=== PATIENT | female | born 1980 | race Two or more races ===

== ENCOUNTER 2020-07-05 11:23 | Outpatient (REF) | payer OTHER, SELFPAY ==
[2020-07-07 10:01] LABS: CDIFF Ag Negative (Negative); CDIFF Internal ctrl Dots and bkg OK (V); CDiff Toxin Negative (Negative)
== END 2020-07-05 11:24 | disposition home or self-care (01) ==
LOC: HO.LNP 11:23
PROVIDERS: Visit Provider Nurse Practitioner
DX: R19.7 Diarrhea, unspecified (principal)
CPT/HCPCS: 87045; 87046; 87324; 87449

== ENCOUNTER → 2020-07-20 09:57 | Outpatient (BNVA) | payer OTHER, SELFPAY | PROVIDERS: PCP Internal Medicine; Referring Provider Internal Medicine; Visit Provider Nurse Practitioner | DX: Z76.89 Persons encountering health services in other specified circumstances (principal) ==

== ENCOUNTER 2020-08-16 12:33 | Outpatient (REF) | payer OTHER, SELFPAY ==
--- NOTE | 2020-08-16 12:37 | CT_ITS ---
EXAMINATION: CT ABDOMEN AND PELVIS WITH CONTRAST CLINICAL INFORMATION: Diarrhea COMPARISON: Previous CT of the abdomen and pelvis April 2018 TECHNIQUE: Multidetector volumetric images were obtained from the superior aspect of the liver through the pubic symphysis following administration 85 mL of Omnipaque 350 intravenous contrast. Sagittal and coronal reformatted images were obtained on the technologist's workstation. Oral contrast: Yes This CT examination was performed using dose optimization techniques as appropriate, variously including the following: *Automated exposure control *Adjustment of mA and/or kV according to patient size (this includes techniques or standardized protocols for targeted exams where dose is matched to indication/reason for exam; i.e. extremities or head) *Use of iterative reconstruction technique DLP: 452 mGy-cm FINDINGS: LUNG BASES: The visualized lung bases are unremarkable. LIVER, GALLBLADDER, AND BILIARY TREE: The liver is normal in size, shape, and attenuation. There are small calcifications in the liver that are stable. No other focal hepatic lesion or biliary ductal dilatation is present. The gallbladder is unremarkable with no evidence of radiopaque gallstones, gallbladder wall thickening, or obvious pericholecystic inflammatory changes. PANCREAS: Unremarkable. SPLEEN: Unremarkable. ADRENAL GLANDS: Unremarkable. KIDNEYS AND URETERS: There are several small bilateral low-attenuation renal lesions. These are difficult to characterize due to small size but probably represent small cysts. BLADDER: Not optimally distended. GASTROINTESTINAL TRACT: There is diverticulosis of the colon. No evidence of diverticulitis is seen. There is mild wall thickening of the sigmoid colon suggestive of colitis. There is a small bowel/duodenal diverticulum adjacent to the head of the pancreas. The appendix has been removed. The stomach is unremarkable. ABDOMINAL WALL: No significant hernia is appreciated. LYMPH NODES: Normal. VASCULAR: Unremarkable. PELVIC VISCERA: Unremarkable. OSSEOUS STRUCTURES: Unremarkable. CT/CT abdomen pelvis w con IMPRESSION: Mild wall thickening of the sigmoid colon suggestive of colitis. Diverticulosis of the colon. No evidence of diverticulitis.
[2020-08-16] MEDS: Barium Sulfate Oral (Vanilla) 450 ML ORAL.SUSP 900 ML PO (15:09)
[2020-08-16] MEDS: iohexoL 350 MG/ML 100 ML INFUS..BTL IV (15:09)
== END 2020-08-16 12:34 | disposition home or self-care (01) ==
LOC: HO.CT 12:33
PROVIDERS: PCP Internal Medicine; Visit Provider Nurse Practitioner
DX: R19.7 Diarrhea, unspecified (principal); R10.9 Unspecified abdominal pain
CPT/HCPCS: 74177; Q9967

== ENCOUNTER → 2020-10-07 15:00 | Outpatient (BNV) | payer OTHER, SELFPAY | PROVIDERS: PCP Internal Medicine; Visit Provider Internal Medicine | DX: E53.8 Deficiency of other specified B group vitamins (principal) | CPT/HCPCS: 99213; 99214 ==

== ENCOUNTER → 2020-10-17 13:50 | Outpatient (BNVA) | payer OTHER, SELFPAY | PROVIDERS: PCP Internal Medicine; Visit Provider Nurse Practitioner | DX: Z13.89 Encounter for screening for other disorder (principal) | CPT/HCPCS: 99212 ==

== ENCOUNTER → 2021-01-13 14:57 | Outpatient (BNVA) | payer OTHER, SELFPAY | PROVIDERS: Visit Provider Nurse Practitioner ==

== ENCOUNTER → 2021-03-07 08:51 | Outpatient (BNVA) | payer OTHER, SELFPAY | PROVIDERS: PCP Internal Medicine; Visit Provider Nurse Practitioner ==

== ENCOUNTER 2021-03-09 13:04 | Outpatient (REF) | payer OTHER, SELFPAY ==
[2021-03-09 14:22] LABS: MANUAL DIFF FLAG NO
[2021-03-09 14:28] LABS: Basophils Percent Auto 0.8 % (0-2); Eosinophils Absolute Auto 0.2 X10*3/uL (0.0-0.4); Eosinophils Percent Auto 3.9 % (0-4); Hematocrit 36.8 % (37-47); Hemoglobin 11.1 g/dl (12.0-16.0); Imm Gran Abs Auto 0.01 X10*3/uL (0.00-0.03); Imm Gran Pct Auto 0.2 % (0.0-0.4); Lymphocytes Absolute Auto 1.5 X10*3/uL (1.2-4.9); Mean Corpuscular HGB Conc 30.2 g/dl (31.0-35.0); Mean Corpuscular Hemoglobin 27.8 pg (27.0-33.0); Mean Platelet Volume 11.7 fL (9.4-12.3); Monocytes Absolute Auto 0.4 X10*3/uL (0.1-1.2); Monocytes Percent Auto 7.2 % (2-11); Neutrophils Percent Auto 57.9 % (45-73); Platelet Count 252 X10*3/uL (160-400); Red Cell Distribution Width 13.3 % (11.0-16.0); White Blood Count 5.1 X10*3/uL (4.8-10.8)
[2021-03-09 14:45] LABS: Blood Urea Nitrogen 13 mg/dL (9-16); C Reactive Protein 0.33 mg/dL (< or = 0.50); Estimated Glomerular Filt Rate > 60
[2021-03-09 15:13] LABS: Folate 19.1 ng/mL (> or = 4.0); Vitamin B12 382 pg/mL (200-900)
[2021-03-15 21:31] LABS: Calprotectin, Fecal 7 mcg/g
== END 2021-03-09 13:05 | disposition home or self-care (01) ==
LOC: HO.LAB 13:04
PROVIDERS: PCP Internal Medicine; Visit Provider Nurse Practitioner
DX: R10.9 Unspecified abdominal pain (principal); K52.9 Noninfective gastroenteritis and colitis, unspecified; E53.8 Deficiency of other specified B group vitamins
CPT/HCPCS: 36415; 81479; 82397; 82565; 82607; 82746; 83520; 83993; 84520; 85025; 86140; 88346; 88350

== ENCOUNTER → 2021-03-16 14:56 | Outpatient (BNVA) | payer OTHER, SELFPAY | PROVIDERS: PCP Internal Medicine; Referring Provider Internal Medicine; Visit Provider Surgery ==

== ENCOUNTER → 2021-03-24 14:35 | Outpatient (BNVA) | payer OTHER, SELFPAY | PROVIDERS: PCP Internal Medicine; Visit Provider Nurse Practitioner ==

== ENCOUNTER 2021-05-01 15:04 | Outpatient (REF) | payer OTHER, SELFPAY ==
[2021-05-01 16:58] LABS: Blood Urea Nitrogen 12 mg/dL (9-16); Estimated Glomerular Filt Rate > 60
== END 2021-05-01 15:05 | disposition home or self-care (01) ==
LOC: HO.LAB 15:04
PROVIDERS: PCP Internal Medicine; Referring Provider Internal Medicine; Visit Provider Surgery
DX: K57.90 Diverticulosis of intestine, part unspecified, without perforation or abscess without bleeding (principal)
CPT/HCPCS: 36415; 82565; 84520; 99212

== ENCOUNTER → 2021-05-02 10:05 | Outpatient (BNVA) | payer OTHER, SELFPAY | PROVIDERS: PCP Internal Medicine; Referring Provider Internal Medicine; Visit Provider Internal Medicine | DX: R06.02 Shortness of breath (principal); R00.2 Palpitations | CPT/HCPCS: 93005; 99202 ==

== ENCOUNTER → 2021-06-09 13:08 | Outpatient (REF) | payer OTHER, SELFPAY ==
--- NOTE | 2021-06-09 13:13 | HM_ITS ---
Total monitoring time 3 days and 17 hours. Underlying rhythm is sinus. Minimum heart rate 60/Min. Maximum 149/Min. Average 76/Min. No atrial fibrillation or flutter. Rare supraventricular ectopy. [place] 0.6%. Very rare ventricular ectopy with minimal burden. No patient events. MTDD
== END ==
LOC: HO.CARD 13:08
PROVIDERS: PCP Internal Medicine; Visit Provider Internal Medicine
DX: R00.2 Palpitations (principal)
CPT/HCPCS: 93242

== ENCOUNTER → 2021-06-15 12:56 | Outpatient (REF) | payer OTHER, SELFPAY | LOC: HO.SL 12:56 | PROVIDERS: Visit Provider Internal Medicine | DX: G47.33 Obstructive sleep apnea (adult) (pediatric) (principal) | CPT/HCPCS: 95806 ==

== ENCOUNTER 2021-06-22 14:22 | Outpatient (REF) | payer OTHER, SELFPAY ==
--- NOTE | ~2021-06-22 | CT_ITS ---
EXAMINATION: CT ABDOMEN AND PELVIS WITH CONTRAST CLINICAL INFORMATION: Diverticulosis. COMPARISON: Prior CT examinations, most recently 08/16/2020. TECHNIQUE: Multidetector volumetric images were obtained from the superior aspect of the liver through the pubic symphysis following administration 85 mL of Omnipaque 350 intravenous contrast. Sagittal and coronal reformatted images were obtained on the technologist's workstation. Oral contrast: No This CT examination was performed using dose optimization techniques as appropriate, variously including the following: *Automated exposure control *Adjustment of mA and/or kV according to patient size (this includes techniques or standardized protocols for targeted exams where dose is matched to indication/reason for exam; i.e. extremities or head) *Use of iterative reconstruction technique DLP: 432 mGy-cm FINDINGS: LUNG BASES: The visualized lung bases are unremarkable. LIVER, GALLBLADDER, AND BILIARY TREE: The liver is normal in size, shape, and mildly diminished in attenuation. No focal hepatic lesion or biliary ductal dilatation is present. The gallbladder is unremarkable with no evidence of radiopaque gallstones, gallbladder wall thickening, or obvious pericholecystic inflammatory changes. PANCREAS: Unremarkable. SPLEEN: Unremarkable. ADRENAL GLANDS: Unremarkable. KIDNEYS AND URETERS: The kidneys are normal in size, shape, and attenuation. No hydronephrosis, hydroureter, or calculi seen. No perinephric stranding. BLADDER: Unremarkable. GASTROINTESTINAL TRACT: There is moderate colonic diverticulosis, without acute diverticulitis. No bowel obstruction, free intraperitoneal air or abscess is seen. There is no focal bowel wall thickening. The vermiform appendix is surgically absent. ABDOMINAL WALL: No significant hernia is appreciated. LYMPH NODES: Normal. VASCULAR: Unremarkable. PELVIC VISCERA: The uterus is anteverted. A 2.8 x 1.9 cm low-attenuation anterior uterine body fibroid is questioned. The ovaries are unremarkable. No adnexal mass is seen. OSSEOUS STRUCTURES: Unremarkable. CT/CT abdomen pelvis w con IMPRESSION: 1. There is moderate colonic diverticulosis, without acute diverticulitis. No bowel obstruction, free intraperitoneal air or abscess is seen. There is no focal bowel wall thickening. The vermiform appendix is surgically absent. 2. There is mild hepatic steatosis. 3. A 2.8 cm uterine fibroid is questioned. This could be further evaluated with pelvic ultrasound, if clinically indicated.
[2021-06-22] MEDS: iohexoL 350 MG/ML 100 ML INFUS..BTL IV (15:49)
== END 2021-06-22 14:23 | disposition home or self-care (01) ==
LOC: HO.CT 14:22
PROVIDERS: Visit Provider Surgery
DX: K57.90 Diverticulosis of intestine, part unspecified, without perforation or abscess without bleeding (principal)
CPT/HCPCS: 74177; Q9967

== ENCOUNTER 2021-06-27 20:43 | Emergency (ER) | payer OTHER, SELFPAY ==
--- NOTE | ~2021-06-27 | CT_ITS ---
EXAMINATION: CT ABDOMEN AND PELVIS WITH CONTRAST CLINICAL INFORMATION: Left lower quadrant pain COMPARISON: CT abdomen pelvis dated 06/22/2021 and 08/16/2020 TECHNIQUE: Multidetector volumetric images were obtained from the superior aspect of the liver through the pubic symphysis following administration 85 mL of Omnipaque 350 intravenous contrast. Sagittal and coronal reformatted images were obtained on the technologist's workstation. Oral contrast: No This CT examination was performed using dose optimization techniques as appropriate, variously including the following: *Automated exposure control *Adjustment of mA and/or kV according to patient size (this includes techniques or standardized protocols for targeted exams where dose is matched to indication/reason for exam; i.e. extremities or head) *Use of iterative reconstruction technique DLP: 616 mGy-cm FINDINGS: LUNG BASES: The visualized lung bases are unremarkable. LIVER, GALLBLADDER, AND BILIARY TREE: The liver is normal in size, shape, and attenuation. No focal hepatic lesion or biliary ductal dilatation is present. The gallbladder is unremarkable with no evidence of radiopaque gallstones, gallbladder wall thickening, or obvious pericholecystic inflammatory changes. PANCREAS: Unremarkable. SPLEEN: Unremarkable. ADRENAL GLANDS: Unremarkable. KIDNEYS AND URETERS: The kidneys are normal in size, shape, and attenuation. No hydronephrosis, hydroureter, or calculi seen. No perinephric stranding. BLADDER: Unremarkable. GASTROINTESTINAL TRACT: The small and large bowel are unremarkable aside from colonic diverticula without diverticulitis. The appendix has been removed. ABDOMINAL WALL: No significant hernia is appreciated. LYMPH NODES: No retroperitoneal lymphadenopathy. VASCULAR: Unremarkable. PELVIC VISCERA: An anteverted uterus is present. No definite fibroid is seen. An abnormal adnexal mass is not present. No free intraperitoneal fluid is seen. OSSEOUS STRUCTURES: Unremarkable. CT/CT abdomen pelvis w con IMPRESSION: 1. Significant abnormality to correspond patient's left lower quadrant pain is not seen. 2. Incidental note made of colonic diverticulosis without diverticulitis and appendectomy changes.
[2021-06-27 22:26] VITALS: BP 106/69; PULSE 81; RESP 18; TEMP 36.8; O2SAT 100; BMI 29.8
[2021-06-27 22:43] LABS: Appearance Urine HAZY; Color Urine YELLOW; Glucose Urine UA NEG (NEG); Leukocyte Esterase Urine NEG (NEG); Nitrite Urine NEG (NEG); Urine Blood NEG (NEG); Urine Ketones NEG (NEG); Urine Protein NEG (NEG-TRACE)
--- NOTE | 2021-06-27 22:43 | ED.ABDPAIN ---
HPI - Abdominal Pain General Chief Complaint: Abdominal Pain Stated Complaint: abd pain Time Seen by Provider: 06/27/21 21:58 Source: patient Mode of arrival: ambulatory Limitations: no limitations History of Present Illness MD elicited complaint: abdominal pain Pertinent past history: diverticulitis Onset (ago): day(s) (chronic but worse yesterday ) Pain Consistency: constant Location: LLQ Severity: severe Radiation: none Migration to: no migration Exacerbating factors: movement Relieving factors: nothing Context: history of similar episodes Associated symptoms: nausea and diarrhea Related Data Home Medications Medication Instructions Recorded Confirmed hydrocortisone 2.5 % topical cream 1 applic [place] BID-QID PRN 06/20/20 05/02/21 with perineal applicator (Anusol-HC) clonazepam 0.5 mg tablet 1 tab PO DAILY PRN 10/07/20 05/02/21 meclizine 25 mg tablet 1 tab PO DAILY 10/07/20 05/02/21 fluoxetine 40 mg capsule 40 mg PO QAM 10/17/20 05/02/21 hydroxyzine HCl 25 mg tablet 25 mg PO TID 10/17/20 05/02/21 ketoconazole 2 % topical cream appl TOPICAL BID 10/17/20 05/02/21 metronidazole 0.75 % topical cream appl TOPICAL BID 10/17/20 05/02/21 triamcinolone acetonide 0.1 % appl TOPICAL BID 10/17/20 05/02/21 topical cream hydroxyzine pamoate 25 mg capsule 25 mg PO BEDTIME 03/07/21 05/02/21 (Vistaril) lactobacillus combination no.4 3 3,000 mmu cells PO DAILY 03/24/21 05/02/21 billion cell capsule (Probiotic) wheat dextrin 3 gram/3.5 gram oral 1.5 g PO BID 03/24/21 05/02/21 powder (Best Fiber) prednisone 20 mg tablet 20 mg PO BID 05/02/21 05/02/21 Previous Rx's Medication Instructions Recorded ondansetron 4 mg disintegrating 4 mg PO Q8H PRN 30 Days #90 tab 10/17/20 tablet albuterol sulfate 90 mcg/actuation 2 puff INHALATION Q4-6H PRN 30 06/17/21 aerosol inhaler Days #8.5 g gabapentin 100 mg capsule 100 mg PO BID 90 Days #180 cap 06/17/21 tramadol 50 mg tablet 50 mg PO Q8H PRN 30 Days #90 tab 06/17/21 amoxicillin 875 mg-potassium 1 tab PO BID #14 tab 06/28/21 clavulanate 125 mg tablet (Augmentin) morphine 15 mg immediate release 15 mg PO Q6H PRN 3 Days #8 tab 06/28/21 tablet ondansetron 4 mg disintegrating 4 mg PO Q8H PRN #20 tab 06/28/21 tablet Allergies Allergy/AdvReac Type Severity Reaction Status Date / Time No Known Allergies Allergy Verified 06/27/21 22:25 [No Known Allergies*] Review of Systems Review of Systems Constitutional : No Weight loss, No Fever, No Chills ENT/Mouth : No sore throat, No Rhinorrhea Eyes: No Swelling, No Redness Cardiovascular : No Chest Pain, No SOB, NoEdema Respiratory : No Cough, No Sputum, No Wheezing Gastrointestinal : Positive Nausea, no Vomiting, positive Diarrhea, positive abdominal Pain, No Hematochezia, No Melena Genitourinary : No Dysuria, No Urinary Frequency, No Hematuria, No Urgency Musculoskeletal : No joint pain, No Myalgias, No Joint Swelling Skin : No Skin Lesions, No rash Neuro : No Weakness, No Numbness, No Dizziness, No Headache Psych : No Anxiety/Panic, No Depression Heme/Lymph: No Bruising, No Lymphadenopathy Endocrine : No Polyuria, No Polydipsia All other systems reviewed and are negative. Physical Exam Vital Signs: Vital Signs: Last Vital Signs Temp 98.1 F 06/27/21 22:51 Pulse 78 06/27/21 22:51 Resp 18 06/27/21 22:51 BP 111/71 06/27/21 22:51 Pulse Ox 100 06/27/21 22:51 Body Mass Index 29.8 Appearance: Alert. Oriented X3. No acute distress. Eyes: Pupils equal, round and reactive to light. ENT: Pharynx normal. Neck: Normal inspection. Neck supple. CVS: Normal heart rate and rhythm. Pulses normal. Respiratory: No respiratory distress. Breath sounds normal. Abdomen: Soft and moderate LLQ pain no rebound Skin: Skin warm and dry. Normal skin color. Normal skin turgor. Extremities: No lower extremity edema. No calf ttp Neuro: Oriented X 3. No motor deficit. No sensory deficit. Course Course Course Narrative: no WBC count negative CT scan - possible clinical diverticulitis will start on augmentin and PO pain medications DC home MDM - Abdominal Pain MDM Narrative Medical decision making narrative: 40 yo female with recurrent diverticulitis - last medications levo/flagyl/prednisone which she feels did not help her about a month ago reports worsening pain and diarrhea - at this time will need labs, IVF morphine for pain CT scan to evaluate extent of disease/abscess. Dispo per results and findings. Lab Data Result diagrams: 06/27/21 22:54 06/27/21 22:54 Labs: Lab Results 06/27/21 06/27/21 06/27/21 Range/Units 22:34 22:34 22:52 WBC (4.8-10.8) X10*3/uL RBC (4.20-5.50) X10*6/uL Hgb (12.0-16.0) g/dl Hct (37.0-47.0) % MCV (80.0-98.0) fL MCH (27.0-33.0) pg MCHC (31.0-35.0) g/dl RDW (11.0-16.0) % Plt Count (160-400) X10*3/uL MPV (9.4-12.3) fL Immature Gran % (Auto) (0.0-0.4) % Neut % (Auto) (45-73) % Lymph % (Auto) (20-40) % [place] % (Auto) (2-11) % Eos % (Auto) (0-4) % Baso % (Auto) (0-2) % Lymph # (Auto) (1.2-4.9) X10*3/uL [place] # (Auto) (0.1-1.2) X10*3/uL Eos # (Auto) (0.0-0.4) X10*3/uL Baso # (Auto) (0.0-0.2) X10*3/uL Abs Immat Gran (auto) (0.00-0.03) X10*3/uL Absolute Neuts (auto) (2.0-8.3) x10*3/uL Absolute Nucleated RBC (0.0-0.012) X10*3/uL Nucleated RBC % (auto) (0.0-0.2) /100WBC Sodium (135-145) mmol/L Potassium (3.3-5.1) mmol/L Chloride (96-108) mmol/L Carbon Dioxide (22-29) mmol/L Anion Gap (12-20) BUN (9-16) mg/dL Creatinine (0.5-1.4) mg/dL Estim Creat Clear Calc Estimated GFR Random Glucose (60-115) mg/dL Lactic Acid (0.5-2.0) mmol/L Calcium (8.4-10.2) mg/dL Magnesium (1.6-2.6) mg/dL Total Bilirubin (0.0-1.0) mg/dL Direct Bilirubin (0.0-0.5) mg/dL AST (5-31) U/L ALT (0-31) U/L Alkaline Phosphatase (39-117) U/L Total Protein (6.5-8.0) g/dL Albumin (3.5-5.0) g/dL Lipase (8-78) U/L Urine Color YELLOW Urine Appearance HAZY Urine pH 7.0 (5.0-8.0) Ur Specific [place] 1.020 (1.005-1.025) Urine Protein NEG (NEG-TRACE) MG/DL Urine Glucose (UA) NEG (NEG) MG/DL Urine Ketones NEG (NEG) MG/DL Urine Blood NEG (NEG) Urine Nitrite NEG (NEG) Ur Leukocyte Esterase NEG (NEG) Urine Test NEGATIVE (NEGATIVE) COVID-19 (ROSALINDA) Negative (Negative) COVID-19 Clin Com See Note 06/27/21 06/27/21 06/27/21 Range/Units 22:54 22:54 22:54 WBC 8.2 (4.8-10.8) X10*3/uL RBC 3.86 L (4.20-5.50) X10*6/uL Hgb 11.2 L (12.0-16.0) g/dl Hct 35.4 L (37.0-47.0) % MCV 91.7 (80.0-98.0) fL MCH 29.0 (27.0-33.0) pg MCHC 31.6 (31.0-35.0) g/dl RDW 13.3 (11.0-16.0) % Plt Count 325 (160-400) X10*3/uL MPV 10.2 (9.4-12.3) fL Immature Gran % (Auto) 0.1 (0.0-0.4) % Neut % (Auto) 59.4 (45-73) % Lymph % (Auto) 27.2 (20-40) % [place] % (Auto) 8.1 (2-11) % Eos % (Auto) 4.6 H (0-4) % Baso % (Auto) 0.6 (0-2) % Lymph # (Auto) 2.2 (1.2-4.9) X10*3/uL [place] # (Auto) 0.7 (0.1-1.2) X10*3/uL Eos # (Auto) 0.4 (0.0-0.4) X10*3/uL Baso # (Auto) 0.1 (0.0-0.2) X10*3/uL Abs Immat Gran (auto) 0.01 (0.00-0.03) X10*3/uL Absolute Neuts (auto) 4.9 (2.0-8.3) x10*3/uL Absolute Nucleated RBC 0.000 (0.0-0.012) X10*3/uL Nucleated RBC % (auto) 0.0 (0.0-0.2) /100WBC Sodium 143 (135-145) mmol/L Potassium 4.3 (3.3-5.1) mmol/L Chloride 106 (96-108) mmol/L Carbon Dioxide 31 H (22-29) mmol/L Anion Gap 10 L (12-20) BUN 10 (9-16) mg/dL Creatinine 0.81 (0.5-1.4) mg/dL Estim Creat Clear Calc 88.6 Estimated GFR > 60 Random Glucose 104 (60-115) mg/dL Lactic Acid 1.6 (0.5-2.0) mmol/L Calcium 9.2 (8.4-10.2) mg/dL Magnesium 2.2 (1.6-2.6) mg/dL Total Bilirubin 0.3 (0.0-1.0) mg/dL Direct Bilirubin < 0.2 (0.0-0.5) mg/dL AST 17 (5-31) U/L ALT 15 (0-31) U/L Alkaline Phosphatase 80 (39-117) U/L Total Protein 6.9 (6.5-8.0) g/dL Albumin 4.2 (3.5-5.0) g/dL Lipase 35 (8-78) U/L Urine Color Urine Appearance Urine pH (5.0-8.0) Ur Specific [place] (1.005-1.025) Urine Protein (NEG-TRACE) MG/DL Urine Glucose (UA) (NEG) MG/DL Urine Ketones (NEG) MG/DL Urine Blood (NEG) Urine Nitrite (NEG) Ur Leukocyte Esterase (NEG) Urine Test (NEGATIVE) COVID-19 (ROSALINDA) (Negative) COVID-19 Clin Com Discharge Plan Discharge Clinical Impression: Abdominal pain Qualifiers: Abdominal location: left lower quadrant Qualified Code(s): R10.32 - Left lower quadrant pain Patient Disposition: Home, Self-Care Instructions: Abdominal Pain (ED) Additional Instructions: return to ED for any worsening symptoms or concerns Prescriptions: New morphine 15 mg tablet 15 mg PO Q6H PRN (Reason: pain) 3 Days Qty: 8 RF: 0 ondansetron 4 mg tablet,disintegrating 4 mg PO Q8H PRN (Reason: nausea and vomiting) Qty: 20 RF: 0 amoxicillin-pot clavulanate [Augmentin] 875-125 mg tablet 1 tab PO BID Qty: 14 RF: 0 No Action albuterol sulfate 90 mcg/actuation HFA aerosol inhaler 2 puff inhalation Q4-6H PRN (Reason: shortness of breath or wheezing) 30 Days Qty: 8.5 RF: 6 gabapentin 100 mg capsule 100 mg PO BID 90 Days Qty: 180 RF: 3 tramadol 50 mg tablet 50 mg PO Q8H PRN (Reason: pain) 30 Days Qty: 90 RF: 0 clonazepam 0.5 mg tablet 1 tab PO DAILY PRN (Reason: Panic Attack(S)) RF: 0 meclizine 25 mg tablet 1 tab PO DAILY RF: 0 ketoconazole 2 % cream topical BID RF: 0 metronidazole 0.75 % cream topical BID RF: 0 triamcinolone acetonide 0.1 % cream topical BID RF: 0 hydroxyzine HCl 25 mg tablet 25 mg PO TID RF: 0 fluoxetine 40 mg capsule 40 mg PO QAM RF: 0 ondansetron 4 mg tablet,disintegrating 4 mg PO Q8H PRN (Reason: nausea and vomiting) 30 Days Qty: 90 RF: 1 Best Fiber 3 gram/3.5 gram powder 1.5 g PO BID RF: 0 Probiotic 3 billion cell capsule 3,000 mmu cells PO DAILY RF: 0 prednisone 20 mg tablet 20 mg PO BID RF: 0 hydrocortisone [Anusol-HC] 2.5 % cream with perineal applicator 1 applic [place] BID-QID PRN (Reason: Rash) RF: 0 hydroxyzine pamoate [Vistaril] 25 mg capsule 25 mg PO BEDTIME RF: 0 PMFSH Past Medical History Attestation statement: The following information was validated with the patient. Medical History Arthritis Colitis Diverticular disease Fibromyalgia Surgical History History of appendectomy History of esophagogastroduodenoscopy (EGD) History of lithotripsy History of tubal ligation Family History Family History Father Diabetes Hypertension CVD (cardiovascular disease) Heart disease FH: mental illness Mother Asthma Family history of cancer Maternal Grandmother Diabetes Maternal Grandfather Colon cancer Maternal Aunt Colon cancer Family/Other Breast cancer Family/Other Pancreatic cancer Social History Social History Alcohol intake: current Alcohol intake frequency: does not drink Patient Tobacco Use Status: Never used Tobacco Advance Directives: No Advance Directives Information Provided: Yes
[2021-06-27 22:45] LABS: UPreg QC Valid YES; Urine Pregnancy NEGATIVE (NEGATIVE)
[2021-06-27 22:51] VITALS: BP 111/71; PULSE 78; RESP 18; TEMP 36.7; O2SAT 100
[2021-06-27 23:04] LABS: Basophils Absolute Auto 0.1 X10*3/uL (0.0-0.2); Basophils Percent Auto 0.6 % (0-2); Eosinophils Absolute Auto 0.4 X10*3/uL (0.0-0.4); Eosinophils Percent Auto 4.6 % (0-4); Hematocrit 35.4 % (37.0-47.0); Hemoglobin 11.2 g/dl (12.0-16.0); Imm Gran Abs Auto 0.01 X10*3/uL (0.00-0.03); Imm Gran Pct Auto 0.1 % (0.0-0.4); Lymphocytes Absolute Auto 2.2 X10*3/uL (1.2-4.9); Lymphocytes Percent Auto 27.2 % (20-40); MANUAL DIFF FLAG NO; Mean Corpuscular HGB Conc 31.6 g/dl (31.0-35.0); Mean Corpuscular Volume 91.7 fL (80.0-98.0); Mean Platelet Volume 10.2 fL (9.4-12.3); Monocytes Absolute Auto 0.7 X10*3/uL (0.1-1.2); Monocytes Percent Auto 8.1 % (2-11); Neutrophils Absolute Auto 4.9 x10*3/uL (2.0-8.3); Neutrophils Percent Auto 59.4 % (45-73); Platelet Count 325 X10*3/uL (160-400); Red Blood Count 3.86 X10*6/uL (4.20-5.50); Red Cell Distribution Width 13.3 % (11.0-16.0); White Blood Count 8.2 X10*3/uL (4.8-10.8)
[2021-06-27] MEDS: ondansetron HCL 4 MG/2 ML VIAL IVPUSH (23:04)
[2021-06-27] MEDS: 0.9 % Sodium Chloride 1,000 ML 999 ML IVCONT (23:04)
[2021-06-27] MEDS: Morphine Sulfate 4 MG/ML CARTRIDGE IVPUSH (23:04)
--- NOTE | 2021-06-27 23:06 | PC.NURSE ---
IV established, all labs including Covid swab obtained. Pt medicated per MAR with Morphine for 6/10 pain and IVF. Pt resting in bed, VSS @ this time. Call romero within reach, continue to monitor.
[2021-06-27 23:11] LABS: COVID-19 Test Negative (Negative); IDNOW Serial# 55D5AD1C
[2021-06-27 23:16] LABS: Lactic Acid 1.6 mmol/L (0.5-2.0)
[2021-06-27 23:21] LABS: Alanine Aminotransferase 15 U/L (0-31); Albumin Level 4.2 g/dL (3.5-5.0); Alkaline Phosphatase 80 U/L (39-117); Anion Gap 10 (12-20); Aspartate Amino Transferase 17 U/L (5-31); Bilirubin Direct < 0.2 mg/dL (0.0-0.5); Bilirubin Total 0.3 mg/dL (0.0-1.0); Blood Urea Nitrogen 10 mg/dL (9-16); Calcium 9.2 mg/dL (8.4-10.2); Carbon Dioxide 31 mmol/L (22-29); Chloride 106 mmol/L (96-108); Creatinine Clr Calc Pharmacy 88.6; Estimated Glomerular Filt Rate > 60; Glucose Random 104 mg/dL (60-115); Lipase 35 U/L (8-78); Magnesium 2.2 mg/dL (1.6-2.6); Potassium 4.3 mmol/L (3.3-5.1); Sodium 143 mmol/L (135-145); Total Protein 6.9 g/dL (6.5-8.0)
[2021-06-27] MEDS: iohexoL 350 MG/ML 100 ML INFUS..BTL 85 ML IV (23:48)
== END 2021-06-28 01:31 | disposition home or self-care (01) ==
PROVIDERS: Emergency Provider Emergency Medicine; PCP Internal Medicine
DX: R10.32 Left lower quadrant pain (principal); Z20.822 Contact with and (suspected) exposure to COVID-19
CPT/HCPCS: 36415; 74177; 80048; 80076; 81003; 81025; 83605; 83690; 83735; 85025; 87635; 96361; 96374; 96375; 99283; 99284; J2270; J2405; Q9967

== ENCOUNTER → 2021-06-29 13:13 | Outpatient (BNVA) | payer OTHER, SELFPAY | PROVIDERS: PCP Internal Medicine; Referring Provider Internal Medicine; Visit Provider Surgery | DX: Z87.19 Personal history of other diseases of the digestive system (principal) | CPT/HCPCS: 99212 ==

== ENCOUNTER 2021-08-07 10:59 | Outpatient (REF) | payer OTHER, SELFPAY | END 2021-08-07 11:00 | disposition home or self-care (01) | LOC: HO.LAB 10:59 | PROVIDERS: PCP Internal Medicine; Referring Provider Internal Medicine; Visit Provider Surgery | DX: L72.0 Epidermal cyst (principal) | CPT/HCPCS: 11403; 88304; 99212 ==

== ENCOUNTER → 2021-08-17 11:38 | Outpatient (BNVA) | payer OTHER, SELFPAY | PROVIDERS: PCP Internal Medicine; Referring Provider Internal Medicine; Visit Provider Surgery | DX: Z48.817 Encounter for surgical aftercare following surgery on the skin and subcutaneous tissue (principal); Z87.2 Personal history of diseases of the skin and subcutaneous tissue | CPT/HCPCS: 99212 ==

== ENCOUNTER → 2021-09-29 16:14 | Outpatient (BNVA) | payer OTHER, SELFPAY | PROVIDERS: PCP Internal Medicine; Referring Provider Internal Medicine; Visit Provider Nurse Practitioner | DX: K21.9 Gastro-esophageal reflux disease without esophagitis (principal); K59.04 Chronic idiopathic constipation; A04.8 Other specified bacterial intestinal infections; R19.7 Diarrhea, unspecified; R10.9 Unspecified abdominal pain; R11.2 Nausea with vomiting, unspecified; Z87.19 Personal history of other diseases of the digestive system | CPT/HCPCS: 99212 ==

== ENCOUNTER 2021-12-21 15:44 | Outpatient (REF) | payer OTHER, SELFPAY ==
--- NOTE | ~2021-12-21 | XR_ITS ---
EXAMINATION: XR KNEE, LEFT CLINICAL INFORMATION: Pain COMPARISON: Previous x-ray February 2019 TECHNIQUE: Three views of the left knee. FINDINGS: Bone alignment is normal. No fracture or dislocation is seen. There is slight lateral tilt of the patella. Joint spaces are otherwise normal. There is no joint effusion. XR/XR knee LT 3V IMPRESSION: Slight lateral tilt of patella otherwise unremarkable exam.
== END 2021-12-21 15:45 | disposition home or self-care (01) ==
LOC: HO.XRAY 15:44
PROVIDERS: PCP Internal Medicine; Visit Provider Internal Medicine
DX: M25.562 Pain in left knee (principal)
CPT/HCPCS: 73562

== ENCOUNTER → 2022-03-16 16:09 | Outpatient (BNVA) | payer OTHER, SELFPAY | PROVIDERS: PCP Internal Medicine; Visit Provider Nurse Practitioner | DX: R19.7 Diarrhea, unspecified (principal); K21.9 Gastro-esophageal reflux disease without esophagitis; A04.8 Other specified bacterial intestinal infections; K57.92 Diverticulitis of intestine, part unspecified, without perforation or abscess without bleeding; R10.9 Unspecified abdominal pain | CPT/HCPCS: 99212 ==

== ENCOUNTER 2022-07-16 13:34 | Outpatient (REF) | payer OTHER, SELFPAY ==
[2022-07-16 13:52] LABS: MANUAL DIFF FLAG NO
[2022-07-16 15:02] LABS: Basophils Percent Auto 0.7 % (0-2); Eosinophils Absolute Auto 0.2 X10*3/uL (0.0-0.4); Eosinophils Percent Auto 4.5 % (0-4); Hematocrit 34.5 % (37.0-47.0); Hemoglobin 10.3 g/dl (12.0-16.0); Imm Gran Abs Auto 0.01 X10*3/uL (0.00-0.03); Imm Gran Pct Auto 0.2 % (0.0-0.4); Lymphocytes Absolute Auto 1.6 X10*3/uL (1.2-4.9); Lymphocytes Percent Auto 29.8 % (20-40); Mean Corpuscular HGB Conc 29.9 g/dl (31.0-35.0); Mean Corpuscular Volume 87.1 fL (80.0-98.0); Mean Platelet Volume 10.8 fL (9.4-12.3); Monocytes Absolute Auto 0.4 X10*3/uL (0.1-1.2); Monocytes Percent Auto 7.4 % (2-11); Neutrophils Absolute Auto 3.1 x10*3/uL (2.0-8.3); Neutrophils Percent Auto 57.4 % (45-73); Platelet Count 362 X10*3/uL (160-400); Red Blood Count 3.96 X10*6/uL (4.20-5.50); Red Cell Distribution Width 14.4 % (11.0-16.0); White Blood Count 5.4 X10*3/uL (4.8-10.8)
[2022-07-16 15:31] LABS: Alanine Aminotransferase 14 U/L (0-31); Alkaline Phosphatase 82 U/L (39-117); Anion Gap 11 (12-20); Aspartate Amino Transferase 19 U/L (5-31); Bilirubin Total 0.6 mg/dL (0.0-1.0); Blood Urea Nitrogen 16 mg/dL (9-16); Calcium 9.3 mg/dL (8.4-10.2); Carbon Dioxide 26 mmol/L (22-29); Chloride 106 mmol/L (96-108); Cholesterol 205 mg/dL; Estimated Glomerular Filt Rate > 60; Glucose Fasting 89 mg/dL (60-99); HDL Cholesterol 52 mg/dL; LDL Cholesterol Calculated 131 mg/dl; Potassium 4.4 mmol/L (3.3-5.1); Sodium 139 mmol/L (135-145); Total Protein 6.8 g/dL (6.5-8.0); Triglycerides 111 mg/dL
== END 2022-07-16 13:35 | disposition home or self-care (01) ==
LOC: HO.LAB 13:34
PROVIDERS: PCP Internal Medicine; Visit Provider Internal Medicine
DX: Z00.00 Encounter for general adult medical examination without abnormal findings (principal); K21.9 Gastro-esophageal reflux disease without esophagitis
CPT/HCPCS: 36415; 80053; 80061; 85025

== ENCOUNTER 2022-11-06 10:25 | Day surgery (SDC) | payer OTHER, SELFPAY ==
--- NOTE | 2022-11-05 11:57 | HO.ANESPROP2 ---
Documented by User: Paula Johnson NP 11/05/22 12:00 HPI - Anesthesia Eval Consult details Narrative: 42yo F for Colonoscopy PMFSH Active Problems Active Problems: All Active Problems (Updated 10/31/22 @ 11:56 by Wanda Davalos, VALDE[place]) Diarrhea (Acute) GERD (gastroesophageal reflux disease) (Acute) Chronic idiopathic constipation (Acute) H. pylori infection (Acute) Vitamin B12 deficiency (Chronic) Nausea and vomiting (Acute) SOB (shortness of breath) (Acute) Heart palpitations (Acute) Abdominal cramping (Acute) Rosacea (Acute) Physical exam (Acute) Diverticulitis (Acute) Polyarthralgia (Acute) Left knee pain (Acute) Mild persistent asthma (Acute) Epidermal cyst (Acute) LOVE (generalized anxiety disorder) (Acute) Mild recurrent major depression (Acute) Abscess (Acute) History of diverticulitis (Acute) Fibromyalgia (Acute) Past Medical History Medical History (Updated 10/31/22 @ 11:56 by Wanda Davalos RN) Abdominal pain Abscess Arthritis Colitis with complication Diverticular disease Epidermal cyst Fibromyalgia LOVE (generalized anxiety disorder) GERD (gastroesophageal reflux disease) Heart palpitations History of diverticulitis Left knee pain Mild persistent asthma Mild recurrent major depression TRUDY (obstructive sleep apnea) Panic attacks Polyarthralgia Family History Family History Father Diabetes Hypertension CVD (cardiovascular disease) Heart disease FH: mental illness Mother Asthma Family history of cancer Maternal Grandmother Diabetes Maternal Grandfather Colon cancer Maternal Aunt Colon cancer Family/Other Breast cancer Family/Other Pancreatic cancer Surgical History Surgical History (Updated 10/29/22 @ 15:51 by Vinita Mosley MD) H/O LEEP History of appendectomy History of esophagogastroduodenoscopy (EGD) History of lithotripsy History of removal of cyst (~08/07/21) History of tubal ligation Social History Social History Housing: Apartment Alcohol intake: never Patient Tobacco Use Status: Never used Tobacco e-Cigarette/Vaping Use: Never Used Second Hand Smoke Exposure: No Use of substances other than those prescribed or required for medical reasons: No Are you DNR?: No Advance Directives: No Advance Directives Information Provided: Yes service: No Current occupational status: unemployed Cognitive needs: No Hearing needs: No Vision needs: No Meds Allergies Allergy/AdvReac Type Severity Reaction Status Date / Time No Known Allergies Allergy Verified 10/31/22 11:14 [No Known Allergies*] Home Medications Medication Instructions Recorded Confirmed Last Taken Type clonazepam 0.5 mg tablet 1 tab PO DAILY PRN Panic Attack(S) 10/07/20 10/31/22 Unknown History hydroxyzine HCl 25 mg tablet 25 mg PO TID 10/17/20 10/31/22 Unknown History hydroxyzine pamoate 25 mg capsule 25 mg PO BEDTIME 03/07/21 10/31/22 Unknown History (Vistaril) lactobacillus combination no.4 3 3,000 mmu cells PO DAILY 03/24/21 10/31/22 Unknown History billion cell capsule (Probiotic) fluticasone propionate 50 1 spray intranasal DAILY 09/11/21 10/31/22 Unknown History mcg/actuation nasal spray,suspension fluoxetine 20 mg capsule 20 mg PO QAM 03/16/22 10/31/22 Unknown History Exam Exam Date and Time: November 05, 2022 115 Pertinent Lab Results Pertinent Lab Results: Laboratory Tests 07/16/22 10/29/22 13:51 15:17 WBC 7.2 Hgb 10.9 L Hct 33.9 L Plt Count 367 Sodium 139 Potassium 4.4 Chloride 106 Carbon Dioxide 26 BUN 16 Creatinine 0.78 Assessment and Plan Assessment Anesthesia Assessment: Chart Reviewed Documented by User: Genesis Beth MD 11/06/22 13:35 [facility] Past Medical History Medical History (Updated 10/31/22 @ 11:56 by Wanda Davalos RN) Abdominal pain Abscess Arthritis Colitis with complication Diverticular disease Epidermal cyst Fibromyalgia LOVE (generalized anxiety disorder) GERD (gastroesophageal reflux disease) Heart palpitations History of diverticulitis Left knee pain Mild persistent asthma Mild recurrent major depression TRUDY (obstructive sleep apnea) Panic attacks Polyarthralgia Family History Family History Father Diabetes Hypertension CVD (cardiovascular disease) Heart disease FH: mental illness Mother Asthma Family history of cancer Maternal Grandmother Diabetes Maternal Grandfather Colon cancer Maternal Aunt Colon cancer Family/Other Breast cancer Family/Other Pancreatic cancer Family history of problems with anesthesia: No Surgical History Surgical History (Updated 10/29/22 @ 15:51 by Vinita Mosley MD) H/O LEEP History of appendectomy History of esophagogastroduodenoscopy (EGD) History of lithotripsy History of removal of cyst (~08/07/21) History of tubal ligation History of Problems with Anesthesia: No Social History Social History Housing: Apartment Alcohol intake: never Patient Tobacco Use Status: Never used Tobacco e-Cigarette/Vaping Use: Never Used Second Hand Smoke Exposure: No Use of substances other than those prescribed or required for medical reasons: No Are you DNR?: No Advance Directives: No Advance Directives Information Provided: Yes service: No Current occupational status: unemployed Cognitive needs: No Hearing needs: No Vision needs: No Meds Allergies Allergy/AdvReac Type Severity Reaction Status Date / Time No Known Allergies Allergy Verified 10/31/22 11:14 [No Known Allergies*] Home Medications Medication Instructions Recorded Confirmed Last Taken Type clonazepam 0.5 mg tablet 1 tab PO DAILY PRN Panic Attack(S) 10/07/20 10/31/22 Unknown History hydroxyzine HCl 25 mg tablet 25 mg PO TID 10/17/20 10/31/22 Unknown History hydroxyzine pamoate 25 mg capsule 25 mg PO BEDTIME 03/07/21 10/31/22 Unknown History (Vistaril) lactobacillus combination no.4 3 3,000 mmu cells PO DAILY 03/24/21 10/31/22 Unknown History billion cell capsule (Probiotic) fluticasone propionate 50 1 spray intranasal DAILY 09/11/21 10/31/22 Unknown History mcg/actuation nasal spray,suspension fluoxetine 20 mg capsule 20 mg PO QAM 03/16/22 10/31/22 Unknown History Exam Airway Mallampati Class: II TM Dist: >3cm Neck ROM: Full Heart: rr Lungs: cta Assessment and Plan Final Anesthetic Review Family History of Problems with Anesthesia: No History of Problems with Anesthesia: No NPO: Yes ASA Class: II Final Preanesthetic Review: No Changes in Pt Med Stat, Meds/Allgs Chart Reviewed, Consent Obtained/Reviewed and Anes Risks/Benef Reviewed Patient Risk: Low Procedure Risk: Low Anesthetic Plan Anesthetic Plan: MAC: Disposition: Standard PACU
[2022-11-06 11:14] VITALS: BMI 30.2
[2022-11-06 11:16] VITALS: BP 116/72; PULSE 73; RESP 18; TEMP 36.8; O2SAT 98
[2022-11-06] MEDS: Lactated Ringers 1,000 ML 100 ML IVCONT (11:18)
--- NOTE | 2022-11-06 11:26 | MHC.SHP ---
Pre-Procedural Eval Section A Date of Service: 11/06/22 Section B Chief Complaint: Diverticulitis of intestine,diarrhea Details of Present Illness: grandparent Relevant Family History (Specify if Yes): Yes Relevant Social History: None Present Medications: see Short Stay Collaborative assessment Medical History: Significant History (Abdominal pain Abscess Arthritis Colitis with complication Diverticular disease Epidermal cyst Fibromyalgia LOVE (generalized anxiety disorder) GERD (gastroesophageal reflux disease) Heart palpitations History of diverticulitis Left knee pain Mild persistent asthma Mild recurrent major depression TRUDY) History of Previous Operations: Relevant previous surgery/procedure and date(s) (H/O LEEP History of appendectomy History of esophagogastroduodenoscopy (EGD) History of lithotripsy History of removal of cyst (~08/07/21) History of tubal ligation) Allergies: Allergies Allergy/AdvReac Type Severity Reaction Status Date / Time No Known Allergies Allergy Verified 10/31/22 11:14 [No Known Allergies*] Review of Systems Sugical H&P ROS: Negative: Constitution, Cardiovascular, Respiratory, Neurological, Psychiatric, Hem-Onc, Allergic/Immunologic, Gastrointestinal, Genitourinary, Musculoskeletal, Integumentary, Endocrine and Eyes/Ears/Nose/Throat Exam Surgical H&P Exam: Normal: HEENT, Normal: Heart, Normal: Lungs, Normal: Extremities, Normal: Abdomen, Normal: Skin and Normal: Neurological Plan Diagnosis/Plan: Unchanged I have reviewed the history and physical and performed a pertinent physical examination on my patient. No changes have occurred unless specified. Time Spent With Patient Time: Total time managing care of this patient today ____ minutes.
--- NOTE | 2022-11-06 11:52 | W.PM.OPN ---
Operative Note Operative Note Date of Service: 11/06/22 Narrative: Operative Information Procedure Description: Colonoscopy Indication: hx of diverticulitis Anesthesia: MAC COLONOSCOPY Instrument: Olympus variable stiffness pediatric scope 190L Colonoscopy Monitoring: Vital signs and clinical assessment, continuous EKG monitoring, Pulse oximetry, Carbon Dioxide monitoring and blood pressure monitoring were done throughout the procedure. Colon withdrawal time was 10 minutes. Procedure: The patient was placed in the left lateral decubitis position and pre-procedure medications were administered. After a digital rectal examination of the ano-rectum, the video colonoscope was inserted into the rectum and advanced through the colon to the cecum/TI. The colonoscope was slowly withdrawn in a retrograde panoramic fashion and the colon mucosa was carefully examined including a retroflexed view of the rectum. Findings and interventions are described below. Procedure Difficulty: moderate due to moderate severe diverticulosis of sigmoid Findings: Terminal Ileum-normal Cecum:normal Ascending Colon: normal Transverse Colon -normal Descending Colon:normal Sigmoid Colon: moderate severe diverticulosis with luminal narrowing Rectum: Retroflexion with small internal hemorrhoids, grade I Anorectum - normal Colon preparation: [place] Bowel Preparation Scale Right colon; 2 Transverse colon: 2 Left colon; 2 (0 = Unprepared colon segment with mucosa not seen due to solid stool that cannot be cleared. 1 = Portion of mucosa of the colon segment seen, but other areas of the colon segment not well seen due to staining, residual stool and/or opaque liquid. 2 = Minor amount of residual staining, small fragments of stool and/or opaque liquid, but mucosa of colon segment seen well. 3 = Entire mucosa of colon segment seen well with no residual staining, small fragments of stool or opaque liquid) Impression and Post Procedure Diagnosis: internal hemorrhoids diverticular disease Plan: High fiber diet leaflet Avoid straining at stool, epsom salts and sitz bath, anusol supps or cream Repeat Colonoscopy in 10 years or earlier if clinically indicated Above findings were reviewed with the patient and relevant handouts were provided if indicated.
[2022-11-06 12:43] VITALS: BP 98/61; PULSE 88; RESP 16; TEMP 36.6; O2SAT 96
[2022-11-06 12:58] VITALS: BP 102/69; PULSE 69; RESP 16; TEMP 36.6; O2SAT 100
== END 2022-11-06 13:39 | disposition home or self-care (01) ==
PROVIDERS: PCP Internal Medicine; Visit Provider Internal Medicine Gastroenterology
PROC: 0DJD8ZZ Inspection of Lower Intestinal Tract, Via Natural or Artificial Opening Endoscopic (ICD-10-PCS; CPT 45378; principal; 2022-11-06 11:20)
DX: K52.9 Noninfective gastroenteritis and colitis, unspecified (principal); Z87.19 Personal history of other diseases of the digestive system; K57.30 Diverticulosis of large intestine without perforation or abscess without bleeding; K64.0 First degree hemorrhoids; K59.04 Chronic idiopathic constipation; K21.9 Gastro-esophageal reflux disease without esophagitis; J45.30 Mild persistent asthma, uncomplicated; M79.7 Fibromyalgia; G47.33 Obstructive sleep apnea (adult) (pediatric); F33.0 Major depressive disorder, recurrent, mild; F41.1 Generalized anxiety disorder; Z79.51 Long term (current) use of inhaled steroids; Z79.899 Other long term (current) drug therapy; Z87.442 Personal history of urinary calculi; Z98.51 Tubal ligation status
CPT/HCPCS: 45378

== ENCOUNTER 2022-11-19 12:56 | Outpatient (REF) | payer OTHER, SELFPAY | END 2022-11-19 12:57 | disposition home or self-care (01) | LOC: HO.MDS 12:56 | PROVIDERS: Visit Provider Internal Medicine | DX: D50.9 Iron deficiency anemia, unspecified (principal) | CPT/HCPCS: 96365; J1756 ==

== ENCOUNTER → 2022-11-20 13:59 | Outpatient (BNVA) | payer OTHER, SELFPAY | PROVIDERS: PCP Internal Medicine; Visit Provider Nurse Practitioner | DX: K59.04 Chronic idiopathic constipation (principal); K57.90 Diverticulosis of intestine, part unspecified, without perforation or abscess without bleeding; K57.92 Diverticulitis of intestine, part unspecified, without perforation or abscess without bleeding | CPT/HCPCS: 99212 ==

== ENCOUNTER 2022-11-28 12:29 | Outpatient (REF) | payer OTHER, SELFPAY | END 2022-11-28 12:30 | disposition home or self-care (01) | LOC: HO.MDS 12:29 | PROVIDERS: Visit Provider Internal Medicine | DX: D50.9 Iron deficiency anemia, unspecified (principal) | CPT/HCPCS: 96365; 96375; J1200; J2916 ==

== ENCOUNTER 2022-11-28 15:47 | Emergency (ER) | payer OTHER, SELFPAY ==
--- NOTE | ~2022-11-28 | XR_ITS ---
EXAMINATION: XR CHEST CLINICAL INFORMATION: Chest pain COMPARISON: January 06, 2015 TECHNIQUE: AP portable view of the chest was obtained. FINDINGS: No significant abnormality is noted involving the heart, lungs, mediastinum, bony thorax or soft tissues. XR/XR chest 1V IMPRESSION: No acute disease.
[2022-11-28 15:52] VITALS: BP 108/67; PULSE 70; RESP 22; TEMP 37.2; O2SAT 98; BMI 31.2
--- NOTE | 2022-11-28 16:04 | ECG_ITS ---
Test Reason : CHEST PAIN Blood Pressure : / mmHG Vent. Rate : 068 BPM Atrial Rate : 068 BPM P-R Int : 144 ms QRS Dur : 070 ms QT Int : 396 ms P-R-T Axes : 020 -09 079 degrees QTc Int : 421 ms Normal sinus rhythm Minimal voltage criteria for LVH, may be normal variant ( R in aVL ) Nonspecific T wave abnormality Abnormal ECG No previous ECGs available Referred By: Corry Patton Electronically Signed By:MARY BENITES MD
--- NOTE | 2022-11-28 16:06 | ED.GENADULT ---
HPI - General Adult General Chief complaint: Allergic Reaction Stated complaint: med reaction Time Seen by Provider: 11/28/22 15:56 Source: patient Mode of arrival: wheelchair Limitations: no limitations History of Present Illness HPI narrative: This is a 42-year-old female history of GERD, chronic idiopathic constipation, H pylori infection, palpitations, rosacea, anxiety, depression, fibromyalgia presenting to the emergency department from Oncology status post receiving an iron infusion which patient reports she had an adverse effect to, according to report obtained by nursing patient is offered hives, extremity pain and swelling after infusion, they gave steroids, Benadryl after the infusion which seemed to help however patient is now still complaining of body aches and pains. Also reporting associated chest pain, shortness of breath, chest pain substernal in nature, nonradiating with associated discomfort with deep breathing. She tells me all this started after the infusion. Patient denies difficulty controlling secretions, swelling to tongue, numbness and tingling of mouth, lower extremity swelling or pain, nausea, vomiting, abdominal pain, headache, vision changes, dizziness. Related Data Home Medications Medication Instructions Recorded Confirmed clonazepam 0.5 mg tablet 1 tab PO DAILY PRN Panic Attack(S) 10/07/20 10/31/22 hydroxyzine pamoate 25 mg capsule 25 mg PO BEDTIME 03/07/21 10/31/22 (Vistaril) lactobacillus combination no.4 3 3,000 mmu cells PO DAILY 03/24/21 10/31/22 billion cell capsule (Probiotic) fluticasone propionate 50 1 spray intranasal DAILY 09/11/21 10/31/22 mcg/actuation nasal spray,suspension fluoxetine 20 mg capsule 20 mg PO QAM 03/16/22 10/31/22 methocarbamol 750 mg tablet 750 mg PO Q8H 11/20/22 Previous Rx's Medication Instructions Recorded ferrous sulfate 325 mg (65 mg 325 mg PO DAILY 90 days #90 tabs 10/29/22 iron) tablet gabapentin 100 mg capsule 100 mg PO BID 90 days #180 caps 11/02/22 tramadol 50 mg tablet 50 mg PO Q8H PRN pain 30 days #90 11/02/22 tabs dicyclomine 20 mg tablet 20 mg PO QID 30 days #120 tabs 11/20/22 levofloxacin 500 mg tablet 500 mg PO DAILY #14 tabs 11/20/22 linaclotide 72 mcg capsule 72 mcg PO QAM #30 caps 11/20/22 (Linzess) metronidazole 500 mg tablet 500 mg PO TID 14 days #42 tabs 11/20/22 omeprazole 40 mg capsule,delayed 40 mg PO DAILY #30 caps 11/20/22 release ondansetron 4 mg disintegrating 4 mg PO Q8H PRN Nausea #60 tabs 11/20/22 tablet albuterol sulfate 90 mcg/actuation 2 puff PO Q6H PRN for dyspnea #18 11/27/22 aerosol inhaler (Ventolin HFA) ea diphenhydramine HCl 25 mg capsule 25 mg PO TID PRN allergic reaction 11/28/22 (Benadryl) #20 caps epinephrine 0.3 mg/0.3 mL 0.3 mg (0.3 mL) IM Q4H PRN 11/28/22 injection, auto-injector (EpiPen anaphylaxis #2 ea 2-Sunil) Allergies Allergy/AdvReac Type Severity Reaction Status Date / Time No Known Allergies Allergy Verified 11/20/22 14:08 [No Known Allergies*] Review of Systems Review of Systems: Constitutional : No Weight loss, No Fever, No Chills, + Fatigue, + Malaise ENT/Mouth : No sore throat, No Rhinorrhea Eyes: No Eye Pain, No Swelling, No Redness Cardiovascular : No Chest Pain, No SOB, No Dyspnea on Exertion, No Orthopnea, No Edema, No Palpitations Respiratory : No Cough, No Sputum, No Wheezing Gastrointestinal : No Nausea, No Vomiting, No Diarrhea, No Constipation, No abdominal Pain, No Hematochezia, No Melena Genitourinary : No Dysuria, No Urinary Frequency, No Hematuria, Musculoskeletal : No joint pain, No Myalgias, No Joint Swelling Skin : No Skin Lesions, No rash Neuro : No Weakness, No Numbness, No Dizziness, No Headache Psych : No Anxiety/Panic, No Depression All other systems reviewed and are negative Yes all other systems are reviewed and are negative [facility] Past Medical History Attestation statement: The following information was validated with the patient. Source: old records reviewed and nursing notes reviewed Medical History (Updated 11/28/22 @ 17:11 by KELLY Moss) Abdominal pain Abscess Arthritis Colitis with complication Diverticular disease Epidermal cyst Fibromyalgia LOVE (generalized anxiety disorder) GERD (gastroesophageal reflux disease) Heart palpitations History of diverticulitis Left knee pain Mild persistent asthma Mild recurrent major depression TRUDY (obstructive sleep apnea) Panic attacks Polyarthralgia Surgical History H/O LEEP History of appendectomy History of esophagogastroduodenoscopy (EGD) History of lithotripsy History of removal of cyst (~08/07/21) History of tubal ligation Family History Family History Father Diabetes Hypertension CVD (cardiovascular disease) Heart disease FH: mental illness Mother Asthma Family history of cancer Maternal Grandmother Diabetes Maternal Grandfather Colon cancer Maternal Aunt Colon cancer Family/Other Breast cancer Family/Other Pancreatic cancer Social History Social History Housing: Apartment Alcohol intake: never Patient Tobacco Use Status: Never used Tobacco e-Cigarette/Vaping Use: Never Used Second Hand Smoke Exposure: No Advance Directives: No Advance Directives Information Provided: No service: No Current occupational status: unemployed Cognitive needs: No Hearing needs: No Vision needs: No Physical Exam ED Vital Signs: Vital Signs - 24 hr 11/28/22 15:52 11/28/22 16:57 Temperature 98.9 F 98.8 F Pulse Rate 70 72 Respiratory Rate 22 H 22 H Blood Pressure 108/67 104/70 Pulse Oximetry 98 96 Oxygen Delivery Method Room Air Room Air BMI result Body Mass Index 31.2 vss Appearance: Alert.? Oriented X3.? No acute distress.? Head: Normocephalic, atraumatic, no step-offs or deformities Eyes: Pupils equal, round and reactive to light.? ENT: Pharynx normal.? No edema to posterior pharynx, tongue, lips. Neck: Normal inspection.? Neck supple.? CVS: Normal heart rate and rhythm.? Pulses normal.? Respiratory: No respiratory distress.? Breath sounds normal.? Abdomen: Soft and nontender.? Skin: Skin warm and dry.? Normal skin color.? Normal skin turgor.? Extremities: No lower extremity edema.? No calf ttp. 5/5 strength to bilateral upper and lower extremities Back: No midline tenderness, no C-spine tenderness, full range of motion, no CVA tenderness bilaterally Neuro: Oriented X 3.? No motor deficit.? No sensory deficit. CN 2-12 intact Course Reevaluation(s) Reevaluation #1: Spoke to Dr. Mosley oncology who tells me that patient received hydrocortisone and Benadryl s/p ferrlicit infusion Time: 16:19 Reevaluation #2: CBC appears to be around patient's baseline. Chemistry with no acute findings requiring intervention. Troponin negative, EKG nonischemic unlikley ACS. Normal BNP. D-dimer negative, unlikely PE. CXR no acute disease Time: 17:08 Reevaluation #3: Patient feeling better. Will send home with EpiPen, educated on proper use patient verbalizes understanding. Also give Benadryl. Educated patient on diagnosis and treatment plan, answered all question, patient verbalizes understanding. At this time patient will be discharged home, advised to return with new or worsening symptoms. Educated on worrisome signs and symptoms and when to return. At this time I feel comfortable discharge home. Time: 17:43 Medications Administered Discontinued Medications Generic Name Dose Route Start Last Admin Trade Name Freq PRN Reason Stop Dose Admin Famotidine 20 mg 11/28/22 16:04 11/28/22 16:17 Famotidine/Pf 20 Mg/2 Ml Vial IVPUSH 11/28/22 16:05 20 mg ONCE ONE Administration Medical Decision Making Medical Decision Making [facility] Narrative: 1600 42-year-old female presents status post adverse reaction to iron infusion that occurred just prior to arrival was treated with Benadryl and steroids Physical examination benign. This is likely an adverse reaction to iron infusion. No signs of anaphylaxis. Low suspicion for CHF, PE, ACS, pneumonia. Body aches and pains likely fibromyalgia unlikely rhabdomyolysis, no appreciated weakness, NIH stroke scale 0. Plan labs, troponin, EKG, BNP, D-dimer. Differential Diagnosis Differential Diagnoses: The differential diagnosis associated with the presentation includes This is likely an adverse reaction to iron infusion. No signs of anaphylaxis. Low suspicion for CHF, PE, ACS, pneumonia. Body aches and pains likely fibromyalgia unlikely rhabdomyolysis, no appreciated weakness, NIH stroke scale 0. Admission/Observation Consideration of admission/observation: Escalation of care including admission/observation considered Lab Data [facility] Lab Attestation statement: I reviewed the patient's lab results. 11/28/22 16:05 11/28/22 16:05 Labs: Lab Results 11/28/22 11/28/22 11/28/22 Range/Units 16:05 16:05 16:05 WBC 6.8 (4.8-10.8) X10*3/uL RBC 4.39 (4.20-5.50) X10*6/uL Hgb 11.4 L (12.0-16.0) g/dl Hct 37.8 (37.0-47.0) % MCV 86.1 (80.0-98.0) fL MCH 26.0 L (27.0-33.0) pg MCHC 30.2 L (31.0-35.0) g/dl RDW 15.6 (11.0-16.0) % Plt Count 322 (160-400) X10*3/uL MPV 10.3 (9.4-12.3) fL Immature Gran % (Auto) 0.4 (0.0-0.4) % Neut % (Auto) 57.3 (45-73) % Lymph % (Auto) 31.6 (20-40) % [place] % (Auto) 4.8 (2-11) % Eos % (Auto) 5.0 H (0-4) % Baso % (Auto) 0.9 (0-2) % Lymph # (Auto) 2.2 (1.2-4.9) X10*3/uL [place] # (Auto) 0.3 (0.1-1.2) X10*3/uL Eos # (Auto) 0.3 (0.0-0.4) X10*3/uL Baso # (Auto) 0.1 (0.0-0.2) X10*3/uL Abs Immat Gran (auto) 0.03 (0.00-0.03) X10*3/uL Absolute Neuts (auto) 3.9 (2.0-8.3) x10*3/uL Absolute Nucleated RBC 0.000 (0.0-0.012) X10*3/uL Nucleated RBC % (auto) 0.0 (0.0-0.2) /100WBC D-Dimer High Sensitivty < 150 NG/ML Sodium 140 (135-145) mmol/L Potassium 4.3 (3.3-5.1) mmol/L Chloride 113 H (96-108) mmol/L Carbon Dioxide 20 L (22-29) mmol/L Anion Gap 11 L (12-20) BUN 8 L (9-16) mg/dL Creatinine 0.74 (0.5-1.4) mg/dL Estim Creat Clear Calc 97.4 Estimated GFR > 60 Random Glucose 101 (60-115) mg/dL Calcium 8.5 D (8.4-10.2) mg/dL Total Bilirubin 0.6 (0.0-1.0) mg/dL AST 19 (5-31) U/L ALT 12 (0-31) U/L Alkaline Phosphatase 78 (39-117) U/L Troponin I High Sens (<3.5-17.0) ng/L B-Natriuretic Peptide (<100) pg/mL Total Protein 6.1 L (6.5-8.0) g/dL Albumin 3.5 (3.5-5.0) g/dL 11/28/22 11/28/22 Range/Units 16:05 16:05 WBC (4.8-10.8) X10*3/uL RBC (4.20-5.50) X10*6/uL Hgb (12.0-16.0) g/dl Hct (37.0-47.0) % MCV (80.0-98.0) fL MCH (27.0-33.0) pg MCHC (31.0-35.0) g/dl RDW (11.0-16.0) % Plt Count (160-400) X10*3/uL MPV (9.4-12.3) fL Immature Gran % (Auto) (0.0-0.4) % Neut % (Auto) (45-73) % Lymph % (Auto) (20-40) % [place] % (Auto) (2-11) % Eos % (Auto) (0-4) % Baso % (Auto) (0-2) % Lymph # (Auto) (1.2-4.9) X10*3/uL [place] # (Auto) (0.1-1.2) X10*3/uL Eos # (Auto) (0.0-0.4) X10*3/uL Baso # (Auto) (0.0-0.2) X10*3/uL Abs Immat Gran (auto) (0.00-0.03) X10*3/uL Absolute Neuts (auto) (2.0-8.3) x10*3/uL Absolute Nucleated RBC (0.0-0.012) X10*3/uL Nucleated RBC % (auto) (0.0-0.2) /100WBC D-Dimer High Sensitivty NG/ML Sodium (135-145) mmol/L Potassium (3.3-5.1) mmol/L Chloride (96-108) mmol/L Carbon Dioxide (22-29) mmol/L Anion Gap (12-20) BUN (9-16) mg/dL Creatinine (0.5-1.4) mg/dL Estim Creat Clear Calc Estimated GFR Random Glucose (60-115) mg/dL Calcium (8.4-10.2) mg/dL Total Bilirubin (0.0-1.0) mg/dL AST (5-31) U/L ALT (0-31) U/L Alkaline Phosphatase (39-117) U/L Troponin I High Sens < 2.7 (<3.5-17.0) ng/L B-Natriuretic Peptide 10 (<100) pg/mL Total Protein (6.5-8.0) g/dL Albumin (3.5-5.0) g/dL Independent Interpretation I performed an independent interpretation of an: EKG (Ventricular rate of 68, ID interval normal, QRS normal, QT/QTC normal. EKG with normal sinus rhythm, minimal criteria for LVH, no ST elevations or inversions concerning for ischemia.) and Plain X-Ray (Unremarkable) Radiology Impression Discussion of test interpretation with radiology: I have reviewed the radiologist's reading. Core Measures AMI core measures followed: Yes Measure exclusions: not indicated Critical Care Time Critical Care Time Critical Care Time: No Discharge Plan Discharge Clinical Impression: Muscle ache, Allergic reaction Patient Disposition: Home, Self-Care Instructions: Musculoskeletal Pain (ED), Allergy Testing (ED) Additional Instructions: Take your medications as prescribed. If you were prescribed antibiotics today, it is important that you take your medication to their entirety, do not skip any doses, do not finish them early. Follow-up with your primary care provider this week. Return to the emergency department with new or worsening symptoms. Such as fevers, chills, chest pain, shortness of breath, nausea, vomiting, dizziness, headache, vision changes, lethargy In case of emergency call 911 If use an EpiPen you should seek medical attention immediately. Please use an EpiPen if you feel like your throat was closing, inability to breathe are any signs of anaphylaxis like the ones we have gone over. Prescriptions: New diphenhydramine HCl [Benadryl] 25 mg capsule 25 mg PO TID PRN (Reason: allergic reaction) Qty: 20 0RF epinephrine [EpiPen 2-Sunil] 0.3 mg/0.3 mL auto-injector 0.3 mg IM Q4H PRN (Reason: anaphylaxis) Qty: 2 0RF No Action gabapentin 100 mg capsule 100 mg PO BID 90 Days Qty: 180 0RF tramadol 50 mg tablet 50 mg PO Q8H PRN (Reason: pain) 30 Days Qty: 90 0RF albuterol sulfate [Ventolin HFA] 90 mcg/actuation HFA aerosol inhaler 2 puff PO Q6H PRN (Reason: for dyspnea) Qty: 18 1RF clonazepam 0.5 mg tablet 1 tab PO DAILY PRN (Reason: Panic Attack(S)) ferrous sulfate 325 mg (65 mg iron) tablet 325 mg PO DAILY 90 Days Qty: 90 1RF fluticasone propionate 50 mcg/actuation spray,suspension 1 spray intranasal DAILY Probiotic 3 billion cell capsule 3,000 mmu cells PO DAILY Rx Instructions: administer with a meal hydroxyzine pamoate [Vistaril] 25 mg capsule 25 mg PO BEDTIME methocarbamol 750 mg tablet 750 mg PO Q8H levofloxacin 500 mg tablet 500 mg PO DAILY Qty: 14 0RF metronidazole 500 mg tablet 500 mg PO TID 14 Days Qty: 42 0RF Linzess 72 mcg capsule 72 mcg PO QAM Qty: 30 6RF dicyclomine 20 mg tablet 20 mg PO QID 30 Days Qty: 120 6RF omeprazole 40 mg capsule,delayed release(DR/EC) 40 mg PO DAILY Qty: 30 6RF ondansetron 4 mg tablet,disintegrating 4 mg PO Q8H PRN (Reason: Nausea) Qty: 60 3RF fluoxetine 20 mg capsule 20 mg PO QAM Referrals: Physician,Unknown J [Primary Care Provider] - 2 days Stand Alone Forms: Work/School Release
[2022-11-28 16:12] LABS: MANUAL DIFF FLAG NO
[2022-11-28 16:16] LABS: Basophils Absolute Auto 0.1 X10*3/uL (0.0-0.2); Basophils Percent Auto 0.9 % (0-2); Eosinophils Absolute Auto 0.3 X10*3/uL (0.0-0.4); Hematocrit 37.8 % (37.0-47.0); Hemoglobin 11.4 g/dl (12.0-16.0); Imm Gran Abs Auto 0.03 X10*3/uL (0.00-0.03); Imm Gran Pct Auto 0.4 % (0.0-0.4); Lymphocytes Absolute Auto 2.2 X10*3/uL (1.2-4.9); Lymphocytes Percent Auto 31.6 % (20-40); Mean Corpuscular HGB Conc 30.2 g/dl (31.0-35.0); Mean Corpuscular Volume 86.1 fL (80.0-98.0); Mean Platelet Volume 10.3 fL (9.4-12.3); Monocytes Absolute Auto 0.3 X10*3/uL (0.1-1.2); Monocytes Percent Auto 4.8 % (2-11); Neutrophils Absolute Auto 3.9 x10*3/uL (2.0-8.3); Neutrophils Percent Auto 57.3 % (45-73); Platelet Count 322 X10*3/uL (160-400); Red Blood Count 4.39 X10*6/uL (4.20-5.50); Red Cell Distribution Width 15.6 % (11.0-16.0); White Blood Count 6.8 X10*3/uL (4.8-10.8)
[2022-11-28] MEDS: Famotidine/PF 20 MG/2 ML VIAL IVPUSH (16:17)
[2022-11-28 16:26] LABS: D Dimer High Sensitivity < 150 NG/ML
[2022-11-28 16:31] LABS: Alanine Aminotransferase 12 U/L (0-31); Albumin Level 3.5 g/dL (3.5-5.0); Alkaline Phosphatase 78 U/L (39-117); Anion Gap 11 (12-20); Aspartate Amino Transferase 19 U/L (5-31); Bilirubin Total 0.6 mg/dL (0.0-1.0); Blood Urea Nitrogen 8 mg/dL (9-16); Calcium 8.5 mg/dL (8.4-10.2); Carbon Dioxide 20 mmol/L (22-29); Chloride 113 mmol/L (96-108); Creatinine Clr Calc Pharmacy 97.4; Estimated Glomerular Filt Rate > 60; Glucose Random 101 mg/dL (60-115); Potassium 4.3 mmol/L (3.3-5.1); Sodium 140 mmol/L (135-145); Total Protein 6.1 g/dL (6.5-8.0)
[2022-11-28 16:38] LABS: Troponin-I High Sensitivity < 2.7 ng/L (<3.5-17.0)
[2022-11-28 16:45] LABS: B Type Natriuretic Peptide 10 pg/mL (<100)
[2022-11-28 16:57] VITALS: BP 104/70; PULSE 72; RESP 22; TEMP 37.1; O2SAT 96
[2022-11-28] MEDS: Ketorolac Tromethamine 15 MG/ML VIAL 30 MG IVPUSH (18:31)
== END 2022-11-28 18:37 | disposition home or self-care (01) ==
PROVIDERS: Physician Assistant; Emergency Provider Emergency Medicine
DX: L27.0 Generalized skin eruption due to drugs and medicaments taken internally (principal); T45.4X5A Adverse effect of iron and its compounds, initial encounter; Y92.89 Other specified places as the place of occurrence of the external cause; M79.609 Pain in unspecified limb; M79.89 Other specified soft tissue disorders
CPT/HCPCS: 36415; 71045; 80053; 83880; 84484; 85025; 85379; 93005; 96374; 96375; 99284; 99285; J1885

== ENCOUNTER → 2022-12-19 14:13 | Outpatient (BNVA) | payer OTHER, SELFPAY | PROVIDERS: PCP Internal Medicine; Referring Provider Nurse Practitioner; Visit Provider Surgery | DX: K59.04 Chronic idiopathic constipation (principal); K21.9 Gastro-esophageal reflux disease without esophagitis; K57.90 Diverticulosis of intestine, part unspecified, without perforation or abscess without bleeding; A04.8 Other specified bacterial intestinal infections; K58.2 Mixed irritable bowel syndrome | CPT/HCPCS: 99212 ==

== ENCOUNTER → 2023-01-30 13:56 | Outpatient (BNVA) | payer OTHER, SELFPAY | PROVIDERS: PCP Internal Medicine; Visit Provider Nurse Practitioner | DX: K57.92 Diverticulitis of intestine, part unspecified, without perforation or abscess without bleeding (principal); K58.2 Mixed irritable bowel syndrome; K21.9 Gastro-esophageal reflux disease without esophagitis; K59.04 Chronic idiopathic constipation; R11.2 Nausea with vomiting, unspecified | CPT/HCPCS: 99212 ==

== ENCOUNTER 2023-03-04 14:30 | Outpatient (REF) | payer OTHER, SELFPAY ==
[2023-03-04 16:09] LABS: Blood Urea Nitrogen 11 mg/dL (9-16); Estimated Glomerular Filt Rate > 60
== END 2023-03-04 14:31 | disposition home or self-care (01) ==
LOC: HO.LAB 14:30
PROVIDERS: PCP Internal Medicine; Visit Provider Surgery
DX: K57.90 Diverticulosis of intestine, part unspecified, without perforation or abscess without bleeding (principal)
CPT/HCPCS: 36415; 82565; 84520; 99212

== ENCOUNTER 2023-03-04 14:30 | Outpatient (AMB) | payer OTHER, SELFPAY ==
[2023-03-04 14:50] VITALS: BP 123/72; PULSE 89; BMI 29.8
--- NOTE | 2023-03-04 14:50 | A.OFFVIS_ITS ---
Intake Vital Signs 03/04/23 14:50 Height 5 ft 2 in Weight 163 lb BMI 29.8 BP 123/72 Blood Pressure Location Rt brachial Position Sitting Pulse 89 Intake Visit Reasons: 2 month follow-up diverticulosis Intake Note: This patient presents for a two month follow-up assessment for diverticulosis. Patient c/o; pain. Lasting Room Machine Operator Required: Yes Lasting Room Machine Operator Language: Director Of Residential Services Name: Nisha Information Interpreted: non-clinical & clinical Accompanied by: Self / Same As Patient Allergies iron [From Venofer] Adverse Reaction (Intermediate, Verified 03/04/23 14:59) Hives Medication List - Last Reconciled 03/04/23 by Cachorro Ku MD albuterol sulfate 90 mcg/actuation (Ventolin HFA) 2 puffs PO Q6H PRN amoxicillin-pot clavulanate 875-125 mg 1 tab PO BID 20 days clonazepam 1 tab PO DAILY PRN dicyclomine 20 mg PO QID diphenhydramine HCl (Benadryl) 25 mg PO TID PRN epinephrine (EpiPen 2-Sunil) 0.3 mg (0.3 mL) IM Q4H PRN ferrous sulfate 325 mg PO DAILY 90 days fluoxetine 20 mg PO QAM fluticasone propionate 50 mcg/actuation 1 spray intranasal DAILY gabapentin 100 mg PO BID 90 days hydrocodone bitartrate ER 20 mg PO BID hydrocortisone 2.5% (Proctosol HC) 1 appl [place] BID hydroxyzine pamoate (Vistaril) 25 mg PO BEDTIME imipramine HCl 10 mg PO BEDTIME 30 days lactobacillus combination no.4 (Probiotic) 3,000 mmu cells PO DAILY linaclotide (Linzess) 72 mcg PO QAM methocarbamol 750 mg PO Q8H omeprazole 40 mg PO DAILY ondansetron 4 mg PO Q8H PRN tramadol 50 mg PO Q8H PRN 30 days HPI 2 month follow-up diverticulosis HPI Details She is here for follow-up for history diverticulitis. I had seen her last Dec, 2022. She had a recent CT scan around that time which did not show any evidence of acute diverticulitis. However, she was admitted to [facility] last 02/03/2023 for another episode of acute diverticulitis. She had a CAT scan showing stranding around her distal descending colon at that time. She says that she was admitted for 5 days. She says she still has some lower abdominal pain. She denies any diarrhea. She denies any fever. REPLACED BY [facility] Medical History Abdominal pain Abscess Arthritis Colitis with complication Diverticular disease Epidermal cyst Fibromyalgia LOVE (generalized anxiety disorder) GERD (gastroesophageal reflux disease) Heart palpitations History of diverticulitis Left knee pain Mild persistent asthma Mild recurrent major depression TRUDY (obstructive sleep apnea) Panic attacks Polyarthralgia Surgical History H/O LEEP History of appendectomy History of esophagogastroduodenoscopy (EGD) History of lithotripsy History of removal of cyst (~08/07/21) History of tubal ligation Family History Father Diabetes Hypertension CVD (cardiovascular disease) Heart disease FH: mental illness Mother Asthma Family history of cancer Maternal Grandmother Diabetes Maternal Grandfather Colon cancer Maternal Aunt Colon cancer Family/Other Breast cancer Family/Other Pancreatic cancer Social History Housing: Apartment Alcohol intake: never Patient Tobacco Use Status: Never used Tobacco e-Cigarette/Vaping Use: Never Used Second Hand Smoke Exposure: No service: No Current occupational status: unemployed Cognitive needs: No Hearing needs: No Vision needs: No Review of Systems Const Denies chills and Denies fever(s) Card Denies chest pain at rest GI Reports abdominal pain and Denies diarrhea Denies urinary frequency Physical Exam Vital Signs: Last Vital Signs Pulse 89 03/04/23 14:50 BP 123/72 03/04/23 14:50 BMI result Body Mass Index 29.8 Const General: comfortable and no acute distress Resp Effort & Inspection: normal respiratory effort Cardio Rate: regular rate GI Other: Mild tenderness lower abdomen, no guarding rebound Palpation (GI): Soft to palpation and not firm Assessment & Plan Assessment & Plan (1) Diverticular disease: Comment: with severe luminal narrowing in sigmoid on 2022 colonoscopy Code(s): K57.90 - Diverticulosis of intestine, part unspecified, without perforation or abscess without bleeding Plan: Review of her records shows that she was admitted to [facility] last February 03 for acute diverticulitis. She says that she still has some pain. I will repeat her CT scan. She says she is amenable to having resection down the line because of recurrent diverticulitis. Her exam is otherwise benign I will see her in the office discuss her CAT scan. Orders: Orders Blood Urea Nitrogen Today K57.90 - Diverticulosis of intestine, part unspecified, without perforation or abscess without bleeding Creatinine Today K57.90 - Diverticulosis of intestine, part unspecified, without perforation or abscess without bleeding CT abdomen pelvis w IV con Today K57.90 - Diverticulosis of intestine, part unspecified, without perforation or abscess without bleeding Coding Level of Care Code Est Pt Level 3 (94729) Diagnoses Diverticular disease K57.90
== END 2023-03-04 15:46 | disposition home or self-care (01) ==
PROVIDERS: PCP Internal Medicine; Visit Provider Surgery
DX: K57.90 Diverticulosis of intestine, part unspecified, without perforation or abscess without bleeding (principal)
CPT/HCPCS: 99213

== ENCOUNTER 2023-03-09 00:56 | Emergency (ER) | payer OTHER, SELFPAY ==
--- NOTE | ~2023-03-09 | CT_ITS ---
EXAMINATION: CT ABDOMEN AND PELVIS WITH CONTRAST CLINICAL INFORMATION: Left lower quadrant pain with history of diverticulitis COMPARISON: 06/27/2021 TECHNIQUE: Multidetector volumetric images were obtained from the superior aspect of the liver through the pubic symphysis following administration 85 mL of Omnipaque 350 intravenous contrast. Sagittal and coronal reformatted images were obtained on the technologist's workstation. Oral contrast: No This CT examination was performed using dose optimization techniques as appropriate, variously including the following: *Automated exposure control *Adjustment of mA and/or kV according to patient size (this includes techniques or standardized protocols for targeted exams where dose is matched to indication/reason for exam; i.e. extremities or head) *Use of iterative reconstruction technique DLP: 588 mGy-cm FINDINGS: LUNG BASES: Dependent bibasilar atelectasis. LIVER, GALLBLADDER, AND BILIARY TREE: The liver is normal in size, shape, and attenuation. No focal hepatic lesion or biliary ductal dilatation is present. Gallbladder appears partially contracted. PANCREAS: Unremarkable. SPLEEN: Unremarkable. ADRENAL GLANDS: Unremarkable. KIDNEYS AND URETERS: Bilateral nephrograms are symmetric. No hydronephrosis or obstructing calculus identified. Punctate calculus in the lower right kidney. BLADDER: Unremarkable. GASTROINTESTINAL TRACT: No evidence of bowel obstruction. There is focal wall thickening and surrounding inflammation in the presence of diverticula in the distal descending colon, most consistent with diverticulitis. Trace fluid in the left paracolic gutter. No pericolonic abscess or free air is seen. Patient appears to be status post appendectomy. ABDOMINAL WALL: No significant hernia is appreciated. LYMPH NODES: Normal. VASCULAR: Unremarkable. PELVIC VISCERA: Unremarkable. OSSEOUS STRUCTURES: Unremarkable. CT/CT abdomen pelvis w IV con IMPRESSION: Diverticulitis of the distal descending colon.
[2023-03-09 01:17] VITALS: BP 111/78; PULSE 101; RESP 16; TEMP 37.1; O2SAT 100; BMI 29.6
[2023-03-09 02:17] LABS: Hematocrit 38.9 % (37.0-47.0); Hemoglobin 12.1 g/dl (12.0-16.0); Mean Corpuscular HGB Conc 31.1 g/dl (31.0-35.0); Mean Corpuscular Hemoglobin 27.9 pg (27.0-33.0); Mean Corpuscular Volume 89.6 fL (80.0-98.0); Mean Platelet Volume 10.5 fL (9.4-12.3); Platelet Count 284 X10*3/uL (160-400); Red Blood Count 4.34 X10*6/uL (4.20-5.50); Red Cell Distribution Width 13.8 % (11.0-16.0); White Blood Count 11.9 X10*3/uL (4.8-10.8)
[2023-03-09 02:31] LABS: Alanine Aminotransferase 15 U/L (0-31); Albumin Level 4.2 g/dL (3.5-5.0); Alkaline Phosphatase 82 U/L (39-117); Anion Gap 12 (12-20); Aspartate Amino Transferase 16 U/L (5-31); Bilirubin Total 0.3 mg/dL (0.0-1.0); Blood Urea Nitrogen 8 mg/dL (9-16); Calcium 9.5 mg/dL (8.4-10.2); Carbon Dioxide 25 mmol/L (22-29); Chloride 109 mmol/L (96-108); Creatinine Clr Calc Pharmacy 92.3; Estimated Glomerular Filt Rate > 60; Glucose Random 102 mg/dL (60-115); Lipase 27 U/L (8-78); Potassium 4.7 mmol/L (3.3-5.1); Sodium 141 mmol/L (135-145); Total Protein 7.5 g/dL (6.5-8.0)
[2023-03-09 02:32] LABS: Appearance Urine Cloudy; Color Urine Yellow; Glucose Urine UA Negative (Negative); Leukocyte Esterase Urine Trace (Negative); Nitrite Urine Negative (Negative); Specific Gravity - Urine 1.025 (1.005-1.025); UMIC TRIGGER UACC YES; Urine Blood Negative (Negative); Urine Ketones Negative (Negative); Urine Protein Negative (Neg-Trace)
[2023-03-09 02:46] LABS: Bacteria Urine 3+ (None Seen); Calcium Oxalate Crystals Urine Present; RBC Urine 0-2 /HPF (0-2); UACC Culture Trigger YES
[2023-03-09 04:14] VITALS: BP 104/67; PULSE 89; RESP 18; TEMP 37.1; O2SAT 98
[2023-03-09] MEDS: 0.9 % Sodium Chloride 1,000 ML 999 ML IV (05:20)
[2023-03-09] MEDS: iohexoL 350 MG/ML 100 ML INFUS..BTL 85 ML IV (05:46)
[2023-03-09 05:51] VITALS: RESP 18
[2023-03-09] MEDS: Morphine Sulfate 4 MG/ML CARTRIDGE IVPUSH (05:51)
[2023-03-09] MEDS: ondansetron HCL 4 MG/2 ML VIAL IVPUSH (05:52)
[2023-03-09] MEDS: Piperacillin Sodium/Tazobactam 3.375 GM in 0.9 % Sodium Chloride 50 ML IV (05:55)
[2023-03-09 06:00] VITALS: BP 108/77; PULSE 89; RESP 18; TEMP 36.9; O2SAT 96
--- NOTE | 2023-03-09 06:45 | ED.ABDPAIN ---
HPI - Abdominal Pain General Chief Complaint: Abdominal Pain Stated Complaint: abd pain? Time Seen by Provider: 03/09/23 03:53 Source: patient Mode of arrival: ambulatory Limitations: no limitations History of Present Illness HPI narrative: patient is 42 years old with history of diverticulitis in the past comes here for pain for last 2 days localized mostly in left lower abdomen now radiating to the upper abdomen no fever no chills, nauseated no vomiting having loose bowels without significant blood no fever no chills no abdominal distension patient has last episode a month ago was seen at [facility] supposed to see surgeon for possible surgery Related Data Home Medications Medication Instructions Recorded Confirmed clonazepam 0.5 mg tablet 1 tab PO DAILY PRN Panic Attack(S) 10/07/20 03/04/23 hydroxyzine pamoate 25 mg capsule 25 mg PO BEDTIME 03/07/21 03/04/23 (Vistaril) lactobacillus combination no.4 3 3,000 mmu cells PO DAILY 03/24/21 03/04/23 billion cell capsule (Probiotic) fluticasone propionate 50 1 spray intranasal DAILY 09/11/21 03/04/23 mcg/actuation nasal spray,suspension fluoxetine 20 mg capsule 20 mg PO QAM 03/16/22 03/04/23 methocarbamol 750 mg tablet 750 mg PO Q8H 11/20/22 03/04/23 dicyclomine 20 mg tablet 20 mg PO QID 01/30/23 03/04/23 Previous Rx's Medication Instructions Recorded ferrous sulfate 325 mg (65 mg 325 mg PO DAILY 90 days #90 tabs 10/29/22 iron) tablet omeprazole 40 mg capsule,delayed 40 mg PO DAILY #30 caps 11/20/22 release ondansetron 4 mg disintegrating 4 mg PO Q8H PRN Nausea #60 tabs 11/20/22 tablet diphenhydramine HCl 25 mg capsule 25 mg PO TID PRN allergic reaction 11/28/22 (Benadryl) #20 caps epinephrine 0.3 mg/0.3 mL 0.3 mg (0.3 mL) IM Q4H PRN 11/28/22 injection, auto-injector (EpiPen anaphylaxis #2 ea 2-Sunil) hydrocortisone 2.5 % topical cream 1 appl [place] BID hemorrhoids #30 grams 12/19/22 with perineal applicator (Proctosol HC) imipramine HCl 10 mg tablet 10 mg PO BEDTIME 30 days #30 tabs 12/19/22 linaclotide 72 mcg capsule 72 mcg PO QAM #30 caps 12/19/22 (Linzess) amoxicillin 875 mg-potassium 1 tab PO BID 20 days #40 tabs 01/30/23 clavulanate 125 mg tablet hydrocodone bitartrate 20 mg 20 mg PO BID #10 tabs 01/30/23 tablet,crush resist,extended rel. 24hr albuterol sulfate 90 mcg/actuation 2 puff PO Q6H PRN for dyspnea #18 03/06/23 aerosol inhaler (Ventolin HFA) ea gabapentin 100 mg capsule 100 mg PO BID 90 days #180 caps 03/06/23 tramadol 50 mg tablet 50 mg PO Q8H PRN pain 30 days #90 03/06/23 tabs ciprofloxacin HCl 500 mg tablet 500 mg PO BID #20 tabs 03/09/23 (Cipro) metronidazole 500 mg tablet 500 mg PO TID #30 tabs 03/09/23 ondansetron 4 mg disintegrating 4 mg PO Q6-8H PRN nausea and 03/09/23 tablet vomiting #7 tabs tramadol 50 mg tablet 50 mg PO Q6H PRN pain #20 tabs 03/09/23 Allergies Allergy/AdvReac Type Severity Reaction Status Date / Time iron [From Venofer] AdvReac Intermediate Hives Verified 03/04/23 14:59 Review of Systems Review of Systems Yes all other systems are reviewed and are negative PMFSH Past Medical History Medical History Abdominal pain Abscess Arthritis Colitis with complication Diverticular disease Epidermal cyst Fibromyalgia LOVE (generalized anxiety disorder) GERD (gastroesophageal reflux disease) Heart palpitations History of diverticulitis Left knee pain Mild persistent asthma Mild recurrent major depression TRUDY (obstructive sleep apnea) Panic attacks Polyarthralgia Surgical History H/O LEEP History of appendectomy History of esophagogastroduodenoscopy (EGD) History of lithotripsy History of removal of cyst (~08/07/21) History of tubal ligation Family History Family History Father Diabetes Hypertension CVD (cardiovascular disease) Heart disease FH: mental illness Mother Asthma Family history of cancer Maternal Grandmother Diabetes Maternal Grandfather Colon cancer Maternal Aunt Colon cancer Family/Other Breast cancer Family/Other Pancreatic cancer Social History Social History Housing: Apartment Alcohol intake: never Patient Tobacco Use Status: Never used Tobacco e-Cigarette/Vaping Use: Never Used Second Hand Smoke Exposure: No Advance Directives: No Advance Directives Information Provided: Yes service: No Current occupational status: unemployed Cognitive needs: No Hearing needs: No Vision needs: No Physical Exam ED Vital Signs: Vital Signs - 24 hr 03/09/23 01:17 03/09/23 04:14 03/09/23 05:51 Temperature 98.8 F 98.7 F Pulse Rate 101 H 89 Respiratory Rate 16 18 18 Blood Pressure 111/78 104/67 Pulse Oximetry 100 98 Oxygen Delivery Method Room Air Room Air 03/09/23 06:00 Temperature 98.5 F Pulse Rate 89 Respiratory Rate 18 Blood Pressure 108/77 Pulse Oximetry 96 Oxygen Delivery Method Room Air BMI result Body Mass Index 29.6 Appearance: Alert. Oriented X3. No acute distress. Eyes: no pallor or icterus ENT: Pharynx normal. Oral Mucosa moist Neck: Normal inspection. Neck supple. CVS: Normal heart rate and rhythm. Pulses normal. Respiratory: No respiratory distress. Equal air entry bilateral, no wheezing/rales/rhonchi Abdomen: Soft diffuse tenderness left lower quadrant and mid abdomen with guarding no rebound tendernessBowel sounds are present, no mass palpable, no CVA tenderness Skin: Skin warm and dry. Normal skin color. Normal skin turgor. Extremities: No lower extremity edema. No calf tenderness Neuro: Oriented X 3. No motor deficit. Medical Decision Making Medical Decision Making MDM Narrative: patient uncomplicated diverticulitis with normal lactic acid level will discharge patient home on Cipro and Flagyl Differential Diagnosis Differential Diagnoses: The differential diagnosis associated with the presentation includes diverticulitis/ appendicitis/ perforation/ ureter stone/UTI Lab Data MDM Lab Attestation statement: I reviewed the patient's lab results. 03/09/23 02:13 03/09/23 02:13 Labs: Lab Results 03/09/23 03/09/23 03/09/23 Range/Units 02:13 02:13 02:24 WBC 11.9 H (4.8-10.8) X10*3/uL RBC 4.34 (4.20-5.50) X10*6/uL Hgb 12.1 (12.0-16.0) g/dl Hct 38.9 (37.0-47.0) % MCV 89.6 (80.0-98.0) fL MCH 27.9 (27.0-33.0) pg MCHC 31.1 (31.0-35.0) g/dl RDW 13.8 (11.0-16.0) % Plt Count 284 (160-400) X10*3/uL MPV 10.5 (9.4-12.3) fL Absolute Nucleated RBC 0.000 (0.0-0.012) X10*3/uL Nucleated RBC % (auto) 0.0 (0.0-0.2) /100WBC Sodium 141 (135-145) mmol/L Potassium 4.7 (3.3-5.1) mmol/L Chloride 109 H (96-108) mmol/L Carbon Dioxide 25 (22-29) mmol/L Anion Gap 12 (12-20) BUN 8 L (9-16) mg/dL Creatinine 0.76 (0.5-1.4) mg/dL Estim Creat Clear Calc 92.3 Estimated GFR > 60 Random Glucose 102 (60-115) mg/dL Lactic Acid (0.5-2.0) mmol/L Calcium 9.5 D (8.4-10.2) mg/dL Total Bilirubin 0.3 (0.0-1.0) mg/dL AST 16 (5-31) U/L ALT 15 (0-31) U/L Alkaline Phosphatase 82 (39-117) U/L Total Protein 7.5 (6.5-8.0) g/dL Albumin 4.2 (3.5-5.0) g/dL Lipase 27 (8-78) U/L Urine Color Yellow Urine Appearance Cloudy Urine pH 6.0 (5.0-9.0) Ur Specific [place] 1.025 (1.005-1.025) Urine Protein Negative (Neg-Trace) mg/dL Urine Glucose (UA) Negative (Negative) mg/dL Urine Ketones Negative (Negative) mg/dL Urine Blood Negative (Negative) Urine Nitrite Negative (Negative) Ur Leukocyte Esterase Trace H (Negative) Urine RBC 0-2 (0-2) /HPF Urine WBC 6-10 (0-5) /HPF Ur Squamous Epith Cells 11-20 (0-2) /HPF Calcium Oxalate Crystal Present Urine Bacteria 3+ (None Seen) Hyaline Casts 3-5 (0-2) /LPF 03/09/23 Range/Units 05:20 WBC (4.8-10.8) X10*3/uL RBC (4.20-5.50) X10*6/uL Hgb (12.0-16.0) g/dl Hct (37.0-47.0) % MCV (80.0-98.0) fL MCH (27.0-33.0) pg MCHC (31.0-35.0) g/dl RDW (11.0-16.0) % Plt Count (160-400) X10*3/uL MPV (9.4-12.3) fL Absolute Nucleated RBC (0.0-0.012) X10*3/uL Nucleated RBC % (auto) (0.0-0.2) /100WBC Sodium (135-145) mmol/L Potassium (3.3-5.1) mmol/L Chloride (96-108) mmol/L Carbon Dioxide (22-29) mmol/L Anion Gap (12-20) BUN (9-16) mg/dL Creatinine (0.5-1.4) mg/dL Estim Creat Clear Calc Estimated GFR Random Glucose (60-115) mg/dL Lactic Acid 1.0 (0.5-2.0) mmol/L Calcium (8.4-10.2) mg/dL Total Bilirubin (0.0-1.0) mg/dL AST (5-31) U/L ALT (0-31) U/L Alkaline Phosphatase (39-117) U/L Total Protein (6.5-8.0) g/dL Albumin (3.5-5.0) g/dL Lipase (8-78) U/L Urine Color Urine Appearance Urine pH (5.0-9.0) Ur Specific [place] (1.005-1.025) Urine Protein (Neg-Trace) mg/dL Urine Glucose (UA) (Negative) mg/dL Urine Ketones (Negative) mg/dL Urine Blood (Negative) Urine Nitrite (Negative) Ur Leukocyte Esterase (Negative) Urine RBC (0-2) /HPF Urine WBC (0-5) /HPF Ur Squamous Epith Cells (0-2) /HPF Calcium Oxalate Crystal Urine Bacteria (None Seen) Hyaline Casts (0-2) /LPF Medications Administered Discontinued Medications Generic Name Dose Route Start Last Admin Trade Name Freq PRN Reason Stop Dose Admin Sodium Chloride 1,000 mls @ 999 mls/hr 03/09/23 04:49 03/09/23 06:48 Ns IV 03/09/23 05:49 Infused .Q1H1M ONE Infusion Piperacillin Sod/Tazobactam 50 mls @ 100 mls/hr 03/09/23 05:15 03/09/23 06:30 Sod 3.375 gm/ Sodium Chloride IV 03/09/23 05:44 Infused ONCE ONE Infusion Iohexol 85 ml 03/09/23 05:45 03/09/23 05:46 Iohexol 350 Mg/Ml 100 Ml Infus..Btl IV 03/09/23 05:46 85 ml ONCE ONE Administration Morphine Sulfate 4 mg 03/09/23 05:47 03/09/23 05:51 Morphine Sulfate 4 Mg/Ml Cartridge IVPUSH 03/09/23 05:48 4 mg ONCE ONE Administration Protocol Ondansetron HCl 4 mg 03/09/23 05:47 03/09/23 05:52 Ondansetron Hcl 4 Mg/2 Ml Vial IVPUSH 03/09/23 05:48 4 mg ONCE ONE Administration Discharge Plan Discharge Clinical Impression: Diverticulitis Patient Disposition: Home, Self-Care Instructions: Diverticulitis (ED) Additional Instructions: take clear liquids advance slowly as tolerated pain medication as prescribed take antibiotic as prescribed follow-up with your surgeon report to the ER if worsening of the pain /vomiting /fever /blood in stool tome l?quidos ann avance lentamente seg?n lo tolere medicamento para el dolor seg?n lo prescrito crystal antibi?cris seg?n lo prescrito seguimiento con cota cirujano informe a la mara de emergencias si empeora el dolor/v?mitos/fiebre/amadeo en las heces Prescriptions: New ciprofloxacin HCl [Cipro] 500 mg tablet 500 mg PO BID Qty: 20 0RF metronidazole 500 mg tablet 500 mg PO TID Qty: 30 0RF tramadol 50 mg tablet 50 mg PO Q6H PRN (Reason: pain) Qty: 20 0RF ondansetron 4 mg tablet,disintegrating 4 mg PO Q6-8H PRN (Reason: nausea and vomiting) Qty: 7 0RF No Action albuterol sulfate [Ventolin HFA] 90 mcg/actuation HFA aerosol inhaler 2 puff PO Q6H PRN (Reason: for dyspnea) Qty: 18 1RF gabapentin 100 mg capsule 100 mg PO BID 90 Days Qty: 180 0RF tramadol 50 mg tablet 50 mg PO Q8H PRN (Reason: pain) 30 Days Qty: 90 0RF clonazepam 0.5 mg tablet 1 tab PO DAILY PRN (Reason: Panic Attack(S)) ferrous sulfate 325 mg (65 mg iron) tablet 325 mg PO DAILY 90 Days Qty: 90 1RF fluticasone propionate 50 mcg/actuation spray,suspension 1 spray intranasal DAILY diphenhydramine HCl [Benadryl] 25 mg capsule 25 mg PO TID PRN (Reason: allergic reaction) Qty: 20 0RF epinephrine [EpiPen 2-Sunil] 0.3 mg/0.3 mL auto-injector 0.3 mg IM Q4H PRN (Reason: anaphylaxis) Qty: 2 0RF Probiotic 3 billion cell capsule 3,000 mmu cells PO DAILY Rx Instructions: administer with a meal hydroxyzine pamoate [Vistaril] 25 mg capsule 25 mg PO BEDTIME methocarbamol 750 mg tablet 750 mg PO Q8H omeprazole 40 mg capsule,delayed release(DR/EC) 40 mg PO DAILY Qty: 30 6RF ondansetron 4 mg tablet,disintegrating 4 mg PO Q8H PRN (Reason: Nausea) Qty: 60 3RF fluoxetine 20 mg capsule 20 mg PO QAM Linzess 72 mcg capsule 72 mcg PO QAM Qty: 30 6RF imipramine HCl 10 mg tablet 10 mg PO BEDTIME 30 Days Qty: 30 3RF hydrocortisone [Proctosol HC] 2.5 % cream with perineal applicator 1 appl VT BID Qty: 30 6RF Rx Instructions: BE SURE TO INCLUDE RECTAL APPICATOR!! dicyclomine 20 mg tablet 20 mg PO QID amoxicillin-pot clavulanate 875-125 mg tablet 1 tab PO BID 20 Days Qty: 40 0RF hydrocodone bitartrate 20 mg tablet,oral only,ext.rel.24 hr 20 mg PO BID Qty: 10 0RF Rx Instructions: Partial Fill upon patient request. Print Language: Yakut
[2023-03-09] MEDS: Ketorolac Tromethamine 30 MG/ML VIAL IVPUSH (07:09)
== END 2023-03-09 07:19 | disposition home or self-care (01) ==
PROVIDERS: Emergency Provider Internal Medicine; PCP Internal Medicine
DX: K57.92 Diverticulitis of intestine, part unspecified, without perforation or abscess without bleeding (principal); R10.10 Upper abdominal pain, unspecified; R10.30 Lower abdominal pain, unspecified
CPT/HCPCS: 36415; 74177; 80053; 81001; 83605; 83690; 85027; 87040; 87086; 96365; 96375; 99285; J1885; J2270; J2405; J2543; Q9967

== ENCOUNTER 2023-03-13 13:14 | Outpatient (AMB) | payer OTHER, SELFPAY ==
[2023-03-13 13:24] VITALS: BP 112/74; PULSE 84
--- NOTE | 2023-03-13 13:24 | MHC.OFFVIS ---
Intake Vital Signs 03/13/23 13:24 Height 5 ft 2 in BP 112/74 Blood Pressure Location Rt brachial Position Sitting Pulse 84 Intake Visit Reasons: CT scan results, followoing diverticulosis Intake Note: This patient presents for a follow-up assessment for Ct-Scan results. Patient c/o; pain, diverticulitis Composite Worker Required: Yes Composite Worker Language: Sleeping Car Porter Name: Domi Information Interpreted: non-clinical & clinical Accompanied by: Self / Same As Patient Allergies iron [From Venofer] Adverse Reaction (Intermediate, Verified 04/17/23 14:51) Hives HPI CT scan results, followoing diverticulosis HPI Details 42F here for follow-up for history diverticulitis.? I had seen her last Dec, 2022.? She had a recent CT scan around that time which did not show any evidence of acute diverticulitis. However, she was admitted to [facility] last 02/03/2023 for another episode of acute diverticulitis.? She had a CAT scan showing stranding around her distal descending colon at that time.? She says that she was admitted for 5 days.? She says she still has some lower abdominal pain.? She denies any diarrhea.? She denies any fever. ? I had seen her 3 weeks ago as she had recurrent pain. I had sent for another CT scan. However had to go to the ER 5 days ago because of another episode of pain and she had a CAT scan showing diverticulitis of the distal descending colon. She was placed on oral antibiotics and was referred to me again. She does feel better compared to last weekend but states that she still has some pain She says she has had this episodes for over a year now. She says that she has had pull episodes already and often times she says that she has not gone to the ER. However since November of this year, he says she would have severe episodes at least once or twice a month. [facility] Medical History (Updated 05/08/23 @ 01:23 by Zackery Moore MD) Cancer of cervix Anemia TRUDY (obstructive sleep apnea) GERD (gastroesophageal reflux disease) Panic attacks Polyarthralgia Left knee pain Mild persistent asthma Heart palpitations Epidermal cyst LOVE (generalized anxiety disorder) Mild recurrent major depression Abscess History of diverticulitis Diverticular disease Colitis with complication Arthritis Fibromyalgia Abdominal pain Surgical History (Updated 05/07/23 @ 12:30 by Aracely Khanna RN) H/O colonoscopy H/O LEEP History of removal of cyst (~08/07/21) History of esophagogastroduodenoscopy (EGD) History of lithotripsy History of appendectomy History of tubal ligation Family History Father Diabetes Hypertension CVD (cardiovascular disease) Heart disease FH: mental illness Mother Asthma Family history of cancer Maternal Grandmother Diabetes Maternal Grandfather Colon cancer Maternal Aunt Colon cancer Family/Other Breast cancer Family/Other Pancreatic cancer Social History Household Members: Spouse, Family and Children Housing: Apartment Are you a primary acute care registered nurse to a significant other at home: No Do you presently have visiting nurse or other home services: Yes (PCT) Alcohol intake: never Patient Tobacco Use Status: Never used Tobacco e-Cigarette/Vaping Use: Never Used Second Hand Smoke Exposure: No Advance Directives: No Advance Directives Information Provided: No service: No Current occupational status: unemployed Cognitive needs: No Hearing needs: No Vision needs: No Review of Systems Const Denies chills and Denies fever(s) Card Denies chest pain, Denies dyspnea and Denies dyspnea on exertion Resp Denies cough, Denies dyspnea and Denies dyspnea on exertion GI Denies hematochezia and Denies change in bowel habits Denies hematuria Musc Denies back pain and Denies limited range of motion Neuro Denies focal weakness and Denies convulsions Psych Denies depression and Denies mood swings Physical Exam Vital Signs: Last Vital Signs Pulse 84 03/13/23 13:24 BP 112/74 03/13/23 13:24 Const General: comfortable and no acute distress Orientation/consciousness: patient oriented x3 Neck Neck: Yes no lymphadenopathy Resp Auscultation: clear to auscultation bilaterally Cardio Rhythm: regular rhythm GI Other: Mild left lower quadrant tenderness Palpation (GI): Soft to palpation, nontender and no guarding Neuro General: patient oriented x3 Assessment & Plan Assessment & Plan (1) Diverticular disease: Comment: with severe luminal narrowing in sigmoid on 2022 colonoscopy Code(s): K57.90 - Diverticulosis of intestine, part unspecified, without perforation or abscess without bleeding Plan: She continues to have recurrent episodes of diverticulitis with left lower quadrant pain. He says that since November,, she would have at least 1 or 2 episodes every month. She was in the ER again 5 days ago for the same problem. Review of her CT scan shows inflammatory changes in the distal descending colon without any abscess. She has had multiple recurrent episodes and wants to proceed with resection. I had a long discussion with her about the technique of hand assisted laparoscopic resection of the left colon and sigmoid with possible conversion to open procedure. I explained the risks including but not limited to bleeding, infections, staple line leak, injury to other organs including bowel and urinary tract, blood clots, pneumonia, as well as the benefits and alternatives. She understands the risk of requiring a temporary stoma. She wants to proceed. I also discussed with her what to expect postoperatively including postop admission and recovery. Coding Level of Care Code Est Pt Level 4 (00596) Diagnoses Diverticular disease K57.90
== END 2023-03-13 13:44 | disposition home or self-care (01) ==
PROVIDERS: PCP Internal Medicine; Visit Provider Surgery
DX: K57.90 Diverticulosis of intestine, part unspecified, without perforation or abscess without bleeding (principal)
CPT/HCPCS: 99214

== ENCOUNTER → 2023-03-13 13:14 | Outpatient (BNVA) | payer OTHER, SELFPAY | PROVIDERS: PCP Internal Medicine; Visit Provider Surgery | DX: K57.90 Diverticulosis of intestine, part unspecified, without perforation or abscess without bleeding (principal) | CPT/HCPCS: 99212 ==

== ENCOUNTER 2023-04-17 14:28 | Outpatient (AMB) | payer OTHER, SELFPAY ==
--- NOTE | 2023-04-17 14:32 | A.OFFPC_ITS ---
Vital Signs 04/17/23 14:34 Height 5 ft 2 in Weight 158 lb BMI 28.9 BP 120/78 Blood Pressure Location Lt brachial Position Sitting Intake Visit Reasons: 02/08/23 [facility] Wing tuberculosis/Colon ? Intake Note: Patient here for a ED follow up 02/08/23 [facility] 03/10 diverticulitis Emergency Vehicle Operator Required: No Accompanied by: Self / Same As Patient Allergies iron [From Venofer] Adverse Reaction (Intermediate, Verified 04/17/23 14:51) Hives Medication List - Last Reconciled 04/17/23 by Magali Summers MD albuterol sulfate 90 mcg/actuation (Ventolin HFA) 2 puffs PO Q6H PRN dicyclomine 20 mg PO QID diphenhydramine HCl (Benadryl) 25 mg PO TID PRN epinephrine (EpiPen 2-Sunil) 0.3 mg (0.3 mL) IM Q4H PRN ferrous sulfate 325 mg PO DAILY 90 days fluoxetine 20 mg PO QAM fluticasone propionate 50 mcg/actuation 1 spray intranasal DAILY gabapentin 100 mg PO BID 90 days hydrocodone bitartrate ER 20 mg PO BID hydrocortisone 2.5% (Proctosol HC) 1 appl [place] BID hydroxyzine pamoate (Vistaril) 25 mg PO BEDTIME imipramine HCl 10 mg PO BEDTIME 30 days lactobacillus combination no.4 (Probiotic) 3,000 mmu cells PO DAILY linaclotide (Linzess) 72 mcg PO QAM methocarbamol 750 mg PO Q8H metronidazole 500 mg PO TID omeprazole 40 mg PO DAILY ondansetron 4 mg PO Q6-8H PRN tramadol 50 mg PO Q6H PRN tramadol 50 mg PO Q8H PRN 30 days Tobacco use date assessed: 04/17/23 Dental Screening Dental Screen Date: 04/17/23 Did you have a dental visit in the last 12 months?: Yes Did you have a dental problem in the last 6 months where you did not have access to dental care?: No Was dental information given to patient?: Patient has dentist HPI HPI Comments History of Present Illness Details This is a 42-year-old female with GERD, constipation, mild asthma that went to emergency room due to an episode of diverticulitis. This has not been the 1st diverticulitis episode and will have surgery soon. GERD stable with medications. Constipation still present even with medications. Use rescue in haler once a month. Has fibromyalgia stable with gabapentin. [facility] Medical History Abdominal pain Abscess Arthritis Colitis with complication Diverticular disease Epidermal cyst Fibromyalgia LOVE (generalized anxiety disorder) GERD (gastroesophageal reflux disease) Heart palpitations History of diverticulitis Left knee pain Mild persistent asthma Mild recurrent major depression TRUDY (obstructive sleep apnea) Panic attacks Polyarthralgia Surgical History H/O LEEP History of appendectomy History of esophagogastroduodenoscopy (EGD) History of lithotripsy History of removal of cyst (~08/07/21) History of tubal ligation Family History Father Diabetes Hypertension CVD (cardiovascular disease) Heart disease FH: mental illness Mother Asthma Family history of cancer Maternal Grandmother Diabetes Maternal Grandfather Colon cancer Maternal Aunt Colon cancer Family/Other Breast cancer Family/Other Pancreatic cancer Social History Household Members: Spouse, Family and Children Housing: Apartment Alcohol intake: never Patient Tobacco Use Status: Never used Tobacco e-Cigarette/Vaping Use: Never Used Second Hand Smoke Exposure: No service: No Current occupational status: unemployed Cognitive needs: No Hearing needs: No Vision needs: No Questionnaire PHQ-9 Over the last 2 weeks, how often have you been bothered by any of the following problems? 1. Little interest or pleasure in doing things: several days 2. Feeling down, depressed, or hopeless: several days 3. Trouble falling or staying asleep, or sleeping too much: nearly every day 4. Feeling tired or having little energy: nearly every day 5. Poor appetite or overeating: not at all 6. Feeling bad about yourself - or that you are a failure or have let yourself or your family down: not at all 7. Trouble concentrating on things, such as reading the newspaper or watching television: not at all 8. Moving or speaking so slowly that other people could have noticed. Or the opposite - being so fidgety or restless that you have been moving around a lot more than usual: nearly every day 9. Thoughts that you would be better off or of hurting yourself in some way: not at all Total score: 11 Depression Screening Interpretation: Positive Depression Screening Follow-up: Existing condition 19853 - PHQ-9 Billing: Yes Source: Developed by Drs. Bijan Weldon, Dee Olivera, Andrew Angel and colleagues, with an educational gerry from [employer]. Thrive Questionnaire Date Thrive assessed: 04/17/23 I am a: Patient What is your living situation today?: I have a steady place to live Within the past 12 months, did the food you bought not last and you didn't have the money to get more?: Never true Within the past 12 months, did you worry whether your food would run out before you got money to buy more?: Never true Do you have trouble paying for medicines?: No Do you have trouble getting transportation to medical appointments?: No Do you have trouble paying your heating and electricity bill?: No Do you have trouble taking care of your child, family member or friend?: No Do you have trouble with day-to-day activities such as bathing, preparing meals, shopping, managing finances, etc.?: No Are you currently unemployed and looking for a job?: No Are you interested in more education?: No Please select the resources that you would like help with: None Currently or been in a relationship where the following occur: no concerns reported AUDIT C Alcohol Use Questionnaire (AUDIT-C) 1. How often do you have a drink containing alcohol?: Never Total Score: 0 Score Reviewed/Action Taken: No LOVE-7 AMB Questionnaire LOVE-7 Date LOVE - 7 assessed: 04/17/23 Feeling nervous, anxious, or on edge: 1 = Several days Not being able to stop or control worryin = Not at all Worrying too much about different things: 1 = Several days Trouble relaxin = Several days Being so restless that it is hard to sit still: 2 = More than half the days Becoming easily annoyed or irritable: 3 = Nearly every day Feeling afraid as if something awful might happen: 3 = Nearly every day Total LOVE-7 score (0-4 normal; 5-9 mild; 10-14 moderate; 15-21 severe): 11 Source: Developed by Drs. Bijan Weldon, Dee Olivera, Andrew Angel and colleagues, with an educational gerry from [employer]. LOVE-7 Assessment Billing LOVE-7 Assessment Tool: LOVE-7 Assessment 07451 Review of Systems Const All systems reviewed & are unremarkable except as noted in HPI and below Eyes Reports no additional complaints, Denies change in vision and Denies other vi sual disturbances Card Denies chest pain at rest, Denies chest pain with activity, Denies edema, Denies irregular heart rhythm, Denies claudication, Denies dyspnea, Denies dyspnea on exertion, Denies orthopnea, Denies paroxysmal nocturnal dyspnea and Denies slow heart rate Resp Denies cough, Denies dyspnea and Denies dyspnea on exertion GI Denies abdominal pain, Denies change in bowel habits, Denies excessive flatus, Denies nausea and Denies vomiting Denies urinary incontinence, Denies urinary hesitancy and Denies urinary urgency Musc Denies abnormal gait, Denies atrophy, Denies deformity and Denies limited range of motion Skin/Breast Denies bleeding lesions, Denies changing lesions and Denies rash Neuro Denies abnormal gait and Denies lack of coordination Physical exam (Primary Care) Vital Signs: Last Vital Signs BP 120/78 04/17/23 14:34 BMI result Body Mass Index 28.9 Tobacco/Smoking Status: Tobacco use Status Tobacco use date assessed 04/17/23 04/17/23 14:40 Patient Tobacco Use Status Never used Tobacco 04/17/23 14:40 e-Cigarette/Vaping Use Never Used 04/17/23 14:40 PHQ-9: PHQ-9 Score PHQ-9: Total score 11 04/17/23 14:59 Depression Screening Interpretation: Positive Depression Screening Follow-up: Existing condition Thrive Assessment: Date of Thrive Assessment Date Thrive assessed 04/17/23 04/17/23 14:40 Currently or been in a relationship where the following occur: no concerns reported Eyes General: appearance normal, both eyes and all related structures Eyelids: Yes eyelids normal Conjunctivae: conjunctivae normal Neck Neck: Yes normal visual inspection and Yes supple Resp Effort & Inspection: normal respiratory effort Auscultation: clear to auscultation bilaterally Cardio Jugular venous distension: no JVD Rate: regular rate Rhythm: regular rhythm Heart sounds: S1 normal heart sound present and S2 normal heart sound present Extrem General: Yes full ROM Assessment and Plan Assessment & Plan (1) GERD (gastroesophageal reflux disease): Code(s): K21.9 - Gastro-esophageal reflux disease without esophagitis Plan: Continue PPIs (2) Chronic idiopathic constipation: Code(s): K59.04 - Chronic idiopathic constipation Plan: Continue Linzess. (3) Diverticulitis: Comment: recurrent x 4 over last year Code(s): K57.92 - Diverticulitis of intestine, part unspecified, without perforation or abscess without bleeding Plan: Scheduled for surgery (4) Mild persistent asthma: Code(s): J45.30 - Mild persistent asthma, uncomplicated Plan: Continue rescue inhaler as needed Coding Level of Care Code Est Pt Level 4 (54040) Diagnoses GERD (gastroesophageal reflux disease) K21.9 Chronic idiopathic constipation K59.04 Diverticulitis K57.92 Mild persistent asthma J45.30 Additional Codes LOVE-7 Assessment Billing - LOVE-7 Assessment Tool: LOVE-7 Assessment 94699 ([id number]) Time Spent (min) 23
[2023-04-17 14:34] VITALS: BP 120/78; BMI 28.9
== END 2023-04-17 14:58 | disposition home or self-care (01) ==
PROVIDERS: PCP Internal Medicine; Visit Provider Internal Medicine
DX: K21.9 Gastro-esophageal reflux disease without esophagitis (principal); K59.04 Chronic idiopathic constipation; K57.92 Diverticulitis of intestine, part unspecified, without perforation or abscess without bleeding; J45.30 Mild persistent asthma, uncomplicated
CPT/HCPCS: 99214

== ENCOUNTER 2023-05-07 19:44 | Emergency (ER) | payer OTHER, SELFPAY ==
[2023-05-07 20:14] VITALS: BP 117/72; PULSE 93; RESP 18; TEMP 36.7; O2SAT 97; BMI 29.8
[2023-05-07 21:02] LABS: MANUAL DIFF FLAG NO
[2023-05-07 21:05] LABS: Basophils Percent Auto 0.5 % (0-2); Eosinophils Absolute Auto 0.5 X10*3/uL (0.0-0.4); Eosinophils Percent Auto 6.6 % (0-4); Hematocrit 35.5 % (37.0-47.0); Hemoglobin 11.3 g/dl (12.0-16.0); Imm Gran Abs Auto 0.02 X10*3/uL (0.00-0.03); Imm Gran Pct Auto 0.2 % (0.0-0.4); Lymphocytes Absolute Auto 2.2 X10*3/uL (1.2-4.9); Lymphocytes Percent Auto 26.9 % (20-40); Mean Corpuscular HGB Conc 31.8 g/dl (31.0-35.0); Mean Corpuscular Hemoglobin 28.4 pg (27.0-33.0); Mean Corpuscular Volume 89.2 fL (80.0-98.0); Mean Platelet Volume 10.2 fL (9.4-12.3); Monocytes Absolute Auto 0.5 X10*3/uL (0.1-1.2); Monocytes Percent Auto 6.6 % (2-11); Neutrophils Absolute Auto 4.9 x10*3/uL (2.0-8.3); Neutrophils Percent Auto 59.2 % (45-73); Platelet Count 329 X10*3/uL (160-400); Red Blood Count 3.98 X10*6/uL (4.20-5.50); Red Cell Distribution Width 13.9 % (11.0-16.0); White Blood Count 8.2 X10*3/uL (4.8-10.8)
[2023-05-07 21:20] LABS: Alanine Aminotransferase 12 U/L (0-31); Albumin Level 4.2 g/dL (3.5-5.0); Alkaline Phosphatase 80 U/L (39-117); Anion Gap 12 (12-20); Aspartate Amino Transferase 17 U/L (5-31); Bilirubin Direct 0.1 mg/dL (0.0-0.5); Bilirubin Total 0.3 mg/dL (0.0-1.0); Blood Urea Nitrogen 12 mg/dL (9-16); Calcium 9.2 mg/dL (8.4-10.2); Carbon Dioxide 25 mmol/L (22-29); Chloride 108 mmol/L (96-108); Creatinine Clr Calc Pharmacy 96.4; Estimated Glomerular Filt Rate > 60; Glucose Random 95 mg/dL (60-115); Lipase 31 U/L (8-78); Magnesium 2.4 mg/dL (1.6-2.6); Potassium 4.1 mmol/L (3.3-5.1); Sodium 141 mmol/L (135-145); Total Protein 7.4 g/dL (6.5-8.0)
--- NOTE | 2023-05-08 00:45 | ED_ITS ---
HPI - Abdominal Pain General Chief Complaint: Abdominal Pain Stated Complaint: Diverticulitis, bleeding Time Seen by Provider: 05/08/23 00:41 Source: patient Mode of arrival: ambulatory Limitations: no limitations History of Present Illness HPI narrative: History of diverticulitis frequent attacks with GI bleed plan to get a partial colectomy done next week last admission was in 04/10 comes here as she had 2 bowel movements both of them with slightly hard with slight amount of bright blood no blood clots does complain of left lower abdominal discomfort patient does have history of hemorrhoids also no fever no chills no urinary complaint Related Data Home Medications Medication Instructions Recorded Confirmed hydroxyzine pamoate 25 mg capsule 25 mg PO BEDTIME PRN Anxiety 03/07/21 05/07/23 (Vistaril) fluoxetine 20 mg capsule 40 mg PO QAM 03/16/22 05/07/23 dicyclomine 20 mg tablet 20 mg PO QID PRN Diarrhea 01/30/23 05/07/23 cyanocobalamin (vitamin B-12) 1,000 mcg IM QMONTH 05/07/23 05/07/23 1,000 mcg/mL injection solution gabapentin 100 mg capsule 100 mg PO BID PRN Pain 05/07/23 05/07/23 hydrocortisone 2.5 % topical cream 1 appl WI BID PRN hemorrhoids 05/07/23 05/07/23 with perineal applicator (Proctosol HC) imipramine HCl 10 mg tablet 10 mg PO BEDTIME PRN Anxiety 05/07/23 05/07/23 Previous Rx's Medication Instructions Recorded omeprazole 40 mg capsule,delayed 40 mg PO DAILY #30 caps 11/20/22 release ondansetron 4 mg disintegrating 4 mg PO Q6-8H PRN nausea and 03/09/23 tablet vomiting #7 tabs tramadol 50 mg tablet 50 mg PO Q6H PRN pain #20 tabs 03/09/23 albuterol sulfate 90 mcg/actuation 2 puff PO Q6H PRN for dyspnea #8.5 04/30/23 aerosol inhaler (Ventolin HFA) grams amoxicillin 875 mg-potassium 1 tab PO BID #20 tabs 05/08/23 clavulanate 125 mg tablet oxycodone 5 mg tablet 5 mg PO Q6H PRN pain #20 tabs 05/08/23 Allergies Allergy/AdvReac Type Severity Reaction Status Date / Time iron [From Venofer] AdvReac Intermediate Hives Verified 04/17/23 14:51 [facility] Past Medical History Medical History (Updated 05/08/23 @ 01:23 by Zackery Moore MD) Cancer of cervix Anemia TRUDY (obstructive sleep apnea) GERD (gastroesophageal reflux disease) Panic attacks Polyarthralgia Left knee pain Mild persistent asthma Heart palpitations Epidermal cyst LOVE (generalized anxiety disorder) Mild recurrent major depression Abscess History of diverticulitis Diverticular disease Colitis with complication Arthritis Fibromyalgia Abdominal pain Surgical History (Updated 05/07/23 @ 12:30 by Aracely Khanna RN) H/O colonoscopy H/O LEEP History of removal of cyst (~08/07/21) History of esophagogastroduodenoscopy (EGD) History of lithotripsy History of appendectomy History of tubal ligation Family History Family History Father Diabetes Hypertension CVD (cardiovascular disease) Heart disease FH: mental illness Mother Asthma Family history of cancer Maternal Grandmother Diabetes Maternal Grandfather Colon cancer Maternal Aunt Colon cancer Family/Other Breast cancer Family/Other Pancreatic cancer Social History Social History Household Members: Spouse, Family and Children Housing: Apartment Are you a primary customer care associate to a significant other at home: No Do you presently have visiting nurse or other home services: Yes (PCT) Alcohol intake: never Patient Tobacco Use Status: Never used Tobacco e-Cigarette/Vaping Use: Never Used Second Hand Smoke Exposure: No Advance Directives: No Advance Directives Information Provided: No service: No Current occupational status: unemployed Cognitive needs: No Hearing needs: No Vision needs: No Physical Exam ED Vital Signs: Vital Signs - 24 hr 05/07/23 20:14 05/08/23 00:49 Temperature 98.0 F 98.5 F Pulse Rate 93 75 Respiratory Rate 18 16 Blood Pressure 117/72 114/70 Pulse Oximetry 97 98 Oxygen Delivery Method Room Air Room Air BMI result Body Mass Index 29.8 Appearance: Alert. Oriented X3. No acute distress. Eyes: PERRLA, No Nystagmus ENT: Pharynx normal. Oral Mucosa moist Neck: Normal inspection. Neck supple. CVS: Normal heart rate and rhythm. Pulses normal. Respiratory: No respiratory distress. Equal air entry bilateral, no wheezing/rales/rhonchi Abdomen: Soft , mild deep tenderness on left lower abdomen no rebound tenderness or guarding, Bowel sounds are present, no mass palpable, no CVA tenderness Skin: Skin warm and dry. Normal skin color. Normal skin turgor. Extremities: No lower extremity edema. No calf tenderness Neuro: Oriented X 3. No motor deficit. No sensory deficit.No cerebellar signs , cranial nerves II-XII intact Medical Decision Making Medical Decision Making [facility] Narrative: Patient with minor rectal bleed possible from hemorrhoids versus diverticular H&H stable to discharge patient home advised to follow with surgeon Differential Diagnosis Differential Diagnoses: The differential diagnosis associated with the presentation includes Diverticular bleed/hemorrhoid bleed/colitis Lab Data [facility] Lab Attestation statement: I reviewed the patient's lab results. 05/07/23 20:57 05/07/23 20:57 Labs: Lab Results 05/07/23 Range/Units 20:57 WBC 8.2 (4.8-10.8) X10*3/uL RBC 3.98 L (4.20-5.50) X10*6/uL Hgb 11.3 L (12.0-16.0) g/dl Hct 35.5 L (37.0-47.0) % MCV 89.2 (80.0-98.0) fL MCH 28.4 (27.0-33.0) pg MCHC 31.8 (31.0-35.0) g/dl RDW 13.9 (11.0-16.0) % Plt Count 329 (160-400) X10*3/uL MPV 10.2 (9.4-12.3) fL Immature Gran % (Auto) 0.2 (0.0-0.4) % Neut % (Auto) 59.2 (45-73) % Lymph % (Auto) 26.9 (20-40) % [place] % (Auto) 6.6 (2-11) % Eos % (Auto) 6.6 H (0-4) % Baso % (Auto) 0.5 (0-2) % Lymph # (Auto) 2.2 (1.2-4.9) X10*3/uL [place] # (Auto) 0.5 (0.1-1.2) X10*3/uL Eos # (Auto) 0.5 H (0.0-0.4) X10*3/uL Baso # (Auto) 0.0 (0.0-0.2) X10*3/uL Abs Immat Gran (auto) 0.02 (0.00-0.03) X10*3/uL Absolute Neuts (auto) 4.9 (2.0-8.3) x10*3/uL Absolute Nucleated RBC 0.000 (0.0-0.012) X10*3/uL Nucleated RBC % (auto) 0.0 (0.0-0.2) /100WBC Sodium 141 (135-145) mmol/L Potassium 4.1 (3.3-5.1) mmol/L Chloride 108 (96-108) mmol/L Carbon Dioxide 25 (22-29) mmol/L Anion Gap 12 (12-20) BUN 12 (9-16) mg/dL Creatinine 0.73 (0.5-1.4) mg/dL Estim Creat Clear Calc 96.4 Estimated GFR > 60 Random Glucose 95 (60-115) mg/dL Calcium 9.2 (8.4-10.2) mg/dL Magnesium 2.4 (1.6-2.6) mg/dL Total Bilirubin 0.3 (0.0-1.0) mg/dL Direct Bilirubin 0.1 (0.0-0.5) mg/dL AST 17 (5-31) U/L ALT 12 (0-31) U/L Alkaline Phosphatase 80 (39-117) U/L Total Protein 7.4 (6.5-8.0) g/dL Albumin 4.2 (3.5-5.0) g/dL Lipase 31 (8-78) U/L Discharge Plan Discharge Clinical Impression: Diverticular disease Patient Disposition: Home, Self-Care Instructions: Diverticulosis (ED) Additional Instructions: Clear liquids, advance as tolerated Start taking antibiotics and follow-up with the surgeon/PCP Report to the ER if worsening of pain/bleeding Prescriptions: New amoxicillin-pot clavulanate 875-125 mg tablet 1 tab PO BID Qty: 20 0RF oxycodone 5 mg tablet 5 mg PO Q6H PRN (Reason: pain) Qty: 20 0RF Rx Instructions: Partial Fill upon patient request. No Action albuterol sulfate [Ventolin HFA] 90 mcg/actuation HFA aerosol inhaler 2 puff PO Q6H PRN (Reason: for dyspnea) Qty: 8.5 3RF tramadol 50 mg tablet 50 mg PO Q6H PRN (Reason: pain) Qty: 20 0RF ondansetron 4 mg tablet,disintegrating 4 mg PO Q6-8H PRN (Reason: nausea and vomiting) Qty: 7 0RF hydrocortisone [Proctosol HC] 2.5 % cream with perineal applicator 1 appl WI BID PRN (Reason: hemorrhoids) Rx Instructions: BE SURE TO INCLUDE RECTAL APPICATOR!! gabapentin 100 mg capsule 100 mg PO BID PRN (Reason: Pain) imipramine HCl 10 mg tablet 10 mg PO BEDTIME PRN (Reason: Anxiety) cyanocobalamin (vitamin B-12) [Vitamin B-12] 1,000 mcg/mL Solution 1,000 mcg IM QMONTH hydroxyzine pamoate [Vistaril] 25 mg capsule 25 mg PO BEDTIME PRN (Reason: Anxiety) omeprazole 40 mg capsule,delayed release(DR/EC) 40 mg PO DAILY Qty: 30 6RF fluoxetine 20 mg capsule 40 mg PO QAM dicyclomine 20 mg tablet 20 mg PO QID PRN (Reason: Diarrhea)
[2023-05-08 00:49] VITALS: BP 114/70; PULSE 75; RESP 16; TEMP 36.9; O2SAT 98
[2023-05-08] MEDS: oxyCODONE HCl Immed Release 5 MG TABLET 10 MG PO (01:34)
[2023-05-08] MEDS: Amoxicillin/Potassium Clav 875 MG TABLET PO (01:34)
[2023-05-08 01:35] VITALS: BP 104/79; PULSE 79; RESP 20; O2SAT 97
== END 2023-05-08 01:44 | disposition home or self-care (01) ==
PROVIDERS: Physician Assistant Medical; Emergency Provider Internal Medicine; PCP Internal Medicine
DX: K57.30 Diverticulosis of large intestine without perforation or abscess without bleeding (principal); R10.32 Left lower quadrant pain; D64.9 Anemia, unspecified; Z79.899 Other long term (current) drug therapy
CPT/HCPCS: 36415; 80048; 80076; 83690; 83735; 85025; 99283

== ENCOUNTER 2023-05-14 10:28 | Inpatient (IN) | payer OTHER, SELFPAY ==
[2023-05-07 12:45] VITALS: BP 115/69; PULSE 74; RESP 20; O2SAT 98; BMI 29.8
--- NOTE | 2023-05-07 12:56 | P.CONAN_ITS ---
Documented by User: Paula Johnson NP 05/13/23 08:51 HPI - Anesthesia Eval Consult details Narrative: 42yo F for Colon Resection Laparoscopic Hand Assist,poss open , poss seton s/p colo 10/2022 with TIVA No recent illness No CP/SOB with > 4 mets TRUDY. Very mild. No CPAP needed Asthma. Stable. PRN Albuterol very rare (last 6 months ago) GERD. Controlled with PPI s/p tubal PMFSH Active Problems Active Problems: All Active Problems (Updated 05/07/23 @ 12:41 by Aracely Khanna RN) Irritable bowel syndrome with both constipation and diarrhea (Acute) Diverticulitis (Acute) Physical exam (Acute) Rosacea (Acute) Abdominal cramping (Acute) Heart palpitations (Acute) SOB (shortness of breath) (Acute) Nausea and vomiting (Acute) Vitamin B12 deficiency (Chronic) H. pylori infection (Acute) Chronic idiopathic constipation (Acute) GERD (gastroesophageal reflux disease) (Acute) Diarrhea (Acute) Diverticular disease (Acute) Polyarthralgia (Acute) Left knee pain (Acute) Mild persistent asthma (Acute) Epidermal cyst (Acute) LOVE (generalized anxiety disorder) (Acute) Mild recurrent major depression (Acute) Abscess (Acute) History of diverticulitis (Acute) Fibromyalgia (Acute) Past Medical History Medical History (Updated 05/08/23 @ 01:23 by Zackery Moore MD) Cancer of cervix Anemia TRUDY (obstructive sleep apnea) GERD (gastroesophageal reflux disease) Panic attacks Polyarthralgia Left knee pain Mild persistent asthma Heart palpitations Epidermal cyst LOVE (generalized anxiety disorder) Mild recurrent major depression Abscess History of diverticulitis Diverticular disease Colitis with complication Arthritis Fibromyalgia Abdominal pain Family History Family History Father Diabetes Hypertension CVD (cardiovascular disease) Heart disease FH: mental illness Mother Asthma Family history of cancer Maternal Grandmother Diabetes Maternal Grandfather Colon cancer Maternal Aunt Colon cancer Family/Other Breast cancer Family/Other Pancreatic cancer Family history of problems with anesthesia: No Surgical History Surgical History (Updated 05/07/23 @ 12:30 by Aracely Khanna RN) H/O colonoscopy H/O LEEP History of removal of cyst (~08/07/21) History of esophagogastroduodenoscopy (EGD) History of lithotripsy History of appendectomy History of tubal ligation History of Problems with Anesthesia: Yes (SOB upon waking) Social History Social History Household Members: Spouse, Family and Children Housing: Apartment Are you a primary home health care physician to a significant other at home: No Do you presently have visiting nurse or other home services: Yes (PCT) Alcohol intake: never Patient Tobacco Use Status: Never used Tobacco e-Cigarette/Vaping Use: Never Used Second Hand Smoke Exposure: No service: No Current occupational status: unemployed Cognitive needs: No Hearing needs: No Vision needs: No Meds Allergies Allergy/AdvReac Type Severity Reaction Status Date / Time iron [From Venofer] AdvReac Intermediate Hives Verified 05/14/23 06:33 methocarbamol AdvReac Intermediate Hives Verified 05/14/23 06:34 Home Medications Medication Instructions Recorded Confirmed Last Taken Type hydroxyzine pamoate 25 mg capsule 25 mg PO BEDTIME PRN Anxiety 03/07/21 05/14/23 04/30/23 History (Vistaril) fluoxetine 20 mg capsule 40 mg PO QAM 03/16/22 05/14/23 05/12/23 History dicyclomine 20 mg tablet 20 mg PO QID PRN Diarrhea 01/30/23 05/14/23 04/13/23 Hi story cyanocobalamin (vitamin B-12) 1,000 mcg IM QMONTH 05/07/23 05/14/23 05/07/23 History 1,000 mcg/mL injection solution gabapentin 100 mg capsule 100 mg PO BID PRN Pain 05/07/23 05/14/23 03/13/23 History hydrocortisone 2.5 % topical cream 1 appl [place] BID PRN hemorrhoids 05/07/23 05/14/23 11/11/22 History with perineal applicator (Proctosol HC) imipramine HCl 10 mg tablet 10 mg PO BEDTIME PRN Anxiety 05/07/23 05/14/23 05/13/23 History Exam Exam Date and Time: May 07, 2023 1256 Height,Weight and Vital Signs: Height 5 ft 2 in Weight 73.936 kg Last Vital Signs Pulse 74 05/07/23 12:45 Resp 20 05/07/23 12:45 BP 115/69 05/07/23 12:45 Pulse Ox 98 05/07/23 12:45 O2 Del Method Room Air 05/07/23 12:45 Pertinent Lab Results Pertinent Lab Results: Laboratory Tests 03/09/23 02:13 WBC 11.9 H Hgb 12.1 Hct 38.9 Plt Count 284 Sodium 141 Potassium 4.7 Chloride 109 H Carbon Dioxide 25 BUN 8 L Creatinine 0.76 Lab Results 05/07/23 Range/Units 13:50 Blood Type O Positive Antibody Screen NEGATIVE Narrative Narrative: EKG 11/2022 Vent. Rate : 068 BPM Atrial Rate : 068 BPM P-R Int : 144 ms QRS Dur : 070 ms QT Int : 396 ms P-R-T Axes : 020 -09 079 degrees QTc Int : 421 ms Normal sinus rhythm Minimal voltage criteria for LVH, may be normal variant ( R in aVL ) Nonspecific T wave abnormality Abnormal ECG No previous ECGs available Airway Mallampati Class: I TM Dist: >3cm Neck ROM: Full Loose/Missing/Broken Teeth: No Heart: RRR Lungs: CTAB Assessment and Plan Assessment Anesthesia Assessment: Anesthesia Plan Discussed and PAT Visit Final Anesthetic Review Family History of Problems with Anesthesia: No History of Problems with Anesthesia: Yes (SOB upon waking) Documented by User: Rusty Dash MD 05/14/23 07:32 [facility] Past Medical History Medical History (Updated 05/08/23 @ 01:23 by Zackery Moore MD) Cancer of cervix Anemia TRUDY (obstructive sleep apnea) GERD (gastroesophageal reflux disease) Panic attacks Polyarthralgia Left knee pain Mild persistent asthma Heart palpitations Epidermal cyst LOVE (generalized anxiety disorder) Mild recurrent major depression Abscess History of diverticulitis Diverticular disease Colitis with complication Arthritis Fibromyalgia Abdominal pain Patient : No Family History Family History Father Diabetes Hypertension CVD (cardiovascular disease) Heart disease FH: mental illness Mother Asthma Family history of cancer Maternal Grandmother Diabetes Maternal Grandfather Colon cancer Maternal Aunt Colon cancer Family/Other Breast cancer Family/Other Pancreatic cancer Surgical History Surgical History (Updated 05/07/23 @ 12:30 by Aracely Khanna RN) H/O colonoscopy H/O LEEP History of removal of cyst (~08/07/21) History of esophagogastroduodenoscopy (EGD) History of lithotripsy History of appendectomy History of tubal ligation Social History Social History Household Members: Spouse, Family and Children Housing: Apartment Are you a primary home health care physician to a significant other at home: No Do you presently have visiting nurse or other home services: Yes (PCT) Alcohol intake: never Patient Tobacco Use Status: Never used Tobacco e-Cigarette/Vaping Use: Never Used Second Hand Smoke Exposure: No service: No Current occupational status: unemployed Cognitive needs: No Hearing needs: No Vision needs: No Meds Allergies Allergy/AdvReac Type Severity Reaction Status Date / Time iron [From Venofer] AdvReac Intermediate Hives Verified 05/14/23 06:33 methocarbamol AdvReac Intermediate Hives Verified 05/14/23 06:34 Home Medications Medication Instructions Recorded Confirmed Last Taken Type hydroxyzine pamoate 25 mg capsule 25 mg PO BEDTIME PRN Anxiety 03/07/21 05/14/23 04/30/23 History (Vistaril) fluoxetine 20 mg capsule 40 mg PO QAM 03/16/22 05/14/23 05/12/23 History dicyclomine 20 mg tablet 20 mg PO QID PRN Diarrhea 01/30/23 05/14/23 04/13/23 History cyanocobalamin (vitamin B-12) 1,000 mcg IM QMONTH 05/07/23 05/14/23 05/07/23 History 1,000 mcg/mL injection solution gabapentin 100 mg capsule 100 mg PO BID PRN Pain 05/07/23 05/14/23 03/13/23 History hydrocortisone 2.5 % topical cream 1 appl [place] BID PRN hemorrhoids 05/07/23 05/14/23 11/11/22 History with perineal applicator (Proctosol HC) imipramine HCl 10 mg tablet 10 mg PO BEDTIME PRN Anxiety 05/07/23 05/14/23 05/13/23 History Assessment and Plan Assessment Anesthesia Assessment: Chart Reviewed Final Anesthetic Review NPO: Yes ASA Class: II Final Preanesthetic Review: No Changes in Pt Med Stat, Meds/Allgs Chart Reviewed, Consent Obtained/Reviewed and Anes Risks/Benef Reviewed Patient Risk: Low Procedure Risk: Intermediate Anesthetic Plan Anesthetic Plan: GA and Agree w/ Assess. and Plan Disposition: Standard PACU
[2023-05-14] VITALS (21 sets, daily range): BP systolic 94–144; BP diastolic 55–95; PULSE 77–102; RESP 16–21; TEMP 36–36.7; O2SAT 93–100; BMI 31.8
[2023-05-14] MEDS: Lactated Ringers 1,000 ML 100 ML IVCONT ×2 (07:18→17:20)
--- NOTE | 2023-05-14 10:30 | W.PM.OPN ---
Operative Note Operative Note Date of Service: 05/14/23 Narrative: Preop diagnosis: history of recurrent diverticulitis Postop diagnosis: The same Procedure: and assised laparoscopic resection of the distal left colon and sigmoid, with end-to-end anastomosis,Mobilization of the splenic flexure, intraop flexible colonoscopy Surgeon: Cachorro Ku MD assistant manager of operations: KELLY Trinidad The patient is a 42-year-old female with history of recurrent diverticulitis, for resection of the distal left colon and sigmoid. I have reviewed her CAT scans. She had this disease on the distal descending colon the junction of the sigmoid. Colonoscopy showing sigmoid diverticulosis She understood the technique of the planned procedure as well as the risks, benefits, and alternatives She was brought to the operating room placed in modified lithotomy position under general anesthesia via endotracheal tube. A Pandya catheter had been inserted. The abdomen and the perineum were prepped and draped in the usual sterile fashion. A surgical time-out was done. The patient received Cefotan 2 g IV preoperatively I made a short midline incision starting from the level of the umbilicus inferiorly using blade 15. And this was carried down with electrocautery through the full-thickness of the skin and thick subcutaneous fat down to the fascia. The fascia was incised. The peritoneum was entered. Through this incision the Ventura wound retractor was position We attached the GelPort with an insufflating port. We insufflated the peritoneum to a pressure of 15 mm hg. We used a 10 mm 30 degree scope. With laparoscopic visualization, I placed a 5/12 the port epigastric area. No other 5/12 the ports placed in the right lower quadrant The patient was placed in a steep right-side down and down position. I inserted my hand and proceeded reader tract all the bowel loops away from the pelvis and the left side. I was able to see the sigmoid clearly. I palpated this for any indurated segments but he could not identify any. I palpated the left colon as well all the way to the proximal left colon and there was no active induration or any obvious disease on visualization I proceeded to mobilize the left colon in preparation for resection. I used the LigaSure to divide the ligamentous attachments along the white line of Toldt and proceeded to a new to mobilize the left colon although the splenic flexure. We then placed the patient in head-up position to proceed with thick flexure mobilization. I divided splenocolic ligaments using the LigaSure and all the retroperitoneal painful laments until we had adequate mobilization of the splenic flexure. I continued to mobilize the sigmoid as well to divide ligamentous attachments and taking this to the sidewall I tested for the length of the colon. I took note of the planned line of transection in the distal descending colon and this appeared to reach to the sacrall promontory it appeared therefore that we had adequate mobilization of the left colon to allow anastomosis of the left colon to the rectosigmoid. I therefore chose my point of transection in the rectus to be area level of the sacral promontory. I mobilized the rectosigmoid all the way to the sigmoid on both lateral aspects incising the peritoneum all way to close the pelvis using the LigaSure. This was done to allow advancement of the EEA stapler later on to release the angulation near the promontory.I used the her to create a mesenteric defect. I then positioned an Endo-OLMAN 60 mm stapler across this sigmoid and this was divided. I had to use a 30 mm stapler again to complete transection because of a small band that did not appear transected by the step initial stapler firing I then proceeded to divide part of the mesentery going proximally using the LigaSure. I also scored the to thin out the mesentery as I divided this. At the point when we were ready to transect the proximal at the colon sigmoid region, I opened up the GelPort pull up the sigmoid and distal descending colon this. I chose my point of transection proximal to what appeared to be a large diverticulum in the distal descending. There were no other indurated areas no any evidence of disease proximal distal to this I completed transection of this segment the LigaSure. I then opened up the staple line of the left colon using Metzenbaum scissors. I used the Sizer up to the medium-sized 1 and this was inserted without difficulty. I therefore chose a 28 mm EEA stapler. I applied a Prolene 2 purse string stitch at the stump. I position the anvil the lumen and tightened the pursestring. I cleared up the serosa by sharply dissecting off fatty tissue around the pursestring. I then brought this come back into the peritoneal cavity and reapplied the GelPort. The 1st insurance sales assistant then proceeded dilated the anus and the rectum using the sizers. She then inserted the 28 mm EEA stapler through the rectum. This was advanced with laparoscopic visualization. We were to advance it enough to reach the anterior wall of the staple line of the rectal stump. reactivated the spike of the stapler and attached the anvil to this. The EEA stapler was carefully tightened. I made sure that there was no bowel loop or any other structure caught between the staplers The stapler was fired. The EEA apparatus was then pulled out gently. We examined the anastomotic ring and these were both intact proximal and distal We tested the anastomosis by multiple lesion using a bulb syringe to the rectum with the knots Modic site immersed. There is no evidence of any leak. There was no bubbling seen I then proceeded to do the intraop postop endoscopy. The scope was gently inserted to the anus and advanced with gentle insufflation all the way to the distal left colon. With then gently pulled this back until we able to visualize the anastomosis. The anastomosis appeared intact, with no leak and with no evidence of ischemia. There was no bleeding seen We continued to withdraw the scope all the way out of the anus. I then proceeded to examine the peritoneum laparoscopically. There was no sign of any bleeding or any leak. There was no evidence of any bowel injury as we examined all 4 quadrants there was no tension on the anastomosis and there was no twist on the proximal left colon. We suctioned out the irrigation fluid. I pulled the omentum inferiorly. We desufflate id to the port sites We then closed the fascia of the midline incision with a running Maxon 1 stitch. We examined this laparoscopically and there was no signs of any bowel caught by the stitches. I therefore removed all the ports I closed all incisions on the skin with nuha. All incisions were infiltrated with Marcaine 0.5% for postop analgesia. Dressings were applied. The procedure was completed The patient tolerated procedure well. There were no immediate complications. Initial and final counts of sponges and instruments were correct. Estimated blood loss was about 75 cc The patient was extubated without difficulty and transferred to the recovery room with stable vital signs.
[2023-05-14] MEDS: fentaNYL citrate/PF 100 MCG/2 ML VIAL 50 MCG IVPUSH ×2 (10:54→11:12)
[2023-05-14] MEDS: HYDROmorphone HCl 0.5 MG/0.5 ML SYRINGE IVPUSH ×2 (11:26→12:46)
[2023-05-14] MEDS: Morphine Sulfate 4 MG/ML CARTRIDGE IVPUSH ×2 (14:52→19:36)
[2023-05-14] MEDS: Acetaminophen 1,000 MG/100 ML PIGGYBACK 400 MG IV ×2 (14:53→19:36)
[2023-05-14] MEDS: 0.9 % Sodium Chloride 1,000 ML 100 ML IVCONT (14:57)
--- NOTE | 2023-05-14 14:58 | PHA.MEDREC ---
Pharmacy Consult ? Medication Reconciliation Pharmacy has reviewed the medication reconciliation, added trazodone to the list after talking to patient.
--- NOTE | 2023-05-14 15:39 | PM.EVENT ---
Event Note Date of Service: 05/14/23 Event Note: seen on afternoon rounds underwent resection of distal left colon-sigmoid earlier for diverticular dis seems to have adequate pain control stable vs dressings dry good UO pain mgt incentive spirometry family updated at bedside Time Spent With Patient Time: Total time managing care of this patient today ____ minutes.
[2023-05-14] MEDS: oxyCODONE HCl Immed Release 5 MG TABLET PO (22:26)
[2023-05-15] MEDS: Morphine Sulfate 4 MG/ML CARTRIDGE IVPUSH ×2 (01:15→05:20)
[2023-05-15] MEDS: Acetaminophen 1,000 MG/100 ML PIGGYBACK 400 MG IV ×4 (01:15→20:07)
[2023-05-15] MEDS: Lactated Ringers 1,000 ML 100 ML IVCONT ×3 (01:21→20:09)
[2023-05-15 03:19] VITALS: BP 100/55; PULSE 73; RESP 16; TEMP 35.9; O2SAT 96
[2023-05-15 07:18] LABS: MANUAL DIFF FLAG NO
[2023-05-15 07:32] VITALS: O2SAT 98
[2023-05-15 07:32] LABS: Basophils Percent Auto 0.5 % (0-2); Eosinophils Absolute Auto 0.2 X10*3/uL (0.0-0.4); Eosinophils Percent Auto 2.4 % (0-4); Hematocrit 30.4 % (37.0-47.0); Hemoglobin 9.3 g/dl (12.0-16.0); Imm Gran Abs Auto 0.02 X10*3/uL (0.00-0.03); Imm Gran Pct Auto 0.3 % (0.0-0.4); Lymphocytes Absolute Auto 1.6 X10*3/uL (1.2-4.9); Lymphocytes Percent Auto 20.5 % (20-40); Mean Corpuscular HGB Conc 30.6 g/dl (31.0-35.0); Mean Corpuscular Hemoglobin 27.8 pg (27.0-33.0); Mean Platelet Volume 10.4 fL (9.4-12.3); Monocytes Absolute Auto 0.5 X10*3/uL (0.1-1.2); Monocytes Percent Auto 6.6 % (2-11); Neutrophils Absolute Auto 5.5 x10*3/uL (2.0-8.3); Neutrophils Percent Auto 69.7 % (45-73); Platelet Count 301 X10*3/uL (160-400); Red Blood Count 3.34 X10*6/uL (4.20-5.50); Red Cell Distribution Width 14.2 % (11.0-16.0); White Blood Count 7.9 X10*3/uL (4.8-10.8)
[2023-05-15 07:45] VITALS: BP 111/73; PULSE 82; RESP 17; TEMP 36.8; O2SAT 98
[2023-05-15 08:04] LABS: Anion Gap 9 (12-20); Blood Urea Nitrogen 5 mg/dL (9-16); Calcium 8.5 mg/dL (8.4-10.2); Carbon Dioxide 27 mmol/L (22-29); Chloride 105 mmol/L (96-108); Estimated Glomerular Filt Rate > 60; Glucose Fasting 92 mg/dL (60-99); Sodium 137 mmol/L (135-145)
[2023-05-15] MEDS: Omeprazole 40 MG CAPSULE.DR PO (08:18)
--- NOTE | 2023-05-15 08:49 | PM.PNGS ---
Subjective Subjective Date of Service: 05/15/23 <Shea Trinidad PA-C - Last Filed: 05/15/23 08:53> 05/15/23 <Cachorro Ku MD - Last Filed: 05/15/23 11:58> Interval history: C/o pain this morning. Not relieved by analgesics. Had some clears but not eating much due to pain. Tolerating clears. Passing flatus. <Shea Trinidad PA-C - Last Filed: 05/15/23 08:53> Physical Exam Vital Signs: Vital Signs: Last Vital Signs Temp 98.2 F 05/15/23 07:45 Pulse 82 05/15/23 07:45 Resp 17 05/15/23 07:45 BP 111/73 05/15/23 07:45 Pulse Ox 98 05/15/23 07:45 O2 Del Method Nasal Cannula 05/15/23 07:45 O2 Flow Rate 1.0 05/15/23 07:45 Oxygen Flow Rate 1.0 05/15/23 07:32 BMI result Body Mass Index 31.8 <Shea Trinidad PA-C - Last Filed: 05/15/23 08:53> Const: General: comfortable, no acute distress and alert <OTTO James Last Filed: 05/15/23 08:53> Orientation/consciousness: patient oriented x3 <OTTO James Last Filed: 05/15/23 08:53> Resp: Effort & Inspection: normal respiratory effort <Shea Trinidad PA-C - Last Filed: 05/15/23 08:53> GI: Inspection: Yes distended and Yes incision (dressing c/d/i) <Shea Trinidad PA-C - Last Filed: 05/15/23 08:53> Palpation (GI): Soft to palpation, Tenderness to palpation present (GI) (mild incisional tenderness), no guarding and not rigid <OTTO James Last Filed: 05/15/23 08:53> Skin: General skin exam: no rashes or lesions noted <OTTO James Last Filed: 05/15/23 08:53> Neuro: General: patient oriented x3 and moves all extremities <Shea Trinidad PA-C - Last Filed: 05/15/23 08:53> Objective Data Active Medications Albuterol Sulfate (Albuterol Sulfate 90 Mcg 8 Gm Inhaler) 2 puff INHALE RQ6H PRN PRN Reason: for dyspnea Fluoxetine HCl (Fluoxetine Hcl 20 Mg Capsule) 40 mg PO DAILY [facility] Last Admin: 05/15/23 08:23 Dose: Not Given Documented By: CHRISTIANO Non-Admin Reason: Patient Refused Hydroxyzine HCl (Hydroxyzine Hcl 25 Mg Tablet) 25 mg PO BEDTIME PRN PRN Reason: Anxiety Lactated Ringer's (Lr) 1,000 mls @ 100 mls/hr IVCONT .Q10H [facility] Last Admin: 05/15/23 01:21 Dose: 100 mls/hr Documented By: DELROY Acetaminophen (Ofirmev) 1,000 mg in 100 mls @ 400 mls/hr IV Q6H [facility] Last Infusion: 05/15/23 08:42 Dose: Infused Documented By: CHRISTIANO Imipramine HCl (Imipramine Hcl 10 Mg Tablet) 10 mg PO BEDTIME PRN PRN Reason: Anxiety Morphine Sulfate (Morphine Sulfate 4 Mg/Ml Cartridge) 4 mg IVPUSH Q4H PRN; Protocol PRN Reason: Pain, Severe (Pain Scale 7-10) Last Admin: 05/15/23 05:20 Dose: 4 mg Documented By: DELROY Omeprazole (Omeprazole 40 Mg Capsule.Dr) 40 mg PO DAILY@0630 [facility] Last Admin: 05/15/23 08:18 Dose: 40 mg Documented By: CHRISTIANO Ondansetron HCl (Ondansetron Hcl 4 Mg/2 Ml Vial) 4 mg IVPUSH Q6H PRN PRN Reason: Nausea and Vomiting Oxycodone HCl (Oxycodone Hcl Immed Release 5 Mg Tablet) 5 mg PO Q4H PRN PRN Reason: Pain, Moderate(Pain Scale 4-6) Last Admin: 05/14/23 22:26 Dose: 5 mg Documented By: DELROY Sodium Chloride (0.9 % Sodium Chloride Flush 3 Ml Syringe) 3 ml IVFLUSH QSHIFT [facility] Last Admin: 05/15/23 08:15 Dose: Not Given Documented By: CHRISTIANO Non-Admin Reason: IV Running <Shea Trinidad PA-C - Last Filed: 05/15/23 08:53> Labs CBC & Chem 7: 05/15/23 06:15 05/15/23 06:15 <Shea Trinidad PA-C - Last Filed: 05/15/23 08:53> Labs: Laboratory Results - last 24 hr 05/15/23 06:15 MCV 91.0 MCH 27.8 MCHC 30.6 L RDW 14.2 Plt Count 301 MPV 10.4 Immature Gran % (Auto) 0.3 Neut % (Auto) 69.7 Lymph % (Auto) 20.5 [place] % (Auto) 6.6 Eos % (Auto) 2.4 Baso % (Auto) 0.5 Lymph # (Auto) 1.6 [place] # (Auto) 0.5 Eos # (Auto) 0.2 Baso # (Auto) 0.0 Abs Immat Gran (auto) 0.02 Absolute Neuts (auto) 5.5 Absolute Nucleated RBC 0.000 Nucleated RBC % (auto) 0.0 Anion Gap 9 L Estim Creat Clear Calc 101.0 Estimated GFR > 60 Fasting Glucose 92 Calcium 8.5 D <Shea Trindiad PA-C - Last Filed: 05/15/23 08:53> Procedures Date of Service Date of Service: 05/15/23 <Shea Trinidad PA-C - Last Filed: 05/15/23 08:53> 05/15/23 <Cachorro Ku MD - Last Filed: 05/15/23 11:58> Progress Note: A&P Assessment and plan (1) Diverticulitis: Status: Acute <Shea Trinidad PA-C - Last Filed: 05/15/23 08:53> (2) S/P left colectomy: Status: Acute <Shea Trinidad PA-C - Last Filed: 05/15/23 08:53> Assessment and Plan: Complaints of incisional pain, appropriate to postop Seen ambulating Abdomen soft Stable vital signs Await return of GI function Seen and examined independently <Cachorro Ku MD - Last Filed: 05/15/23 11:58> Assessment and Plan: 42 year old female with recurrent diverticulitis now POD #1 s/p hand assised laparoscopic resection of the distal left colon and sigmoid, with end-to-end anastomosis,Mobilization of the splenic flexure, intraop flexible colonoscopy. Doing fairly well post op but c/o severe pain today. Abdomen benign with appropriate post op tenderness. Encouraged IS use, OOB and ambulation today. Baldo richard. AM labs reviewed. Await GI function. <Shea Trinidad PA-C - Last Filed: 05/15/23 08:53> Time Spent With Patient Time: Total time managing care of this patient today ____ minutes. <Shea Trinidad PA-C - Last Filed: 05/15/23 08:53> Quality Stroke Does the patient have a stroke diagnosis?: No <Shea Trinidad PA-C - Last Filed: 05/15/23 08:53> VTE Prior VTE?: No <Shea Trinidad PA-C - Last Filed: 05/15/23 08:53> VTE Risk Level:: Medical - low <Shea Trinidad PA-C - Last Filed: 05/15/23 08:53> VTE Device Contraindication: N/A - Device Ordered <Shea Trinidad PA-C - Last Filed: 05/15/23 08:53> VTE Drug Contraindication: Treatment Not Indicated <Shea Trinidad PA-C - Last Filed: 05/15/23 08:53>
--- NOTE | 2023-05-15 09:21 | MHC.CM.PN ---
PT REPORTS SHE LIVES WITH HER DAUGHTER AND SHE HAS A NURSING HOME ADMISSIONS DIRECTOR DAILY AND USES NO DME SHE SAYS SHE HAS A HCP NAMING HER DAUGHTER HER AGENT [facility] DCP: HOME NO SERVICES VIA FAMILY TRANSPORT
[2023-05-15] MEDS: oxyCODONE HCl Immed Release 5 MG TABLET PO ×2 (11:49→17:48)
--- NOTE | 2023-05-15 12:38 | HO.POSTANES ---
Post Anesthesia Evaluation Post Anesthesia Evaluation Date of Service: 05/15/23 Vital Signs: Vital Signs Temp Pulse Resp BP Pulse Ox O2 Del Method O2 Flow Rate 05/15/23 07:45 98.2 F 82 17 111/73 98 Nasal Cannula 1.0 05/15/23 07:32 98 Nasal Cannula 05/15/23 03:19 96.7 F L 73 16 100/55 L 96 Nasal Cannula 2 Anesthesia: General Endotracheal-GETA Mental Status: Awake Pain Control: Satisfactory (difficulty controlling pain) Nausea/Vomiting: Mild Hydration: Adequate Anesthesia-Related Issues: No Anes. Related Issues
[2023-05-15 15:27] VITALS: BP 119/74; PULSE 78; RESP 18; TEMP 36.3; O2SAT 98
[2023-05-15] MEDS: Albuterol Sulfate 90 MCG 8 GM INHALER 2 PUFF INHALE (15:35)
--- NOTE | 2023-05-15 15:53 | PM.EVENT ---
Event Note Date of Service: 05/15/23 Event Note: seen on afternoon rounds denies flatus complaints of incisional pain but seems to be responding to pain meds abdomen soft she has been ambulating continue pain management out of bed incentive spirometry voiding well Time Spent With Patient Time: Total time managing care of this patient today ____ minutes.
[2023-05-15 19:56] VITALS: BP 106/68; PULSE 70; RESP 18; TEMP 36.3; O2SAT 98
[2023-05-15] MEDS: HYDROmorphone HCl 0.5 MG/0.5 ML SYRINGE IVPUSH (20:06)
[2023-05-16 00:34] VITALS: PULSE 70; RESP 18; O2SAT 98
[2023-05-16] MEDS: Albuterol Sulfate 90 MCG 8 GM INHALER 2 PUFF INHALE ×2 (00:34→19:29)
[2023-05-16] MEDS: Acetaminophen 1,000 MG/100 ML PIGGYBACK 400 MG IV ×4 (01:11→19:29)
[2023-05-16] MEDS: ondansetron HCL 4 MG/2 ML VIAL IVPUSH (01:11)
[2023-05-16] MEDS: Lactated Ringers 1,000 ML 100 ML IVCONT (06:01)
[2023-05-16] MEDS: Omeprazole 40 MG CAPSULE.DR PO (06:02)
[2023-05-16 07:39] VITALS: BP 136/79; PULSE 75; RESP 17; TEMP 36.3; O2SAT 97
--- NOTE | 2023-05-16 07:48 | PM.PNGS ---
Subjective Subjective Date of Service: 05/16/23 <Shea Trinidad PA-C - Last Filed: 05/16/23 07:50> 05/16/23 <Cachorro Ku MD - Last Filed: 05/16/23 10:35> Interval history: Improved incisional pain control with change to dilaudid. Still c/o kelley but improved. Burping but no flatus. Denies nausea. Has been ambulating halls. <Shea Trinidad PA-C - Last Filed: 05/16/23 07:50> Physical Exam Vital Signs: Vital Signs: Last Vital Signs Temp 97.4 F 05/16/23 07:39 Pulse 75 05/16/23 07:39 Resp 17 05/16/23 07:39 BP 136/79 05/16/23 07:39 Pulse Ox 97 05/16/23 07:39 O2 Del Method Room Air 05/16/23 07:39 O2 Flow Rate 2 05/15/23 19:56 Oxygen Flow Rate 1.0 05/15/23 07:32 BMI result Body Mass Index 31.8 <Shea Trinidad PA-C - Last Filed: 05/16/23 07:50> Const: General: comfortable, no acute distress, well developed and alert <OTTO James Last Filed: 05/16/23 07:50> Orientation/consciousness: patient oriented x3 <OTTO James Last Filed: 05/16/23 07:50> Resp: Effort & Inspection: normal respiratory effort <OTTO James Last Filed: 05/16/23 07:50> GI: Inspection: Yes distended (mildly) and Yes incision (clean) <Shea Trinidad PA-C - Last Filed: 05/16/23 07:50> Percussion: Yes normal to percussion <OTTO James Last Filed: 05/16/23 07:50> Skin: General skin exam: no rashes or lesions noted <OTTO James Last Filed: 05/16/23 07:50> Neuro: General: patient oriented x3 and moves all extremities <OTTO James Filed: 05/16/23 07:50> Objective Data Active Medications Albuterol Sulfate (Albuterol Sulfate 90 Mcg 8 Gm Inhaler) 2 puff INHALE RQ6H PRN PRN Reason: for dyspnea Last Admin: 05/16/23 00:34 Dose: 2 puff Documented By: SARIKA Fluoxetine HCl (Fluoxetine Hcl 20 Mg Capsule) 40 mg PO DAILY [facility] Last Admin: 05/15/23 08:23 Dose: Not Given Documented By: CHRISTIANO Non-Admin Reason: Patient Refused Hydromorphone HCl (Hydromorphone Hcl 0.5 Mg/0.5 Ml Syringe) 0.5 mg IVPUSH Q4H PRN; Protocol PRN Reason: Pain, Severe (Pain Scale 7-10) Last Admin: 05/15/23 20:06 Dose: 0.5 mg Documented By: MAK Hydroxyzine HCl (Hydroxyzine Hcl 25 Mg Tablet) 25 mg PO BEDTIME PRN PRN Reason: Anxiety Acetaminophen (Ofirmev) 1,000 mg in 100 mls @ 400 mls/hr IV Q6H [facility] Last Infusion: 05/16/23 01:34 Dose: Infused Documented By: MAK Imipramine HCl (Imipramine Hcl 10 Mg Tablet) 10 mg PO BEDTIME PRN PRN Reason: Anxiety Omeprazole (Omeprazole 40 Mg Capsule.Dr) 40 mg PO DAILY@0630 [facility] Last Admin: 05/16/23 06:02 Dose: 40 mg Documented By: MAK Ondansetron HCl (Ondansetron Hcl 4 Mg/2 Ml Vial) 4 mg IVPUSH Q6H PRN PRN Reason: Nausea and Vomiting Last Admin: 05/16/23 01:11 Dose: 4 mg Documented By: MAK Oxycodone HCl (Oxycodone Hcl Immed Release 5 Mg Tablet) 5 mg PO Q4H PRN PRN Reason: Pain, Moderate(Pain Scale 4-6) Last Admin: 05/15/23 17:48 Dose: 5 mg Documented By: CHRISTIANO Sodium Chloride (0.9 % Sodium Chloride Flush 3 Ml Syringe) 3 ml IVFLUSH QSHIFT [facility] Last Admin: 05/16/23 07:20 Dose: Not Given Documented By: HO.COTEMA Non-Admin Reason: IV Running <Shea Trinidad PA-C - Last Filed: 05/16/23 07:50> Labs CBC & Chem 7: 05/15/23 06:15 05/15/23 06:15 <Shea Trinidad PA-C - Last Filed: 05/16/23 07:50> Labs: Laboratory Results - last 24 hr 05/15/23 06:15 Anion Gap 9 L Estim Creat Clear Calc 101.0 Estimated GFR > 60 Fasting Glucose 92 Calcium 8.5 D <Shea Trinidad PA-C - Last Filed: 05/16/23 07:50> Procedures Date of Service Date of Service: 05/16/23 <Shea Trinidad PA-C - Last Filed: 05/16/23 07:50> 05/16/23 <Cachorro Ku MD - Last Filed: 05/16/23 10:35> Progress Note: A&P Assessment and plan (1) S/P left colectomy: Status: Acute <Shea Trinidad PA-C - Last Filed: 05/16/23 07:50> Assessment and Plan: Denies flatus Has incisional pain Feels better compared to yesterday Ambulating Abdomen soft and benign Incisions clean and dry Await return of GI function Seen and examined independently Family at bedside <Cachorro Ku MD - Last Filed: 05/16/23 10:35> (2) Diverticulitis: Status: Acute <Shea Trinidad PA-C - Last Filed: 05/16/23 07:50> Assessment and Plan: 42 year old female with recurrent diverticulitis now POD #2 s/p hand assised laparoscopic resection of the distal left colon and sigmoid, with end-to-end anastomosis,Mobilization of the splenic flexure, intraop flexible colonoscopy. Continues to do well post op, pain control improved. Abdomen benign with appropriate post op tenderness, incision clean. Await some evidence of GI function prior to advancing diet. Encouraged IS use, OOB and ambulation today to promote GI function. Patient comfortable with plan. <Shea Trinidad PA-C - Last Filed: 05/16/23 07:50> Time Spent With Patient Time: Total time managing care of this patient today ____ minutes. <Shea Trinidad PA-C - Last Filed: 05/16/23 07:50> Quality Stroke Does the patient have a stroke diagnosis?: No <Shea Trinidad PA-C - Last Filed: 05/16/23 07:50> VTE Prior VTE?: No <Shea Trinidad PA-C - Last Filed: 05/16/23 07:50> VTE Risk Level:: Medical - low <Shea Trinidad PA-C - Last Filed: 05/16/23 07:50> VTE Device Contraindication: N/A - Device Ordered <Shea Trinidad PA-C - Last Filed: 05/16/23 07:50> VTE Drug Contraindication: Treatment Not Indicated <Shea Trinidad PA-C - Last Filed: 05/16/23 07:50>
[2023-05-16 15:04] VITALS: BP 128/76; PULSE 69; RESP 18; TEMP 36.1; O2SAT 97
--- NOTE | 2023-05-16 15:06 | PM.EVENT ---
Event Note Date of Service: 05/16/23 Event Note: Seen on afternoon rounds Abdomen soft and benign Resting comfortably As per patient's son -she has passed flatus today Encourage ambulation Looks well otherwise Pain management Plan to advance diet biju Time Spent With Patient Time: Total time managing care of this patient today ____ minutes.
[2023-05-16 19:13] VITALS: BP 133/71; PULSE 78; RESP 20; TEMP 36.2; O2SAT 98
[2023-05-16] MEDS: 0.9 % Sodium Chloride Flush 3 ML SYRINGE IVFLUSH (19:33)
[2023-05-16] MEDS: hydrOXYzine HCL 25 MG TABLET PO (21:31)
[2023-05-17] MEDS: Acetaminophen 1,000 MG/100 ML PIGGYBACK 400 MG IV ×3 (02:39→13:53)
[2023-05-17 03:00] VITALS: BP 107/59; PULSE 82; RESP 14; TEMP 36.8; O2SAT 99
[2023-05-17] MEDS: Omeprazole 40 MG CAPSULE.DR PO (06:22)
[2023-05-17] MEDS: 0.9 % Sodium Chloride Flush 3 ML SYRINGE IVFLUSH ×2 (07:39→16:16)
[2023-05-17 08:00] VITALS: BP 112/65; PULSE 71; RESP 16; TEMP 36.2; O2SAT 96
--- NOTE | 2023-05-17 08:05 | P.PNGS_ITS ---
Subjective Subjective Date of Service: 05/17/23 <Shea Trinidad PA-C - Last Filed: 05/17/23 08:06> 05/17/23 <Cachorro Ku MD - Last Filed: 05/17/23 10:21> Interval history: Feeling much better this morning. Pain improved. Passing flatus. Wants to eat. <Shea Trinidad PA-C - Last Filed: 05/17/23 08:06> Physical Exam 2 Vital Signs: Vital Signs: Last Vital Signs Temp 97.1 F 05/17/23 08:00 Pulse 71 05/17/23 08:00 Resp 16 05/17/23 08:00 BP 112/65 05/17/23 08:00 Pulse Ox 96 05/17/23 08:00 O2 Del Method Room Air 05/17/23 08:00 O2 Flow Rate 2 05/15/23 19:56 Oxygen Flow Rate 1.0 05/15/23 07:32 BMI result Body Mass Index 31.8 <Shea Trinidad PA-C - Last Filed: 05/17/23 08:06> Const: General: comfortable, no acute distress and alert <Shea Trinidad PA-C - Last Filed: 05/17/23 08:06> Orientation/consciousness: patient oriented x3 <OTTO James Last Filed: 05/17/23 08:06> Resp: Effort & Inspection: normal respiratory effort <Shea Trinidad PA-C - Last Filed: 05/17/23 08:06> GI: Inspection: Yes incision (clean) <Shea Trinidad PA-C - Last Filed: 05/17/23 08:06> Palpation (GI): Soft to palpation and Tenderness to palpation present (GI) (mild incisional) <OTTO James Last Filed: 05/17/23 08:06> Percussion: Yes normal to percussion <OTTO James Last Filed: 05/17/23 08:06> Skin: General skin exam: no rashes or lesions noted <OTTO James Last Filed: 05/17/23 08:06> Neuro: General: patient oriented x3 <Shea Trinidad PA-C - Last Filed: 05/17/23 08:06> Objective Data Active Medications Albuterol Sulfate (Albuterol Sulfate 90 Mcg 8 Gm Inhaler) 2 puff INHALE RQ6H PRN PRN Reason: for dyspnea Last Admin: 05/16/23 19:29 Dose: 2 puff Documented By: MAK Fluoxetine HCl (Fluoxetine Hcl 20 Mg Capsule) 40 mg PO DAILY [facility] Last Admin: 05/17/23 07:32 Dose: Not Given Documented By: SPENCER Non-Admin Reason: Patient Refused Hydromorphone HCl (Hydromorphone Hcl 0.5 Mg/0.5 Ml Syringe) 0.5 mg IVPUSH Q4H PRN; Protocol PRN Reason: Pain, Severe (Pain Scale 7-10) Last Admin: 05/15/23 20:06 Dose: 0.5 mg Documented By: MAK Hydroxyzine HCl (Hydroxyzine Hcl 25 Mg Tablet) 25 mg PO BEDTIME PRN PRN Reason: Anxiety Last Admin: 05/16/23 21:31 Dose: 25 mg Documented By: MAK Acetaminophen (Ofirmev) 1,000 mg in 100 mls @ 400 mls/hr IV Q6H [facility] Last Admin: 05/17/23 07:38 Dose: 400 mls/hr Documented By: SPENCER Imipramine HCl (Imipramine Hcl 10 Mg Tablet) 10 mg PO BEDTIME PRN PRN Reason: Anxiety Omeprazole (Omeprazole 40 Mg Capsule.Dr) 40 mg PO DAILY@0630 [facility] Last Admin: 05/17/23 06:22 Dose: 40 mg Documented By: MAK Ondansetron HCl (Ondansetron Hcl 4 Mg/2 Ml Vial) 4 mg IVPUSH Q6H PRN PRN Reason: Nausea and Vomiting Last Admin: 05/16/23 01:11 Dose: 4 mg Documented By: MAK Oxycodone HCl (Oxycodone Hcl Immed Release 5 Mg Tablet) 5 mg PO Q4H PRN PRN Reason: Pain, Moderate(Pain Scale 4-6) Last Admin: 05/15/23 17:48 Dose: 5 mg Documented By: CHRISTIANO Sodium Chloride (0.9 % Sodium Chloride Flush 3 Ml Syringe) 3 ml IVFLUSH QSHIFT [facility] Last Admin: 05/17/23 07:39 Dose: 3 ml Documented By: SPENCER <Shea Trinidad PA-C - Last Filed: 05/17/23 08:06> Labs CBC & Chem 7: 05/15/23 06:15 05/15/23 06:15 <Shea Trinidad PA-C - Last Filed: 05/17/23 08:06> Procedures Date of Service Date of Service: 05/17/23 <OTTO James Last Filed: 05/17/23 08:06> 05/17/23 <Cachorro Ku MD - Last Filed: 05/17/23 10:21> Progress Note: A&P Assessment and plan (1) S/P left colectomy: Status: Acute <OTTO James Last Filed: 05/17/23 08:06> Assessment and Plan: has passed flatus pain improved ambulating abd soft, benign incision clean and dry diet as tolerated looks well seen and examined - agree with KELLY Trinidad <Cachorro Ku MD - Last Filed: 05/17/23 10:21> (2) Diverticulitis: Status: Acute <OTTO James Last Filed: 05/17/23 08:06> Assessment and Plan: 42 year old female with recurrent diverticulitis now POD #3 s/p hand assised laparoscopic resection of the distal left colon and sigmoid, with end-to-end anastomosis,Mobilization of the splenic flexure, intraop flexible colonoscopy. Continues to do well post op, pain control improved, now with some evidence of GI function. Abdomen benign with appropriate post op tenderness, incision clean. Advance to solid diet. Encouraged IS use, OOB and ambulation today to promote GI function. Patient comfortable with plan. Likely home over weekend if remains stable, tolerating solid diet. <OTTO James Last Filed: 05/17/23 08:06> Time Spent With Patient Time: Total time managing care of this patient today ____ minutes. <OTTO James Last Filed: 05/17/23 08:06> Quality Stroke Does the patient have a stroke diagnosis?: No <Shea Trinidad PA-C - Last Filed: 05/17/23 08:06> VTE Prior VTE?: No <Shea Trinidad PA-C - Last Filed: 05/17/23 08:06> VTE Risk Level:: Medical - low <Shea Trinidad PA-C - Last Filed: 05/17/23 08:06> VTE Device Contraindication: N/A - Device Ordered <hSea Trinidad PA-C - Last Filed: 05/17/23 08:06> VTE Drug Contraindication: Treatment Not Indicated <Shea Trinidad PA-C - Last Filed: 05/17/23 08:06>
[2023-05-17 15:43] VITALS: BP 119/71; PULSE 78; RESP 18; TEMP 36.7; O2SAT 95
--- NOTE | 2023-05-17 16:06 | PM.EVENT ---
Event Note Date of Service: 05/17/23 Event Note: pt seen on afternoon rounds she staes she wants to go home feels well tolerating diet passing flatus had BMs abd soft good pain control will dc home instructions reinforced office ffup son in room with pt Time Spent With Patient Time: Total time managing care of this patient today ____ minutes.
--- NOTE | 2023-05-28 12:54 | PM.DS ---
DS: Providers Provider Date of Service: 05/17/23 Date of admission: 05/14/23 10:28 Date of discharge: 05/17/23 Primary care physician: Magali Summers MD Attending physician on admission: Cachorro Ku Attending physician on discharge: Cachorro Ku DS: Diagnosis Discharge Diagnosis (1) S/P left colectomy: Status: Inactive (2) Diverticulitis: Status: Resolved DS: Summary Hospital Course Hospital Course: HPI AT ADMISSION: The patient is a 42-year-old female with history of recurrent diverticulitis of the distal left colon and sigmoid on CT scan. She had a colonoscopy showing sigmoid diverticulosis. HOSPITAL COURSE: On 05/14/23, a hand assisted laparoscopic resection of the distal left colon and sigmoid, with end-to-end anastomosis, mobilization of the splenic flexure, intraop flexible colonoscopy was performed by Dr. Ku without complication. The patient tolerated the procedure well. She had an uncomplicated recovery course. She was started on clear liquids post operatively. On POD #1 her richard was removed. She was ambulated. She began to pass flatus and her diet was advanced to solids. She began to have bowel movements. Her pain was well controlled on oral analgesics. Her abdomen was benign with clean incision. She was discharged to home on 05/18/23 with follow up in the office in 2 weeks. Status at Discharge Functional status at discharge: independent ambulation Overall status at discharge: patient is progressing back to baseline Time Spent with Patient Time attestation: Total time managing care of this patient today ____ minutes. Discharge coordination time: Less than 30 minutes Quality: Safe Use of Opioids Does Pt have an Active Cancer Diagnosis on the Problem List?: No Quality: Stroke Does the patient have a stroke diagnosis?: No Physical Exam Vital Signs: Vital Signs: Last Vital Signs Temp 98.1 F 05/17/23 15:43 Pulse 78 05/17/23 15:43 Resp 18 05/17/23 15:43 BP 119/71 05/17/23 15:43 Pulse Ox 95 05/17/23 15:43 O2 Del Method Room Air 05/17/23 15:43 O2 Flow Rate 2 05/15/23 19:56 Oxygen Flow Rate 1.0 05/15/23 07:32 BMI result Body Mass Index 31.8 Const: General: comfortable, no acute distress and alert Orientation/consciousness: patient oriented x3 GI: Inspection: No distended and Yes incision (clean) Palpation (GI): Soft to palpation and Tenderness to palpation present (GI) (mild) Neuro: General: patient oriented x3 DS: Data Data Completed and Pending Completed studies during hospitalization [Text1]: 05/14/23 09:40 Surgical [PTH] Routine A. 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 B. Colon, anastomotic rings, excision: Two annular portions of bowel mucosa and wall with no specific change, consistent with anastomotic rings. Procedures Excision of Left Large Intestine, Open Approach (05/14/23) Discharge Plan Discharge Anticipated Discharge Date/Time: 05/18/23 10:00 Patient Disposition: Home, Self-Care Discharge Diagnosis: recurrent diverticulitis Referrals: Cachorro Ku MD [Physician] - 2 Weeks Discharge Medications: Continued albuterol sulfate [Ventolin HFA] 90 mcg/actuation HFA aerosol inhaler 2 puff PO Q6H PRN (Reason: for dyspnea) Qty: 8.5 3RF ondansetron 4 mg tablet,disintegrating 4 mg PO Q6-8H PRN (Reason: nausea and vomiting) Qty: 7 0RF hydrocortisone [Proctosol HC] 2.5 % cream with perineal applicator [address] BID PRN (Reason: hemorrhoids) Rx Instructions: BE SURE TO INCLUDE RECTAL APPICATOR!! gabapentin 100 mg capsule 100 mg PO BID PRN (Reason: Pain) imipramine HCl 10 mg tablet 10 mg PO BEDTIME PRN (Reason: Anxiety) cyanocobalamin (vitamin B-12) 1,000 mcg/mL Solution 1,000 mcg IM QMONTH trazodone 50 mg Tablet 50 mg PO BEDTIME PRN (Reason: Insomnia) hydroxyzine pamoate [Vistaril] 25 mg capsule 25 mg PO BEDTIME PRN (Reason: Anxiety) omeprazole 40 mg capsule,delayed release(DR/EC) 40 mg PO DAILY Qty: 30 6RF fluoxetine 20 mg capsule 40 mg PO QAM dicyclomine 20 mg tablet 20 mg PO QID PRN (Reason: Diarrhea) No Action magnesium hydroxide [Milk of Magnesia] 400 mg/5 mL suspension 5 ml PO DAILY PRN (Reason: constipation) Qty: 3780 0RF oxycodone-acetaminophen [Percocet] 5-325 mg tablet 1 tab PO Q8H PRN (Reason: pain) 30 Days Qty: 90 0RF Rx Instructions: Partial Fill upon patient request. Discharge Orders: Discharge Order (Routine); Ordered 05/17/23 Ordered By: Cachorro Ku Diet: Regular diet Activity on Discharge: No heavy lifting Stand Alone Forms: Patient Portal Discharge page Activity Restrictions/Additional Instructions: If the incision area is tender, you may apply an ice pack for short intervals (No more than 20 minutes on, followed by at least 20 minutes off). Do not apply heat. Do not use creams, lotions, or topical antibiotics unless instructed to do so by your surgeon. These can cause infection or allergic reaction. No lifting more than 20 lbs Okay to shower No strenuous activities Call the office for follow-up in 2 weeks - with Dr. Ku Call Your Doctor If: -Your temperature exceeds 101.5? F -You experience excessive pain or swelling -You have an unexpected reaction to medication -You have excessive bleeding -You experience continued vomiting/nausea -Your incision begins to separate -Your incision shows signs of infection such as increased redness, swelling, excessive pain, drainage (light blood or clear fluid is normal) or heat Care Plan Goals: return to baseline level of activity Health Concerns: anxiety, GERD, fibromyalgia, polyarthralgia Plan of Treatment: oral pain meds ffup in office Assessment: If the incision area is tender, you may apply an ice pack for short intervals (No more than 20 minutes on, followed by at least 20 minutes off). Do not apply heat. Do not use creams, lotions, or topical antibiotics unless instructed to do so by your surgeon. These can cause infection or allergic reaction. No lifting more than 20 lbs Okay to shower after 24 hours Okay to change dressings with gauze or Band-Aid after 24 hours No strenuous activities Call the office for follow-up in 2 weeks - with Dr. Ku Call Your Doctor If: -Your temperature exceeds 101.5? F -You experience excessive pain or swelling -You have an unexpected reaction to medication -You have excessive bleeding -You experience continued vomiting/nausea -Your incision begins to separate -Your incision shows signs of infection such as increased redness, swelling, excessive pain, drainage (light blood or clear fluid is normal) or heat Discharge Date/Time: 05/17/23 18:05
== END 2023-05-17 18:05 | disposition home or self-care (01) | DRG 231 ==
LOC: HO.SSSA 10:34 → HO.S3 13:19
PROVIDERS: Physician Assistant Surgical; Admitting Provider Surgery; PCP Internal Medicine; Visit Provider Surgery
PROC: 0DTE0ZZ Resection of Large Intestine, Open Approach (ICD-10-PCS; principal; 2023-05-14 07:30)
DX: K57.32 Diverticulitis of large intestine without perforation or abscess without bleeding (principal); G47.33 Obstructive sleep apnea (adult) (pediatric); Z79.899 Other long term (current) drug therapy
CPT/HCPCS: 36415; 80048; 85025; 86850; 86900; 86901; 88305; 88307; 94640; J0131; J1170; J2250; J2270; J2405; J3010

== ENCOUNTER → 2023-05-14 10:28 | Outpatient (BNV) | payer OTHER, SELFPAY | PROVIDERS: Admitting Provider Surgery; PCP Internal Medicine; Visit Provider Surgery | DX: K57.32 Diverticulitis of large intestine without perforation or abscess without bleeding (principal) | CPT/HCPCS: 44204; 44213; 99024; 99499 ==

== ENCOUNTER 2023-05-23 08:27 | Outpatient (AMB) | payer OTHER, SELFPAY ==
[2023-05-23 08:34] VITALS: BP 90/62; PULSE 68; RESP 12; BMI 28.7
--- NOTE | 2023-05-23 08:34 | MHC.PC.OV ---
Vital Signs 05/23/23 08:34 Height 5 ft 2 in Weight 157 lb BMI 28.7 BP 90/62 Blood Pressure Location Lt brachial Position Sitting Respiration 12 Pulse 68 Pulse Source Auscultation Intake Visit Reasons: Physical exam Intake Note: Patient here for a physical exam Electric Powerline Examiner Required: No Accompanied by: Self / Same As Patient Allergies iron [From Venofer] Adverse Reaction (Intermediate, Verified 05/23/23 08:43) Hives methocarbamol Adverse Reaction (Intermediate, Verified 05/23/23 08:43) Hives Medication List - Last Reconciled 05/23/23 by Magali Summers MD albuterol sulfate 90 mcg/actuation (Ventolin HFA) 2 puffs PO Q6H PRN cyanocobalamin (vitamin B-12) 1,000 mcg IM QMONTH dicyclomine 20 mg PO QID PRN fluoxetine 40 mg PO QAM gabapentin 100 mg PO BID PRN hydrocortisone 2.5% (Proctosol HC) 1 appl [place] BID PRN hydroxyzine pamoate (Vistaril) 25 mg PO BEDTIME PRN imipramine HCl 10 mg PO BEDTIME PRN omeprazole 40 mg PO DAILY ondansetron 4 mg PO Q6-8H PRN oxycodone-acetaminophen 5-325 mg (Percocet) 1 tab PO Q4-6H PRN tramadol 50 mg PO Q6H PRN trazodone 50 mg PO BEDTIME PRN Tobacco use date assessed: 04/17/23 Dental Screening Dental Screen Date: 05/23/23 Did you have a dental visit in the last 12 months?: Yes Did you have a dental problem in the last 6 months where you did not have access to dental care?: No Was dental information given to patient?: Patient has dentist HPI HPI Comments History of Present Illness Details This is a 42-year-old female with mild recurrent major depression that comes for her physical exam. Depression stable with fluoxetine. Has never had a mammogram. Last Pap smear was over 5 years ago. Had a recent left colectomy and is still in pain. Will give Percocet for only 1 month. Patient is aware that after that months this will not be refilled. No chest pain or shortness of breath. [facility] Medical History (Updated 05/23/23 @ 08:54 by Magali Summers MD) Cancer of cervix Anemia TRUDY (obstructive sleep apnea) GERD (gastroesophageal reflux disease) Panic attacks Polyarthralgia Left knee pain Mild persistent asthma Heart palpitations Epidermal cyst LOVE (generalized anxiety disorder) Mild recurrent major depression Abscess History of diverticulitis Diverticular disease Colitis with complication Arthritis Fibromyalgia Abdominal pain Surgical History (Updated 05/23/23 @ 08:46 by Magali Summers MD) S/P left colectomy H/O colonoscopy H/O LEEP History of removal of cyst (~08/07/21) History of esophagogastroduodenoscopy (EGD) History of lithotripsy History of appendectomy History of tubal ligation Family History Father Diabetes Hypertension CVD (cardiovascular disease) Heart disease FH: mental illness Mother Asthma Family history of cancer Maternal Grandmother Diabetes Maternal Grandfather Colon cancer Maternal Aunt Colon cancer Family/Other Breast cancer Family/Other Pancreatic cancer Social History Household Members: Family Housing: House Are you a primary progressive care manager to a significant other at home: No Do you presently have visiting nurse or other home services: Yes Alcohol intake: never Patient Tobacco Use Status: Never used Tobacco e-Cigarette/Vaping Use: Never Used Second Hand Smoke Exposure: No service: No Current occupational status: unemployed Cognitive needs: No Hearing needs: No Vision needs: No Questionnaire Thrive Questionnaire Date Thrive assessed: 05/15/23 LOVE-7 AMB Questionnaire LOVE-7 Date LOVE - 7 assessed: 04/17/23 Source: Developed by Drs. Bijan Weldon, Dee Olivera, Andrew Angel and colleagues, with an educational gerry from [employer]. Review of Systems Const All systems reviewed & are unremarkable except as noted in HPI and below Eyes Reports no additional complaints, Denies change in vision and Denies other visual disturbances Card Denies chest pain at rest, Denies chest pain with activity, Denies edema, Denies irregular heart rhythm, Denies claudication, Denies dyspnea, Denies dyspnea on exertion, Denies orthopnea, Denies paroxysmal nocturnal dyspnea and Denies slow heart rate Resp Denies cough, Denies dyspnea and Denies dyspnea on exertion GI Denies abdominal pain, Denies change in bowel habits, Denies excessive flatus, Denies nausea and Denies vomiting Denies urinary incontinence, Denies urinary hesitancy and Denies urinary urgency Musc Denies abnormal gait, Denies atrophy, Denies deformity and Denies limited range of motion Skin/Breast Denies bleeding lesions, Denies changing lesions and Denies rash Neuro Denies abnormal gait and Denies lack of coordination Physical exam (Primary Care) Vital Signs: Last Vital Signs BP 90/62 05/23/23 08:34 BMI result Body Mass Index 28.7 Tobacco/Smoking Status: Tobacco use Status Tobacco use date assessed 04/17/23 05/23/23 08:38 Patient Tobacco Use Status Never used Tobacco 05/23/23 08:38 e-Cigarette/Vaping Use Never Used 05/23/23 08:38 Thrive Assessment: Date of Thrive Assessment Date Thrive assessed 05/15/23 05/23/23 08:38 Const Orientation/consciousness: patient oriented x3 HENMT Head: Yes normal to inspection, Yes normocephalic and Yes atraumatic Ears: external ears normal Eyes General: appearance normal, both eyes and all related structures Eyelids: Yes eyelids normal Conjunctivae: conjunctivae normal Neck Neck: Yes normal visual inspection and Yes supple Resp Effort & Inspection: normal respiratory effort Auscultation: clear to auscultation bilaterally Cardio Jugular venous distension: no JVD Rate: regular rate Rhythm: regular rhythm Heart sounds: S1 normal heart sound present and S2 normal heart sound present GI Inspection: Yes normal to inspection Palpation (GI): Soft to palpation and nontender Auscultation: normal bowel sounds Skin Other: Clean surgical wound on abdomen General skin exam: no rashes or lesions noted Neuro General: patient oriented x3 and no focal motor deficits Extrem General: Yes full ROM Psych Appearance: grossly normal Office Procedures Flu Questionnaire Does the patient have a severe egg allergy?: No Immunizations flu vacc [id number] 6mos up(PF) 60 mcg(15 mcgx4)/0.5 mL IM syringe Performing Provider: Magali Summers MD [facility] Documented (not given) by: SURAJ Marrufo on 05/23/23 08:42 Reason Not Given: Patient Refused Assessment and Plan Assessment & Plan (1) Physical exam: Code(s): Z00.00 - Encounter for general adult medical examination without abnormal findings Plan: Repeat in a year (2) Mild recurrent major depression: Code(s): F33.0 - Major depressive disorder, recurrent, mild Plan: Continue fluoxetine. Orders: Orders Influenza [id number] Immunization Today Z23 - Encounter for immunization Vitamin D 25-OH Total Today E55.9 - Vitamin D deficiency, unspecified Complete Blood Count Auto Diff Today D64.9 - Anemia, unspecified IRON PROFILE Today D64.9 - Anemia, unspecified Lipid Panel Today Z00.00 - Encounter for general adult medical examination without abnormal findings Comprehensive Beason. Panel Fast Today Z00.00 - Encounter for general adult medical examination without abnormal findings Vitamin B12 and Folate Today E53.8 - Deficiency of other specified B group vitamins MM screening mammo BI Today Z12.31 - Encounter for screening mammogram for malignant neoplasm of breast Referrals [facility] Referral Z12.4 - Encounter for screening for malignant neoplasm of cervix Medications: Changed From oxycodone-acetaminophen 5-325 mg (Percocet) Partial Fill upon patient request. 1 tab PO Q4-6H PRN 30 tabs 0RF pain To oxycodone-acetaminophen 5-325 mg (Percocet) Partial Fill upon patient request. 1 tab PO Q8H 30 days PRN 90 tabs 0RF pain Discontinued tramadol Discontinued Reason: Patient Completed Course 50 mg PO Q6H PRN 20 tabs 0RF pain Coding Level of Care Code Est Pt Prev Care 40-64y(26126) Diagnoses Physical exam Z00.00 Mild recurrent major depression F33.0 Time Spent (min) 32
== END 2023-05-23 08:59 | disposition home or self-care (01) ==
PROVIDERS: PCP Internal Medicine; Visit Provider Internal Medicine
DX: Z00.00 Encounter for general adult medical examination without abnormal findings (principal); F33.0 Major depressive disorder, recurrent, mild
CPT/HCPCS: 99396

== ENCOUNTER 2023-06-03 13:59 | Outpatient (AMB) | payer OTHER, SELFPAY ==
--- NOTE | 2023-06-03 14:17 | A.OFFVIS_ITS ---
Intake Vital Signs 06/03/23 14:22 Height 5 ft 2 in Weight 159 lb BMI 29.1 BP 113/73 Blood Pressure Location Rt brachial Position Sitting Pulse 73 Intake Visit Reasons: S/P GREGORY, Lt colon resection, poss open, poss seton Intake Note: This patient presents for a post-op assessment status post hand assised laparoscopic resection of the distal left colon and sigmoid, with end-to-end anastomosis,Mobilization of the splenic flexure, intraop flexible colonoscopy. Patient c/o; reports constipation, reports numbness sensation on one of the incisions. Landscape Architect Required: Yes Landscape Architect Language: Starch Mangle Tender Name: Domi Information Interpreted: non-clinical & clinical Accompanied by: Self / Same As Patient Allergies iron [From Venofer] Adverse Reaction (Intermediate, Verified 06/03/23 14:25) Hives methocarbamol Adverse Reaction (Intermediate, Verified 06/03/23 14:25) Hives HPI S/P GREGORY, Lt colon resection, poss open, poss seton HPI Details She had undergone left colon resection for recurrent diverticulitis last 05/14/2023. She tolerated procedure well. She was discharged on postop day 3. She says she has good oral intake. She has good bowel movements. She denies significant pain. She says she feels well overall. [facility] Medical History Diverticulitis Cancer of cervix Anemia TRUDY (obstructive sleep apnea) GERD (gastroesophageal reflux disease) Panic attacks Polyarthralgia Left knee pain Mild persistent asthma Heart palpitations Epidermal cyst LOVE (generalized anxiety disorder) Mild recurrent major depression Abscess History of diverticulitis Diverticular disease Colitis with complication Arthritis Fibromyalgia Abdominal pain Surgical History S/P left colectomy H/O colonoscopy H/O LEEP History of removal of cyst (~08/07/21) History of esophagogastroduodenoscopy (EGD) History of lithotripsy History of appendectomy History of tubal ligation Family History Father Diabetes Hypertension CVD (cardiovascular disease) Heart disease FH: mental illness Mother Asthma Family history of cancer Maternal Grandmother Diabetes Maternal Grandfather Colon cancer Maternal Aunt Colon cancer Family/Other Breast cancer Family/Other Pancreatic cancer Social History Household Members: Family Housing: House Are you a primary childbirth and infant care teacher to a significant other at home: No Do you presently have visiting nurse or other home services: Yes Alcohol intake: never Patient Tobacco Use Status: Never used Tobacco e-Cigarette/Vaping Use: Never Used Second Hand Smoke Exposure: No service: No Current occupational status: unemployed Cognitive needs: No Hearing needs: No Vision needs: No Review of Systems Const Denies chills and Denies fever(s) Card Denies chest pain, Denies dyspnea and Denies dyspnea on exertion Resp Denies cough, Denies dyspnea and Denies dyspnea on exertion GI Denies hematochezia and Denies change in bowel habits Denies hematuria Musc Denies back pain and Denies limited range of motion Neuro Denies focal weakness and Denies convulsions Psych Denies depression and Denies mood swings Physical Exam Vital Signs: Last Vital Signs Pulse 73 06/03/23 14:22 BP 113/73 06/03/23 14:22 BMI result Body Mass Index 29.1 Const General: comfortable and no acute distress Resp Effort & Inspection: normal respiratory effort GI Other: Incisions well healed, no palpable hernias, no signs of infection Assessment & Plan Assessment & Plan (1) History of diverticulitis: Code(s): Z87.19 - Personal history of other diseases of the digestive system Plan: Status post left colon resection for recurrent diverticulitis. All incisions are well healed. I removed all his skin nuha. She doing well overall and has good GI functions Her path report shows diverticular disease with focal mesenteric and serosal fibrosis. I advised her to avoid any lifting of more than 20 lb for at least 2 more weeks. I will see her again in the office in 1 month. Coding Level of Care Code Global (86165) Diagnoses History of diverticulitis Z87.19
[2023-06-03 14:22] VITALS: BP 113/73; PULSE 73; BMI 29.1
== END 2023-06-03 14:32 | disposition home or self-care (01) ==
PROVIDERS: PCP Internal Medicine; Visit Provider Surgery
DX: Z87.19 Personal history of other diseases of the digestive system (principal)
CPT/HCPCS: 99024

== ENCOUNTER → 2023-06-03 13:59 | Outpatient (BNVA) | payer OTHER, SELFPAY | PROVIDERS: PCP Internal Medicine; Visit Provider Surgery ==

== ENCOUNTER 2023-07-04 14:59 | Outpatient (AMB) | payer OTHER, SELFPAY ==
[2023-07-04 15:00] VITALS: BP 128/76; BMI 28.0
--- NOTE | 2023-07-04 15:00 | A.OFFVIS_ITS ---
Intake Vital Signs 07/04/23 15:00 Height 5 ft 2 in Weight 153 lb BMI 28.0 BP 128/76 Blood Pressure Location Rt brachial Position Sitting Intake Visit Reasons: one month S/P Lt colon resection, poss seton Senior Control Systems Engineer Required: Yes Senior Control Systems Engineer Language: Outsewer Name: Domi Information Interpreted: non-clinical & clinical Allergies iron [From Venofer] Adverse Reaction (Intermediate, Verified 07/04/23 15:09) Hives methocarbamol Adverse Reaction (Intermediate, Verified 07/04/23 15:09) Hives Medication List - Last Reconciled 07/04/23 by Cachorro Ku MD albuterol sulfate 90 mcg/actuation (Ventolin HFA) 2 puffs PO Q6H PRN cyanocobalamin (vitamin B-12) 1,000 mcg IM QMONTH dicyclomine 20 mg PO QID PRN fluoxetine 40 mg PO QAM gabapentin 100 mg PO BID PRN hydrocortisone 2.5% (Proctosol HC) 1 appl [place] BID PRN hydroxyzine pamoate (Vistaril) 25 mg PO BEDTIME PRN imipramine HCl 10 mg PO BEDTIME PRN magnesium hydroxide (Milk of Magnesia) 5 mL PO DAILY PRN omeprazole 40 mg PO DAILY ondansetron 4 mg PO Q6-8H PRN tramadol 50 mg PO Q8H PRN 30 days trazodone 50 mg PO BEDTIME PRN HPI one month S/P Lt colon resection, poss seton HPI Details She is here for postop visit after left colon resection for diverticular disease last May 14. She continues to do well. She has good oral intake. She has good bowel movements. She denies any significant complaints. [facility] Medical History Diverticulitis Cancer of cervix Anemia TRUDY (obstructive sleep apnea) GERD (gastroesophageal reflux disease) Panic attacks Polyarthralgia Left knee pain Mild persistent asthma Heart palpitations Epidermal cyst LOVE (generalized anxiety disorder) Mild recurrent major depression Abscess History of diverticulitis Diverticular disease Colitis with complication Arthritis Fibromyalgia Abdominal pain Surgical History S/P left colectomy H/O colonoscopy H/O LEEP History of removal of cyst (~08/07/21) History of esophagogastroduodenoscopy (EGD) History of lithotripsy History of appendectomy History of tubal ligation Family History Father Diabetes Hypertension CVD (cardiovascular disease) Heart disease FH: mental illness Mother Asthma Family history of cancer Maternal Grandmother Diabetes Maternal Grandfather Colon cancer Maternal Aunt Colon cancer Family/Other Breast cancer Family/Other Pancreatic cancer Social History Household Members: Family Housing: House Are you a primary foster care case manager to a significant other at home: No Do you presently have visiting nurse or other home services: Yes Alcohol intake: never Patient Tobacco Use Status: Never used Tobacco e-Cigarette/Vaping Use: Never Used Second Hand Smoke Exposure: No service: No Current occupational status: unemployed Cognitive needs: No Hearing needs: No Vision needs: No Review of Systems Const Denies chills and Denies fever(s) Card Denies chest pain, Denies dyspnea and Denies dyspnea on exertion Resp Denies cough, Denies dyspnea and Denies dyspnea on exertion GI Denies hematochezia and Denies change in bowel habits Denies hematuria Musc Denies back pain and Denies limited range of motion Neuro Denies focal weakness and Denies convulsions Psych Denies depression and Denies mood swings Physical Exam Const General: comfortable and no acute distress GI Other: All incisions are well healed Palpation (GI): Soft to palpation, not firm, nontender and no guarding Assessment & Plan Assessment & Plan (1) History of diverticulitis: Code(s): Z87.19 - Personal history of other diseases of the digestive system Plan: status post sigmoid resection. She continues to do well. All incisions are well healed. She has good GI functions. She denies any GI complaints this time. She can therefore follow up on a p.r.n. basis Coding Level of Care Code Global (09855) Diagnoses History of diverticulitis Z87.19
== END 2023-07-04 15:11 | disposition home or self-care (01) ==
PROVIDERS: PCP Internal Medicine; Visit Provider Surgery
DX: Z87.19 Personal history of other diseases of the digestive system (principal)
CPT/HCPCS: 99024

== ENCOUNTER → 2023-07-04 14:59 | Outpatient (BNVA) | payer OTHER, SELFPAY | PROVIDERS: PCP Internal Medicine; Visit Provider Surgery ==

== ENCOUNTER → 2023-07-26 14:30 | Outpatient (BNV) | payer OTHER, SELFPAY | PROVIDERS: PCP Internal Medicine; Visit Provider Radiology Diagnostic Radiology | DX: Z12.31 Encounter for screening mammogram for malignant neoplasm of breast (principal) | CPT/HCPCS: 77063; 77067 ==

== ENCOUNTER 2023-07-26 14:32 | Outpatient (REF) | payer OTHER, SELFPAY ==
--- NOTE | ~2023-07-26 | MM_ITS ---
EXAMINATION: MM SCREENING DIGITAL BREAST TOMOSYNTHESIS, BILATERAL CLINICAL INFORMATION: Screening. Asymptomatic. COMPARISON: Mammography: There are no prior mammograms for comparison. This is a baseline study. TECHNIQUE: Digital breast tomosynthesis is performed in both the craniocaudal and mediolateral oblique views along with computer-aided detection (CAD). Synthesized 2D images are generated from the tomosynthesis. FINDINGS: There are scattered areas of fibroglandular density (ACR BI-RADS breast composition Category b). There are no significant masses, abnormal calcifications, or other abnormalities. MM/MM tomosynthesis screening BI IMPRESSION: No mammographic evidence of malignancy. ASSESSMENT: BI-RADS BI-RADS 1 - Negative RECOMMENDATION: Routine annual mammography screening. 1 year F/U This examination should not preclude the clinical evaluation of a suspicious palpable abnormality. This patient's information was entered into a reminder system with a target due date for their next mammogram.
== END 2023-07-26 14:33 | disposition home or self-care (01) ==
LOC: HO.MAMMO 14:32
PROVIDERS: PCP Internal Medicine; Visit Provider Internal Medicine
DX: Z12.31 Encounter for screening mammogram for malignant neoplasm of breast (principal)
CPT/HCPCS: 77063; 77067

== ENCOUNTER 2023-09-18 19:32 | Emergency (ER) | payer OTHER, SELFPAY ==
--- NOTE | ~2023-09-18 | CT_ITS ---
EXAMINATION: CT ABDOMEN AND PELVIS WITH CONTRAST CLINICAL INFORMATION: Left lower quadrant abdomen pain COMPARISON: 03/09/2023 TECHNIQUE: Multidetector volumetric images were obtained from the superior aspect of the liver through the pubic symphysis following administration 85 mL of Omnipaque 350 intravenous contrast. Sagittal and coronal reformatted images were obtained on the technologist's workstation. Oral contrast: No This CT examination was performed using dose optimization techniques as appropriate, variously including the following: *Automated exposure control *Adjustment of mA and/or kV according to patient size (this includes techniques or standardized protocols for targeted exams where dose is matched to indication/reason for exam; i.e. extremities or head) *Use of iterative reconstruction technique DLP: 521 mGy-cm FINDINGS: LUNG BASES: The visualized lung bases are unremarkable. LIVER, GALLBLADDER, AND BILIARY TREE: The liver is normal in size, shape, and attenuation. Tiny calcified granuloma is redemonstrated. No biliary ductal dilatation is present. Gallbladder appears unremarkable. PANCREAS: Unremarkable. SPLEEN: Unremarkable. ADRENAL GLANDS: Unremarkable. KIDNEYS AND URETERS: Bilateral nephrograms are symmetric. Punctate calculus in the lower right kidney. No hydronephrosis or obstructing calculus identified. BLADDER: Collapsed and not adequately evaluated. GASTROINTESTINAL TRACT: No evidence of bowel obstruction. Suture lines are noted in the region of the sigmoid colon. There is scattered colonic diverticulosis without convincing diverticulitis. No free fluid or free air is seen. ABDOMINAL WALL: No significant hernia is appreciated. LYMPH NODES: Normal. VASCULAR: Unremarkable. PELVIC VISCERA: Unremarkable. OSSEOUS STRUCTURES: Unremarkable. CT/CT abdomen pelvis w IV con IMPRESSION: No acute findings identified in the abdomen/pelvis. Colonic diverticulosis without convincing diverticulitis.
[2023-09-18 19:39] VITALS: BP 113/72; PULSE 74; RESP 20; TEMP 36.3; O2SAT 100; BMI 28.4
--- NOTE | 2023-09-18 19:45 | ED_ITS ---
HPI - General Adult General Chief complaint: Abdominal Pain Stated complaint: dizziness, nausea, left side abd pain Time Seen by Provider: 09/19/23 02:10 Source: patient Mode of arrival: ambulatory Limitations: no limitations History of Present Illness HPI narrative: Patient with History of diverticulitis status post left colon resection in 06/10 comes here for pain in left lower abdomen since evening associated with 4 - 5 watery diarrhea with nausea no fever no chills no blood in the stool patient had similar symptoms when she had diverticulitis attack last year patient did not eat or drink much since been started at 15:00 Related Data Home Medications Medication Instructions Recorded Confirmed hydroxyzine pamoate 25 mg capsule 25 mg PO BEDTIME PRN Anxiety 03/07/21 07/04/23 (Vistaril) fluoxetine 20 mg capsule 40 mg PO QAM 03/16/22 07/04/23 dicyclomine 20 mg tablet 20 mg PO QID PRN Diarrhea 01/30/23 07/04/23 cyanocobalamin (vitamin B-12) 1,000 mcg IM QMONTH 05/07/23 07/04/23 1,000 mcg/mL injection solution hydrocortisone 2.5 % topical cream 1 appl VT BID PRN hemorrhoids 05/07/23 07/04/23 with perineal applicator (Proctosol HC) imipramine HCl 10 mg tablet 10 mg PO BEDTIME PRN Anxiety 05/07/23 07/04/23 trazodone 50 mg tablet 50 mg PO BEDTIME PRN Insomnia 05/14/23 07/04/23 Previous Rx's Medication Instructions Recorded omeprazole 40 mg capsule,delayed 40 mg PO DAILY #30 caps 11/20/22 release ondansetron 4 mg disintegrating 4 mg PO Q6-8H PRN nausea and 03/09/23 tablet vomiting #7 tabs magnesium hydroxide 400 mg/5 mL 5 ml PO DAILY PRN constipation 05/27/23 oral suspension (Milk of Magnesia) #3,780 mL albuterol sulfate 90 mcg/actuation 2 puff PO Q6H PRN for dyspnea #8.5 06/18/23 aerosol inhaler (Ventolin HFA) grams gabapentin 100 mg capsule 100 mg PO BID PRN Pain 30 days #60 08/06/23 caps benzonatate 100 mg capsule 100 mg PO BID PRN cough 5 days #10 08/13/23 caps prednisone 10 mg tablet 10 mg PO DIRECTED 8 days #20 08/21/23 tabs levalbuterol tartrate 45 2 puff inhalation Q4-6H PRN 09/08/23 mcg/actuation aerosol inhaler shortness of breath 30 days #15 (Xopenex HFA) grams tramadol 50 mg tablet 50 mg PO Q8H PRN pain 30 days #90 09/08/23 tabs Allergies Allergy/AdvReac Type Severity Reaction Status Date / Time iron [From Venofer] AdvReac Intermediate Hives Verified 09/18/23 19:39 methocarbamol AdvReac Intermediate Hives Verified 09/18/23 19:39 Review of Systems 2 Review of Systems: Yes all other systems are reviewed and are negative PMFSH Past Medical History Medical History Diverticulitis Cancer of cervix Anemia TRUDY (obstructive sleep apnea) GERD (gastroesophageal reflux disease) Panic attacks Polyarthralgia Left knee pain Mild persistent asthma Heart palpitations Epidermal cyst LOVE (generalized anxiety disorder) Mild recurrent major depression Abscess History of diverticulitis Diverticular disease Colitis with complication Arthritis Fibromyalgia Abdominal pain Surgical History S/P left colectomy H/O colonoscopy H/O LEEP History of removal of cyst (~08/07/21) History of esophagogastroduodenoscopy (EGD) History of lithotripsy History of appendectomy History of tubal ligation Family History Family History Father Diabetes Hypertension CVD (cardiovascular disease) Heart disease FH: mental illness Mother Asthma Family history of cancer Maternal Grandmother Diabetes Maternal Grandfather Colon cancer Maternal Aunt Colon cancer Family/Other Breast cancer Family/Other Pancreatic cancer Social History Social History Household Members: Family Housing: House Are you a primary manager intensive care to a significant other at home: No Do you presently have visiting nurse or other home services: Yes Alcohol intake: never Patient Tobacco Use Status: Never used Tobacco Smoked in Last 30 Days: No e-Cigarette/Vaping Use: Never Used Second Hand Smoke Exposure: No Use of substances other than those prescribed or required for medical reasons: No Advance Directives: No Advance Directives Information Provided: Yes Patient : No service: No Current occupational status: unemployed Cognitive needs: No Hearing needs: No Vision needs: No Physical Exam ED Vital Signs: Vital Signs - 24 hr 09/18/23 19:39 09/19/23 01:54 09/19/23 02:12 Temperature 97.4 F 98.5 F 98.2 F Pulse Rate 74 76 74 Respiratory Rate 20 16 14 Blood Pressure 113/72 124/73 126/74 Pulse Oximetry 100 99 100 Oxygen Delivery Method Room Air Room Air Room Air 09/19/23 05:23 Temperature 98.3 F Pulse Rate 69 Respiratory Rate 14 Blood Pressure 103/73 Pulse Oximetry 96 Oxygen Delivery Method Room Air BMI result Body Mass Index 28.4 Const Other: Appearance: Alert. Oriented X3. No acute distress. Eyes: No pallor or icterus ENT: Pharynx normal. Oral Mucosa moist Neck: Normal inspection. Neck supple. CVS: Normal heart rate and rhythm. Pulses normal. Respiratory: No respiratory distress. Equal air entry bilateral, no wheezing/rales/rhonchi Abdomen: Soft mild deep tenderness left lower and mid quadrant no rebound tenderness or guarding Bowel sounds are present, no mass palpable, no CVA tenderness Skin: Skin warm and dry. Normal skin color. Normal skin turgor. Extremities: No lower extremity edema. No calf tenderness Neuro: Oriented X 3. Course Course Course Narrative: RME; 43-year-old female history of diverticulitis presents to ED for left-sided lower abdominal pain with 5 episodes of diarrhea. Patient states presentation similar to prior diverticulitis diagnosis. Labs ordered. Nurse Sanchez informed of patient to be brought to the Ed as soon as possible. Medications Administered Discontinued Medications Generic Name Dose Route Start Last Admin Trade Name Freq PRN Reason Stop Dose Admin Sodium Chloride 1,000 mls @ 999 mls/hr 09/19/23 02:17 09/19/23 05:09 Ns IV 09/19/23 03:17 Infused .Q1H1M ONE Infusion Iohexol 85 ml 09/19/23 02:27 09/19/23 02:30 Iohexol 350 Mg/Ml 100 Ml Infus..Btl IV 09/19/23 02:28 85 ml ONCE ONE Administration Morphine Sulfate 4 mg 09/19/23 02:17 09/19/23 02:41 Morphine Sulfate 4 Mg/Ml Cartridge IVPUSH 09/19/23 02:18 4 mg ONCE ONE Administration Protocol Ondansetron HCl 4 mg 09/19/23 02:17 09/19/23 02:41 Ondansetron Hcl 4 Mg/2 Ml Vial IVPUSH 09/19/23 02:18 4 mg ONCE ONE Administration Medical Decision Making Medical Decision Making [facility] Narrative: Patient's CT scan negative diverticulitis labs are stable likely patient has diarrhea/IBS causing the pain discharge patient on supportive treatment Differential Diagnosis Differential Diagnoses: The differential diagnosis associated with the presentation includes Colitis/diverticulitis/IBS Lab Data [facility] Lab Attestation statement: I reviewed the patient's lab results. 09/18/23 20:16 09/18/23 20:16 Labs: Lab Results 09/18/23 09/19/23 Range/Units 20:16 02:10 WBC 7.8 (4.8-10.8) X10*3/uL RBC 3.80 L (4.20-5.50) X10*6/uL Hgb 10.1 L (12.0-16.0) g/dl Hct 32.5 L (37.0-47.0) % MCV 85.5 (80.0-98.0) fL MCH 26.6 L (27.0-33.0) pg MCHC 31.1 (31.0-35.0) g/dl RDW 14.3 (11.0-16.0) % Plt Count 354 (160-400) X10*3/uL MPV 9.9 (9.4-12.3) fL Immature Gran % (Auto) 0.3 (0.0-0.4) % Neut % (Auto) 59.8 (45-73) % Lymph % (Auto) 29.0 (20-40) % Bath % (Auto) 7.3 (2-11) % Eos % (Auto) 3.2 (0-4) % Baso % (Auto) 0.4 (0-2) % Lymph # (Auto) 2.3 (1.2-4.9) X10*3/uL Bath # (Auto) 0.6 (0.1-1.2) X10*3/uL Eos # (Auto) 0.3 (0.0-0.4) X10*3/uL Baso # (Auto) 0.0 (0.0-0.2) X10*3/uL Abs Immat Gran (auto) 0.02 (0.00-0.03) X10*3/uL Absolute Neuts (auto) 4.7 (2.0-8.3) x10*3/uL Absolute Nucleated RBC 0.000 (0.0-0.012) X10*3/uL Nucleated RBC % (auto) 0.0 (0.0-0.2) /100WBC Sodium 141 (135-145) mmol/L Potassium 4.5 (3.3-5.1) mmol/L Chloride 108 (96-108) mmol/L Carbon Dioxide 26 (22-29) mmol/L Anion Gap 12 (12-20) BUN 16 (9-16) mg/dL Creatinine 0.81 (0.5-1.4) mg/dL Estim Creat Clear Calc 84.0 Estimated GFR > 60 Random Glucose 106 (60-115) mg/dL Calcium 9.3 D (8.4-10.2) mg/dL Total Bilirubin 0.3 (0.0-1.0) mg/dL AST 17 (5-31) U/L ALT 12 (0-31) U/L Alkaline Phosphatase 79 (39-117) U/L Total Protein 7.4 (6.5-8.0) g/dL Albumin 4.1 (3.5-5.0) g/dL Lipase 22 (8-78) U/L Beta HCG, Quant < 2 mIU/mL Urine Color Yellow Urine Appearance Cloudy Urine pH 5.5 (5.0-9.0) Ur Specific [place] >= 1.030 H (1.005-1.025) Urine Protein Trace (Neg-Trace) mg/dL Urine Glucose (UA) Negative (Negative) mg/dL Urine Ketones Trace (Negative) mg/dL Urine Blood Large (3+) H (Negative) Urine Nitrite Negative (Negative) Ur Leukocyte Esterase Trace H (Negative) Urine RBC >20 H (0-2) /HPF Urine WBC 11-20 H (0-5) /HPF Ur Squamous Epith Cells 6-10 (0-2) /HPF Calcium Oxalate Crystal Present Urine Bacteria None Seen (None Seen) Hyaline Casts 3-5 (0-2) /LPF Urine Test NEGATIVE (NEGATIVE) Independent Interpretation I performed an independent interpretation of an: CT Scan Radiology Impression Discussion of test interpretation with radiology: I have reviewed the radiologist's reading. Discharge Plan Discharge Clinical Impression: Abdominal pain, Diarrhea Patient Disposition: Home, Self-Care Instructions: Abdominal Pain (ED) Additional Instructions: Your abdominal pain likely from IBS/diarrhea no signs of diverticulitis Drink plenty of fluids Follow with PCP if not better Prescriptions: No Action magnesium hydroxide [Milk of Magnesia] 400 mg/5 mL suspension 5 ml PO DAILY PRN (Reason: constipation) Qty: 3780 0RF albuterol sulfate [Ventolin HFA] 90 mcg/actuation HFA aerosol inhaler 2 puff PO Q6H PRN (Reason: for dyspnea) Qty: 8.5 3RF gabapentin 100 mg capsule 100 mg PO BID PRN (Reason: Pain) 30 Days Qty: 60 1RF benzonatate 100 mg capsule 100 mg PO BID PRN (Reason: cough) 5 Days Qty: 10 0RF prednisone 10 mg tablet 10 mg PO DIRECTED 8 Days Qty: 20 0RF Rx Instructions: Take 4 tabs for 2 days, then 3 tabs for 2 days, then 2 tabs for 2 days, then 1 tab for 2 days tramadol 50 mg tablet 50 mg PO Q8H PRN (Reason: pain) 30 Days Qty: 90 0RF levalbuterol tartrate [Xopenex HFA] 45 mcg/actuation HFA aerosol inhaler 2 puff inhalation Q4-6H PRN (Reason: shortness of breath) 30 Days Qty: 15 1RF ondansetron 4 mg tablet,disintegrating 4 mg PO Q6-8H PRN (Reason: nausea and vomiting) Qty: 7 0RF hydrocortisone [Proctosol HC] 2.5 % cream with perineal applicator 1 appl VT BID PRN (Reason: hemorrhoids) Rx Instructions: BE SURE TO INCLUDE RECTAL APPICATOR!! imipramine HCl 10 mg tablet 10 mg PO BEDTIME PRN (Reason: Anxiety) cyanocobalamin (vitamin B-12) 1,000 mcg/mL Solution 1,000 mcg IM QMONTH trazodone 50 mg Tablet 50 mg PO BEDTIME PRN (Reason: Insomnia) hydroxyzine pamoate [Vistaril] 25 mg capsule 25 mg PO BEDTIME PRN (Reason: Anxiety) omeprazole 40 mg capsule,delayed release(DR/EC) 40 mg PO DAILY Qty: 30 6RF fluoxetine 20 mg capsule 40 mg PO QAM dicyclomine 20 mg tablet 20 mg PO QID PRN (Reason: Diarrhea) Interventions: ED Discharge Assessment Last Done: 09/19/23 05:29 Discharge Date/Time: 09/19/23 05:30
[2023-09-18 20:19] LABS: MANUAL DIFF FLAG NO
[2023-09-18 20:21] LABS: Basophils Percent Auto 0.4 % (0-2); Eosinophils Absolute Auto 0.3 X10*3/uL (0.0-0.4); Eosinophils Percent Auto 3.2 % (0-4); Hematocrit 32.5 % (37.0-47.0); Hemoglobin 10.1 g/dl (12.0-16.0); Imm Gran Abs Auto 0.02 X10*3/uL (0.00-0.03); Imm Gran Pct Auto 0.3 % (0.0-0.4); Lymphocytes Absolute Auto 2.3 X10*3/uL (1.2-4.9); Mean Corpuscular HGB Conc 31.1 g/dl (31.0-35.0); Mean Corpuscular Hemoglobin 26.6 pg (27.0-33.0); Mean Corpuscular Volume 85.5 fL (80.0-98.0); Mean Platelet Volume 9.9 fL (9.4-12.3); Monocytes Absolute Auto 0.6 X10*3/uL (0.1-1.2); Monocytes Percent Auto 7.3 % (2-11); Neutrophils Absolute Auto 4.7 x10*3/uL (2.0-8.3); Neutrophils Percent Auto 59.8 % (45-73); Platelet Count 354 X10*3/uL (160-400); Red Cell Distribution Width 14.3 % (11.0-16.0); White Blood Count 7.8 X10*3/uL (4.8-10.8)
[2023-09-18 20:40] LABS: Alanine Aminotransferase 12 U/L (0-31); Albumin Level 4.1 g/dL (3.5-5.0); Alkaline Phosphatase 79 U/L (39-117); Anion Gap 12 (12-20); Aspartate Amino Transferase 17 U/L (5-31); Bilirubin Total 0.3 mg/dL (0.0-1.0); Blood Urea Nitrogen 16 mg/dL (9-16); Calcium 9.3 mg/dL (8.4-10.2); Carbon Dioxide 26 mmol/L (22-29); Chloride 108 mmol/L (96-108); Estimated Glomerular Filt Rate > 60; Glucose Random 106 mg/dL (60-115); Lipase 22 U/L (8-78); Potassium 4.5 mmol/L (3.3-5.1); Sodium 141 mmol/L (135-145); Total Protein 7.4 g/dL (6.5-8.0)
[2023-09-18 20:41] LABS: HCG Quantitative < 2 mIU/mL
[2023-09-19 01:54] VITALS: BP 124/73; PULSE 76; RESP 16; TEMP 36.9; O2SAT 99
[2023-09-19 02:12] VITALS: BP 126/74; PULSE 74; RESP 14; TEMP 36.8; O2SAT 100
[2023-09-19 02:19] LABS: Appearance Urine Cloudy; Color Urine Yellow; Glucose Urine UA Negative (Negative); Leukocyte Esterase Urine Trace (Negative); Nitrite Urine Negative (Negative); PH 5.5 (5.0-9.0); Specific Gravity - Urine >= 1.030 (1.005-1.025); UMIC TRIGGER UACC YES; Urine Blood Large (3+) (Negative); Urine Ketones Trace mg/dL (Negative); Urine Protein Trace mg/dL (Neg-Trace)
[2023-09-19 02:21] LABS: UPreg QC Valid YES; Urine Pregnancy NEGATIVE (NEGATIVE)
--- NOTE | 2023-09-19 02:26 | PC.NURSE ---
20G IV line L AC. Pt tolerated well. Pt in ct scan
[2023-09-19] MEDS: iohexoL 350 MG/ML 100 ML INFUS..BTL 85 ML IV (02:30)
[2023-09-19 02:35] LABS: Bacteria Urine None Seen (None Seen); Calcium Oxalate Crystals Urine Present; RBC Urine >20 /HPF (0-2); UACC Culture Trigger YES
[2023-09-19] MEDS: Morphine Sulfate 4 MG/ML CARTRIDGE IVPUSH (02:41)
[2023-09-19] MEDS: 0.9 % Sodium Chloride 1,000 ML 999 ML IV (02:41)
[2023-09-19] MEDS: ondansetron HCL 4 MG/2 ML VIAL IVPUSH (02:41)
[2023-09-19 05:23] VITALS: BP 103/73; PULSE 69; RESP 14; TEMP 36.8; O2SAT 96
== END 2023-09-19 05:30 | disposition home or self-care (01) ==
PROVIDERS: Physician Assistant; Emergency Provider Internal Medicine
DX: R10.32 Left lower quadrant pain (principal); R19.7 Diarrhea, unspecified
CPT/HCPCS: 36415; 74177; 80053; 81001; 81025; 83690; 84702; 85025; 87086; 87147; 96361; 96374; 96375; 99284; 99285; J2270; J2405; Q9967

== ENCOUNTER 2023-10-15 13:53 | Outpatient (AMB) | payer OTHER, SELFPAY ==
[2023-10-15 13:55] VITALS: BP 109/75; PULSE 78; BMI 27.8
--- NOTE | 2023-10-15 13:55 | A.OFFVIS_ITS ---
Intake Vital Signs 10/15/23 13:55 Height 5 ft 2 in Weight 152 lb 1.903 oz BMI 27.8 BP 109/75 Blood Pressure Location Lt brachial Position Sitting Pulse 78 Intake Visit Reasons: pt req follow up n/s last 3 appts Intake Note: Patient presents to in office visit today in follow up of IBS. CC: Patient states that she underwent laparoscopic resection of the distal left colon and sigmoid, with end-to-end anastomosis on 04/[address] Ku. Patient c/o LUQ abdominal pain every time she eat red meats and nausea. Denies other GI symptoms. 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 She feels she should be in the hospital, but she did not want to stay, they were going to send me to a different hospital because it was all full. She ended up leaving [facility] because they were talking about sending her up to [facility] in [place]. She does not currently have any antibiotics.? She says she was given morphine and Percocet in the ER but we do not have any records to confirm this since she left [facility]. She is vomiting and has left sided pain. This is different from her past presentations when she had diarrhea initially. The pain worsened suddenly Saturday then escalated yesterday when she presented to the ER.? Her pain currently is 8/10 and I advised her to go on a clear liquid diet.? Information is printed for her from a clinical nutrition site to support this.? I will give her limited supply of temper prove hydrocodone and start her on Augmentin since the last time I treated her she had Levaquin Flagyl.? Will continue to alternate the antibiotics and I will give her a 20 day supply.? Given this new information in her continued bouts she may need to see surgery for reconsideration.? I did ask if she was taking Linzess daily and she said she was only taking it when she was constipated.? I educate her that she really should have been taking it every day because that might have prevented this exacerbation.? At any rate I do not want her taking it now until her good his at time to rest and heal.? Return office visit in 1 week. ? Assessment & Plan (1) Irritable bowel syndrome with both c onstipation and diarrhea: ?Code(s): K58.2 - Mixed irritable bowel syndrome (2) GERD (gastroesophageal reflux diseas e): ?Code(s): K21.9 - Gastro-esophageal reflux disease without esophagitis (3) Chronic idiopathic constipation: ?Code(s): K59.04 - Chronic idiopathic constipation (4) Nausea and vomiting: ?Comment: ?? Response to her bowel irritability uncertain cause, her treatment resistant H pylori certainly does not help. ?Code(s): R11.2 - Nausea with vomiting, unspecified (5) Diverticulitis: ?Comment: recurrent x 4 over last year ?Code(s): K57.92 - Diverticulitis of intestine, part unspecified, without perforation or abscess without bleeding ? ? ? Medications: New amoxicillin-pot cl avulanate 875-125 mg 1 tab? PO BID 20 d ays 40 tabs 0RF K57.92 - Diverticu litis of intestine , part unspecified , without perforat ion or abscess wit hout bleeding ? hydrocodone bitart rate ER ?? Partial Fill upon patient request. 20 mg? PO BID 10 t abs 0RF K57.92 - Diverticu litis of intestine , part unspecified , without perforat ion or abscess wit hout bleeding CORRESPONDENCE On 02/05/23 @ 14:09 Cortney Ashraf Wrote To Ilene,November patient currently admitted at [facility] since Saturday. she states she called to cancel tomorrows f/u for dx of Diverticulitis and just wanted provider to be aware. patient states she will call our office once she is discharged to r/s. On 02/05/23 @ 12:39 Shara Nielsen Wrote To Cortney Ashraf (2) Patient called and is in the ED at the moment. Roller Skate Assembler disconnected but she said she is in because a Diverticulitis flare up! Requesting a phone call back * TODAY'S VISIT Dax Perdue Pt has been lost to follow up since 01/2023 She had surgery for TICS with Dr. Ku, and was seen in the ER for a post surgical abd pain problem. Since then she had been doing pretty well, she has not having as much diarrhea or constipation since the surgery. She is continuing to have upper abdominal pain but since she ran out of her medications to treat her chronic H pylori infection, her Carafate and her omeprazole, this is likely the reason. Will restart these medicines and then assess her response. Again she has had every antibiotic regimen that we know of and she either did not tolerate them or they failed to cure her infection. With this the only thing we can do his manage the symptoms. She also notices that her symptoms are worse when she eats red meat, and I did supervisor counseling and guidance her that as we age this is more difficult for a lot of people to digest. She may need to limit her quantities of red meat or avoided completely. She has no longer taking imipramine, and she has used milk of magnesia for occasional constipation with good success which I encouraged her to keep on hand just in case the Carafate is constipating. I think that for as needed bowel cramping she can continue with dicyclomine but encouraged her to completely stop the imipramine instead of using it for p.r.n. as she indicated she was using it. Return office visit in 6 weeks [facility] Medical History (Updated 10/15/23 @ 14:16 by CIERA Russell) Physical exam Nausea and vomiting Chronic idiopathic constipation Diarrhea Diverticulitis Cancer of cervix Anemia TRUDY (obstructive sleep apnea) GERD (gastroesophageal reflux disease) Panic attacks Polyarthralgia Left knee pain Mild persistent asthma Heart palpitations Epidermal cyst LOVE (generalized anxiety disorder) Mild recurrent major depression Abscess History of diverticulitis Diverticular disease Colitis with complication Arthritis Fibromyalgia Abdominal pain Surgical History S/P left colectomy H/O colonoscopy H/O LEEP History of removal of cyst (~08/07/21) History of esophagogastroduodenoscopy (EGD) History of lithotripsy History of appendectomy History of tubal ligation Family History Father Diabetes Hypertension CVD (cardiovascular disease) Heart disease FH: mental illness Mother Asthma Family history of cancer Maternal Grandmother Diabetes Maternal Grandfather Colon cancer Maternal Aunt Colon cancer Family/Other Breast cancer Family/Other Pancreatic cancer Social History Household Members: Family Housing: House Are you a primary furnace caretaker to a significant other at home: No Do you presently have visiting nurse or other home services: Yes Alcohol intake: never Patient Tobacco Use Status: Never used Tobacco e-Cigarette/Vaping Use: Never Used Second Hand Smoke Exposure: No service: No Current occupational status: unemployed Cognitive needs: No Hearing needs: No Vision needs: No Review of Systems Const Denies fatigue, Denies fever(s), Denies night sweats, Denies poor appetite and Denies weight loss ENT Reports Normal hearing present, Denies dental pain, Denies dysphagia, Denies hearing loss, Denies mouth pain, Denies odynophagia, Denies throat swelling, Denies tongue swelling and Reports other (Dentition adequate) Card Reports no additional complaints Resp Reports no additional complaints GI Details: Reports abdominal pain, Denies melena, Denies bloating, Denies hematochezia, Denies constipation, Reports GI cramping, Denies dysphagia, Denies excessive flatus, Denies early satiety, Reports heartburn, Denies diarrhea, Reports nausea, Denies odynophagia, Denies vomiting and Denies hematemesis Skin/Breast Denies pruritus, Denies lesions, Denies rash and Denies jaundice Neuro Reports Normal hearing present and Denies Abnormal speech present Endo Denies fatigue Aller/Immun Denies throat swelling and Denies tongue swelling Physical Exam Vital Signs: Last Vital Signs Pulse 78 10/15/23 13:55 BP 109/75 10/15/23 13:55 BMI result Body Mass Index 27.8 Const General: cooperative, no acute distress, well developed and well groomed Nutritional Appearance: average body habitus and well nourished Orientation/consciousness: oriented to person, oriented to place and oriented to time Limitations: language barrier HEENT Head: Yes normocephalic and Yes atraumatic Eyes General: appearance normal, both eyes and all related structures Pupils: Equal, round and reactive pupils present Neck Neck: Yes normal visual inspection and Yes no lymphadenopathy Thyroid: Thyroid normal Resp Effort & Inspection: normal respiratory effort and able to speak in complete sentences Auscultation: clear to auscultation bilaterally Cardio Rate: regular rate Rhythm: regular rhythm Heart sounds: Normal, physiologic split S2 sound present Peripheral pulses: radial pulses present and posterior tibial pulses present GI Inspection: No distended, No Abdominal panniculus present and Yes obesity Palpation (GI): Soft to palpation, nontender, no guarding, not rigid and No hepatosplenomegaly present Percussion: Yes normal to percussion Auscultation: normal bowel sounds Rectal Exam - Female: deferred Skin General skin exam: no rashes or lesions noted, turgor normal, skin not dry, no jaundice, No spider nevi and no striae Rashes: no rashes Nails: normal Neuro General: oriented to person, oriented to place and oriented to time Cranial nerves: Yes Equal, round and reactive pupils present and Yes Normal hearing present Speech: No Abnormal speech present Extrem General: Yes normal to inspection, No clubbing, No cyanosis and No edema Psych Appearance: grossly normal and well kempt Mental Status: mental status grossly normal Speech and movement: Normal speech and movement present Affect: normal affect Attitude: cooperative Thought process: Normal thought process present and not confabulating Thought content: Normal thought content present Insight: Limited insight present (Psych) Judgement: Limited judgement present (Psych) Assessment & Plan Assessment & Plan (1) Irritable bowel syndrome with both constipation and diarrhea: Code(s): K58.2 - Mixed irritable bowel syndrome (2) H. pylori infection: Comment: Treatment resistant, she has failed every regimen so far that has been approved HER LAST TREATMENT WAS WITH rifabutin/. She has no allergies to medicines. Code(s): A04.8 - Other specified bacterial intestinal infections (3) GERD (gastroesophageal reflux disease): Code(s): K21.9 - Gastro-esophageal reflux disease without esophagitis Plan Montserratian #Julio Live Pt has been lost to follow up since 01/2023 She had surgery for TICS with Dr. Ku, and was seen in the ER for a post surgical abd pain problem. Since then she had been doing pretty well, she has not having as much diarrhea or constipation since the surgery. She is continuing to have upper abdominal pain but since she ran out of her medications to treat her chronic H pylori infection, her Carafate and her omeprazole, this is likely the reason. Will restart these medicines and then assess her response. Again she has had every antibiotic regimen that we know of and she either did not tolerate them or they failed to cure her infection. With this the only thing we can do his manage the symptoms. She also notices that her symptoms are worse when she eats red meat, and I did supervisor counseling and guidance her that as we age this is more difficult for a lot of people to digest. She may need to limit her quantities of red meat or avoided completely. She has no longer taking imipramine, and she has used milk of magnesia for occasional constipation with good success which I encouraged her to keep on hand just in case the Carafate is constipating. I think that for as needed bowel cramping she can continue with dicyclomine but encouraged her to completely stop the imipramine instead of using it for p.r.n. as she indicated she was using it. Return office visit in 6 weeks Medications: New sucralfate (Carafate) 1 g PO DAILY 30 tabs 6RF A04.8 - Other specified bacterial intestinal infections, K58.2 - Mixed irritable bowel syndrome dicyclomine 20 mg PO QID PRN 120 tabs 6RF Diarrhea K58.2 - Mixed irritable bowel syndrome Refilled omeprazole 40 mg PO DAILY 30 caps 6RF magnesium hydroxide (Milk of Magnesia) 5 mL PO DAILY PRN 3,780 mL 3RF constipation ondansetron 4 mg PO Q6-8H PRN 7 tabs 0RF nausea and vomiting Coding Level of Care Code Est Pt Level 3 (59732) Diagnoses Irritable bowel syndrome with both constipation and diarrhea K58.2 H. pylori infection A04.8 GERD (gastroesophageal reflux disease) K21.9
== END 2023-10-15 14:20 | disposition home or self-care (01) ==
PROVIDERS: PCP Internal Medicine; Visit Provider Nurse Practitioner
DX: K58.2 Mixed irritable bowel syndrome (principal); A04.8 Other specified bacterial intestinal infections; K21.9 Gastro-esophageal reflux disease without esophagitis
CPT/HCPCS: 99213

== ENCOUNTER → 2023-10-15 13:53 | Outpatient (BNVA) | payer OTHER, SELFPAY | PROVIDERS: PCP Internal Medicine; Visit Provider Nurse Practitioner | DX: K58.2 Mixed irritable bowel syndrome (principal); K21.9 Gastro-esophageal reflux disease without esophagitis; A04.8 Other specified bacterial intestinal infections | CPT/HCPCS: 99212 ==

== ENCOUNTER 2023-12-04 13:48 | Outpatient (REF) | payer OTHER, SELFPAY ==
[2023-12-04 14:18] LABS: Hemoglobin 10.3 g/dl (12.0-16.0); Mean Corpuscular HGB Conc 31.2 g/dl (31.0-35.0); Mean Corpuscular Hemoglobin 26.4 pg (27.0-33.0); Mean Corpuscular Volume 84.6 fL (80.0-98.0); Mean Platelet Volume 9.8 fL (9.4-12.3); Platelet Count 355 X10*3/uL (160-400); Red Cell Distribution Width 14.7 % (11.0-16.0); White Blood Count 7.2 X10*3/uL (4.8-10.8)
[2023-12-04 14:44] LABS: Iron 23 mcg/dL (30-160); Percent Iron Saturation 6 % (15-50); Total Iron Binding Capacity 382 mcg/dL (228-428); Unsaturated Iron Binding 359 ug/dL
[2023-12-04 14:58] LABS: Ferritin 9 ng/mL (10-250)
== END 2023-12-04 13:49 | disposition home or self-care (01) ==
LOC: HO.LAB 13:48
PROVIDERS: Internal Medicine; PCP Internal Medicine; Visit Provider Internal Medicine
DX: D64.9 Anemia, unspecified (principal)
CPT/HCPCS: 36415; 82728; 83540; 85027

== ENCOUNTER 2023-12-19 14:16 | Outpatient (AMB) | payer OTHER, SELFPAY ==
--- NOTE | 2023-12-19 14:45 | MHC.OFFVIS ---
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 No complaints. Last Pap was negative with no HPV in 09/02 Last Mammogram was BI-RADS 1 in 08/10 [facility] Medical History Physical exam Nausea and vomiting Chronic idiopathic constipation Diarrhea Diverticulitis Cancer of cervix Anemia TRUDY (obstructive sleep apnea) GERD (gastroesophageal reflux disease) Panic attacks Polyarthralgia Left knee pain Mild persistent asthma Heart palpitations Epidermal cyst LOVE (generalized anxiety disorder) Mild recurrent major depression Abscess History of diverticulitis Diverticular disease Colitis with complication Arthritis Fibromyalgia Abdominal pain Surgical History S/P left colectomy H/O colonoscopy H/O LEEP History of removal of cyst (~08/07/21) History of esophagogastroduodenoscopy (EGD) History of lithotripsy History of appendectomy History of tubal ligation Family History Father Diabetes Hypertension CVD (cardiovascular disease) Heart disease FH: mental illness Mother Asthma Family history of cancer Maternal Grandmother Diabetes Maternal Grandfather Colon cancer Maternal Aunt Colon cancer Family/Other Breast cancer Family/Other Pancreatic cancer Sister Uterine cancer Social History Household Members: Family Housing: House Are you a primary healthcare receptionist to a significant other at home: No Do you presently have visiting nurse or other home services: Yes Alcohol intake: never Patient Tobacco Use Status: Never used Tobacco e-Cigarette/Vaping Use: Never Used Second Hand Smoke Exposure: No service: No Current occupational status: unemployed Cognitive needs: No Hearing needs: No Vision needs: No Female Reproductive History Menstrual Age of Menarche: 16 Duration of menses: 3-5 days Date of last menstrual period: 11/30/23 control method: permanent sterilization Total pregnancies: 3 Full term: 3 Number of Living Children: 3 Date of last pap smear: 09/16/14 (negative) History of abnormal pap smear: Yes Review of Systems Const All systems reviewed & are unremarkable except as noted in HPI and below Card Reports as per HPI Resp Reports as per HPI GI Reports as per HPI and Reports no additional complaints Reports as per HPI Physical Exam Vital Signs: BMI result Body Mass Index 28.7 Const General: cooperative, healthy appearing and comfortable Chest Chest palpation & inspection: normal inspection of the chest and normal palpation of entire chest wall Breast/axilla inspection: normal inspection of the breasts and normal inspection of the axillae Breast/axilla palpation: normal palpation of the breasts, normal palpation of the axillae and no axillary lymphadenopathy Resp Effort & Inspection: normal respiratory effort Auscultation: clear to auscultation bilaterally Percussion: percussion normal Cardio Palpation: normal PMI Rate: regular rate Rhythm: regular rhythm Heart sounds: no murmurs and no rubs Peripheral pulses: Peripheral pulses 2+ throughout GI Inspection: Yes normal to inspection Palpation (GI): Soft to palpation, nontender, no guarding, not rigid and No hepatosplenomegaly present Percussion: Yes normal to percussion Auscultation: normal bowel sounds Rectal Exam - Female: deferred General: Yes bladder normal to palpation External Female Exam: No lesion Speculum Exam - Vagina: normal appearance of the vagina, normal palpation, normal vaginal discharge and not erythematous Speculum Exam - Cervix: normal appearance of the cervix and normal palpation Bimanual exam- vagina & uterus: normal bimanual exam, normal palpation, uterine size normal, bladder normal to palpation, consistency normal and normal palpation Bimanual Exam- Adnexa, other: normal adnexae, no masses and no tenderness Assessment & Plan Assessment & Plan (1) Well woman exam: Code(s): Z01.419 - Encounter for gynecological examination (general) (routine) without abnormal findings Category: Medical Plan: Cotesting done. Instructions given the patient to schedule next screening mammogram in July 2024 Counseled the patient about the recommended dietary allowance of 1000 mg of Calcium & 600 IU of vitamin D. The patient was instructed to perform monthly self-breast exams and to schedule an annual exam in a year; All questions answered and the patient verbalized understanding. Instructed the patient to schedule annual exam in a year Coding Level of Care Code New Pt Prev Care 40-64y(43061) Diagnoses Well woman exam Z01.419
[2023-12-19 14:46] VITALS: BMI 28.7
== END 2023-12-19 15:06 | disposition home or self-care (01) ==
PROVIDERS: PCP Internal Medicine; Visit Provider Obstetrics & Gynecology
DX: Z01.419 Encounter for gynecological examination (general) (routine) without abnormal findings (principal)
CPT/HCPCS: 99386

== ENCOUNTER 2023-12-19 14:16 | Outpatient (REF) | payer OTHER, SELFPAY ==
[2023-12-25 23:39] LABS: HPV mRNA E6/E7 rflx Not Detected (Not Detected)
== END 2023-12-19 14:17 | disposition home or self-care (01) ==
LOC: HO.LNP 14:16
PROVIDERS: PCP Internal Medicine; Visit Provider Obstetrics & Gynecology
DX: Z01.419 Encounter for gynecological examination (general) (routine) without abnormal findings (principal); Z11.51 Encounter for screening for human papillomavirus (HPV)
CPT/HCPCS: 87624; 88142; 99386

== ENCOUNTER 2024-01-09 14:31 | Outpatient (AMB) | payer OTHER, SELFPAY ==
[2024-01-09 14:33] VITALS: BP 106/62; PULSE 91; BMI 29.5
--- NOTE | 2024-01-09 14:33 | A.OFFVIS_ITS ---
Vital Signs 01/09/24 14:33 Height 5 ft 2 in Weight 161 lb 6.054 oz BMI 29.5 BP 106/62 Blood Pressure Location Lt brachial Position Sitting Pulse 91 Intake Visit Reasons: f/u abd pain, IBS, HP Intake Note: Patient presents to in office visit today in follow up of IBS. CC: Patient c/o abdominal pain and cramps. She states that she ate steak on Saturday and she had diarrhea after eating it and has been having abdominal pain since. Remedial Teacher Required: Yes Accompanied by: Self / Same As Patient Allergies iron [From Venofer] Adverse Reaction (Intermediate, Verified 01/16/24 16:48) Hives methocarbamol Adverse Reaction (Intermediate, Verified 01/16/24 16:48) Hives HPI HPI f/u abd pain, IBS, HP: Details: Assessment & Plan that cover they are your right the (1) Irritable bowel syndrome with both constipation and diarrhea: Code(s): K58.2 - Mixed irritable bowel syndrome (2) H. pylori infection: Comment: Treatment resistant, she has failed every regimen so far that has been approved HER LAST TREATMENT WAS WITH rifabutin/. She has no allergies to medicines. Code(s): A04.8 - Other specified bacterial intestinal infections (3) GERD (gastroesophageal reflux disease): Code(s): K21.9 - Gastro-esophageal reflux disease without esophagitis Plan [place] #Julio Perdue Pt has been lost to follow up since 01/2023 She had surgery for TICS with Dr. Ku, and was seen in the ER for a post surgical abd pain problem. Since then she had been doing pretty well, she has not having as much diarrhea or constipation since the surgery. She is continuing to have upper abdominal pain but since she ran out of her medications to treat her chronic H pylori infection, her Carafate and her omeprazole, this is likely the reason. Will restart these medicines and then assess her response. Again she has had every antibiotic regimen that we know of and she either did not tolerate them or they failed to cure her infection. With this the only thing we can do his manage the symptoms. She also notices that her symptoms are worse when she eats red meat, and I did camp counselor her that as we age this is more difficult for a lot of people to digest. She may need to limit her quantities of red meat or avoided completely. She has no longer taking imipramine, and she has used milk of magnesia for occa sional constipation with good success which I encouraged her to keep on hand just in case the Carafate is constipating. I think that for as needed bowel cramping she can continue with dicyclomine but encouraged her to completely stop the imipramine instead of using it for p.r.n. as she indicated she was using it. Return office visit in 6 weeks Medications: New sucralfate (Carafate) 1 g PO DAILY 30 tabs 6RF A04.8 - Other specified bacterial intestinal infections, K58.2 - Mixed irritable bowel syndrome dicyclomine 20 mg PO QID PRN 120 tabs 6RF Diarrhea K58.2 - Mixed irritable bowel syndrome Refilled omeprazole 40 mg PO DAILY 30 caps 6RF magnesium hydroxide (Milk of Magnesia) 5 mL PO DAILY PRN 3,780 mL 3RF constipation ondansetron 4 mg PO Q6-8H PRN 7 tabs 0RF nausea and vomiting CORRESPONDENCE On 02/05/23 @ 14:09 Cortney Ashraf Wrote To Ilene,November patient currently admitted at [facility] since Saturday. she states she called to [facility] tomorrows f/u for dx of Diverticulitis and just wanted provider to be aware. patient states she will call our office once she is discharged to r/s. On 02/05/23 @ 12:39 Shara Nielsen Wrote To Cortney Ashraf (2) Patient called and is in the ED at the moment. Remedial Teacher disconnected but she said she is in because a Diverticulitis flare up! Requesting a phone call back * TODAY'S VISIT [place] #Rafael Live She did not get the carafate or dicyclomine and is having continued post prandi al urgency. They should have this medication as well as the omeprazole, Zofran, and milk of magnesia. Will call pharmacy because I send refill x 6 in Sep. They say they do not know what happened in Sep but they received the 2 rx's now and are filling them. The patient says that she has had problems with this pharmacy. She has whole abd periumbilical abd pain. ROV 4 weeks. [facility] Medical History (Updated 01/17/24 @ 09:51 by Magali Summers MD) Physical exam Nausea and vomiting Chronic idiopathic constipation Diarrhea Diverticulitis Cancer of cervix Anemia TRUDY (obstructive sleep apnea) GERD (gastroesophageal reflux disease) Panic attacks Polyarthralgia Left knee pain Mild persistent asthma Heart palpitations Epidermal cyst LOVE (generalized anxiety disorder) Mild recurrent major depression Abscess History of diverticulitis Diverticular disease Colitis with complication Arthritis Fibromyalgia Abdominal pain Surgical History S/P left colectomy H/O colonoscopy H/O LEEP History of removal of cyst (~08/07/21) History of esophagogastroduodenoscopy (EGD) History of lithotripsy History of appendectomy History of tubal ligation Family History Father Diabetes Hypertension CVD (cardiovascular disease) Heart disease FH: mental illness Mother Asthma Family history of cancer Maternal Grandmother Diabetes Maternal Grandfather Colon cancer Maternal Aunt Colon cancer Family/Other Breast cancer Family/Other Pancreatic cancer Sister Uterine cancer Social History Household Members: Family Housing: House Are you a primary field care manager to a significant other at home: No Do you presently have visiting nurse or other home services: Yes Alcohol intake: never Patient Tobacco Use Status: Never used Tobacco e-Cigarette/Vaping Use: Never Used Second Hand Smoke Exposure: No service: No Current occupational status: unemployed Cognitive needs: No Hearing needs: No Vision needs: No Female Reproductive History Menstrual Age of Menarche: 16 Review of Systems Const Denies fatigue, Denies fever(s), Denies night sweats, Denies poor appetite and Denies weight loss ENT Reports Normal hearing present, Denies dental pain, Denies dysphagia, Denies hearing loss, Denies mouth pain, Denies odynophagia, Denies throat swelling, Denies tongue swelling and Reports other (Dentition adequate) Card Reports no additional complaints Resp Reports no additional complaints GI Details: Reports abdominal pain, Denies melena, Reports bloating, Denies hematochezia, Reports constipation, Denies GI cramping, Denies dysphagia, Denies excessive flatus, Denies early satiety, Reports heartburn, Denies diarrhea, Denies nausea, Denies odynophagia, Denies vomiting and Denies hematemesis Skin/Breast Denies pruritus, Denies lesions, Denies rash and Denies jaundice Neuro Reports Normal hearing present and Denies Abnormal speech present Endo Denies fatigue Aller/Immun Denies throat swelling and Denies tongue swelling Physical Exam Vital Signs: Last Vital Signs Pulse 91 01/09/24 14:33 BP 106/62 01/09/24 14:33 BMI result Body Mass Index 29.5 Const General: cooperative, no acute distress, well developed and well groomed Nutritional Appearance: well nourished and obese Orientation/consciousness: oriented to person, oriented to place and oriented to time Limitations: language barrier HEENT Head: Yes normocephalic and Yes atraumatic Eyes General: appearance normal, both eyes and all related structures Pupils: Equal, round and reactive pupils present Neck Neck: Yes normal visual inspection and Yes no lymphadenopathy Thyroid: Thyroid normal Resp Effort & Inspection: normal respiratory effort and able to speak in complete sentences Auscultation: clear to auscultation bilaterally Cardio Rate: regular rate Rhythm: regular rhythm Heart sounds: Normal, physiologic split S2 sound present Peripheral pulses: radial pulses present and posterior tibial pulses present GI Inspection: No distended, No Abdominal panniculus present and Yes obesity Palpation (GI): Soft to palpation, nontender, no guarding, not rigid and No hepatosplenomegaly present Percussion: Yes normal to percussion Auscultation: normal bowel sounds Rectal Exam - Female: deferred Skin General skin exam: no rashes or lesions noted, turgor normal, skin not dry, no jaundice, No spider nevi and no striae Rashes: no rashes Nails: normal Neuro General: oriented to person, oriented to place and oriented to time Cranial nerves: Yes Equal, round and reactive pupils present and Yes Normal hearing present Speech: No Abnormal speech present Extrem General: Yes normal to inspection, No clubbing, No cyanosis and No edema Psych Appearance: grossly normal and well kempt Mental Status: mental status grossly normal Speech and movement: Normal speech and movement present Affect: normal affect Attitude: cooperative Thought process: Normal thought process present and not confabulating Thought content: Normal thought content present Insight: Limited insight present (Psych) and Poor insight present (Psych) Judgement: Limited judgement present (Psych) and Poor judgement present (Psych) Assessment & Plan Assessment & Plan (1) Irritable bowel syndrome with both constipation and diarrhea: Code(s): K58.2 - Mixed irritable bowel syndrome Category: Medical (2) GERD (gastroesophageal reflux disease): Code(s): K21.9 - Gastro-esophageal reflux disease without esophagitis Category: Medical (3) H. pylori infection: Comment: Treatment resistant, she has failed every regimen so far that has been approved HER LAST TREATMENT WAS WITH rifabutin/. She has no allergies to medicines. Code(s): A04.8 - Other specified bacterial intestinal infections Category: Medical Plan [place] #Rafael Live She did not get the carafate or dicyclomine and is having continued post prandial urgency. They should have this medication as well as the omeprazole, Zofran, and milk of magnesia. Will call pharmacy because I send refill x 6 in Sep. They say they do not know what happened in Sep but they received the 2 rx's now and are filling them. The patient says that she has had problems with this pharmacy. She has whole abd periumbilical abd pain. ROV 4 weeks. Medications: Refilled sucralfate (Carafate) 1 g PO DAILY 30 tabs 6RF A04.8 - Other specified bacterial intestinal infections, K58.2 - Mixed irritable bowel syndrome omeprazole 40 mg PO DAILY 30 caps 6RF dicyclomine 20 mg PO QID PRN 120 tabs 6RF Diarrhea K58.2 - Mixed irritable bowel syndrome Coding Level of Care Code Est Pt Level 3 (97157) Diagnoses Irritable bowel syndrome with both constipation and diarrhea K58.2 GERD (gastroesophageal reflux disease) K21.9 H. pylori infection A04.8
== END 2024-01-09 14:57 | disposition home or self-care (01) ==
PROVIDERS: PCP Internal Medicine; Visit Provider Nurse Practitioner
DX: K58.2 Mixed irritable bowel syndrome (principal); K21.9 Gastro-esophageal reflux disease without esophagitis; A04.8 Other specified bacterial intestinal infections
CPT/HCPCS: 99213

== ENCOUNTER → 2024-01-09 14:31 | Outpatient (BNVA) | payer OTHER, SELFPAY | PROVIDERS: PCP Internal Medicine; Visit Provider Nurse Practitioner | DX: K58.2 Mixed irritable bowel syndrome (principal); K21.9 Gastro-esophageal reflux disease without esophagitis; A04.8 Other specified bacterial intestinal infections | CPT/HCPCS: 99212 ==

== ENCOUNTER 2024-01-16 16:24 | Outpatient (AMB) | payer OTHER, SELFPAY ==
--- NOTE | 2024-01-16 16:25 | A.OFFPC_ITS ---
Vital Signs 01/16/24 16:26 Height 5 ft 2 in Weight 158 lb BMI 28.9 BP 110/60 Blood Pressure Location Lt brachial Position Sitting Intake Visit Reasons: Anemia Intake Note: Patient here for a follow up Anemia, c/o cough and itchy throat Director Mobile Required: No Accompanied by: Self / Same As Patient Allergies iron [From Venofer] Adverse Reaction (Intermediate, Verified 01/16/24 16:48) Hives methocarbamol Adverse Reaction (Intermediate, Verified 01/16/24 16:48) Hives Medication List - Last Reconciled 01/16/24 by Magali Summers MD albuterol sulfate 90 mcg/actuation (Ventolin HFA) 2 puffs PO Q6H PRN 30 days cyanocobalamin (vitamin B-12) 1,000 mcg IM QMONTH dicyclomine 20 mg PO QID PRN escitalopram oxalate 10 mg PO DAILY gabapentin 100 mg PO BID PRN 30 days hydrocortisone 2.5% (Proctosol HC) 1 appl SC BID PRN hydroxyzine pamoate (Vistaril) 25 mg PO BEDTIME PRN levalbuterol tartrate 45 mcg/actuation (Xopenex HFA) 2 puffs inhalation Q4-6H PRN 30 days magnesium hydroxide (Milk of Magnesia) 5 mL PO DAILY PRN omeprazole 40 mg PO DAILY sucralfate (Carafate) 1 g PO DAILY tramadol 50 mg PO Q8H PRN 30 days trazodone 150 mg PO BEDTIME Tobacco use date assessed: 01/16/24 Dental Screening Dental Screen Date: 01/16/24 Did you have a dental visit in the last 12 months?: Yes Did you have a dental problem in the last 6 months where you did not have access to dental care?: No Was dental information given to patient?: Patient has dentist HPI HPI Comments History of Present Illness Details This is a 43-year-old female with mild asthma, anemia, mild recurrent major depression, GERD and fibromyalgia that comes today for follow-up on her conditions. She use rescue inhaler once a month or less. Her hemoglobin is low and this is follow by Hematology-Oncology. Depression has markedly improved with escitalopram. GERD stable with PPIs. Fibromyalgia well control with gabapentin. Denies any chest pain or shortness on breath. [facility] Medical History (Updated 01/17/24 @ 09:51 by Magali Summers MD) Physical exam Nausea and vomiting Chronic idiopathic constipation Diarrhea Diverticulitis Cancer of cervix Anemia TRUDY (obstructive sleep apnea) GERD (gastroesophageal reflux disease) Panic attacks Polyarthralgia Left knee pain Mild persistent asthma Heart palpitations Epidermal cyst LOVE (generalized anxiety disorder) Mild recurrent major depression Abscess History of diverticulitis Diverticular disease Colitis with complication Arthritis Fibromyalgia Abdominal pain Surgical History S/P left colectomy H/O colonoscopy H/O LEEP History of removal of cyst (~08/07/21) History of esophagogastroduodenoscopy (EGD) History of lithotripsy History of appendectomy History of tubal ligation Family History Father Diabetes Hypertension CVD (cardiovascular disease) Heart disease FH: mental illness Mother Asthma Family history of cancer Maternal Grandmother Diabetes Maternal Grandfather Colon cancer Maternal Aunt Colon cancer Family/Other Breast cancer Family/Other Pancreatic cancer Sister Uterine cancer Social History Household Members: Family Housing: House Are you a primary complex care nurse practitioner to a significant other at home: No Do you presently have visiting nurse or other home services: Yes Alcohol intake: never Patient Tobacco Use Status: Never used Tobacco e-Cigarette/Vaping Use: Never Used Second Hand Smoke Exposure: No service: No Current occupational status: unemployed Cognitive needs: No Hearing needs: No Vision needs: No Female Reproductive History Menstrual Age of Menarche: 16 Questionnaire PHQ-9 Over the last 2 weeks, how often have you been bothered by any of the following problems? 1. Little interest or pleasure in doing things: not at all 2. Feeling down, depressed, or hopeless: several days 3. Trouble falling or staying asleep, or sleeping too much: not at all 4. Feeling tired or having little energy: several days 5. Poor appetite or overeating: not at all 6. Feeling bad about yourself - or that you are a failure or have let yourself or your family down: not at all 7. Trouble concentrating on things, such as reading the newspaper or watching television: not at all 8. Moving or speaking so slowly that other people could have noticed. Or the opposite - being so fidgety or restless that you have been moving around a lot more than usual: not at all 9. Thoughts that you would be better off or of hurting yourself in some way: not at all Total score: 2 Depression Screening Interpretation: Positive Depression Screening Follow-up: Existing condition and Follow-up Visit Requested Depression Screening Done: Yes 97671 - PHQ-9 Billing: Yes Source: Developed by Drs. Bijan Weldon, Dee Olivera, Andrew Angel and colleagues, with an educational gerry from [employer]. Thrive Questionnaire Date Thrive assessed: 01/16/24 I am a: Patient What is your living situation today?: I have a steady place to live Within the past 12 months, did the food you bought not last and you didn't have the money to get more?: Never true Within the past 12 months, did you worry whether your food would run out before you got money to buy more?: Never true Do you have trouble paying for medicines?: No Do you have trouble getting transportation to medical appointments?: No Do you have trouble paying your heating and electricity bill?: No Do you have trouble taking care of your child, family member or friend?: No Do you have trouble with day-to-day activities such as bathing, preparing meals, shopping, managing finances, etc.?: No Are you currently unemployed and looking for a job?: No Are you interested in more education?: No Please select the resources that you would like help with: None Currently or been in a relationship where the following occur: no concerns reported THRIVE Score: 0 AUDIT C Alcohol Use Questionnaire (AUDIT-C) 1. How often do you have a drink containing alcohol?: Never Total Score: 0 LOVE-7 AMB Questionnaire LOVE-7 Date LOVE - 7 assessed: 01/16/24 Feeling nervous, anxious, or on edge: 1 = Several days Not being able to stop or control worryin = Not at all Worrying too much about different things: 1 = Several days Trouble relaxin = Not at all Being so restless that it is hard to sit still: 0 = Not at all Becoming easily annoyed or irritable: 0 = Not at all Feeling afraid as if something awful might happen: 0 = Not at all Total LOVE-7 score (0-4 normal; 5-9 mild; 10-14 moderate; 15-21 severe): 2 Source: Developed by Drs. Bijan Weldon, Dee Olivera, Andrew Angel and colleagues, with an educational gerry from [employer]. LOVE-7 Assessment Billing LOVE-7 Assessment Tool: LOVE-7 Assessment 46631 Review of Systems Const All systems reviewed & are unremarkable except as noted in HPI and below Eyes Reports no additional complaints, Denies change in vision and Denies other visual disturbances Card Denies chest pain at rest, Denies chest pain with activity, Denies edema, Denies irregular heart rhythm, Denies claudication, Denies dyspnea, Denies dyspnea on exertion, Denies orthopnea, Denies paroxysmal nocturnal dyspnea and Denies slow heart rate Resp Denies cough, Denies dyspnea and Denies dyspnea on exertion Physical exam (Primary Care) Vital Signs: Last Vital Signs BP 110/60 01/16/24 16:26 BMI result Body Mass Index 28.9 Tobacco/Smoking Status: Tobacco use Status Tobacco use date assessed 01/16/24 01/16/24 16:32 Patient Tobacco Use Status Never used Tobacco 01/16/24 16:32 e-Cigarette/Vaping Use Never Used 01/16/24 16:32 PHQ-9: PHQ-9 Score PHQ-9: Total score 2 01/16/24 16:52 Depression Screening Interpretation: Positive Depression Screening Follow-up: Existing condition and Follow-up Visit Requested Thrive Assessment: Date of Thrive Assessment Date Thrive assessed 01/16/24 01/16/24 16:32 Currently or been in a relationship where the following occur: no concerns reported [facility] Head: Yes normal to inspection Resp Effort & Inspection: normal respiratory effort Auscultation: clear to auscultation bilaterally Cardio Jugular venous distension: no JVD Rate: regular rate Rhythm: regular rhythm Heart sounds: S1 normal heart sound present and S2 normal heart sound present Extrem General: Yes full ROM Psych Appearance: grossly normal Assessment and Plan Assessment & Plan (1) Mild recurrent major depression: Code(s): F33.0 - Major depressive disorder, recurrent, mild Plan: Continue escitalopram. (2) Fibromyalgia: Code(s): M79.7 - Fibromyalgia Plan: Continue gabapentin. (3) Mild persistent asthma: Code(s): J45.30 - Mild persistent asthma, uncomplicated Qualifiers: Asthma complication type: uncomplicated Qualified Code(s): J45.30 - Mild persistent asthma, uncomplicated Plan: Use rescue inhaler as needed. (4) GERD (gastroesophageal reflux disease): Code(s): K21.9 - Gastro-esophageal reflux disease without esophagitis Qualifiers: Esophagitis presence: esophagitis presence not specified Qualified Code(s): K21.9 - Gastro-esophageal reflux disease without esophagitis Plan: Continue PPIs. (5) Anemia: Code(s): D64.9 - Anemia, unspecified Qualifiers: Anemia type: iron deficiency Iron deficiency anemia type: chronic blood loss Qualified Code(s): D50.0 - Iron deficiency anemia secondary to blood loss (chronic) Plan: Follow-up with Hematology-Oncology. 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
[2024-01-16 16:26] VITALS: BP 110/60; BMI 28.9
== END 2024-01-16 16:55 | disposition home or self-care (01) ==
PROVIDERS: PCP Internal Medicine; Visit Provider Internal Medicine
DX: M79.7 Fibromyalgia (principal); F33.0 Major depressive disorder, recurrent, mild; J45.30 Mild persistent asthma, uncomplicated; K21.9 Gastro-esophageal reflux disease without esophagitis; D50.0 Iron deficiency anemia secondary to blood loss (chronic)
CPT/HCPCS: 99214; G2211

== ENCOUNTER 2024-05-19 12:07 | Outpatient (AMB) | payer OTHER, SELFPAY ==
[2024-05-19 12:17] VITALS: BP 114/77; PULSE 68; BMI 29.3
--- NOTE | 2024-05-19 12:17 | A.OFFVIS_ITS ---
Vital Signs 05/19/24 12:17 Height 5 ft 2 in Weight 160 lb 0.889 oz BMI 29.3 BP 114/77 Blood Pressure Location Rt brachial Position Sitting Pulse 68 Intake Visit Reasons: follow up abd pain, IBS Intake Note: Skylar presents to in office follow up of abd pain and IBS. CC: Patient c/o epigastric pain, nausea, occasional vomiting, and acid reflux for months. She reports hoarseness, patient went to see an ENT at [facility] who found her to have irritation in her throat d/t acid reflux. She would like to obtain more Ondansetron for nausea. Per patient she tried taking the Carafate but she began to feel dizziness, increased nausea, and abd pain. Knowledge Engineer Required: Yes Accompanied by: Self / Same As Patient Allergies iron [From Venofer] Adverse Reaction (Intermediate, Verified 05/19/24 12:25) Hives methocarbamol Adverse Reaction (Intermediate, Verified 05/19/24 12:25) Hives HPI HPI follow up abd pain, IBS: Details: Assessment & Plan (1) Irritable bowel syndrome with both constipation and diarrhea: Code(s): K58.2 - Mixed irritable bowel syndrome Category: Medical (2) GERD (gastroesophageal reflux disease): Code(s): K21.9 - Gastro-esophageal reflux disease without esophagitis Category: Medical (3) H. pylori infection: Comment: Treatment resistant, she has failed every regimen so far that has been approved HER LAST TREATMENT WAS WITH rifabutin/. She has no allergies to medicines. Code(s): A04.8 - Other specified bacterial intestinal infections Category: Medical Plan [place] #[employer]ael Live She did not get the carafate or dicyclomine and is having continued post prandial urgency. They should have this medication as well as the omeprazole, Zofran, and milk of magnesia. Will call pharmacy because I send refill x 6 in Sep. They say they do not know what happened in Sep but they received the 2 rx's now and are filling them. The patient says that she has had problems with this pharmacy. She has whole abd periumbilical abd pain. ROV 4 weeks. Medications: Refilled sucralfate (Carafate) 1 g PO DAILY 30 tabs 6RF A04.8 - Other specified bacterial intestinal infections, K58.2 - Mixed irritable bowel syndrome omeprazole 40 mg PO DAILY 30 caps 6RF dicyclomine 20 mg PO QID PRN 120 tabs 6RF Diarrhea K58.2 - Mixed irritable bowel syndrome Laboratory Tests 09/18/23 03/30/24 20:16 14:13 WBC 7.4 Hgb 11.0 L Hct 34.6 L MCV 89.4 MCH 28.4 Plt Count 335 Estimated GFR > 60 Total Bilirubin 0.3 AST 17 ALT 12 Alkaline Phosphatase 79 * TODAY'S VISIT [place] #[employer]rant Live She now has the Carafate and the dicyclomine but she is not feeling better. In fact, she says that the Carafate made her feel much worse so I tell her to stop it. Clearly, since she is moving her bowels well this is down to her treatment resistant H pylori and she is not a diabetic so I am uncertain why she has had a sudden escalation of symptoms. She says that the Zofran works well for the nausea but her insurance limits her to 7 per month. I think I am going to stop her omeprazole and try to get her on twice a day pantoprazole as she still has severe epigastric pain. She finds the dicyclomine help me for lower abdominal cramping but uses it as needed. I am also going to try to get Reglan covered 5 mg 4 times a day to give her better nausea relief. We are going to get an upper endoscopy to see what is going on in her stomach. I might also want to consider gastric emptying study for idiopathic gastroparesis going forward. She had a CT scan in September that was unremarkable. I think we should add an endoscopy to her workup since we are having trouble resolving the symptoms. She has TRUDY and asthma and denies any cardiac problems. There are no prior troubles with anesthesia sedation. There are no infectious disease problems. Return office visit in 6 weeks. [facility] Medical History (Updated 05/19/24 @ 16:21 by CIERA Russell) Nausea and vomiting History of diverticulitis Abscess Epidermal cyst Abdominal cramping Screening for cervical cancer Well woman exam GERD (gastroesophageal reflux disease) Physical exam Chronic idiopathic constipation Diarrhea Diverticulitis Cancer of cervix Anemia TRUDY (obstructive sleep apnea) GERD (gastroesophageal reflux disease) Panic attacks Polyarthralgia Left knee pain Mild persistent asthma Heart palpitations LOVE (generalized anxiety disorder) Mild recurrent major depression Diverticular disease Colitis with complication Arthritis Fibromyalgia Abdominal pain Surgical History S/P left colectomy H/O colonoscopy H/O LEEP History of removal of cyst (~08/07/21) History of esophagogastroduodenoscopy (EGD) History of lithotripsy History of appendectomy History of tubal ligation Family History Father Diabetes Hypertension CVD (cardiovascular disease) Heart disease FH: mental illness Mother Asthma Family history of cancer Maternal Grandmother Diabetes Maternal Grandfather Colon cancer Maternal Aunt Colon cancer Family/Other Breast cancer Family/Other Pancreatic cancer Sister Uterine cancer Social History Household Members: Family Housing: House Are you a primary home care specialist to a significant other at home: No Do you presently have visiting nurse or other home services: Yes Alcohol intake: never Patient Tobacco Use Status: Never used Tobacco e-Cigarette/Vaping Use: Never Used Second Hand Smoke Exposure: No service: No Current occupational status: unemployed Cognitive needs: No Hearing needs: No Vision needs: No Female Reproductive History Menstrual Age of Menarche: 16 Review of Systems Const Denies fatigue, Denies fever(s), Denies night sweats, Denies poor appetite and Denies weight loss ENT Reports Normal hearing present, Denies dental pain, Denies dysphagia, Denies hearing loss, Denies mouth pain, Denies odynophagia, Denies throat swelling, Denies tongue swelling and Reports other (Dentition adequate) Card Reports no additional complaints Resp Reports no additional complaints GI Details: Reports abdominal pain, Denies melena, Denies bloating, Denies hematochezia, Denies constipation, Denies GI cramping, Denies dysphagia, Denies excessive flatus, Denies early satiety, Reports heartburn, Denies diarrhea, Reports nausea, Denies odynophagia, Reports vomiting and Denies hematemesis Skin/Breast Denies pruritus, Denies lesions, Denies rash and Denies jaundice Neuro Reports Normal hearing present and Denies Abnormal speech present Endo Denies fatigue Aller/Immun Denies throat swelling and Denies tongue swelling Physical Exam Vital Signs: Last Vital Signs Pulse 68 05/19/24 12:17 BP 114/77 05/19/24 12:17 BMI result Body Mass Index 29.3 Const General: cooperative, no acute distress, well developed and well groomed Nutritional Appearance: well nourished and overweight Orientation/consciousness: oriented to person, oriented to place and oriented to time Limitations: language barrier HEENT Head: Yes normocephalic and Yes atraumatic Eyes General: appearance normal, both eyes and all related structures Pupils: Equal, round and reactive pupils present Neck Neck: Yes normal visual inspection and Yes no lymphadenopathy Thyroid: Thyroid normal Resp Effort & Inspection: normal respiratory effort and able to speak in complete sentences Auscultation: clear to auscultation bilaterally Cardio Rate: regular rate Rhythm: regular rhythm Heart sounds: Normal, physiologic split S2 sound present Peripheral pulses: radial pulses present and posterior tibial pulses present GI Inspection: No distended, No Abdominal panniculus present and Yes obesity Palpation (GI): Soft to palpation, Tenderness to palpation present (GI) in the epigastrum and periumbilically, no guarding, not rigid and No hepatosplenomegaly present Percussion: Yes normal to percussion Auscultation: normal bowel sounds Rectal Exam - Female: deferred Skin General skin exam: no rashes or lesions noted, turgor normal, skin not dry, no jaundice, No spider nevi and no striae Rashes: no rashes Nails: normal Neuro General: oriented to person, oriented to place and oriented to time Cranial nerves: Yes Equal, round and reactive pupils present and Yes Normal hearing present Speech: No Abnormal speech present Extrem General: Yes normal to inspection, No clubbing, No cyanosis and No edema Psych Appearance: grossly normal and well kempt Mental Status: mental status grossly normal Speech and movement: Normal speech and movement present Affect: normal affect Attitude: cooperative Thought process: Normal thought process present and not confabulating Thought content: Normal thought content present Insight: Limited insight present (Psych) Judgement: Limited judgement present (Psych) Results Reviewed Results Reviewed: Laboratory Tests 09/18/23 03/30/24 20:16 14:13 WBC 7.4 Hgb 11.0 L Hct 34.6 L MCV 89.4 MCH 28.4 Plt Count 335 Estimated GFR > 60 Total Bilirubin 0.3 AST 17 ALT 12 Alkaline Phosphatase 79 Assessment & Plan Assessment & Plan (1) Irritable bowel syndrome with both constipation and diarrhea: Code(s): K58.2 - Mixed irritable bowel syndrome Category: Medical (2) H. pylori infection: Comment: Treatment resistant, she has failed every regimen so far that has been approved HER LAST TREATMENT WAS WITH rifabutin/. She has no allergies to medicines. Code(s): A04.8 - Other specified bacterial intestinal infections Category: Medical (3) GERD (gastroesophageal reflux disease): Code(s): K21.9 - Gastro-esophageal reflux disease without esophagitis Category: Medical (4) Nausea and vomiting: Comment: treatment resistant H pylori certainly does not help. Code(s): R11.2 - Nausea with vomiting, unspecified Category: Medical (5) Pre-op examination: Code(s): Z01.818 - Encounter for other preprocedural examination Category: Medical Plan [place] #[employer] She now has the Carafate and the dicyclomine but she is not feeling better. In fact, she says that the Carafate made her feel much worse so I tell her to stop it. Clearly, since she is moving her bowels well this is down to her treatment resistant H pylori and she is not a diabetic so I am uncertain why she has had a sudden escalation of symptoms. She says that the Zofran works well for the nausea but her insurance limits her to 7 per month. I think I am going to stop her omeprazole and try to get her on twice a day pantoprazole as she still has severe epigastric pain. She finds the dicyclomine help me for lower abdominal cramping but uses it as needed. I am also going to try to get Reglan covered 5 mg 4 times a day to give her better nausea relief. We are going to get an upper endoscopy to see what is going on in her stomach. I might also want to consider gastric emptying study for idiopathic gastroparesis going forward. She had a CT scan in September that was unremarkable. I think we should add an endoscopy to her workup since we are having trouble resolving the symptoms. She has TRUDY and asthma and denies any cardiac problems. There are no prior troubles with anesthesia sedation. There are no infectious disease problems. Return office visit in 6 weeks. Orders: Orders EGD - GI Use Only Today A04.8 - Other specified bacterial intestinal infections, R11.2 - Nausea with vomiting, unspecified Medications: New pantoprazole (Protonix) 40 mg PO BID 60 tabs 6RF 30 days A04.8 - Other specified bacterial intestinal infections, K21.9 - Gastro-esophageal reflux di sease without esophagitis metoclopramide HCl (Reglan) 5 mg PO QIDACHS 120 tabs 6RF K21.9 - Gastro- esophageal reflux disease without esophagitis, R11.2 - Nausea with vomiting, unspecified Discontinued sucralfate (Carafate) Discontinued Reason: Doctor's Order 1 g PO DAILY 30 tabs 6RF A04.8 - Other specified bacterial intestinal infections, K58.2 - Mixed irritable bowel syndrome omeprazole Discontinued Reason: Doctor's Order 40 mg PO DAILY 30 caps 6RF Coding Level of Care Code Est Pt Level 4 (76618) Diagnoses Irritable bowel syndrome with both constipation and diarrhea K58.2 H. pylori infection A04.8 GERD (gastroesophageal reflux disease) K21.9 Nausea and vomiting R11.2 Pre-op examination Z01.818 Time Spent (min) 35
== END 2024-05-19 13:02 | disposition home or self-care (01) ==
PROVIDERS: PCP Internal Medicine; Visit Provider Nurse Practitioner
DX: K58.2 Mixed irritable bowel syndrome (principal); A04.8 Other specified bacterial intestinal infections; K21.9 Gastro-esophageal reflux disease without esophagitis; R11.2 Nausea with vomiting, unspecified; Z01.818 Encounter for other preprocedural examination
CPT/HCPCS: 99214

== ENCOUNTER → 2024-05-19 12:07 | Outpatient (BNVA) | payer OTHER, SELFPAY | PROVIDERS: PCP Internal Medicine; Visit Provider Nurse Practitioner | DX: Z01.818 Encounter for other preprocedural examination (principal); K58.2 Mixed irritable bowel syndrome; A04.8 Other specified bacterial intestinal infections; K21.9 Gastro-esophageal reflux disease without esophagitis; R11.2 Nausea with vomiting, unspecified | CPT/HCPCS: 99212 ==

== ENCOUNTER 2024-05-26 14:32 | Outpatient (AMB) | payer OTHER, SELFPAY ==
--- NOTE | 2024-05-26 14:33 | A.OFFPC_ITS ---
Vital Signs 05/26/24 14:37 Height 5 ft 2 in Weight 159 lb BMI 29.1 BP 122/80 Blood Pressure Location Lt brachial Position Sitting Intake Visit Reasons: annual exam Intake Note: Patient here for an Annual Physical Exam Legal Billing Coordinator Required: No Accompanied by: Self / Same As Patient Allergies iron [From Venofer] Adverse Reaction (Intermediate, Verified 05/26/24 14:47) Hives methocarbamol Adverse Reaction (Intermediate, Verified 05/26/24 14:47) Hives Medication List - Last Reconciled 05/26/24 by Magali Summers MD albuterol sulfate 90 mcg/actuation (Ventolin HFA) 2 puffs PO Q6H PRN 30 days cetirizine (All Day Allergy (cetirizine)) 10 mg PO DAILY PRN 90 days cyanocobalamin (vitamin B-12) 1,000 mcg IM QMONTH dicyclomine 20 mg PO QID PRN escitalopram oxalate 10 mg PO DAILY gabapentin 100 mg PO BID PRN 30 days hydrocortisone 2.5% (Proctosol HC) 1 appl [place] BID PRN hydroxyzine pamoate (Vistaril) 25 mg PO BEDTIME PRN levalbuterol tartrate 45 mcg/actuation (Xopenex HFA) 2 puffs inhalation Q4-6H PRN 30 days magnesium hydroxide (Milk of Magnesia) 5 mL PO DAILY PRN metoclopramide HCl (Reglan) 5 mg PO QIDACHS ondansetron 4 mg PO Q6-8H PRN pantoprazole (Protonix) 40 mg PO BID 30 days paroxetine HCl 10 mg PO DAILY tramadol 50 mg PO Q8H PRN 30 days trazodone 150 mg PO BEDTIME Tobacco use date assessed: 01/16/24 Dental Screening Dental Screen Date: 01/16/24 HPI HPI Comments History of Present Illness Details This is a 43-year-old female with mild major depression that comes for her physical exam. Depression has been stable with medication. Mammogram done less than a year ago was normal. Pap smear done 2023 was normal. No chest pain or shortness on breath. Complains of headaches diffuse throughout the head that happens almost every day for about a month. No neurological deficit associated with it. Will order MRI of the brain. Also has rosacea and would like to see a business solutions director. [facility] Medical History Physical exam Nausea and vomiting History of diverticulitis Abscess Epidermal cyst Abdominal cramping Screening for cervical cancer Well woman exam GERD (gastroesophageal reflux disease) Chronic idiopathic constipation Diarrhea Diverticulitis Cancer of cervix Anemia TRUDY (obstructive sleep apnea) GERD (gastroesophageal reflux disease) Panic attacks Polyarthralgia Left knee pain Mild persistent asthma Heart palpitations LOVE (generalized anxiety disorder) Mild recurrent major depression Diverticular disease Colitis with complication Arthritis Fibromyalgia Abdominal pain Surgical History S/P left colectomy H/O colonoscopy H/O LEEP History of removal of cyst (~08/07/21) History of esophagogastroduodenoscopy (EGD) History of lithotripsy History of appendectomy History of tubal ligation Family History Father Diabetes Hypertension CVD (cardiovascular disease) Heart disease FH: mental illness Mother Asthma Family history of cancer Maternal Grandmother Diabetes Maternal Grandfather Colon cancer Maternal Aunt Colon cancer Family/Other Breast cancer Family/Other Pancreatic cancer Sister Uterine cancer Social History Household Members: Family Housing: House Are you a primary youth care worker to a significant other at home: No Do you presently have visiting nurse or other home services: Yes Alcohol intake: never Patient Tobacco Use Status: Never used Tobacco e-Cigarette/Vaping Use: Never Used Second Hand Smoke Exposure: No service: No Current occupational status: unemployed Cognitive needs: No Hearing needs: No Vision needs: No Female Reproductive History Menstrual Age of Menarche: 16 Questionnaire PHQ-9 Over the last 2 weeks, how often have you been bothered by any of the following problems? 1. Little interest or pleasure in doing things: more than half the days 2. Feeling down, depressed, or hopeless: several days 3. Trouble falling or staying asleep, or sleeping too much: several days 4. Feeling tired or having little energy: more than half the days 5. Poor appetite or overeating: not at all 6. Feeling bad about yourself - or that you are a failure or have let yourself or your family down: not at all 7. Trouble concentrating on things, such as reading the newspaper or watching television: several days 8. Moving or speaking so slowly that other people could have noticed. Or the opposite - being so fidgety or restless that you have been moving around a lot more than usual: more than half the days 9. Thoughts that you would be better off or of hurting yourself in some way: not at all Total score: 9 Depression Screening Interpretation: Positive Depression Screening Follow-up: Existing condition, In treatment and Follow-up Visit Requested Depression Screening Done: Yes 27962 - PHQ-9 Billing: Yes Source: Developed by Drs. Bijan Weldon, Dee Olivera, Andrew Angel and colleagues, with an educational gerry from [employer]. Thrive Questionnaire Date Thrive assessed: 05/26/24 I am a: Patient What is your living situation today?: I have a steady place to live Within the past 12 months, did the food you bought not last and you didn't have the money to get more?: Never true Within the past 12 months, did you worry whether your food would run out before you got money to buy more?: Never true Do you have trouble paying for medicines?: No Do you have trouble getting transportation to medical appointments?: No Do you have trouble paying your heating and electricity bill?: No Do you have trouble taking care of your child, family member or friend?: Yes Do you have trouble with day-to-day activities such as bathing, preparing meals, shopping, managing finances, etc.?: Yes Are you currently unemployed and looking for a job?: No Are you interested in more education?: No Please select the resources that you would like help with: None Currently or been in a relationship where the following occur: No concerns reported THRIVE Score: 0 AUDIT C Alcohol Use Questionnaire (AUDIT-C) 1. How often do you have a drink containing alcohol?: Never Total Score: 0 Score Reviewed/Action Taken: No LOVE-7 AMB Questionnaire LOVE-7 Date LOVE - 7 assessed: 05/26/24 Feeling nervous, anxious, or on edge: 2 = More than half the days Not being able to stop or control worryin = More than half the days Worrying too much about different things: 2 = More than half the days Trouble relaxin = Several days Being so restless that it is hard to sit still: 1 = Several days Becoming easily annoyed or irritable: 2 = More than half the days Feeling afraid as if something awful might happen: 3 = Nearly every day Total LOVE-7 score (0-4 normal; 5-9 mild; 10-14 moderate; 15-21 severe): 13 Source: Developed by Drs. Bijan Weldon, Dee Olivera, Andrew Angel and colleagues, with an educational gerry from [employer]. LOVE-7 Assessment Billing LOVE-7 Assessment Tool: LOVE-7 Assessment 92009 Review of Systems Const All systems reviewed & are unremarkable except as noted in HPI and below Card Denies chest pain at rest, Denies chest pain with activity, Denies edema, Denies irregular heart rhythm, Denies claudication, Denies dyspnea, Denies dyspnea on exertion, Denies orthopnea, Denies paroxysmal nocturnal dyspnea and Denies slow heart rate Resp Denies cough, Denies dyspnea and Denies dyspnea on exertion GI Denies abdominal pain, Denies change in bowel habits, Denies excessive flatus, Denies nausea and Denies vomiting Denies urinary incontinence, Denies urinary hesitancy and Denies urinary urgency Musc Denies atrophy, Denies deformity and Denies limited range of motion Physical exam (Primary Care) Vital Signs: Last Vital Signs BP 122/80 05/26/24 14:37 BMI result Body Mass Index 29.1 BMI Assessment/Plan discussion: High BMI High, discussed plan: lifestyle, weight reduction, dietary and physical activity Tobacco/Smoking Status: Tobacco use Status Tobacco use date assessed 01/16/24 05/26/24 14:40 Patient Tobacco Use Status Never used Tobacco 05/26/24 14:40 e-Cigarette/Vaping Use Never Used 05/26/24 14:40 PHQ-9: PHQ-9 Score PHQ-9: Total score 9 05/26/24 14:40 Depression Screening Interpretation: Positive Depression Screening Follow-up: Existing condition, In treatment and Follow-up Visit Requested Thrive Assessment: Date of Thrive Assessment Date Thrive assessed 05/26/24 05/26/24 14:40 Currently or been in a relationship where the following occur: No concerns reported HENFL Head: Yes normal to inspection, Yes normocephalic and Yes atraumatic Ears: external ears normal General nose exam: Normal external nose present and No nasal discharge present Face and sinus: Yes sinuses nontender Mouth: lip normal Eyes General: appearance normal, both eyes and all related structures Eyelids: Yes eyelids normal Conjunctivae: conjunctivae normal Neck Neck: Yes normal visual inspection and Yes supple Resp Effort & Inspection: normal respiratory effort Auscultation: clear to auscultation bilaterally Cardio Jugular venous distension: no JVD Rate: regular rate Rhythm: regular rhythm Heart sounds: S1 normal heart sound present and S2 normal heart sound present GI Inspection: Yes normal to inspection Palpation (GI): Soft to palpation and nontender Auscultation: normal bowel sounds Skin General skin exam: no rashes or lesions noted Neuro General: no focal motor deficits Extrem General: Yes full ROM Psych Appearance: grossly normal Office Procedures Flu Questionnaire Does the patient have a severe egg allergy?: No Immunizations Fluarix Triv [id number] (PF) 45 mcg (15 mcg x 3)/0.5 mL IM syringe Performing Provider: Magali Summers MD Performing Location: [facility] [place] [facility] Documented (not given) by: SURAJ Marrufo on 05/26/24 14:41 Reason Not Given: Patient Refused Coding Level of Care Code Est Pt Level 3 (62234) Est Pt Prev Care 18-39y(12946) Diagnoses Physical exam Z00.00 New daily persistent headache G44.52 Rosacea L71.9 Mild recurrent major depression F33.0 Additional Codes LOVE-7 Assessment Billing - LOVE-7 Assessment Tool: LOVE-7 Assessment 31663 ([id number]) Time Spent (min) 34 Assessment & Plan Assessment & Plan (1) Physical exam: Code(s): Z00.00 - Encounter for general adult medical examination without abnormal findings Category: Medical Plan: Repeat in a year. (2) New daily persistent headache: Code(s): G44.52 - New daily persistent headache (NDPH) Category: Medical Plan: Start sumatriptan as needed. MRI of the brain ordered. (3) Rosacea: Code(s): L71.9 - Rosacea, unspecified Category: Medical Plan: Start doxycycline daily. Referred to Dermatology. (4) Mild recurrent major depression: Code(s): F33.0 - Major depressive disorder, recurrent, mild Category: Medical Plan: Continue paroxetine. Orders: Orders MR head/brain wo con Today G44.52 - New daily persistent headache (NDPH) Vitamin B12 and Folate Today E53.8 - Deficiency of other specified B group vitamins Vitamin D 25-OH Total Today E55.9 - Vitamin D deficiency, unspecified Complete Blood Count Auto Diff Today G44.52 - New daily persistent headache (NDPH) Influenza [id number] Immunization Today Z23 - Encounter for immunization Comprehensive [place]. Panel Fast Today Z00.00 - Encounter for general adult medical examination without abnormal findings Lipid Panel Today Z00.00 - Encounter for general adult medical examination without abnormal findings Referrals Dermatology Referral L71.9 - Rosacea, unspecified Medications: New sumatriptan succinate do not exceed 8 doses per 24 hrs 25 mg PO Q2-4H 30 days PRN 9 tabs 0RF migraine headache doxycycline hyclate 100 mg PO DAILY 90 days 90 caps 1RF
[2024-05-26 14:37] VITALS: BP 122/80; BMI 29.1
== END 2024-05-26 15:04 | disposition home or self-care (01) ==
PROVIDERS: PCP Internal Medicine; Visit Provider Internal Medicine
DX: Z00.00 Encounter for general adult medical examination without abnormal findings (principal); G44.52 New daily persistent headache (NDPH); L71.9 Rosacea, unspecified; F33.0 Major depressive disorder, recurrent, mild; Z23 Encounter for immunization

== ENCOUNTER → 2024-05-26 14:32 | Outpatient (BNVA) | payer OTHER, SELFPAY | PROVIDERS: PCP Internal Medicine; Visit Provider Internal Medicine | DX: Z00.01 Encounter for general adult medical examination with abnormal findings (principal); G44.52 New daily persistent headache (NDPH); L71.9 Rosacea, unspecified; F33.0 Major depressive disorder, recurrent, mild | CPT/HCPCS: 90471; 96127; 99212; 99396 ==

== ENCOUNTER 2024-07-02 12:50 | Outpatient (AMB) | payer OTHER, SELFPAY ==
--- NOTE | 2024-07-02 13:09 | A.OFFVIS_ITS ---
Intake Visit Reasons: 6 week follow up Allergies iron [From Venofer] Adverse Reaction (Intermediate, Verified 05/26/24 14:47) Hives methocarbamol Adverse Reaction (Intermediate, Verified 05/26/24 14:47) Hives HPI HPI 6 week follow up: Details: Assessment & Plan (1) Irritable bowel syndrome with both constipation and diarrhea: Code(s): K58.2 - Mixed irritable bowel syndrome Category: Medical (2) H. pylori infection: Comment: Treatment resistant, she has failed every regimen so far that has been approved HER LAST TREATMENT WAS WITH rifabutin/. She has no allergies to medicines. Code(s): A04.8 - Other specified bacterial intestinal infections Category: Medical (3) GERD (gastroesophageal reflux disease): Code(s): K21.9 - Gastro-esophageal reflux disease without esophagitis Category: Medical (4) Nausea and vomiting: Comment: treatment resistant H pylori certainly does not help. Code(s): R11.2 - Nausea with vomiting, unspecified Category: Medical (5) Pre-op examination: Code(s): Z01.818 - Encounter for other preprocedural examination Category: Medical Plan [place]i #Brant Live She now has the Carafate and the dicyclomine but she is not feeling better. In fact, she says that the Carafate made her feel much worse so I tell her to stop it. Clearly, since she is moving her bowels well this is down to her treatment resistant H pylori and she is not a diabetic so I am uncertain why she has had a sudden escalation of symptoms. She says that the Zofran works well for the nausea but her insurance limits her to 7 per month. I think I am going to stop her omeprazole and try to get her on twice a day pantoprazole as she still has severe epigastric pain. She finds the dicyclomine help me for lower abdominal cramping but uses it as needed. I am also going to try to get Reglan covered 5 mg 4 times a day to give her better nausea relief. We are going to get an upper endoscopy to see what is going on in her stomach. I might also want to consider gastric emptying study for idiopathic gastroparesis going forward. She had a CT scan in September that was unremarkable. I think we should add an endoscopy to her workup since we are having trouble resolving the symptoms. She has TRUDY and asthma and denies any cardiac problems. There are no prior troubles with anesthesia sedation. There are no infectious disease problems. Return office visit in 6 weeks. Orders: Orders EGD - GI Use Only Today A04.8 - Other specified bacterial intestinal infections, R11.2 - Nausea with vomiting, unspecified Medications: New pantoprazole (Protonix) 40 mg PO BID 60 tabs 6RF 30 days A04.8 - Other specified bacterial intestinal infections, K21.9 - Gastro-esophageal reflux disease without esophagitis metoclopramide HCl (Reglan) 5 mg PO QIDACHS 120 tabs 6RF K21.9 - Gastro-e sophageal reflux disease without esophagitis, R11.2 - Nausea with vomiting, unspecified Discontinued sucralfate (Carafate) Discontinued Reason: Doctor's Order 1 g PO DAILY 30 tabs 6RF A04.8 - Other specified bacterial intestinal infections, K58.2 - Mixed irritable bowel syndrome omeprazole Discontinued Reason: Doctor's Order 40 mg PO DAILY 30 caps 6RF EGD BIOPSY * TODAY'S VISIT Yemeni #[id number], Ram[place]amira She has not yet heard re: the EGD. She received the reglan and the pantoprazole and this has improved her sx extremely well!! She is quite happy with her regimen now. ROV 6 mos and I will check on EGD progress. ROV 6 mos. FOR[facility]LY [facility], [facility] Medical History (Updated 07/02/24 @ 17:05 by CIERA Russell) Pre-op examination Physical exam Nausea and vomiting History of diverticulitis Abscess Epidermal cyst Abdominal cramping Screening for cervical cancer Well woman exam GERD (gastroesophageal reflux disease) Chronic idiopathic constipation Diarrhea Diverticulitis Cancer of cervix Anemia TRUDY (obstructive sleep apnea) GERD (gastroesophageal reflux disease) Panic attacks Polyarthralgia Left knee pain Mild persistent asthma Heart palpitations LOVE (generalized anxiety disorder) Mild recurrent major depression Diverticular disease Colitis with complication Arthritis Fibromyalgia Abdominal pain Surgical History S/P left colectomy H/O colonoscopy H/O LEEP History of removal of cyst (~08/07/21) History of esophagogastroduodenoscopy (EGD) History of lithotripsy History of appendectomy History of tubal ligation Family History Father Diabetes Hypertension CVD (cardiovascular disease) Heart disease FH: mental illness Mother Asthma Family history of cancer Maternal Grandmother Diabetes Maternal Grandfather Colon cancer Maternal Aunt Colon cancer Family/Other Breast cancer Family/Other Pancreatic cancer Sister Uterine cancer Social History Household Members: Family Housing: House Are you a primary resident care coordinator to a significant other at home: No Do you presently have visiting nurse or other home services: Yes Alcohol intake: never Patient Tobacco Use Status: Never used Tobacco e-Cigarette/Vaping Use: Never Used Second Hand Smoke Exposure: No service: No Current occupational status: unemployed Cognitive needs: No Hearing needs: No Vision needs: No Female Reproductive History Menstrual Age of Menarche: 16 Review of Systems Const Denies fatigue, Denies fever(s), Denies night sweats, Denies poor appetite and Denies weight loss ENT Reports Normal hearing present, Denies dental pain, Denies dysphagia, Denies hearing loss, Denies mouth pain, Denies odynophagia, Denies throat swelling, Denies tongue swelling and Reports other (Dentition adequate) Card Reports no additional complaints Resp Reports no additional complaints GI Details: Denies abdominal pain, Denies melena, Reports bloating, Denies hematochezia, Denies constipation, Denies GI cramping, Denies dysphagia, Denies excessive flatus, Reports early satiety, Reports heartburn, Denies diarrhea, Reports nausea, Denies odynophagia, Denies vomiting and Denies hematemesis Skin/Breast Denies pruritus, Denies lesions, Denies rash and Denies jaundice Neuro Reports Normal hearing present and Denies Abnormal speech present Endo Denies fatigue Aller/Immun Denies throat swelling and Denies tongue swelling Physical Exam Const General: cooperative, no acute distress, well developed and well groomed Nutritional Appearance: well nourished and overweight Orientation/consciousness: oriented to person, oriented to place and oriented to time Limitations: language barrier HEENT Head: Yes normocephalic and Yes atraumatic Eyes General: appearance normal, both eyes and all related structures Pupils: Equal, round and reactive pupils present Neck Neck: Yes normal visual inspection and Yes no lymphadenopathy Thyroid: Thyroid normal Resp Effort & Inspection: normal respiratory effort and able to speak in complete sentences Auscultation: clear to auscultation bilaterally Cardio Rate: regular rate Rhythm: regular rhythm Heart sounds: Normal, physiologic split S2 sound present Peripheral pulses: radial pulses present and posterior tibial pulses present GI Inspection: No distended, No Abdominal panniculus present and Yes obesity Palpation (GI): Soft to palpation, nontender, no guarding, not rigid and No hepatosplenomegaly present Percussion: Yes normal to percussion Auscultation: normal bowel sounds Rectal Exam - Female: deferred Skin General skin exam: no rashes or lesions noted, turgor normal, skin not dry, no jaundice, No spider nevi and no striae Rashes: no rashes Nails: normal Neuro General: oriented to person, oriented to place and oriented to time Cranial nerves: Yes Equal, round and reactive pupils present and Yes Normal hearing present Speech: No Abnormal speech present Extrem General: Yes normal to inspection, No clubbing, No cyanosis and No edema Psych Appearance: grossly normal and well kempt Mental Status: mental status grossly normal Speech and movement: Normal speech and movement present Affect: normal affect Attitude: cooperative Thought process: Normal thought process present and not confabulating Thought content: Normal thought content present Insight: Limited insight present (Psych) Judgement: Limited judgement present (Psych) Assessment & Plan Assessment & Plan (1) Nausea and vomiting: Comment: treatment resistant H pylori certainly does not help. Code(s): R11.2 - Nausea with vomiting, unspecified Category: Medical (2) Irritable bowel syndrome with both constipation and diarrhea: Code(s): K58.2 - Mixed irritable bowel syndrome Category: Medical (3) H. pylori infection: Comment: Treatment resistant, she has failed every regimen so far that has been approved HER LAST TREATMENT WAS WITH rifabutin/. She has no allergies to medicines. Code(s): A04.8 - Other specified bacterial intestinal infections Category: Medical (4) GERD (gastroesophageal reflux disease): Code(s): K21.9 - Gastro-esophageal reflux disease without esophagitis Category: Medical Plan Yemeni #[id number], Linsey She has not yet heard re: the EGD. She received the reglan and the pantoprazole and this has improved her sx extremely well!! She is quite happy with her regimen now. ROV 6 mos and I will check on EGD progress. ROV 6 mos. Medications: New hydrocortisone 2.5% (Proctosol HC) BE SURE TO INCLUDE RECTAL APPICATOR!! 1 appl VA BID PRN 30 grams 0RF hemorrhoids Refilled magnesium hydroxide (Milk of Magnesia) 5 mL PO DAILY PRN 3,780 mL 3RF constipation pantoprazole (Protonix) 40 mg PO BID 60 tabs 6RF 30 days A04.8 - Other specified bacterial intestinal infections, K21.9 - Gastro-esophageal reflux disease without esophagitis dicyclomine 20 mg PO QID PRN 120 tabs 6RF Diarrhea K58.2 - Mixed irritable bowel syndrome metoclopramide HCl (Reglan) 5 mg PO QIDACHS 120 tabs 6RF K21.9 - Gastro- esophageal reflux disease without esophagitis, R11.2 - Nausea with vomiting, unspecified Coding Level of Care Code Est Pt Level 3 (47399) Diagnoses Nausea and vomiting R11.2 Irritable bowel syndrome with both constipation and diarrhea K58.2 H. pylori infection A04.8 GERD (gastroesophageal reflux disease) K21.9
== END 2024-07-02 13:54 | disposition home or self-care (01) ==
PROVIDERS: PCP Internal Medicine; Visit Provider Nurse Practitioner
DX: R11.2 Nausea with vomiting, unspecified (principal); K58.2 Mixed irritable bowel syndrome; A04.8 Other specified bacterial intestinal infections; K21.9 Gastro-esophageal reflux disease without esophagitis
CPT/HCPCS: 99213

== ENCOUNTER → 2024-07-02 12:50 | Outpatient (BNVA) | payer OTHER, SELFPAY | PROVIDERS: PCP Internal Medicine; Visit Provider Nurse Practitioner | DX: R11.2 Nausea with vomiting, unspecified (principal); A04.8 Other specified bacterial intestinal infections; K21.9 Gastro-esophageal reflux disease without esophagitis; K58.2 Mixed irritable bowel syndrome | CPT/HCPCS: 99212 ==

== ENCOUNTER 2024-07-31 14:24 | Outpatient (REF) | payer OTHER, SELFPAY | END 2024-07-31 14:25 | disposition home or self-care (01) | LOC: HO.MAMMO 14:24 | PROVIDERS: PCP Internal Medicine; Visit Provider Internal Medicine | DX: Z12.31 Encounter for screening mammogram for malignant neoplasm of breast (principal) | CPT/HCPCS: 77063; 77067 ==

== ENCOUNTER → 2024-07-31 14:45 | Outpatient (BNV) | payer OTHER, SELFPAY | PROVIDERS: PCP Internal Medicine; Visit Provider Internal Medicine | DX: Z12.31 Encounter for screening mammogram for malignant neoplasm of breast (principal) | CPT/HCPCS: 77063; 77067 ==

== ENCOUNTER → 2024-09-06 14:19 | Outpatient (BNV) | payer OTHER, SELFPAY | PROVIDERS: PCP Internal Medicine; Visit Provider Radiology Diagnostic Radiology | DX: G44.52 New daily persistent headache (NDPH) (principal) | CPT/HCPCS: 70551 ==

== ENCOUNTER 2024-09-06 14:20 | Outpatient (REF) | payer OTHER, SELFPAY ==
--- NOTE | ~2024-09-06 | MR_ITS ---
EXAMINATION: MR BRAIN WITHOUT IV CONTRAST HISTORY: G44.52 - New daily persistent headache (NDPH) TECHNIQUE: Sagittal T1, and axial T1, FLAIR, T2, gradient echo, and diffusion weighted MR images of the brain were obtained. COMPARISON: None FINDINGS: The brain parenchyma is unremarkable, demonstrating normal cortez/white differentiation. No foci of abnormal signal intensity are identified. The ventricular system is normal in size and configuration. There is no mass effect or midline shift. No intra or extra-axial fluid collections are identified. There are no foci of restricted diffusion. Normal vascular flow voids are noted in the basilar and carotid arteries. There is mucosal thickening in the bilateral maxillary sinuses. MR/MR head/brain wo con IMPRESSION: Unremarkable MRI of the brain without contrast. Electronically signed by: Bijan Toro MD 09/07/2024 11:40 AM RULA
== END 2024-09-06 14:21 | disposition home or self-care (01) ==
LOC: HO.MRI 14:20
PROVIDERS: PCP Internal Medicine; Visit Provider Internal Medicine
DX: G44.52 New daily persistent headache (NDPH) (principal)
CPT/HCPCS: 70551

== ENCOUNTER 2024-11-16 14:05 | Outpatient (REF) | payer OTHER, SELFPAY ==
[2024-11-16 14:16] LABS: MANUAL DIFF FLAG NO
[2024-11-16 14:27] LABS: Basophils Percent Auto 0.7 % (0-2); Eosinophils Absolute Auto 0.3 X10*3/uL (0.0-0.4); Eosinophils Percent Auto 5.1 % (0-4); Hematocrit 30.9 % (37.0-47.0); Hemoglobin 9.5 g/dl (12.0-16.0); Imm Gran Abs Auto 0.01 X10*3/uL (0.00-0.03); Imm Gran Pct Auto 0.2 % (0.0-0.4); Lymphocytes Absolute Auto 1.8 X10*3/uL (1.2-4.9); Lymphocytes Percent Auto 28.9 % (20-40); Mean Corpuscular HGB Conc 30.7 g/dl (31.0-35.0); Mean Corpuscular Hemoglobin 26.2 pg (27.0-33.0); Mean Corpuscular Volume 85.1 fL (80.0-98.0); Mean Platelet Volume 9.6 fL (9.4-12.3); Monocytes Absolute Auto 0.5 X10*3/uL (0.1-1.2); Monocytes Percent Auto 7.8 % (2-11); Neutrophils Absolute Auto 3.5 x10*3/uL (2.0-8.3); Neutrophils Percent Auto 57.3 % (45-73); Platelet Count 367 X10*3/uL (160-400); Red Blood Count 3.63 X10*6/uL (4.20-5.50); Red Cell Distribution Width 14.6 % (11.0-16.0); White Blood Count 6.1 X10*3/uL (4.8-10.8)
[2024-11-16 15:00] LABS: Alanine Aminotransferase 12 U/L (0-31); Albumin Level 4.1 g/dL (3.5-5.0); Alkaline Phosphatase 88 U/L (39-117); Anion Gap 10 (12-20); Aspartate Amino Transferase 21 U/L (5-31); Bilirubin Total 0.5 mg/dL (0.0-1.0); Blood Urea Nitrogen 13 mg/dL (9-16); Carbon Dioxide 29 mmol/L (22-29); Chloride 108 mmol/L (96-108); Cholesterol 201 mg/dL (<200); Estimated Glomerular Filt Rate > 60; Glucose Fasting 93 mg/dL (60-99); HDL Cholesterol 47 mg/dL (>40); LDL Cholesterol Calculated 128 mg/dL (<100); Potassium 4.7 mmol/L (3.3-5.1); Sodium 142 mmol/L (135-145); Triglycerides 132 mg/dL (<150)
[2024-11-16 15:18] LABS: Vitamin D 25-OH Total 13.2 ng/mL (>30)
[2024-11-16 15:32] LABS: Folate 12.5 ng/mL (> or = 4.0); Vitamin B12 > 2000 pg/mL (200-900)
--- OUTSIDE RECORDS SUMMARY | 2024-11-16 15:57 | XMS_ITS | Clinical Summary ---
Author Organization [facility] it Address [address] [place] [address] Care Team Providers Care Engineering Consultant Name Role Phone Unavailable Primary Care Provider Unavailabl e Social History Tobacco Use Types Packs/Day Years Used Date Smoking Tobacco: Never Assessed Comments Unknown Sex and Gender Information Value Date Recorded Sex Assigned at Not on file Legal Sex Female 3:58 AM EST Gender Identity Not on file Sexual Orientation Not on file Plan of Treatment Health Maintenance Due Date Last Done Comments Breast Cancer Screening 1982 DTaP,Tdap,and Td Vaccines (1 - Tdap) 2001 Hepatitis B Vaccines (1 of 3 - 19+ 3-dose series) 2001 Cervical Cancer Screening: P ap Smear 2003 Depression Screening 07/22/2022 HIV Screening 07/22/2022 Hepatitis C Screening 07/22/2022 Social Influencers of Health Screening 07/22/2022 COVID-19 Vaccine (2023-2 5 season) 2024 Influenza Vaccine (#1) 2024 HIB Vaccines Aged Out No longer eligi ble based on patient's age to complete this topic HPV Vaccines Aged Out No longer eligi ble based on patient's age to complete this topic Hepatitis A Vaccines Aged Out No long er eligible based on patient's age to complete this topic IPV Vaccines Aged Out No longer eligi ble based on patient's age to complete this topic MMR Vaccines Aged Out No longer eligi ble based on patient's age to complete this topic Meningococcal ACWY Vaccine Aged Out N o longer eligible based on patient's age to complete this topic Meningococcal B Vacine Aged Out No lo nger eligible based on patient's age to complete this topic Pneumococcal Vaccine: Pediat rics (0 to 5 Years) and At-Risk Patients (6 to 64 Years) Aged Out No longer eligible b ased on patient's age to complete this topic RSV Immunization Patients Un giselle 20 months Aged Out No longer eligible b ased on patient's age to complete this topic Varicella Vaccines Aged Out No longer eligible based on patient's age to complete this topic
--- OUTSIDE RECORDS SUMMARY | 2024-11-16 15:57 | XMS_ITS | Data Portability ---
Author Organization [place] - [facility], Allergy Address [address] [address] Care Team Providers Care Poultry Pathologist Name Role Phone HUGO JOSE Primary Care Provider [phone] Assessment No assessment recorded. Plan of Treatment Reminders Order Date Submit Date Provider Last Modified By Organization Details Last Modified Time Details Appointments None recorded. Lab None recorded. Referral None recorded. Procedures None recorded. Surgeries None recorded. Imaging None recorded. Medication Orders famotidine 20 mg tablet 2023 024 [facility] #[id number], [address] [place], [address], 4 15:12:05 Patient TargetsNo targets recorded. Patient InstructionsNo instructions recorded. Reason for Referral None Reported. Problems Name Problem SNOMED Code Status Onset Date Resolution Date Notes Provider Name and Address Organization Details Recorded Time Dysphonia 57585183 Active 2015 Hoarse ness; Note: Date Diagno sed: 016 3:06 PM (R49.0 ) Not Available [facility] 4 02:13:34 Gastroesop hageal reflux disease without esophagiti s 706235992 Active 2023 DOUG VILLATORO MD [address] [facility],[place] [address], [place], [address] , [place] - [facility] 4 15:10:58 Chronic hoarseness 4907658564152 Active 2023 DOUG VILLATORO MD [address] [place] [address],[facility] [address], [place], [address] , [place] - [facility] 4 15:14:20 Problem Notes None recorded. Procedures Surgical History Date Name Laterality Status Provider Name and Address Organization Details Recorded Time 04/06/2024 FFL_RE completed DOUG VILLATORO MD [address] [place] [address], [place], [address], [place] - [facility] 04/06/2024 15:16:09 Imaging Results None recorded. Procedure Notes None recorded. Medical Equipment None Reported. Medications Name Sig Start Date Stop Date Status Note LastModified by Organization Details LastModified Time fluoxetine 40 mg capsule TAKE 1 CAPSULE BY MOUTH EVERY DAY IN THE MORNING active Not Available Not Available No t Available prednisone 10 mg tablet TAKE 4 TABS FOR 2 DAYS, THEN 3 TABS FOR 2 DAYS, THEN 2 TABS FOR 2 DAYS, THEN 1 TAB FOR 2 DAYS active Not Available Not Available No t Available doxycyclin e hyclate 100 mg capsule TAKE 1 CAPSULE BY MOUTH EVERY DAY active Not Available Not Available No t Available paroxetine 10 mg tablet TAKE 1 TABLET BY MOUTH EVERY DAY AT NIGHT active Not Available Not Available No t Available erythromyc in 500 mg tablet TAKE 2 TABS STARTING AT 5PM, 6PM AND 10 PM TODAY active Not Available Not Available No t Available trazodone 50 mg tablet TAKE 1-2 TABLET BY MOUTH AT BEDTIME NEEDED INSOMNIA active Not Available Not Available No t Available cetirizine 10 mg tablet TAKE 1 TABLET BY MOUTH EVERY DAY NEEDED FOR ALLERGY active Not Available Not Available No t Available sucralfate 1 gram tablet TAKE 1 TABLET BY MOUTH EVERY DAY active Not Available Not Available No t Available omeprazole 40 mg capsule,de layed release TAKE 1 CAPSULE BY MOUTH EVERY DAY active Not Available Not Available No t Available tramadol 50 mg tablet TOME ABBY TABLETA POR V A ORAL EVERY 8 HOURS NEEDED FOR PAIN FOR 30 DAYS active Not Available Not Available No t Available oxycodone- acetaminop hen 5 mg-325 mg tablet 1 TAB ORALLY EVERY 8 HOURS NEEDED FOR PAIN FOR 30 DAYS PARTIAL FILL UPON PATIENT REQUEST. active Not Available Not Available No t Available hydrocorti sone 2.5 % topical cream with perineal applicator APPLY RECTALLY 2 TIMES A DAY NEEDED FOR HEMORRHOI DS. BE SURE TO INCLUDE RECTAL APPICATOR !! active Not Available Not Available No t Available famotidine 20 mg tablet TAKE 1 TABLET BY MOUTH TWICE A DAY active Not Available Not Available No t Available metoclopra mide 5 mg tablet TOME ABBY TABLETA POR V A ORAL CUATRO VECES AL D A BEFORE A MEAL/BED active Not Available Not Available No t Available dicyclomin e 20 mg tablet TAKE 1 TABLET (20 MG) ORALLY 4 TIMES A DAY NEEDED FOR DIARRHEA active Not Available Not Available No t Available phenazopyr idine 100 mg tablet TAKE 1 TABLET BY MOUTH THREE TIMES A DAY FOR 2 DAYS active Not Available Not Available No t Available benzonatat e 100 mg capsule TAKE 1 CAPSULE BY MOUTH TWICE A DAY NEEDED FOR COUGH FOR 5 DAYS active Not Available Not Available No t Available paroxetine 20 mg tablet TOME 1 TABLETA POR V A ORAL TODOS LOS D POR LA NOCHE active Not Available Not Available No t Available pantoprazo le 40 mg tablet,del ayed release TAKE 1 TABLET (40 MG) ORALLY 2 TIMES A DAY FOR 30 DAYS active Not Available Not Available No t Available trazodone 150 mg tablet TAKE 1 TABLET BY MOUTH AT BEDTIME NEEDED FOR INSOMNIA active Not Available Not Available No t Available ferrous sulfate 325 mg (65 mg iron) tablet TAKE 1 TABLET ORALLY DAILY FOR 90 DAYS active Not Available Not Available No t Available ibuprofen 400 mg tablet active Medicatio n ID: [id number] Br and Name: ibuprofen Send Method: E-Prescri bed Subs Allowed: subs OK Medica tionGener icName: ibuprofen Not Available Not Available Not Available hydroxyzin e HCl 25 mg tablet TAKE 1 TABLET BY MOUTH THREE TIMES A DAY PARA ANSIEDAD active Not Available Not Available No t Available gabapentin 100 mg capsule TOME 1 C PSULA ORALLY 2 TIMES A DAY NEEDED FOR PAIN FOR 30 DAYS active Not Available Not Available No t Available neomycin 500 mg tablet TAKE 2 TABS AT 5PM, 6PM AND 10 PM TODAY active Not Available Not Available No t Available ondansetro n 4 mg disintegra ting tablet DISSOLVE 1 TABLET BY MOUTH EVERY 6 TO 8 HOURS NEEDED FOR NAUSEA AND VOMITING active Not Available Not Available No t Available fluoxetine 20 mg capsule TAKE 1 CAPSULE BY MOUTH ONCE A DAY TAKE 1 CAPSULE BY MOUTH EVERY MORNING active Not Available Not Available No t Available amoxicilli n 875 mg-potassi um clavulanat e 125 mg tablet TAKE 1 TABLET BY MOUTH TWICE A DAY active Not Available Not Available No t Available Ventolin HFA 90 mcg/actuat ion aerosol inhaler INHALE 2 PUFFS ORALLY EVERY 6 HOURS NEEDED FOR FOR DYSPNEA FOR 30 DAYS active Not Available Not Available No t Available oxycodone 5 mg tablet TAKE 1 TABLET BY MOUTH EVERY 6 HOURS NEEDED FOR PAIN active Not Available Not Available No t Available escitalopr am 10 mg tablet TAKE 0.5 A TABLET BY MOUTH DAILY X 7 DAYS THEN 1 TABLET DAILY active Not Available Not Available No t Available nitrofuran toin monohydrat e/macrocry stals 100 mg capsule TAKE 1 CAPSULE BY MOUTH TWICE A DAY FOR 7 DAYS active Not Available Not Available No t Available levalbuter ol HFA 45 mcg/actuat ion aerosol inhaler INHALE 2 PUFF EVERY 4 TO 6 HOURS NEEDED FOR SHORTNESS OF BREATH FOR 30 DAYS active Not Available Not Available No t Available Vitals Date Recorded Body height Body mass index (BMI) Body weight Provider Name and Address Organization Details Last Updated DateTime 04/06/2024 157.48 cm 28.9 kg/m2 29625.59 g Annette Banuelos [place] - [facility] 04/06/2024 14:46:26 Social History None recorded. Functional Status None recorded. Mental Status None recorded. Family History Nothing Reported. Medical History No medical history recorded. Gynecological HistoryNo gynecological history recorded. Obstetrics History GPAL:G 0 P 0 0 0 0 Past Encounters Encounter ID Performer Location Encounter Start Date Encounter Closed Date Diagnosis/Indication Diagnosis SNOMED-CT Code Diagnosis ICD10 Code Diagnosis Note [id number] DOUG VILLATORO MD [facility] [address] [address] 04/06/2024 14:04:27 04/06/2024 15:13:37 Gastroesophageal reflux disease without esophagitis 448520099 K21.9 Exam was benign. Laryngosco py showed [place]bl[place] ing. I feel the symptoms are likely due to refractory extra esophageal reflux disease. We will begin a six-week trial of famotidine to take in addition to 40mg of omeprazole . which was sent to their pharmacy. We will plan a follow up in 3-4 months to reassess. I recommende d she f/u with her gastroente rology. No concerning lesions on laryngosco py. consider voice therapy and repeat laryngosco py if she doesn't improve. Chronic hoarseness [id number] [id number] R49.0 see above Health Concerns Section Related Observation LastModified by Organization Detai ls LastModified Time None Recorded Concern Status LastModified by Organization Details LastModified Time None Recorded Advance Directives Directive None Recorded Payers Encounter Date Sequence Insurance Name Policy Number Policy Pleitez Covered Member ID Pleitez Member ID Guarantor Name 04/06/2024 1 [facility] - HEALTH NET PLAN (MEDICAID HMO) COLLEEN Merida [id number] Skylar Merida Notes Date Note Type Note Provider Name and Address Organization Details Recorded Time 04/06/2024 text/html She reports her voice becomes hoarse and her voice goes in and out. Her voice has been an issue for 2 months. About 3 weeks ago she noted some swelling in the right side of her neck which was associated with some trouble swallowing. This improved. She quit smoking but has begun smoking again. Currently she has no dysphagia. She currently has no trouble breathing but occasionally she does. DOUG VILLATORO MD [address] [place] [address], [phone], [facility] - [facility] 04/06/2024 15:17:06 OBGyn Episode No OBEpisode recorded.
== END 2024-11-16 14:06 | disposition home or self-care (01) ==
LOC: HO.LAB 14:05
PROVIDERS: PCP Internal Medicine; Visit Provider Internal Medicine
DX: Z00.00 Encounter for general adult medical examination without abnormal findings (principal); G44.52 New daily persistent headache (NDPH); E55.9 Vitamin D deficiency, unspecified; E53.8 Deficiency of other specified B group vitamins
CPT/HCPCS: 36415; 80053; 80061; 82306; 82607; 82746; 85025

== ENCOUNTER 2024-11-24 16:44 | Outpatient (AMB) | payer OTHER, SELFPAY ==
[2024-11-24 16:48] VITALS: BP 112/80; BMI 29.8
--- NOTE | 2024-11-24 16:48 | MHC.PC.OV ---
Vital Signs 11/24/24 16:48 Height 5 ft 2 in Weight 163 lb BMI 29.8 BP 112/80 Blood Pressure Location Lt brachial Position Sitting Intake Visit Reasons: depression Intake Note: Patient here for a follow up depression, c/o dizziness Vest Front Presser Required: No Accompanied by: Self / Same As Patient Allergies iron [From Venofer] Adverse Reaction (Intermediate, Verified 11/24/24 17:00) Hives methocarbamol Adverse Reaction (Intermediate, Verified 11/24/24 17:00) Hives Medication List - Last Reconciled 11/24/24 by Magali Summers MD albuterol sulfate 90 mcg/actuation (Ventolin HFA) 2 puffs PO Q6H PRN 30 days cetirizine (All Day Allergy (cetirizine)) 10 mg PO DAILY PRN 90 days cyanocobalamin (vitamin B-12) 1,000 mcg IM QMONTH dicyclomine 20 mg PO QID PRN doxycycline hyclate 100 mg PO DAILY 90 days escitalopram oxalate 10 mg PO DAILY gabapentin 100 mg PO BID PRN 30 days hydrocortisone 2.5% (Proctosol HC) 1 appl AK BID PRN hydroxyzine pamoate (Vistaril) 25 mg PO BEDTIME PRN levalbuterol tartrate 45 mcg/actuation (Xopenex HFA) 2 puffs inhalation Q4-6H PRN 30 days magnesium hydroxide (Milk of Magnesia) 5 mL PO DAILY PRN metoclopramide HCl (Reglan) 5 mg PO QIDACHS ondansetron 4 mg PO Q6-8H PRN pantoprazole (Protonix) 40 mg PO BID 30 days paroxetine HCl 10 mg PO DAILY sumatriptan succinate 25 mg PO Q2-4H PRN 30 days tramadol 50 mg PO Q8H PRN 30 days trazodone 150 mg PO BEDTIME Tobacco use date assessed: 11/24/24 Dental Screening Dental Screen Date: 11/24/24 Did you have a dental visit in the last 12 months?: No Did you have a dental problem in the last 6 months where you did not have access to dental care?: No Was dental information given to patient?: Patient has dentist HPI HPI Comments History of Present Illness Details The patient is a 44-year-old female presenting for follow-up on chronic conditions, primarily vitamin D deficiency and iron deficiency anemia. These conditions have contributed to significant joint pain, dizziness, and visual issues. After lab tests in October indicated low hemoglobin and vitamin D, she has been managing these deficiencies. Persistent dizziness and generalized weakness affect her daily life. She is on various medications for depression, anxiety, fibromyalgia, and chronic migraines. She reports a history of gastrointestinal complications affecting her medication intake, notably iron supplements causing hives. Her current therapeutic regimen includes cetirizine for allergies and monthly Vitamin B12 injections, although levels are high, prompting discussions on reducing frequency. She also manages rosacea with medication and is preparing for an endoscopy due to persistent gastrointestinal distress. [facility] Medical History (Updated 11/24/24 @ 20:32 by Magali Summers MD) Pre-op examination Physical exam Nausea and vomiting History of diverticulitis Abscess Epidermal cyst Abdominal cramping Screening for cervical cancer Well woman exam GERD (gastroesophageal reflux disease) Chronic idiopathic constipation Diarrhea Diverticulitis Cancer of cervix Anemia TRUDY (obstructive sleep apnea) GERD (gastroesophageal reflux disease) Panic attacks Polyarthralgia Left knee pain Mild persistent asthma Heart palpitations LOVE (generalized anxiety disorder) Mild recurrent major depression Diverticular disease Colitis with complication Arthritis Fibromyalgia Abdominal pain Surgical History S/P left colectomy H/O colonoscopy H/O LEEP History of removal of cyst (~08/07/21) History of esophagogastroduodenoscopy (EGD) History of lithotripsy History of appendectomy History of tubal ligation Family History Father Diabetes Hypertension CVD (cardiovascular disease) Heart disease FH: mental illness Mother Asthma Family history of cancer Maternal Grandmother Diabetes Maternal Grandfather Colon cancer Maternal Aunt Colon cancer Family/Other Breast cancer Family/Other Pancreatic cancer Sister Uterine cancer Social History Household Members: Family Housing: House Are you a primary children's zoo caretaker to a significant other at home: No Do you presently have visiting nurse or other home services: Yes Alcohol intake: never Patient Tobacco Use Status: Never used Tobacco e-Cigarette/Vaping Use: Never Used Second Hand Smoke Exposure: No service: No Current occupational status: unemployed Cognitive needs: No Hearing needs: No Vision needs: No Female Reproductive History Menstrual Age of Menarche: 16 Questionnaire PHQ-9 Over the last 2 weeks, how often have you been bothered by any of the following problems? 1. Little interest or pleasure in doing things: not at all 2. Feeling down, depressed, or hopeless: not at all 3. Trouble falling or staying asleep, or sleeping too much: not at all 4. Feeling tired or having little energy: not at all 5. Poor appetite or overeating: not at all 6. Feeling bad about yourself - or that you are a failure or have let yourself or your family down: not at all 7. Trouble concentrating on things, such as reading the newspaper or watching television: not at all 8. Moving or speaking so slowly that other people could have noticed. Or the opposite - being so fidgety or restless that you have been moving around a lot more than usual: not at all 9. Thoughts that you would be better off or of hurting yourself in some way: not at all Total score: 0 Depression Screening Interpretation: Negative Depression Screening Done: Yes 37856 - PHQ-9 Billing: Yes Source: Developed by Drs. Bijan Weldon, Dee Olivera, Andrew Angel and colleagues, with an educational gerry from [employer]. Thrive Questionnaire Date Thrive assessed: 11/24/24 I am a: Patient What is your living situation today?: I have a steady place to live Within the past 12 months, did the food you bought not last and you didn't have the money to get more?: Never true Within the past 12 months, did you worry whether your food would run out before you got money to buy more?: Never true Do you have trouble paying for medicines?: No Do you have trouble getting transportation to medical appointments?: No Do you have trouble paying your heating and electricity bill?: No Do you have trouble taking care of your child, family member or friend?: Yes Do you have trouble with day-to-day activities such as bathing, preparing meals, shopping, managing finances, etc.?: Yes Are you currently unemployed and looking for a job?: No Are you interested in more education?: No Please select the resources that you would like help with: None Currently or been in a relationship where the following occur: No concerns reported THRIVE Score: 0 AUDIT C Alcohol Use Questionnaire (AUDIT-C) 1. How often do you have a drink containing alcohol?: Never Total Score: 0 Score Reviewed/Action Taken: No LOVE-7 AMB Questionnaire LOVE-7 Date LOVE - 7 assessed: 11/24/24 Feeling nervous, anxious, or on edge: 0 = Not at all Not being able to stop or control worryin = Not at all Worrying too much about different things: 0 = Not at all Trouble relaxin = Not at all Being so restless that it is hard to sit still: 0 = Not at all Becoming easily annoyed or irritable: 0 = Not at all Feeling afraid as if something awful might happen: 0 = Not at all Total LOVE-7 score (0-4 normal; 5-9 mild; 10-14 moderate; 15-21 severe): 0 Source: Developed by Drs. Bijan Weldon, Dee Olivera, Andrew Angel and colleagues, with an educational gerry from [employer]. LOVE-7 Assessment Billing LOVE-7 Assessment Tool: LOVE-7 Assessment 78123 Review of Systems Const All systems reviewed & are unremarkable except as noted in HPI and below Card Denies chest pain at rest, Denies chest pain with activity, Denies edema, Denies irregular heart rhythm, Denies claudication, Denies dyspnea, Denies dyspnea on exertion, Denies orthopnea, Denies paroxysmal nocturnal dyspnea and Denies slow heart rate Resp Denies cough, Denies dyspnea and Denies dyspnea on exertion GI Denies abdominal pain, Denies change in bowel habits, Denies excessive flatus, Denies nausea and Denies vomiting Neuro Denies lack of coordination Physical exam (Primary Care) Vital Signs: Last Vital Signs BP 112/80 11/24/24 16:48 BMI result Body Mass Index 29.8 Tobacco/Smoking Status: Tobacco use Status Tobacco use date assessed 11/24/24 11/24/24 16:57 Patient Tobacco Use Status Never used Tobacco 11/24/24 16:57 e-Cigarette/Vaping Use Never Used 11/24/24 16:57 PHQ-9: PHQ-9 Score PHQ-9: Total score 0 11/24/24 17:04 Depression Screening Interpretation: Negative Thrive Assessment: Date of Thrive Assessment Date Thrive assessed 11/24/24 11/24/24 16:57 Currently or been in a relationship where the following occur: No concerns reported Resp Effort & Inspection: normal respiratory effort Auscultation: clear to auscultation bilaterally Cardio Jugular venous distension: no JVD Rate: regular rate Rhythm: regular rhythm Heart sounds: S1 normal heart sound present and S2 normal heart sound present Extrem General: Yes full ROM Coding Level of Care Code Est Pt Level 4 (11917) Complex EM visit Add On G2211 Diagnoses Iron deficiency anemia due to chronic blood loss D50.0 Anemia type: iron deficiency Iron deficiency anemia type: chronic blood loss Rosacea L71.9 Mild recurrent major depression F33.0 LOVE (generalized anxiety disorder) F41.1 Fibromyalgia M79.7 GERD (gastroesophageal reflux disease) K21.9 Hypovitaminosis D E55.9 Additional Codes LOVE-7 Assessment Billing - LOVE-7 Assessment Tool: LOVE-7 Assessment 84991 ([id number]) PHQ-9 - 08418 - PHQ-9 Billing: Yes ([id number]) Time Spent (min) 23 Assessment & Plan Assessment & Plan (1) Anemia: Code(s): D64.9 - Anemia, unspecified Category: Medical Qualifiers: Anemia type: iron deficiency Iron deficiency anemia type: chronic blood loss Qualified Code(s): D50.0 - Iron deficiency anemia secondary to blood loss (chronic) (2) Rosacea: Code(s): L71.9 - Rosacea, unspecified Category: Medical (3) Mild recurrent major depression: Code(s): F33.0 - Major depressive disorder, recurrent, mild Category: Medical (4) LOVE (generalized anxiety disorder): Code(s): F41.1 - Generalized anxiety disorder Category: Medical (5) Fibromyalgia: Code(s): M79.7 - Fibromyalgia Category: Medical (6) GERD (gastroesophageal reflux disease): Code(s): K21.9 - Gastro-esophageal reflux disease without esophagitis Category: Medical (7) Hypovitaminosis D: Code(s): E55.9 - Vitamin D deficiency, unspecified Category: Medical Plan The patient's vitamin D deficiency will be managed with supplementation and safe sun exposure using SPF. Iron supplements will be cautiously administered, considering prior reactions. The frequency of Vitamin injections may be adjusted due to elevated levels. Continued management of depression and anxiety with regular therapy visits is in place, alongside existing regimens for fibromyalgia and migraines. A topical treatment for rosacea will be used to alleviate facial reactions. Follow-up evaluations will address symptom progression and treatment efficacy. Patient was informed and verbally consented to the use of an ambient scribe for clinic note documentation during this visit. I discussed with the patient the importance of managing her vitamin D deficiency with supplements and safe sunlight exposure. We reviewed the need to cautiously reintroduce iron supplements, assessing her reaction due to previous gastrointestinal side effects. The elevated Vitamin B12 levels were noted, and we agreed on possibly reducing injection frequency after further evaluation. The patient's depression and anxiety management plans were reinforced, including the role of regular therapies. I proposed clindamycin gel for her rosacea, explaining how it may help manage facial sensitivity. I advised continued symptom monitoring and follow-up visits to assess treatment effectiveness. Medications: New ferrous sulfate 325 mg PO DAILY 90 tabs 1RF 90 days cholecalciferol (vitamin D3) 50 mcg PO DAILY 90 caps 2RF 90 days clindamycin phosphate 1% 1 appl topical BEDTIME 30 grams 2RF 30 days Discontinued doxycycline hyclate Discontinued Reason: Patient Completed Course 100 mg PO DAILY 90 days 90 caps 1RF Patient Instructions: - Take vitamin D supplements as prescribed. - Ensure regular sun exposure while using SPF. - Begin taking iron supplements and monitor for any reactions. - Continue with current medications unless otherwise advised. - Apply clindamycin gel for rosacea as directed. - Follow up with regular therapy and monitor symptoms. - Schedule follow-up appointments to track progress and treatment response.
--- OUTSIDE RECORDS SUMMARY | 2024-11-24 19:10 | XMS_ITS | Clinical Summary ---
Author Organization [facility] it Address [address] [place] [address] Care Team Providers Care Communication Coordinator Name Role Phone Unavailable Primary Care [...] age to complete this topic Meningococcal B Vaccine Aged Out No l onger eligible based on patient's age to complete [...]
--- OUTSIDE RECORDS SUMMARY | 2024-11-24 19:10 | XMS_ITS | Data Portability ---
Author Organization [place] - [facility], Allergy Address [address] [address] Care Team Providers Care Cinder Crusher Operator Name Role Phone HUGO JOSE Primary Care Provider [phone] Assessment No assessment recorded. Plan of Treatment Reminders Order Date Submit Date Provider Last Modified By Organization Details Last Modified Time Details Appointments None recorded. Lab None recorded. Referral None recorded. Procedures None recorded. Surgeries None recorded. Imaging None recorded. Medication Orders famotidine 20 mg tablet 2023 024 [facility]/Pharmacy #1972, [address] [place], [address], 4 15:12:05 Patient TargetsNo targets recorded. Patient InstructionsNo instructions recorded. Reason for Referral None Reported. Problems Name Problem SNOMED Code Status Onset Date Resolution Date Notes Provider Name and Address Organization Details Recorded Time Dysphonia 01571457 Active 2015 Hoarse ness; Note: Date Diagno sed: 016 3:06 PM (R49.0 ) Not Available [facility] 4 02:13:34 Gastroesop hageal reflux disease without esophagiti s 649947078 Active 2023 DOUG VILLATORO MD 100 [facility],[place] [address], [place], [address] , [place] - [facility] 4 15:10:58 Chronic hoarseness 4161907647121 Active 2023 DOUG VILLATORO MD [address] [place] [address],[facility] 100, [place], [address] , [place] - [facility] 4 15:14:20 Problem Notes None recorded. Procedures Surgical History Date Name Laterality Status Provider Name and Address Organization Details Recorded Time 04/06/2024 FFL_RE completed DOUG VILLATORO MD [address] [address], [place], [address], [place] - [facility] 04/06/2024 15:16:09 Imaging Results None recorded. [...] 400 mg tablet active Medicatio n ID: [id number] Br and Name: ibuprofen Send Method: E-Prescri [...] Updated DateTime 04/06/2024 157.48 cm 28.9 kg/m2 27900.59 g Annette Banuelos [place] - [facility] 04/06/2024 14:46:26 Social History None recorded. Functional Status None recorded. Mental Status None recorded. Family History Nothing Reported. Medical History No medical history recorded. Gynecological HistoryNo gynecological history recorded. Obstetrics History GPAL:G 0 P 0 0 0 0 Past Encounters Encounter ID Performer Location Encounter Start Date Encounter Closed Date Diagnosis/Indication Diagnosis SNOMED-CT Code Diagnosis ICD10 Code Diagnosis Note [id number] DOUG VILLATORO MD [facility] [address] [address] 04/06/2024 14:04:27 04/06/2024 15:13:37 Gastroesophageal reflux disease without esophagitis 297210724 K21.9 Exam was benign. Laryngosco py showed [...] py if she doesn't improve. Chronic hoarseness 73637 99706 105 R49.0 see above Health Concerns Section Related Observation LastModified by Organization Detai ls LastModified Time None Recorded Concern Status LastModified by Organization Details LastModified Time None Recorded Advance Directives Directive None Recorded Payers Encounter Date Sequence Insurance Name Policy Number Policy Pleitez Covered Member ID Pleitez Member ID Guarantor Name 04/06/2024 1 [facility] NET PLAN (MEDICAID HMO) COLLEEN Merida [id number] Skylar Merida Notes Date Note Type Note [...] but occasionally she does. DOUG VILLATORO MD [address] [place] [address], [address], [facility] - [facility] 04/06/2024 15:17:06 OBGyn Episode No OBEpisode recorded.
== END 2024-11-24 17:09 | disposition home or self-care (01) ==
LOC: HO.HMCH 16:45
PROVIDERS: PCP Internal Medicine; Visit Provider Internal Medicine
DX: D50.0 Iron deficiency anemia secondary to blood loss (chronic) (principal); L71.9 Rosacea, unspecified; F33.0 Major depressive disorder, recurrent, mild; F41.1 Generalized anxiety disorder; M79.7 Fibromyalgia; K21.9 Gastro-esophageal reflux disease without esophagitis; E55.9 Vitamin D deficiency, unspecified

== ENCOUNTER → 2024-11-24 16:44 | Outpatient (BNVA) | payer OTHER, SELFPAY | PROVIDERS: PCP Internal Medicine; Visit Provider Internal Medicine | DX: E55.9 Vitamin D deficiency, unspecified (principal); D50.0 Iron deficiency anemia secondary to blood loss (chronic); L71.9 Rosacea, unspecified; F33.0 Major depressive disorder, recurrent, mild; F41.1 Generalized anxiety disorder; M79.7 Fibromyalgia; K21.9 Gastro-esophageal reflux disease without esophagitis | CPT/HCPCS: 96127; 99212 ==

== ENCOUNTER 2024-11-26 09:15 | Day surgery (SDC) | payer OTHER, SELFPAY ==
--- OUTSIDE RECORDS SUMMARY | 2024-11-19 16:09 | XMS_ITS | Data Portability ---
Author Organization [place] - [facility], Allergy Address [address] [address] Care Team Providers Care Technical Education Teacher Name Role Phone HUGO JOSE Primary Care Provider [phone] Assessment No assessment recorded. Plan of Treatment Reminders Order Date Submit Date Provider Last Modified By Organization Details Last Modified Time Details Appointments None recorded. Lab None recorded. Referral None recorded. Procedures None recorded. Surgeries None recorded. Imaging None recorded. Medication Orders famotidine 20 mg tablet 2023 024 [facility]/Pharmacy #1972, [address] [place], [address], 4 15:12:05 Patient TargetsNo targets recorded. Patient InstructionsNo instructions recorded. Reason for Referral None Reported. Problems Name Problem SNOMED Code Status Onset Date Resolution Date Notes Provider Name and Address Organization Details Recorded Time Dysphonia 51103779 Active 2015 Hoarse ness; Note: Date Diagno sed: 016 3:06 PM (R49.0 ) Not Available [facility] 4 02:13:34 Gastroesop hageal reflux disease without esophagiti s 816437664 Active 2023 DOUG VILLATORO MD [address] [facility],[place] [address], [place], [address] , [place] - [facility] 4 15:10:58 Chronic hoarseness 2188309870332 Active 2023 ODUG VILLATORO MD [address] [place] [address],[facility] 100, [place], [address] , [place] - [facility] 4 15:14:20 Problem Notes None recorded. Procedures Surgical History Date Name Laterality Status Provider Name and Address Organization Details Recorded Time 04/06/2024 FFL_RE completed DOUG VILLATORO MD [address] [address], [place], [address], [place] - [facility] 04/06/2024 15:16:09 Imaging Results None recorded. Procedure [...] 400 mg tablet active Medicatio n ID: [id number] Br and Name: ibuprofen Send Method: E-Prescri [...] Updated DateTime 04/06/2024 157.48 cm 28.9 kg/m2 51132.59 g Annette Banuelos [place] - [facility] 04/06/2024 14:46:26 Social History None recorded. Functional Status None recorded. Mental Status None recorded. Family History Nothing Reported. Medical History No medical history recorded. Gynecological HistoryNo gynecological history recorded. Obstetrics History GPAL:G 0 P 0 0 0 0 Past Encounters Encounter ID Performer Location Encounter Start Date Encounter Closed Date Diagnosis/Indication Diagnosis SNOMED-CT Code Diagnosis ICD10 Code Diagnosis Note [id number] DOUG VILLATORO MD [facility] [address] [address] 04/06/2024 14:04:27 04/06/2024 15:13:37 Gastroesophageal reflux disease without esophagitis 963955653 K21.9 Exam was benign. Laryngosco py showed [...] py if she doesn't improve. Chronic hoarseness 33288 99073 105 R49.0 see above Health Concerns Section Related Observation LastModified by Organization Detai ls LastModified Time None Recorded Concern Status LastModified by Organization Details LastModified Time None Recorded Advance Directives Directive None Recorded Payers Encounter Date Sequence Insurance Name Policy Number Policy Pleitez Covered Member ID Pleitez Member ID Guarantor Name 04/06/2024 1 [facility] NET PLAN (MEDICAID HMO) COLLEEN Merida [id number] Skylar Merida Notes Date Note Type Note [...] but occasionally she does. DOUG VILLATORO MD [address] [place] [address], [address], [facility] - [facility] 04/06/2024 15:17:06 OBGyn Episode No OBEpisode recorded.
--- OUTSIDE RECORDS SUMMARY | 2024-11-19 16:09 | XMS_ITS | Clinical Summary ---
Author Organization [facility] it Address [address] [place] [address] Care Team Providers Care Regulatory Coordinator Name Role Phone Unavailable Primary Care Provider [...]
[2024-11-24 13:08] VITALS: BMI 29.1
--- NOTE | 2024-11-25 12:06 | HO.ANESPROP2 ---
Documented by User: Paula Johnson NP 11/25/24 12:07 HPI - Anesthesia Eval Consult details Narrative: 44yo F for Upper Endoscopy PMFSH Active Problems Active Problems: All Active Problems Hypovitaminosis D (Acute) New daily persistent headache (Acute) Nausea and vomiting (Acute) Anemia (Acute) Irritable bowel syndrome with both constipation and diarrhea (Acute) Rosacea (Acute) Heart palpitations (Acute) SOB (shortness of breath) (Acute) Vitamin B12 deficiency (Chronic) H. pylori infection (Acute) GERD (gastroesophageal reflux disease) (Acute) Polyarthralgia (Acute) Left knee pain (Acute) Mild persistent asthma (Acute) LOVE (generalized anxiety disorder) (Acute) Mild recurrent major depression (Acute) Fibromyalgia (Acute) Past Medical History Medical History Pre-op examination Physical exam Nausea and vomiting History of diverticulitis Abscess Epidermal cyst Abdominal cramping Screening for cervical cancer Well woman exam GERD (gastroesophageal reflux disease) Chronic idiopathic constipation Diarrhea Diverticulitis Cancer of cervix Anemia TRUDY (obstructive sleep apnea) GERD (gastroesophageal reflux disease) Panic attacks Polyarthralgia Left knee pain Mild persistent asthma Heart palpitations LOVE (generalized anxiety disorder) Mild recurrent major depression Diverticular disease Colitis with complication Arthritis Fibromyalgia Abdominal pain Family History Family History Father Diabetes Hypertension CVD (cardiovascular disease) Heart disease FH: mental illness Mother Asthma Family history of cancer Maternal Grandmother Diabetes Maternal Grandfather Colon cancer Maternal Aunt Colon cancer Family/Other Breast cancer Family/Other Pancreatic cancer Sister Uterine cancer Family history of problems with anesthesia: No Surgical History Surgical History S/P left colectomy H/O colonoscopy H/O LEEP History of removal of cyst (~08/07/21) History of esophagogastroduodenoscopy (EGD) History of lithotripsy History of appendectomy History of tubal ligation History of Problems with Anesthesia: Yes Social History Social History Household Members: Family Household Members Other:: grandchildren Housing: House Are you a primary neonatal intensive care unit nurse to a significant other at home: No Do you presently have visiting nurse or other home services: No Alcohol intake: never Patient Tobacco Use Status: Never used Tobacco e-Cigarette/Vaping Use: Never Used Second Hand Smoke Exposure: No Have you been hit, kicked, punched, or otherwise hurt by someone within the past year? If so, by whom?: No Are you DNR?: No Advance Directives: No Advance Directives Information Provided: Yes Poor oral hygiene: No service: No Current occupational status: unemployed Cognitive needs: No Hearing needs: No Vision needs: No Meds Allergies Allergy/AdvReac Type Severity Reaction Status Date / Time iron [From Venofer] AdvReac Intermediate Hives Verified 11/26/24 10:07 methocarbamol AdvReac Intermediate Hives Verified 11/26/24 10:07 Home Medications ?Medication ?Instructions ?Recorded ?Confirmed ?Last Taken ?Type hydroxyzine pamoate 25 mg capsule 25 mg PO BEDTIME PRN Anxiety 03/07/21 11/26/24 04/30/23 History (Vistaril) cyanocobalamin (vitamin B-12) 1,000 mcg IM QMONTH 05/07/23 11/26/24 05/07/23 History 1,000 mcg/mL injection solution escitalopram oxalate 10 mg tablet 10 mg PO DAILY 10/15/23 11/26/24 Unknown History trazodone 150 mg tablet 150 mg PO BEDTIME 10/15/23 11/26/24 Unknown History paroxetine HCl 10 mg tablet 10 mg PO DAILY 05/19/24 11/26/24 Unknown History Exam Height,Weight and Vital Signs: Height 5 ft 2 in Weight 72.121 kg Assessment and Plan Assessment Anesthesia Assessment: Chart Reviewed Final Anesthetic Review Family History of Problems with Anesthesia: No History of Problems with Anesthesia: Yes Documented by User: Jessica Christianson MD 11/26/24 10:13 [facility] Past Medical History Medical History Pre-op examination Physical exam Nausea and vomiting History of diverticulitis Abscess Epidermal cyst Abdominal cramping Screening for cervical cancer Well woman exam GERD (gastroesophageal reflux disease) Chronic idiopathic constipation Diarrhea Diverticulitis Cancer of cervix Anemia TRUDY (obstructive sleep apnea) GERD (gastroesophageal reflux disease) Panic attacks Polyarthralgia Left knee pain Mild persistent asthma Heart palpitations LOVE (generalized anxiety disorder) Mild recurrent major depression Diverticular disease Colitis with complication Arthritis Fibromyalgia Abdominal pain Family History Family History Father Diabetes Hypertension CVD (cardiovascular disease) Heart disease FH: mental illness Mother Asthma Family history of cancer Maternal Grandmother Diabetes Maternal Grandfather Colon cancer Maternal Aunt Colon cancer Family/Other Breast cancer Family/Other Pancreatic cancer Sister Uterine cancer Surgical History Surgical History S/P left colectomy H/O colonoscopy H/O LEEP History of removal of cyst (~08/07/21) History of esophagogastroduodenoscopy (EGD) History of lithotripsy History of appendectomy History of tubal ligation History of Problems with Anesthesia: No Social History Social History Household Members: Family Household Members Other:: grandchildren Housing: House Are you a primary neonatal intensive care unit nurse to a significant other at home: No Do you presently have visiting nurse or other home services: No Alcohol intake: never Patient Tobacco Use Status: Never used Tobacco e-Cigarette/Vaping Use: Never Used Second Hand Smoke Exposure: No Have you been hit, kicked, punched, or otherwise hurt by someone within the past year? If so, by whom?: No Are you DNR?: No Advance Directives: No Advance Directives Information Provided: Yes Poor oral hygiene: No service: No Current occupational status: unemployed Cognitive needs: No Hearing needs: No Vision needs: No Meds Allergies Allergy/AdvReac Type Severity Reaction Status Date / Time iron [From Venofer] AdvReac Intermediate Hives Verified 11/26/24 10:07 methocarbamol AdvReac Intermediate Hives Verified 11/26/24 10:07 Home Medications ?Medication ?Instructions ?Recorded ?Confirmed ?Last Taken ?Type hydroxyzine pamoate 25 mg capsule 25 mg PO BEDTIME PRN Anxiety 03/07/21 11/26/24 04/30/23 History (Vistaril) cyanocobalamin (vitamin B-12) 1,000 mcg IM QMONTH 05/07/23 11/26/24 05/07/23 History 1,000 mcg/mL injection solution escitalopram oxalate 10 mg tablet 10 mg PO DAILY 10/15/23 11/26/24 Unknown History trazodone 150 mg tablet 150 mg PO BEDTIME 10/15/23 11/26/24 Unknown History paroxetine HCl 10 mg tablet 10 mg PO DAILY 05/19/24 11/26/24 Unknown History Exam Airway Mallampati Class: II TM Dist: >3cm Neck ROM: Full Assessment and Plan Assessment Anesthesia Assessment: Anesthesia Plan Discussed Final Anesthetic Review History of Problems with Anesthesia: No NPO: Yes ASA Class: III Final Preanesthetic Review: No Changes in Pt Med Stat, Meds/Allgs Chart Reviewed, Consent Obtained/Reviewed and Anes Risks/Benef Reviewed Patient Risk: Intermediate Procedure Risk: Low Anesthetic Plan Anesthetic Plan: TIVA Disposition: Standard PACU
[2024-11-26] MEDS: Lactated Ringers 1,000 ML 100 ML IVCONT (09:50)
[2024-11-26 10:01] VITALS: BP 119/68; PULSE 75; RESP 18; TEMP 36.7; O2SAT 97
--- NOTE | 2024-11-26 10:16 | HO.ANESPROP2 ---
[facility] Active Problems Active Problems: All Active Problems Hypovitaminosis D (Acute) New daily persistent headache (Acute) Nausea and vomiting (Acute) Anemia (Acute) Irritable bowel syndrome with both constipation and diarrhea (Acute) Rosacea (Acute) Heart palpitations (Acute) SOB (shortness of breath) (Acute) Vitamin B12 deficiency (Chronic) H. pylori infection (Acute) GERD (gastroesophageal reflux disease) (Acute) Polyarthralgia (Acute) Left knee pain (Acute) Mild persistent asthma (Acute) LOVE (generalized anxiety disorder) (Acute) Mild recurrent major depression (Acute) Fibromyalgia (Acute) Past Medical History Medical History Pre-op examination Physical exam Nausea and vomiting History of diverticulitis Abscess Epidermal cyst Abdominal cramping Screening for cervical cancer Well woman exam GERD (gastroesophageal reflux disease) Chronic idiopathic constipation Diarrhea Diverticulitis Cancer of cervix Anemia TRUDY (obstructive sleep apnea) GERD (gastroesophageal reflux disease) Panic attacks Polyarthralgia Left knee pain Mild persistent asthma Heart palpitations LOVE (generalized anxiety disorder) Mild recurrent major depression Diverticular disease Colitis with complication Arthritis Fibromyalgia Abdominal pain Family History Family History Father Diabetes Hypertension CVD (cardiovascular disease) Heart disease FH: mental illness Mother Asthma Family history of cancer Maternal Grandmother Diabetes Maternal Grandfather Colon cancer Maternal Aunt Colon cancer Family/Other Breast cancer Family/Other Pancreatic cancer Sister Uterine cancer Family history of problems with anesthesia: No Surgical History Surgical History S/P left colectomy H/O colonoscopy H/O LEEP History of removal of cyst (~08/07/21) History of esophagogastroduodenoscopy (EGD) History of lithotripsy History of appendectomy History of tubal ligation History of Problems with Anesthesia: No Social History Social History Household Members: Family Household Members Other:: grandchildren Housing: House Are you a primary insurance healthcare representative to a significant other at home: No Do you presently have visiting nurse or other home services: No Alcohol intake: never Patient Tobacco Use Status: Never used Tobacco e-Cigarette/Vaping Use: Never Used Second Hand Smoke Exposure: No Have you been hit, kicked, punched, or otherwise hurt by someone within the past year? If so, by whom?: No Are you DNR?: No Advance Directives: No Advance Directives Information Provided: Yes Poor oral hygiene: No service: No Current occupational status: unemployed Cognitive needs: No Hearing needs: No Vision needs: No Meds Allergies Allergy/AdvReac Type Severity Reaction Status Date / Time iron [From Venofer] AdvReac Intermediate Hives Verified 11/26/24 10:07 methocarbamol AdvReac Intermediate Hives Verified 11/26/24 10:07 Active Medications: Current Medications Albuterol Sulfate (Albuterol Sulfate (0.083%) 2.5 Mg/3 Ml Vial.Neb) 2.5 mg INHALE ONCE PRN PRN Reason: Shortness of Breath/Wheezing Lactated Ringer's (Lr) 1,000 mls @ 100 mls/hr IVCONT .Q10H AGATA Last Admin: 11/26/24 09:50 Dose: 100 mls/hr Naloxone HCl (Naloxone Hcl 0.4 Mg/Ml Vial) 0.04 mg IVPUSH Q5M PRN PRN Reason: Excessive sedation or RR < 8 Home Medications ?Medication ?Instructions ?Recorded ?Confirmed ?Last Taken ?Type hydroxyzine pamoate 25 mg capsule 25 mg PO BEDTIME PRN Anxiety 03/07/21 11/26/24 04/30/23 History (Vistaril) cyanocobalamin (vitamin B-12) 1,000 mcg IM QMONTH 05/07/23 11/26/24 05/07/23 History 1,000 mcg/mL injection solution escitalopram oxalate 10 mg tablet 10 mg PO DAILY 10/15/23 11/26/24 Unknown History trazodone 150 mg tablet 150 mg PO BEDTIME 10/15/23 11/26/24 Unknown History paroxetine HCl 10 mg tablet 10 mg PO DAILY 05/19/24 11/26/24 Unknown History Exam Height,Weight and Vital Signs: Height 5 ft 2 in Weight 74.298 kg Last Vital Signs Temp 98.0 F 11/26/24 10:01 Pulse 75 11/26/24 10:01 Resp 18 11/26/24 10:01 BP 119/68 11/26/24 10:01 Pulse Ox 97 11/26/24 10:01 O2 Del Method Room Air 11/26/24 10:01 Airway Mallampati Class: II TM Dist: >3cm Denture: Upper Assessment and Plan Assessment Anesthesia Assessment: Anesthesia Plan Discussed and Chart Reviewed Final Anesthetic Review Family History of Problems with Anesthesia: No History of Problems with Anesthesia: No NPO: Yes ASA Class: III Final Preanesthetic Review: No Changes in Pt Med Stat, Meds/Allgs Chart Reviewed, Consent Obtained/Reviewed and Anes Risks/Benef Reviewed Patient Risk: Intermediate Procedure Risk: Low Anesthetic Plan Anesthetic Plan: TIVA Disposition: Standard PACU
--- NOTE | 2024-11-26 10:53 | P.HPSUR_ITS ---
Pre-Procedural Eval Section A - 24 Hr Update-Section A only Date of Service: 11/26/24 Section B - Complete if H&P > 30 days Chief Complaint: Gastro-esophageal reflux disease without esophagit Relevant Family History (Specify if Yes): No Relevant Social History: None Present Medications: see Short Stay Collaborative assessment Medical History: Significant History (Nausea and vomiting History of divertic ulitis Abscess Epidermal cyst Abdominal cramping Screening for cervical cancer Well woman exam GERD (gastroesophageal reflux disease) Chronic idiopathic constipation Diarrhea Diverticulitis Cancer of cervix Anemia TRUDY (obstructive sleep apnea) GERD (gastroesoph) History of Previous Operations: Relevant previous surgery/procedure and date(s) (S/P left colectomy H/O colonoscopy H/O LEEP History of removal of cyst (~08/07/21) History of esophagogastroduodenoscopy (EGD) History of lithotripsy History of appendectomy History of tubal ligation) Allergies: Allergies Allergy/AdvReac Type Severity Reaction Status Date / Time iron [From Venofer] AdvReac Intermediate Hives Verified 11/26/24 10:07 methocarbamol AdvReac Intermediate Hives Verified 11/26/24 10:07 Review of Systems Sugical H&P ROS: Negative: Constitution, Cardiovascular, Respiratory, Neur ological, Psychiatric, Hem-Onc, Allergic/Immunologic, Gastrointestinal, Genitourinary, Musculoskeletal, Integumentary, Endocrine and Eyes/Ears/Nose/Throat Exam Surgical H&P Exam: Normal: HEENT, Normal: Heart, Normal: Lungs, Normal: Extremities, Normal: Abdomen, Normal: Skin and Normal: Neurological Plan Diagnosis/Plan: Unchanged I have reviewed the history and physical and performed a pertinent physical examination on my patient. No changes have occurred unless specified. Time Spent With Patient Time: Total time managing care of this patient today ____ minutes.
--- NOTE | 2024-11-26 11:17 | W.PM.OPN ---
Operative Note Operative Note Date of Service: 11/26/24 Narrative: Procedure Description: EGD Indication: epigastric pain and dysphagia Anesthesia: MAC FLEXIBLE TRANSORAL UPPER GASTROINTESTINAL ENDOSCOPY UPPER ENDOSCOPY Consent: Indications for the procedure and potential complications of bleeding, perforation, reaction to medications and missed diagnosis were discussed with the patient and informed consent was obtained. Instrument: Olympus GIF H 190 J mid size upper endoscope Monitoring: Vital signs and clinical assessment, continuous EKG monitoring, Pulse oximetry, Carbon Dioxide monitoring and blood pressure monitoring were done throughout the procedure. Procedure: The patient was placed in the left lateral decubitis position and pre-procedure medications were administered and a bite block was placed. The endoscope was inserted into the mouth and advanced under direct vision to the third part of duodenum. A careful inspection was made as the upper endoscope was withdrawn including a retroflexed examination of the proximal stomach; Findings and interventions are described below. Findings: Larynx:normal Esophagus: GE junction at 35 cm, diaphragm hiatus at 35 cm, mild erythema at GEJ, bx taken - balloon dilation at LES and UES to 19 mm, no tears seen Stomach: mild erythema . Biopsies were obtained. Grade 2 flap valve on retroflexed examination of the cardia. Wire guided balloon dilation at pyloric outlet, 20 mm with tear noted Duodenum: Normal bulb and descending duodenum, bx taken Intervention: Biopsies as noted above, wire guided balloon Impression/Findings: gastritis pyloric outlet stricture PLAN: cont with PPI for the moment GERD precautions
[2024-11-26 11:19] VITALS: BP 112/49; PULSE 90; RESP 12; TEMP 36.1; O2SAT 97
[2024-11-26 11:34] VITALS: BP 132/70; PULSE 88; RESP 20; TEMP 36.7; O2SAT 96
== END 2024-11-26 12:37 | disposition home or self-care (01) ==
PROVIDERS: PCP Internal Medicine; Visit Provider Internal Medicine Gastroenterology
PROC: 0DJ08ZZ Inspection of Upper Intestinal Tract, Via Natural or Artificial Opening Endoscopic (ICD-10-PCS; CPT 43235; principal; 2024-11-26 12:30)
DX: K21.9 Gastro-esophageal reflux disease without esophagitis (principal); K29.50 Unspecified chronic gastritis without bleeding; B96.81 Helicobacter pylori [H. pylori] as the cause of diseases classified elsewhere; K20.90 Esophagitis, unspecified without bleeding; K31.1 Adult hypertrophic pyloric stenosis; K57.30 Diverticulosis of large intestine without perforation or abscess without bleeding; Z87.19 Personal history of other diseases of the digestive system; K44.9 Diaphragmatic hernia without obstruction or gangrene; K59.04 Chronic idiopathic constipation; K58.2 Mixed irritable bowel syndrome; Z85.41 Personal history of malignant neoplasm of cervix uteri; D64.9 Anemia, unspecified; G47.33 Obstructive sleep apnea (adult) (pediatric); Z79.899 Other long term (current) drug therapy; Z88.8 Allergy status to other drugs, medicaments and biological substances; Z90.49 Acquired absence of other specified parts of digestive tract; Z56.0 Unemployment, unspecified
CPT/HCPCS: 43249; 43245; 43239; 88305; 88313; 88342; C1726

== ENCOUNTER → 2024-11-26 09:15 | Outpatient (BNV) | payer OTHER, SELFPAY | PROVIDERS: PCP Internal Medicine; Visit Provider Internal Medicine Gastroenterology | DX: R10.13 Epigastric pain (principal); R13.10 Dysphagia, unspecified; K29.70 Gastritis, unspecified, without bleeding; K31.1 Adult hypertrophic pyloric stenosis | CPT/HCPCS: 43239; 43245; 43249 ==

== ENCOUNTER 2024-12-31 13:56 | Outpatient (AMB) | payer OTHER, SELFPAY ==
--- NOTE | 2024-12-31 13:59 | MHC.OFFVIS ---
Vital Signs 12/31/24 14:09 Height 5 ft 2 in Weight 168 lb BMI 30.7 BP 106/64 Blood Pressure Location Lt brachial Position Sitting Pulse 76 Pulse Source Pulse Oximeter Pulse Oximetry (%) 98 Oxygen Delivery Method Room Air Intake Visit Reasons: f/uEGD Intake Note: EST Patient for mgmt of GERD + s/p EGD FUV. CC; Pt denies any GI sx or concerns at this time. Rx still effective in tx of conditions per pt. Superintendent Plant Required: Yes Superintendent Plant Services: Superintendent Plant Present Superintendent Plant Name: Ryan Fregoso Information Interpreted: clinical only Accompanied by: Self / Same As Patient Allergies iron [From Venofer] Adverse Reaction (Intermediate, Verified 12/31/24 14:06) Hives methocarbamol Adverse Reaction (Intermediate, Verified 12/31/24 14:06) Hives HPI HPI f/uEGD: Details: Assessment & Plan (1) Nausea and vomiting: Comment: treatment resistant H pylori certainly does not help. Code(s): R11.2 - Nausea with vomiting, unspecified Category: Medical (2) Irritable bowel syndrome with both constipation and diarrhea: Code(s): K58.2 - Mixed irritable bowel syndrome Category: Medical (3) H. pylori infection: Comment: Treatment resistant, she has failed every regimen so far that has been approved HER LAST TREATMENT WAS WITH rifabutin/. She has no allergies to medicines. Code(s): A04.8 - Other specified bacterial intestinal infections Category: Medical (4) GERD (gastroesophageal reflux disease): Code(s): K21.9 - Gastro-esophageal reflux disease without esophagitis Category: Medical Plan Montenegrin #[id number], Linsey She has not yet heard re: the EGD. She received the reglan and the pantoprazole and this has improved her sx extremely well!! She is quite happy with her regimen now. ROV 6 mos and I will check on EGD progress. ROV 6 mos. Medications: New hydrocortisone 2.5% (Proctosol HC) BE SURE TO INCLUDE RECTAL APPICATOR!! 1 appl MI BID PRN 30 grams 0RF hemorrhoids Refilled magnesium hydroxide (Milk of Magnesia) 5 mL PO DAILY PRN 3,780 mL 3RF constipation pantoprazole (Protonix) 40 mg PO BID 60 tabs 6RF 30 days A04.8 - Other specified bacterial intestinal infections, K21.9 - Gastro-esophageal reflux disease without esophagitis dicyclomine 20 mg PO QID PRN 120 tabs 6RF Diarrhea K58.2 - Mixed irritable bowel syndrome metoclopramide HCl (Reglan) 5 mg PO QIDACHS 120 tabs 6RF K21.9 - Gastro-esophageal reflux disease without esophagitis, R11.2 - Nausea with vomiting, unspecified 8 EGD Findings: Larynx:normal Esophagus: GE junction at 35 cm, diaphragm hiatus at 35 cm, mild erythema at GEJ, bx taken - balloon dilation at LES and UES to 19 mm, no tears seen Stomach: mild erythema . Biopsies were obtained. Grade 2 flap valve on retroflexed examination of the cardia. Wire guided balloon dilation at pyloric outlet, 20 mm with tear noted Duodenum: Normal bulb and descending duodenum, bx taken Intervention: Biopsies as noted above, wire guided balloon Impression/Findings: gastritis pyloric outlet stricture BIOPSY Received: 11/26/24 Diagnosis A. Duodenum, biopsy: Duodenal mucosa within normal limits. B. Stomach, biopsy: - Antral-type and oxyntic mucosa with moderate chronic active inflammation. - Positive for H pylori. C. GE junction, biopsy: - Cardiofundic-type mucosa with moderate chronic, focally active, inflammation; no intestinal metaplasia seen. - Squamous epithelium within normal limits. D. Esophagus, distal, biopsy: Squamous epithelium within normal limits; no inflammation seen. CORRESPONDENCE Medication Orders clarithromycin 500 mg PO BID 28 tabs 0RF 14 days New amoxicillin 1,000 mg (2 x 500 mg) PO Q12H 56 caps 0RF 14 days New On 12/03/24 @ 09:43 Anabel Courtney Wrote To Odom,November Patient notified per message below and she states that she would like to try the H pylori abx treatment again because she is having a lot of symptoms and wouldn't like to depend on medications terminal supervisor. Please advise. On 12/03/24 @ 09:04 Vicki Odom Wrote To Vicki Odom (2) I have tried sending the 8 mg dose unsure about insurance coverage. Medication Orders ondansetron 4 mg PO Q6-8H PRN 7 tabs 2RF Discontinued ondansetron HCl 8 mg PO BID PRN 60 tabs 6RF 30 days New On 12/02/24 @ 17:19 Anabel Courtney Wrote To IleneVicki Understood, patient also requesting increase on nausea medication dose. On 12/02/24 @ 17:06 Vicki Odom Wrote To Anabel Courtney There is no treatment to send because she has already failed every treatment we have. There is nothing left to treat her with. The person who left this message was unaware of her history of treatment failures so she was given incorrect information. On 12/02/24 @ 16:02 Anabel Courtney Wrote To Vicki Odom Patient agrees to treatment but she is asking if you could send other abx different to the ones sent last time, because she could not tolerate them. She is also requesting if you could increase her nausea medications because current dose is not working. On 12/02/24 @ 10:35 Vicki Odom Wrote To Anabel Courtney Vicki Odom removed from item. On 12/02/24 @ 10:03 Jessica Palomo Wrote To Shara Nielsen pls tell pt -b xpos for h pylori, needs treatment, if agrees will send rx TODAYS VISIT Polish #Brant Live She says she has been feeling better since completing the triple therapy. Berry get HP stool and proceed depending on the results. For now we will continue on her b.i.d. PPI, pantoprazole, along with her Reglan and her simethicone.. In the past her H pylori had failed multiple other antibiotic regimens. ROV 6 weeks. PFSH Medical History Pre-op examination Physical exam Nausea and vomiting History of diverticulitis Abscess Epidermal cyst Abdominal cramping Screening for cervical cancer Well woman exam GERD (gastroesophageal reflux disease) Chronic idiopathic constipation Diarrhea Diverticulitis Cancer of cervix Anemia TRUDY (obstructive sleep apnea) GERD (gastroesophageal reflux disease) Panic attacks Polyarthralgia Left knee pain Mild persistent asthma Heart palpitations LOVE (generalized anxiety disorder) Mild recurrent major depression Diverticular disease Colitis with complication Arthritis Fibromyalgia Abdominal pain Surgical History S/P left colectomy H/O colonoscopy H/O LEEP History of removal of cyst (~08/07/21) History of esophagogastroduodenoscopy (EGD) History of lithotripsy History of appendectomy History of tubal ligation Family History Father Diabetes Hypertension CVD (cardiovascular disease) Heart disease FH: mental illness Mother Asthma Family history of cancer Maternal Grandmother Diabetes Maternal Grandfather Colon cancer Maternal Aunt Colon cancer Family/Other Breast cancer Family/Other Pancreatic cancer Sister Uterine cancer Social History Household Members: Family Household Members Other:: grandchildren Housing: House Are you a primary pet care technician to a significant other at home: No Do you presently have visiting nurse or other home services: No Alcohol intake: never Patient Tobacco Use Status: Never used Tobacco e-Cigarette/Vaping Use: Never Used Second Hand Smoke Exposure: No service: No Current occupational status: unemployed Cognitive needs: No Hearing needs: No Vision needs: No Female Reproductive History Menstrual Age of Menarche: 16 Review of Systems Const Denies fatigue, Denies fever(s), Denies night sweats, Denies poor appetite and Denies weight loss ENT Reports Normal hearing present, Denies dental pain, Denies dysphagia, Denies hearing loss, Denies mouth pain, Denies odynophagia, Denies throat swelling, Denies tongue swelling and Reports other (Dentition adequate) Card Reports no additional complaints Resp Reports no additional complaints GI Details: Denies abdominal pain, Denies melena, Denies bloating, Denies hematochezia, Denies constipation, Denies GI cramping, Denies dysphagia, Denies excessive flatus, Denies early satiety, Denies heartburn, Denies diarrhea, Denies nausea, Denies odynophagia, Denies vomiting and Denies hematemesis Skin/Breast Denies pruritus, Denies lesions, Denies rash and Denies jaundice Neuro Reports Normal hearing present and Denies Abnormal speech present Endo Denies fatigue Aller/Immun Denies throat swelling and Denies tongue swelling Physical Exam Vital Signs: Last Vital Signs Pulse 76 12/31/24 14:09 BP 106/64 12/31/24 14:09 Pulse Ox 98 12/31/24 14:09 Oxygen Delivery Method Room Air 12/31/24 14:09 BMI result Body Mass Index 30.7 Const General: cooperative, no acute distress, well developed and well groomed Nutritional Appearance: well nourished and obese Orientation/consciousness: oriented to person, oriented to place and oriented to time Limitations: language barrier HEENT Head: Yes normocephalic and Yes atraumatic Eyes General: appearance normal, both eyes and all related structures Pupils: Equal, round and reactive pupils present Neck Neck: Yes normal visual inspection and Yes no lymphadenopathy Thyroid: Thyroid normal Resp Effort & Inspection: normal respiratory effort and able to speak in complete sentences Auscultation: clear to auscultation bilaterally Cardio Rate: regular rate Rhythm: regular rhythm Heart sounds: Normal, physiologic split S2 sound present Peripheral pulses: radial pulses present and posterior tibial pulses present GI Inspection: No distended, No Abdominal panniculus present and Yes obesity Palpation (GI): Soft to palpation, nontender, no guarding, not rigid and No hepatosplenomegaly present Percussion: Yes normal to percussion Auscultation: normal bowel sounds Rectal Exam - Female: deferred Skin General skin exam: no rashes or lesions noted, turgor normal, skin not dry, no jaundice, No spider nevi and no striae Rashes: no rashes Nails: normal Neuro General: oriented to person, oriented to place and oriented to time Cranial nerves: Yes Equal, round and reactive pupils present and Yes Normal hearing present Speech: No Abnormal speech present Extrem General: Yes normal to inspection, No clubbing, No cyanosis and No edema Psych Appearance: grossly normal and well kempt Mental Status: mental status grossly normal Speech and movement: Normal speech and movement present Affect: normal affect Attitude: cooperative Thought process: Normal thought process present and not confabulating Thought content: Normal thought content present Insight: Limited insight present (Psych) Judgement: Limited judgement present (Psych) Results Reviewed Results Reviewed: EGD Findings: Larynx:normal Esophagus: GE junction at 35 cm, diaphragm hiatus at 35 cm, mild erythema at GEJ, bx taken - balloon dilation at LES and UES to 19 mm, no tears seen Stomach: mild erythema . Biopsies were obtained. Grade 2 flap valve on retroflexed examination of the cardia. Wire guided balloon dilation at pyloric outlet, 20 mm with tear noted Duodenum: Normal bulb and descending duodenum, bx taken Intervention: Biopsies as noted above, wire guided balloon Impression/Findings: gastritis pyloric outlet stricture BIOPSY Received: 11/26/24 Diagnosis A. Duodenum, biopsy: Duodenal mucosa within normal limits. B. Stomach, biopsy: - Antral-type and oxyntic mucosa with moderate chronic active inflammation. - Positive for H pylori. C. GE junction, biopsy: - Cardiofundic-type mucosa with moderate chronic, focally active, inflammation; no intestinal metaplasia seen. - Squamous epithelium within normal limits. D. Esophagus, distal, biopsy: Squamous epithelium within normal limits; no inflammation seen Assessment & Plan Assessment & Plan (1) H. pylori infection: Comment: Treatment resistant, she has failed every regimen so far that has been approved HER LAST TREATMENT WAS WITH rifabutin/. She has no allergies to medicines. Code(s): A04.8 - Other specified bacterial intestinal infections Category: Medical (2) Irritable bowel syndrome with both constipation and diarrhea: Code(s): K58.2 - Mixed irritable bowel syndrome Category: Medical (3) GERD (gastroesophageal reflux disease): Code(s): K21.9 - Gastro-esophageal reflux disease without esophagitis Category: Medical Plan Polish #Brant Live She says she has been feeling better since completing the triple therapy. Berry get HP stool and proceed depending on the results. For now we will continue on her b.i.d. PPI, pantoprazole, along with her Reglan and her simethicone.. In the past her H pylori had failed multiple other antibiotic regimens. ROV 6 weeks. Orders: Orders H pylori Ag Stool Today A04.8 - Other specified bacterial intestinal infections, K21.9 - Gastro-esophageal reflux disease without esophagitis Medications: Refilled pantoprazole (Protonix) 40 mg PO BID 60 tabs 6RF 30 days A04.8 - Other specified bacterial intestinal infections, K21.9 - Gastro-esophageal reflux disease without esophagitis hydrocortisone 2.5% (Proctosol HC) BE SURE TO INCLUDE RECTAL APPICATOR!! 1 appl MI BID PRN 30 grams 0RF hemorrhoids dicyclomine 20 mg PO QID PRN 120 tabs 6RF Diarrhea K58.2 - Mixed irritable bowel syndrome metoclopramide HCl (Reglan) 5 mg PO QIDACHS 120 tabs 6RF K21.9 - Gastro-esophageal reflux disease without esophagitis, R11.2 - Nausea with vomiting, unspecified Coding Level of Care Code Est Pt Level 3 (88186) Diagnoses H. pylori infection A04.8 Irritable bowel syndrome with both constipation and diarrhea K58.2 GERD (gastroesophageal reflux disease) K21.9
[2024-12-31 14:09] VITALS: BP 106/64; PULSE 76; O2SAT 98; BMI 30.7
--- OUTSIDE RECORDS SUMMARY | 2024-12-31 14:39 | XMS_ITS | Data Portability ---
Author Organization [place] [facility], Allergy Address [address] [address] Care Team Providers Care Tinning Equipment Tender Name Role Phone HUGO JOSE Primary Care Provider [phone] Assessment No assessment recorded. Plan of Treatment Reminders Order Date Submit Date Provider Last Modified By Organization Details Last Modified Time Details Appointments None recorded. Lab None recorded. Referral None recorded. Procedures None recorded. Surgeries None recorded. Imaging None recorded. Medication Orders famotidine 20 mg tablet 2023 024 [facility] #[id number], [address] [place], [address], 4 15:12:05 Patient TargetsNo targets recorded. Patient InstructionsNo instructions recorded. Reason for Referral None Reported. Problems Name Problem SNOMED Code Status Onset Date Resolution Date Notes Provider Name and Address Organization Details Recorded Time Dysphonia 70886534 Active 2015 Hoarse ness; Note: Date Diagno sed: 016 3:06 PM (R49.0 ) Not Available [facility] 4 02:13:34 Gastroesop hageal reflux disease without esophagiti s 031871255 Active 2023 DOUG VILLATORO MD [address] [facility],[place] [address], [place], [address] , [place] - [facility] 4 15:10:58 Chronic hoarseness 3524206297462 Active 2023 DOUG VILLATORO MD [address] [place] [address],[address], [place], [address] , [place] [facility] 4 15:14:20 Problem Notes None recorded. Procedures Surgical History Date Name Laterality Status Provider Name and Address Organization Details Recorded Time 04/06/2024 FFL_RE completed DOUG VILLATORO MD [address] [place] [address], [place], [address], [place] [facility] [...] 400 mg tablet active Medicatio n ID: [id number] Br and Name: ibuprofen Send Method: E-Prescri [...] Updated DateTime 04/06/2024 157.48 cm 28.9 kg/m2 00796.59 g Annette Banuelos [place] - [facility] [...] SNOMED-CT Code Diagnosis ICD10 Code Diagnosis Note [id number] DOUG VILLATORO MD [facility] [address] [address] 04/06/2024 14:04:27 04/06/2024 15:13:37 Gastroesophageal reflux disease without esophagitis 840017917 K21.9 Exam was benign. Laryngosco py showed [...] py if she doesn't improve. Chronic hoarseness 08378 9[address]18 105 R49.0 see above Health Concerns Section Related Observation LastModified by Organization Detai ls LastModified Time None Recorded Concern Status LastModified by Organization Details LastModified Time None Recorded Advance Directives Directive None Recorded Payers Insurance Date Sequence Insurance Name Policy Number Policy Pleitez Covered Member ID Pleitez Member ID Guarantor Name 10/25/2024 1 [facility] NET PLAN (MEDICAID HMO) COLLEEN Merida [id number] Skylar Hawleyos 04/06/2024 1 [place] [facility] Skylar Merida [id number] Skylar Merida Notes Date Note Type Note [...] but occasionally she does. DOUG VILLATORO MD [address] [place] [address], [place], [address], [place] [facility] 04/06/2024 15:17:06 OBGyn Episode No OBEpisode recorded.
--- OUTSIDE RECORDS SUMMARY | 2024-12-31 14:39 | XMS_ITS | Clinical Summary ---
Author Organization [facility] it Address [address] [place] [address] Care Team Providers Care Tools Administrator Name Role Phone Unavailable Primary Care Provider [...] Vaccine (2023-2 5 season) 2024 Influenza Vaccine (Season Ended) 2025 HIB Vaccines Aged Out No longer eligi [...]
== END 2024-12-31 14:31 | disposition home or self-care (01) ==
LOC: HO.HGI 13:57
PROVIDERS: PCP Internal Medicine; Visit Provider Nurse Practitioner
DX: A04.8 Other specified bacterial intestinal infections (principal); K58.2 Mixed irritable bowel syndrome; K21.9 Gastro-esophageal reflux disease without esophagitis
CPT/HCPCS: 99213

== ENCOUNTER → 2024-12-31 13:56 | Outpatient (BNVA) | payer OTHER, SELFPAY | PROVIDERS: PCP Internal Medicine; Visit Provider Nurse Practitioner | DX: K58.2 Mixed irritable bowel syndrome (principal); K21.9 Gastro-esophageal reflux disease without esophagitis; A04.8 Other specified bacterial intestinal infections | CPT/HCPCS: 99212 ==

== ENCOUNTER 2025-02-04 13:52 | Outpatient (AMB) | payer OTHER, SELFPAY ==
--- NOTE | 2025-02-04 14:10 | MHC.OFFVIS ---
Vital Signs 02/04/25 14:12 Height 5 ft 2 in Weight 166 lb BMI 30.4 BP 118/76 Intake Visit Reasons: RN PATIENT CARE annual exam/do not brody Tile And Marble Installer Required: Yes Tile And Marble Installer Language: Sports Intern Services: Tile And Marble Installer Present (in person) Tile And Marble Installer Name: SURAJ Vuong Information Interpreted: non-clinical & clinical Substation Electrician: Substation Electrician Present (SURAJ Vuong) Accompanied by: Self / Same As Patient Allergies iron (From Venofer) Adverse Reaction (Intermediate, Verified 02/04/25 14:11) Hives methocarbamol Adverse Reaction (Intermediate, Verified 02/04/25 14:11) Hives HPI Comments Details: Presenting for annual exam. No complaints. Last Pap/HPV was negative in 01/09 Last Mammogram was BI-RADS 2 in 08/11 [facility] Medical History (Updated 02/04/25 @ 14:15 by Eliseo Martinez MD) Well woman exam Pre-op examination Physical exam Nausea and vomiting History of diverticulitis Abscess Epidermal cyst Abdominal cramping Screening for cervical cancer GERD (gastroesophageal reflux disease) Chronic idiopathic constipation Diarrhea Diverticulitis Cancer of cervix Anemia TRUDY (obstructive sleep apnea) GERD (gastroesophageal reflux disease) Panic attacks Polyarthralgia Left knee pain Mild persistent asthma Heart palpitations LOVE (generalized anxiety disorder) Mild recurrent major depression Diverticular disease Colitis with complication Arthritis Fibromyalgia Abdominal pain Surgical History S/P left colectomy H/O colonoscopy H/O LEEP History of removal of cyst (~08/07/21) History of esophagogastroduodenoscopy (EGD) History of lithotripsy History of appendectomy History of tubal ligation Family History Father Diabetes Hypertension CVD (cardiovascular disease) Heart disease FH: mental illness Mother Asthma Family history of cancer Maternal Grandmother Diabetes Maternal Grandfather Colon cancer Maternal Aunt Colon cancer Family/Other Breast cancer Family/Other Pancreatic cancer Sister Uterine cancer Social History Household Members: Family Household Members Other:: grandchildren Housing: House Are you a primary home health care physician to a significant other at home: No Do you presently have visiting nurse or other home services: No Alcohol intake: never Patient Tobacco Use Status: Never used Tobacco e-Cigarette/Vaping Use: Never Used Second Hand Smoke Exposure: No service: No Current occupational status: unemployed Cognitive needs: No Hearing needs: No Vision needs: No Female Reproductive History Menstrual Age of Menarche: 16 Date of last pap smear: 12/23/23 Date of Mammogram: 07/31/24 (BI RAD 2) Review of Systems Const All systems reviewed & are unremarkable except as noted in HPI and below Card Reports as per HPI Resp Reports as per HPI GI Reports as per HPI and Reports no additional complaints Reports as per HPI Physical Exam Const General: cooperative, healthy appearing and comfortable Chest Chest palpation & inspection: normal inspection of the chest and normal palpation of entire chest wall Breast/axilla inspection: normal inspection of the breasts and normal inspection of the axillae Breast/axilla palpation: normal palpation of the breasts, normal palpation of the axillae and no axillary lymphadenopathy Resp Effort & Inspection: normal respiratory effort Auscultation: clear to auscultation bilaterally Percussion: percussion normal Cardio Palpation: normal PMI Rate: regular rate Rhythm: regular rhythm Heart sounds: no murmurs and no rubs Peripheral pulses: Peripheral pulses 2+ throughout GI Inspection: Yes normal to inspection Palpation (GI): Soft to palpation, nontender, no guarding, not rigid and No hepatosplenomegaly present Percussion: Yes normal to percussion Auscultation: normal bowel sounds Rectal Exam - Female: deferred General: Yes bladder normal to palpation External Female Exam: No lesion Speculum Exam - Vagina: normal appearance of the vagina, normal palpation, normal vaginal discharge and not erythematous Speculum Exam - Cervix: normal appearance of the cervix and normal palpation Bimanual exam- vagina & uterus: normal bimanual exam, normal palpation, uterine size normal, bladder normal to palpation, consistency normal and normal palpation Bimanual Exam- Adnexa, other: normal adnexae, no masses and no tenderness Assessment & Plan Assessment & Plan (1) Well woman exam: Code(s): Z01.419 - Encounter for gynecological examination (general) (routine) without abnormal findings Category: Medical Plan: Cotesting not indicated. Instructions given the patient to schedule next screening Mammogram in 08/12. Counseled the patient about the recommended dietary allowance of 1000 mg of Calcium & 600 IU of vitamin D. The patient was instructed to perform monthly self-breast exams and to schedule an annual exam in a year; All questions answered and the patient verbalized understanding. Instructed the patient to schedule annual exam in a year (2) Abnormal uterine bleeding (AUB): Code(s): N93.9 - Abnormal uterine and vaginal bleeding, unspecified Category: Medical Plan: GC and chlamydia taken CBC, TSH, HCG, and pelvic ultrasound ordered. Discussed with the patient the different causes of abnormal bleeding including thyroid disorders, uterine and ovarian pathology, endometrial hyperplasia, carcinoma and other potential causes. Discussed with the patient the work up including CBC (to r/o anemia), TSH, pelvic Ultrasound, endometrial biopsy to r/o endometrial pathology. All questions answered and the patient verbalized understanding. Instructed the patient to schedule an appointment for an endometrial biopsy in 2 weeks. Orders: Orders TSH reflex Free T4 Today N93.9 - Abnormal uterine and vaginal bleeding, unspecified US pelvic and transvaginal Today N93.9 - Abnormal uterine and vaginal bleeding, unspecified HCG Quantitative Today N93.9 - Abnormal uterine and vaginal bleeding, unspecified CT NG by PCR Today N93.9 - Abnormal uterine and vaginal bleeding, unspecified Complete Blood Count no Diff Today N93.9 - Abnormal uterine and vaginal bleeding, unspecified Coding Level of Care Code Est Pt Level 3 (78387) Est Pt Prev Care 40-64y(19825) Diagnoses Well woman exam Z01.419 Abnormal uterine bleeding (AUB) N93.9
[2025-02-04 14:12] VITALS: BP 118/76; BMI 30.4
--- OUTSIDE RECORDS SUMMARY | 2025-02-04 15:06 | XMS_ITS | Data Portability ---
Author Organization [place] - [facility], Allergy Address [address] [address] Care Team Providers Care Production Or Plant Engineer Name Role Phone HUGO JOSE Primary Care Provider [phone] Assessment No assessment recorded. Plan of Treatment Reminders Order Date Submit Date Provider Last Modified By Organization Details Last Modified Time Details Appointments None recorded. Lab None recorded. Referral None recorded. Procedures None recorded. Surgeries None recorded. Imaging None recorded. Medication Orders famotidine 20 mg tablet 2023 024 [facility]/Pharmacy #1972, [address] [place], [address], 4 15:12:05 Patient TargetsNo targets recorded. Patient InstructionsNo instructions recorded. Reason for Referral None Reported. Problems Name Problem SNOMED Code Status Onset Date Resolution Date Notes Provider Name and Address Organization Details Recorded Time Dysphonia 04558926 Active 2015 Hoarse ness; Note: Date Diagno sed: 016 3:06 PM (R49.0 ) Not Available [facility] 4 02:13:34 Gastroesop hageal reflux disease without esophagiti s 961094884 Active 2023 DUOG VILLATORO MD 100 [facility],[place] [address], [place], [address] , [place] [facility] 4 15:10:58 Chronic hoarseness 3449844116897 Active 2023 DOUG VILLATORO MD [address] [place] [address],[facility] [address], [place], [address] , [place] [facility] 4 15:14:20 Problem Notes None recorded. Procedures Surgical History Date Name Laterality Status Provider Name and Address Organization Details Recorded Time 04/06/2024 FFL_RE completed DOUG VILLATROO MD [address] [place] [address], [place], [address], [place] [facility] 04/06/2024 15:16:09 Imaging Results None recorded. [...] 400 mg tablet active Medicatio n ID: [id number] Br and Name: ibuprofen Send Method: E-Prescri [...] Updated DateTime 04/06/2024 157.48 cm 28.9 kg/m2 00606.59 g Annette Banuelos [place] - [facility] 04/06/2024 14:46:26 Social History None recorded. Functional Status None recorded. Mental Status None recorded. Family History Nothing Reported. Medical History No medical history recorded. Gynecological HistoryNo gynecological history recorded. Obstetrics History GPAL:G 0 P 0 0 0 0 Past Encounters Encounter ID Performer Location Encounter Start Date Encounter Closed Date Diagnosis/Indication Diagnosis SNOMED-CT Code Diagnosis ICD10 Code Diagnosis Note [id number] DOUG VILLATORO MD [facility] [address] [address] 04/06/2024 14:04:27 04/06/2024 15:13:37 Gastroesophageal reflux disease without esophagitis 185131829 K21.9 Exam was benign. Laryngosco py showed [...] py if she doesn't improve. Chronic hoarseness 10738 43112 105 R49.0 see above Health Concerns Section Related Observation LastModified by Organization Detai ls LastModified Time None Recorded Concern Status LastModified by Organization Details LastModified Time None Recorded Advance Directives Directive None Recorded Payers Insurance Date Sequence Insurance Name Policy Number Policy Pleitez Covered Member ID Pleitez Member ID Guarantor Name 10/25/2024 1 [facility] - HEALTH NET PLAN (MEDICAID HMO) COLLEEN Merida [id number] Skylar Hawleyos 04/06/2024 1 [place] [facility] Skylar Merida [id number] Skylar Merida Notes Date Note Type Note [...] but occasionally she does. DOUG VILLATORO MD [address] [place] [address], [place], [address], [place] [facility] 04/06/2024 15:17:06 OBGyn Episode No OBEpisode recorded.
== END 2025-02-04 14:21 | disposition home or self-care (01) ==
LOC: HO.HWS 13:52
PROVIDERS: PCP Internal Medicine; Visit Provider Obstetrics & Gynecology
DX: Z01.419 Encounter for gynecological examination (general) (routine) without abnormal findings (principal); N93.9 Abnormal uterine and vaginal bleeding, unspecified
CPT/HCPCS: 99213; 99396; 99459

== ENCOUNTER 2025-02-04 13:52 | Outpatient (REF) | payer OTHER, SELFPAY ==
[2025-02-04 15:38] LABS: Hematocrit 34.2 % (37.0-47.0); Hemoglobin 10.3 g/dl (12.0-16.0); Mean Corpuscular HGB Conc 30.1 g/dl (31.0-35.0); Mean Corpuscular Hemoglobin 26.1 pg (27.0-33.0); Mean Corpuscular Volume 86.8 fL (80.0-98.0); Mean Platelet Volume 10.5 fL (9.4-12.3); Platelet Count 326 X10*3/uL (160-400); Red Blood Count 3.94 X10*6/uL (4.20-5.50); Red Cell Distribution Width 15.4 % (11.0-16.0); White Blood Count 6.2 X10*3/uL (4.8-10.8)
[2025-02-04 16:28] LABS: HCG Quantitative < 2 mIU/mL; TSH reflex Free T4 1.94 uIU/mL (0.32-4.0)
[2025-02-04 21:21] LABS: CT PCR NOT DETECTED (Not Detect.); NG PCR NOT DETECTED (Not Detect.)
== END 2025-02-04 13:53 | disposition home or self-care (01) ==
LOC: HO.LAB 13:52
PROVIDERS: PCP Internal Medicine; Visit Provider Obstetrics & Gynecology
DX: Z01.411 Encounter for gynecological examination (general) (routine) with abnormal findings (principal); N93.9 Abnormal uterine and vaginal bleeding, unspecified
CPT/HCPCS: 36415; 84443; 84702; 85027; 87491; 87591; 99212; 99396

== ENCOUNTER 2025-03-10 15:37 | Outpatient (REF) | payer OTHER, SELFPAY ==
--- NOTE | ~2025-03-10 | US_ITS ---
CLINICAL HISTORY: N93.9 - Abnormal uterine and vaginal bleeding, unspecified US female pelvis LMP:03/03/25 . Technique: Ultrasound examination of the pelvis was performed with transabdominal and transvaginal technique for better visualization of the ovaries. Images include: Color Doppler. Comparison: CT/REG/SR - CT ABDOMEN PELVIS W IV CON - 09/19/23 02:[address] - CT ABDOMEN PELVIS WITH IV CONTRAST - 09/19/23 02:02 EST Findings: Anteverted uterus measuring 9.1 x 3.7 x 5.4cm. There is heterogeneous echotexture without definitive masses. Normal endometrial thickness of up to 0.5cm. The right ovary is normal in size, measuring 1.2 x 2.1 x 1.3cm, volume of 1.8mL. There is normal echogenicity and vascularity. No lesions. The left ovary is normal in size, measuring 1.7 x 1.8 x 1.3cm, volume of 2.1mL. There is normal echogenicity and vascularity. No lesions. No free fluid. Impression: No acute findings. This document has been electronically signed by: Millie Alatorre MD on 03/10/2025 17:02:19
--- OUTSIDE RECORDS SUMMARY | 2025-03-10 15:51 | XMS_ITS | Data Portability ---
Author Organization [place] - [facility], Allergy Address [address] [address] Care Team Providers Care Sales Intern Name Role Phone HUGO JOSE Primary Care Provider [phone] Assessment No assessment recorded. Plan of Treatment Reminders Order Date Submit Date Provider Last Modified By Organization Details Last Modified Time Details Appointments None recorded. Lab None recorded. Referral None recorded. Procedures None recorded. Surgeries None recorded. Imaging None recorded. Medication Orders famotidine 20 mg tablet 2023 024 [facility]/Pharmacy #1972, [address] [facility], [place], [address], 4 15:12:05 Patient TargetsNo targets recorded. Patient InstructionsNo instructions recorded. Reason for Referral None Reported. Problems Name Problem SNOMED Code Status Onset Date Resolution Date Notes Provider Name and Address Organization Details Recorded Time Dysphonia 04984334 Active 2015 Hoarse ness; Note: Date Diagno sed: 016 3:06 PM (R49.0 ) Not Available [facility] 4 02:13:34 Gastroesop hageal reflux disease without esophagiti s 806622418 Active 2023 DOUG VILLATORO MD 100 [facility],[place] [address], [place], [address] , [place] [facility] 4 15:10:58 Chronic hoarseness 7472051657686 Active 2023 DOUG VILLATORO MD 100 [facility],[place] [address], [place], [address] , [facility] - [facility] 4 15:14:20 Problem Notes None recorded. Procedures Surgical History Date Name Laterality Status Provider Name and Address Organization Details Recorded Time 04/06/2024 FFL_RE completed DOUG VILLATORO MD [address] [place] [address], [place], [address], [place] [facility] 04/06/2024 15:16:09 Imaging Results None recorded. [...] 400 mg tablet active Medicatio n ID: [id number] Br and Name: ibuprofen Send Method: E-Prescri [...] Updated DateTime 04/06/2024 157.48 cm 28.9 kg/m2 88201.59 g Annette Banuelos [place] - [facility] 04/06/2024 14:46:26 Social History None recorded. Functional Status None recorded. Mental Status None recorded. Family History Nothing Reported. Medical History No medical history recorded. Gynecological HistoryNo gynecological history recorded. Obstetrics History GPAL:G 0 P 0 0 0 0 Past Encounters Encounter ID Performer Location Encounter Start Date Encounter Closed Date Diagnosis/Indication Diagnosis SNOMED-CT Code Diagnosis ICD10 Code Diagnosis Note [id number] DOUG VILLATORO MD [facility] [address] [address] 04/06/2024 14:04:27 04/06/2024 15:13:37 Gastroesophageal reflux disease without esophagitis 138944771 K21.9 Exam was benign. Laryngosco py showed [...] py if she doesn't improve. Chronic hoarseness 92375 66228 105 R49.0 see above Health Concerns Section Related Observation LastModified by Organization Detai ls LastModified Time None Recorded Concern Status LastModified by Organization Details LastModified Time None Recorded Advance Directives Directive None Recorded Payers Insurance Date Sequence Insurance Name Policy Number Policy Pleitez Covered Member ID Pleitez Member ID Guarantor Name 10/25/2024 1 [facility] - HEALTH NET PLAN (MEDICAID HMO) COLLEEN Merida [id number] Skylar Merida 04/06/2024 1 [place] [facility] Skylar Merida [id number] Skylar Merida Notes Date Note Type Note [...] but occasionally she does. DOUG VILLATORO MD [address] [place] [address], [place], [address], [place] - [facility] 04/06/2024 15:17:06 OBGyn Episode No OBEpisode recorded.
--- OUTSIDE RECORDS SUMMARY | 2025-03-10 15:51 | XMS_ITS | Clinical Summary ---
Author Organization [facility] it Address [address] [place] [address] Care Team Providers Care Jawbone Breaker Name Role Phone Unavailable Primary Care Provider [...] Cervical Cancer Screening: P ap Smear 2003 HIV Screening 07/22/2022 Hepatitis C Screening 07/22/2022 Social Influencers of Health Screening 07/22/2022 COVID-19 Vaccine ( - 2023-2 5 season) 2024 Depression Screening 08/19/2024 Influenza Vaccine (#1) 2025 HIB Vaccines Aged Out No longer [...] 5 Years) and At-Risk Patients (6 to 49 Years) Aged Out No longer eligible b ased on patient's age to complete this topic RSV Immunization Patients Un giselle 20 months Aged Out No longer eligible b ased on patient's age to complete this topic Varicella Vaccines Aged Out No longer eligible based on patient's age to complete this topic
== END 2025-03-10 15:38 | disposition home or self-care (01) ==
LOC: HO.US 15:37
PROVIDERS: PCP Internal Medicine; Visit Provider Obstetrics & Gynecology
DX: N93.9 Abnormal uterine and vaginal bleeding, unspecified (principal)
CPT/HCPCS: 76830; 76856

== ENCOUNTER → 2025-03-10 15:39 | Outpatient (BNV) | payer OTHER, SELFPAY | PROVIDERS: PCP Internal Medicine; Visit Provider Radiology Diagnostic Radiology | DX: N93.9 Abnormal uterine and vaginal bleeding, unspecified (principal) | CPT/HCPCS: 76830; 76856 ==

== ENCOUNTER 2025-03-23 14:45 | Outpatient (REF) | payer OTHER, SELFPAY | END 2025-03-23 14:46 | disposition home or self-care (01) | LOC: HO.LNP 14:45 | PROVIDERS: PCP Internal Medicine; Visit Provider Obstetrics & Gynecology | DX: N39.0 Urinary tract infection, site not specified (principal); R35.0 Frequency of micturition; R31.29 Other microscopic hematuria; Z98.51 Tubal ligation status | CPT/HCPCS: 87086; 99212 ==

== ENCOUNTER 2025-03-23 14:45 | Outpatient (AMB) | payer OTHER, SELFPAY ==
[2025-03-23 15:03] VITALS: BMI 29.6
--- NOTE | 2025-03-23 15:03 | A.OFFVIS_ITS ---
Vital Signs 03/23/25 15:03 Height 5 ft 2 in Weight 162 lb BMI 29.6 Intake Visit Reasons: Us Follow Up/EMB Marketing Intelligence Analyst Required: Yes Marketing Intelligence Analyst Language: Student Support Counselor Services: Marketing Intelligence Analyst Present (in person) Marketing Intelligence Analyst Name: Elvie RUELAS Information Interpreted: non-clinical & clinical Accompanied by: Self / Same As Patient Allergies iron (From Venofer) Adverse Reaction (Intermediate, Verified 03/23/25 15:08) Hives methocarbamol Adverse Reaction (Intermediate, Verified 03/23/25 15:08) Hives HPI Comments Details: Presenting for EMB, complaining of urinary frequency and urgency over the last 2 days no fever or chills no nausea and vomiting PFSH Medical History Well woman exam Pre-op examination Physical exam Nausea and vomiting History of diverticulitis Abscess Epidermal cyst Abdominal cramping Screening for cervical cancer GERD (gastroesophageal reflux disease) Chronic idiopathic constipation Diarrhea Diverticulitis Cancer of cervix Anemia TRUDY (obstructive sleep apnea) GERD (gastroesophageal reflux disease) Panic attacks Polyarthralgia Left knee pain Mild persistent asthma Heart palpitations LOVE (generalized anxiety disorder) Mild recurrent major depression Diverticular disease Colitis with complication Arthritis Fibromyalgia Abdominal pain Surgical History S/P left colectomy H/O colonoscopy H/O LEEP History of removal of cyst (~08/07/21) History of esophagogastroduodenoscopy (EGD) History of lithotripsy History of appendectomy History of tubal ligation Family History Father Diabetes Hypertension CVD (cardiovascular disease) Heart disease FH: mental illness Mother Asthma Family history of cancer Maternal Grandmother Diabetes Maternal Grandfather Colon cancer Maternal Aunt Colon cancer Family/Other Breast cancer Family/Other Pancreatic cancer Sister Uterine cancer Social History Household Members: Family Household Members Other:: grandchildren Housing: House Are you a primary day care home provider to a significant other at home: No Do you presently have visiting nurse or other home services: No Alcohol intake: never Patient Tobacco Use Status: Never used Tobacco e-Cigarette/Vaping Use: Never Used Second Hand Smoke Exposure: No service: No Current occupational status: unemployed Cognitive needs: No Hearing needs: No Vision needs: No Female Reproductive History Menstrual Age of Menarche: 16 Date of last menstrual period: 03/03/25 control method: permanent sterilization Physical Exam Vital Signs: BMI result Body Mass Index 29.6 GI Inspection: Yes normal to inspection Palpation (GI): Soft to palpation and nontender Assessment & Plan Assessment & Plan (1) UTI (urinary tract infection): Code(s): N39.0 - Urinary tract infection, site not specified Category: Medical Plan: Urine dip was positive for leukocyte nitrite and microscopic hematuria, will reschedule EMB, send urine for culture treat with Macrobid 100 mg p.o. b.i.d. for 5 days. Instructions given the patient to call or go to emergency room in case of fever above 100.4, nausea or vomiting or flank pain and to schedule an EMB appointment in 2 weeks. Medications: New nitrofurantoin monohyd/m-cryst 100 mg (Macrobid) 100 mg PO BID 10 caps 0RF 5 days Coding Level of Care Code Est Pt Level 3 (91109) Diagnoses UTI (urinary tract infection) N39.0
--- OUTSIDE RECORDS SUMMARY | 2025-03-23 15:18 | XMS_ITS | Clinical Summary ---
Author Organization [facility] ity Address [address] [place] [address] Care Team Providers Care Supervisor Of Way Name Role Phone Unavailable Primary Care Provider [...] Cervical Cancer Screening: P ap Smear 2003 COVID-19 Vaccine (2023-2 5 season) 2024 Depression Screening 08/19/2024 Influenza [...]
== END 2025-03-23 15:08 | disposition home or self-care (01) ==
LOC: HO.HWS 14:45
PROVIDERS: PCP Internal Medicine; Visit Provider Obstetrics & Gynecology
DX: N39.0 Urinary tract infection, site not specified (principal)
CPT/HCPCS: 99213

== ENCOUNTER 2025-06-21 11:36 | Outpatient (REF) | payer OTHER, SELFPAY | END 2025-06-21 11:37 | disposition home or self-care (01) | LOC: HO.LNP 11:36 | PROVIDERS: PCP Internal Medicine; Visit Provider Obstetrics & Gynecology | DX: N93.9 Abnormal uterine and vaginal bleeding, unspecified (principal); Z32.02 Encounter for pregnancy test, result negative | CPT/HCPCS: 58100; 81025; 88305; 88312 ==

== ENCOUNTER 2025-06-21 11:36 | Outpatient (AMB) | payer OTHER, SELFPAY ==
--- NOTE | 2025-06-21 11:41 | MHC.OFFVIS ---
Vital Signs 06/21/25 11:49 Height 5 ft 2 in Weight 162 lb BMI 29.6 BP 120/76 Intake Visit Reasons: EMB with cervical para block Bag End Sewer Required: Yes Bag End Sewer Language: Blanket Washer Services: Bag End Sewer Present (in person) Bag End Sewer Name: Elvie RUELAS Information Interpreted: non-clinical & clinical Senior Commissions Analyst: Senior Commissions Analyst Present (Elvie RUELAS) Accompanied by: Spouse Allergies iron (From Venofer) Adverse Reaction (Intermediate, Verified 06/21/25 11:56) Hives methocarbamol Adverse Reaction (Intermediate, Verified 06/21/25 11:56) Hives Is last menstrual period known: Yes Last menstrual period: 06/17/25 HPI Comments Details: Presenting for EMB with paracervical block [facility] Medical History Well woman exam Pre-op examination Physical exam Nausea and vomiting History of diverticulitis Abscess Epidermal cyst Abdominal cramping Screening for cervical cancer GERD (gastroesophageal reflux disease) Chronic idiopathic constipation Diarrhea Diverticulitis Cancer of cervix Anemia TRUDY (obstructive sleep apnea) GERD (gastroesophageal reflux disease) Panic attacks Polyarthralgia Left knee pain Mild persistent asthma Heart palpitations LOVE (generalized anxiety disorder) Mild recurrent major depression Diverticular disease Colitis with complication Arthritis Fibromyalgia Abdominal pain Surgical History S/P left colectomy H/O colonoscopy H/O LEEP History of removal of cyst (~08/07/21) History of esophagogastroduodenoscopy (EGD) History of lithotripsy History of appendectomy History of tubal ligation Family History Father Diabetes Hypertension CVD (cardiovascular disease) Heart disease FH: mental illness Mother Asthma Family history of cancer Maternal Grandmother Diabetes Maternal Grandfather Colon cancer Maternal Aunt Colon cancer Family/Other Breast cancer Family/Other Pancreatic cancer Sister Uterine cancer Social History Household Members: Family Household Members Other:: grandchildren Housing: House Are you a primary care manager to a significant other at home: No Do you presently have visiting nurse or other home services: No Alcohol intake: never Patient Tobacco Use Status: Never used Tobacco e-Cigarette/Vaping Use: Never Used Second Hand Smoke Exposure: No service: No Current occupational status: unemployed Cognitive needs: No Hearing needs: No Vision needs: No Female Reproductive History Menstrual Age of Menarche: 16 Date of last menstrual period: 06/17/25 control method: permanent sterilization Physical Exam Vital Signs: Last Vital Signs BP 120/76 06/21/25 11:49 BMI result Body Mass Index 29.6 Office Procedures Endometrial Biopsy Details: The patient was counseled regarding the indication and benefits of endometrial sampling to rule out endometrial pathology including not limited to endometrial hyperplasia or endometrial cancer and others; The alternatives (Either do nothing vs. hysteroscopy D&C) & the risks were discussed with the patient including but not limited: pain, uterine perforation, bleeding, infection, possible injury to bladder, bowel, ureter, possible need for blood transfusion with all its possible risks. The patient verbalized understanding all questions answered and signed consent. Urine test done in the office was negative The patient was placed into the dorsal lithotomy position; a speculum was inserted in the vagina. Using aseptic technique for the procedure, the cervix was cleansed with Betadine. 10 cc of xylocaine were injected at 1, 4, 8 and 10:00 in the cervix . The anterior lip of the cervix was grasped with a single tooth tenaculum. The uterus was sounded to 7 cm with a 4 mm Pipelle was used. Tissues samples were obtained and placed in formalin, in a patient labeled container and sent to the pathology department. At the end of the procedure, there was minimal bleeding noted The patient tolerated the procedure well and was discharged in good condition with the following instructions: Nothing in the vagina until the bleeding stops. No sex until the bleeding stops, to call if any of the following occurs: fever (>100.4), flu-like symptoms, abdominal pain, heavy bleeding, four smelling vaginal discharge. The patient was instructed to schedule a Follow up appointment in 2 weeks to discuss pathology results of the biopsy and treatment options. This note was generated with a voice recognition program. Some errors may have been overlooked during the review of this note. Sometimes these errors may affect the content or meaning of a given sentence. [id number] Biopsy Results AMB Test Urine AMB Test Urine Negative Last Edit by Elvie Shaffer CMA on 06/21/25 11:58 Results Reviewed Results Reviewed: Laboratory Last Values [facility]st Clinic Negative 06/21/25 11:57 Assessment & Plan Assessment & Plan (1) Abnormal uterine bleeding (AUB): Code(s): N93.9 - Abnormal uterine and vaginal bleeding, unspecified Category: Medical Plan: EMB with paracervical block done, see procedure note Orders: Orders AMB HCG Urine Test Today Z32.02 - Encounter for test, result negative AMB Endometrial Biopsy Today N93.9 - Abnormal uterine and vaginal bleeding, unspecified Coding Level of Care Code Procedure Only Diagnoses Abnormal uterine bleeding (AUB) N93.9 CPT Codes Endometrial Biopsy - CPT: 18937-[id number] Biopsy ([id number])
[2025-06-21 11:49] VITALS: BP 120/76; BMI 29.6
--- OUTSIDE RECORDS SUMMARY | 2025-06-21 14:46 | XMS_ITS | Data Portability ---
Author Organization [place] - [facility], Allergy Address [address] [address] Care Team Providers Care Snuff Drier Name Role Phone HUGO JOSE Primary Care Provider Assessment No assessment recorded. Plan of Treatment Reminders Order Date Submit Date Provider Last Modified By Organization Details Last Modified Time Details Appointments None recorded. Lab None recorded. Referral None recorded. Procedures None recorded. Surgeries None recorded. Imaging None recorded. Medication Orders famotidine 20 mg tablet 2023 024 [facility]/Pharmacy #1972, [address] [facility], [place], [address], 4 15:12:05 Patient TargetsNo targets recorded. Patient InstructionsNo instructions recorded. Reason for Referral None Reported. Problems Name Problem SNOMED Code Status Onset Date Resolution Date Notes Provider Name and Address Organization Details Recorded Time Dysphonia 58180208 Active 2015 Hoarse ness; Note: Date Diagno sed: 016 3:06 PM (R49.0 ) Not Available [facility] 4 02:13:34 Gastroesop hageal reflux disease without esophagiti s 100947015 Active 2023 DOUG VILLATORO MD 100 [facility],[place] [address], [place], [address] , [place] - [facility] 4 15:10:58 Chronic hoarseness 9104596452748 Active 2023 DOUG VILLATORO MD 100 [facility],[place] [address], [place], [address] , [facility] - [facility] 4 15:14:20 Problem Notes None recorded. Procedures Surgical History Date Name Laterality Status Provider Name and Address Organization Details Recorded Time 04/06/2024 FFL_RE completed DOUG VILLATORO MD [address] [place] [address], [place], [address], [place] - [facility] 04/06/2024 15:16:09 Imaging Results None recorded. [...] 400 mg tablet active Medicatio n ID: [id number] Br and Name: ibuprofen Send Method: E-Prescri [...] Updated DateTime 04/06/2024 157.48 cm 28.9 kg/m2 72533.59 g Annette Banuelos [place] - [facility] 04/06/2024 14:46:26 Social History None recorded. Functional Status None recorded. Mental Status None recorded. Family History Nothing Reported. Medical History No medical history recorded. Gynecological HistoryNo gynecological history recorded. Obstetrics History GPAL:G 0 P 0 0 0 0 Past Encounters Encounter ID Performer Location Encounter Start Date Encounter Closed Date Diagnosis/Indication Diagnosis SNOMED-CT Code Diagnosis ICD10 Code Diagnosis IMO Codes Diagnosis Note [id number] DOUG VILLATORO MD [facility] [address] [address] 04/06/2024 14:04:27 04/06/2024 15:13:37 Gastroesophageal reflux disease without esophagitis 865740910 K21.9 Exam was benign. Laryngosco py showed [...] py if she doesn't improve. Chronic hoarseness 92869 66674 105 R49.0 see above Health Concerns Section Related Observation LastModified by Organization Detai ls LastModified Time None Recorded Concern Status LastModified by Organization Details LastModified Time None Recorded Advance Directives Directive None Recorded Payers Insurance Date Sequence Insurance Name Policy Number Policy Pleitez Covered Member ID Pleitez Member ID Guarantor Name 10/25/2024 1 [facility] [facility] [place] (MEDICAID HMO) COLLEEN Merida [id number] Skylar Hawleyos 04/06/2024 1 [place] [facility] Skylar Merida [id number] Skylar Merida Notes Date Note Type Note Provider Name and Address Organization Details Recorded Time 04/06/2024 text/html ROS as noted in the HPI She reports her voice becomes hoarse and [...] but occasionally she does. DOUG VILLATORO MD [address] [place] [address], [address], [facility] - [facility] 04/06/2024 15:17:06 OBGyn Episode No OBEpisode recorded.
--- OUTSIDE RECORDS SUMMARY | 2025-06-21 14:46 | XMS_ITS | Clinical Summary ---
Author Organization [facility] Address [address] [place] [address] Phone Care Team Providers Care Pipeline Maintenance Supervisor Name Role Phone Magali Summers MD Primary Care Provider [phone] Allergies Active Allergy Reactions Criticality Noted Date Comments Dexamethasone 06/05/2025 Iron Rash 05/05/2025 Methocarbamol GI intolerance 06/05/2025 Medications traMADoL (ULTRAM) 50 mg tablet Take 1 tablet (50 mg total) by mouth every 6 (six) hours if needed for severe pain for up to 5 days. Max Daily Amount: 200 mg 15 tablet 5 025 ondansetron ODT (ZOFRAN-ODT) 4 mg disintegrating tablet Let 1 tablet dissolve under the tongue three times daily as needed for nausea or vomiting. 10 tablet 5 025 ibuprofen (ADVIL,MOTRIN) 600 mg tablet Take 1 tablet (600 mg total) by mouth every 6 (six) hours if needed for mild pain for up to 5 days. 20 each 5 025 tamsulosin (FLOMAX) 0.4 mg 24 hr capsule Take 1 capsule (0.4 mg total) by mouth 1 (one) time each day for 14 days. Capsules should be taken 30 minutes following the same meal each day. 7 capsule 5 025 Active Problems No known active problems Encounters Date Type Department Care Team Description 06/05/2025 11:41 AM EDT - 06/05/2025 2:[address] [facility] [address] [place] [address] Renal colic on left side (Primary Dx) Discharge Disposition: Home or Self Care 05/05/2025 7:48 PM EDT - 05/05/2025 9:[address] [facility] [address] [place] [address] Acute nonintractable headache, unspecified headache type (Primary Dx) Discharge Disposition: Home or Self Care from Last 3 Months Medical History Medical History Date Comments Kidney stones Asthma Fibromyalgia Diverticulitis Social History Tobacco Use Types Packs/Day Years Used Date Smoking Tobacco: Never Assessed Comments Unknown Sex and Gender Information Value Date Recorded Sex Assigned at Not on file Legal Sex Female 3:58 AM EST Gender Identity Not on file Sexual Orientation Not on file Obstetrics History Last Filed Vital Signs Vital Sign Reading Time Taken Comments Blood Pressure 122/84 06/05/2025 11:38 AM EDT Pulse 99 06/05/2025 11:38 AM EDT Temperature 36.7 C (98.1 F) 06/05/2025 11:38 AM EDT Respiratory Rate 24 06/05/2025 11:38 AM EDT Oxygen Saturation 98% 06/05/2025 11:38 AM EDT Inhaled Oxygen Concentration - - Weight 73.9 kg (163 lb) 06/05/2025 11:38 AM EDT Height 157.5 cm (5' 2 ) 06/05/2025 11:38 AM EDT Body Mass Index 29.81 06/05/2025 11:38 AM EDT Plan of Treatment Health Maintenance Due Date Last Done Comments Breast Cancer Screening 1982 Hepatitis B Vaccines (1 of 3 - 19+ 3-dose series) 2001 Pneumococcal Vaccine: Pediatrics (0 to 5 Years) and At-Risk Patients (6 to 49 Years) (1 of 2 - PCV) 2001 Cervical Cancer Screening: Pap Smear 2003 HPV Vaccines (1 - 3-dose SCDM series) 2009 Depression Screening 08/19/2024 COVID-19 Vaccine (3 - 2024- season) 2025 12/13/2021, 11/04/2021 Influenza Vaccine (#1) 2025 8, 06/23/2017, 05/23/2017, Additional history exists HIV Screening 05/05/2025 Hepatitis C Screening 05/05/2025 Social Influencers of Health Screening 05/05/2025 DTaP,Tdap,and Td Vaccines (2 - Td or Tdap) 07/30/2028 07/30/2018 RSV Immunization Adult Patients (1 - 1-dose 75+ series) 2057 HIB Vaccines Aged Out No longer eligi [...] to complete this topic RSV Immunization Patients Under 20 months Aged Out No longer eligible based on patient's age to complete this topic Varicella Vaccines Aged Out No longer eligible based on patient's age to complete this topic Procedures Procedure Name Priority Date/Time Associated Diagnosis Comments CT ABDOMEN PELVIS WO CONTRAST STAT 06/05/2025 12:51 PM EDT POC , URINE DIAGNOSTIC STAT 06/05/2025 12:29 PM EDT GRIFFIN URINE CULTURE TUBE STAT 06/05/2025 12:08 PM EDT URINALYSIS WITH REFLEX MICROSCOPIC AND CULTURE STAT 06/05/2025 12:08 PM EDT CBC WITH AUTO DIFFERENTIAL STAT 06/05/2025 12:08 PM EDT URINALYSIS WITH REFLEX MICROSCOPIC AND CULTURE STAT 06/05/2025 12:08 PM EDT COMPREHENSIVE METABOLIC PANEL STAT 06/05/2025 12:08 PM EDT CBC AND DIFFERENTIAL STAT 06/05/2025 12:08 PM EDT CULTURE URINE STAT 06/05/2025 12:08 PM EDT from Last 3 Months Results * CT Abdomen Pelvis wo Contrast (06/05/2025 12:51 PM EDT) Anatomical Region Laterality Modality Body Computed Tomogra phy 06/05/2025 1:02 PM EDT Impressions 06/05/2025 1:07 PM EDT 1. 1-2 mm calculus at the left ureterovesical junction. 2. 2 punctate nonobstructing calculi in the interpolar right kidney. -------- FINAL REPORT -------- Dictated By: Anthony Blevins Dictated Date: 06/05/2025 13:02 ET Assigned Physician: Anthony Blevins Reviewed and Electronically Signed By: Anthony Blevins Signed Date: 06/05/2025 13:07 ET Workstation ID: [id number] Transcribed By: Self Edit Transcribed Date: 06/05/2025 13:02 ET Narrative 06/05/2025 1:07 PM EDT PROCEDURE: CT of the abdomen and pelvis without intravenous contrast. HISTORY: Abdominal pain, acute, no prior medical history Rule out renal stone. COMPARISON: 02/22/2022. TECHNIQUE: Noncontrast CT of the abdomen and pelvis with coronal and sagittal reformats. Dose length product: 951 mGy-cm. FINDINGS: Lung bases: Mild dependent atelectasis. Cardiac: Normal. Liver: Limited evaluation without intravenous contrast. Small calcified granulomas. Biliary: Normal gallbladder and biliary tree. Pancreas: Limited evaluation without intravenous contrast. No visible abnormality. Spleen: Limited evaluation without intravenous contrast. No visible abnormality. Adrenal glands: Normal. Kidneys: Limited evaluation without intravenous contrast. Punctate 1-2 mm calculus at the left ureterovesical junction. Associated very mild left hydroureteronephrosis. 2 nonobstructing interpolar calculus on the right. Retroperitoneum: No mass or adenopathy. Abdominal vasculature: Normal. Bowel/mesentery: No obstruction or adenopathy. No mass or ascites. Debris filled duodenal diverticulum. Postsurgical changes of the sigmoid Scattered colonic diverticula. Appendectomy. Abdominal wall: Small fat-containing supraumbilical hernia. Pelvic nodes: No adenopathy. Pelvic organs: Normal. Bones: Mild degenerative changes of the spine. Procedure Note Anthony Blevins MD - 06/05/2025 PROCEDURE: CT of the abdomen and pelvis without intravenous contrast. HISTORY: Abdominal pain, acute, no prior medical history Rule out renal stone. COMPARISON: 02/22/2022. TECHNIQUE: Noncontrast CT of the abdomen and pelvis with coronal andsagittal reformats. Dose length product: 951 mGy-cm. FINDINGS: Lung bases: Mild dependent atelectasis. Cardiac: Normal. Liver: Limited evaluation without intravenous contrast. Small calcifiedgranulomas. Biliary: Normal gallbladder and biliary tree. Pancreas: Limited evaluation without intravenous contrast. No visibleabnormality. Spleen: Limited evaluation without intravenous contrast. No visibleabnormality. Adrenal glands: Normal. Kidneys: Limited evaluation without intravenous contrast. Punctate 1-2 mmcalculus at the left ureterovesical junction. Associated very mild lefthydroureteronephrosis. 2 nonobstructing interpolar calculus on the right. Retroperitoneum: No mass or adenopathy. Abdominal vasculature: Normal. Bowel/mesentery: No obstruction or adenopathy. No mass or ascites.Debris filled duodenal diverticulum. Postsurgical changes of the sigmoidScattered colonic diverticula. Appendectomy. Abdominal wall: Small fat-containing supraumbilical hernia. Pelvic nodes: No adenopathy. Pelvic organs: Normal. Bones: Mild degenerative changes of the spine. IMPRESSION: 1. 1-2 mm calculus at the left ureterovesical junction. 2. 2 punctate nonobstructing calculi in the interpolar right kidney. -------- FINAL REPORT -------- Dictated By: Anthony Blevins Dictated Date: 06/05/2025 13:02 ET Assigned Physician: Anthony Blevins Reviewed and Electronically Signed By: Anthony Blevins Signed Date: 06/05/2025 13:07 ET Workstation ID: [id number] Transcribed By: Self Edit Transcribed Date: 06/05/2025 13:02 ET Aide MENDO[facility] IMG CT PROCEDURES Jossy l Result * POC , urine manually resulted (06/05/2025 12:29 PM EDT) [facility] HCG, Ur POC Negative Negative Urine Urine specimen obtained by clean catch procedure / Unknown 06/05/2025 12:29 PM EDT Paula Mtz MD POINT OF CARE TEST ENTER/EDIT OR DERABLES Final Result * (ABNORMAL) Urinalysis with reflex microscopic and culture (06/05/2025 12:08 PM EDT) [facility] Specific [place] Urine 1.023 1.003 - 1.030 LAB URINALYSIS - AUTOMATED METHOD 06/05/2025 12:27 PM [facility] pH, Urine 5.5 5.0 - 8.0 pH LAB URINALYSIS - AUTOMATED METHOD 06/05/2025 12:27 PM [facility] Leukocytes, Urine Negative Negative LAB URINALYSIS - AUTOMATED METHOD 06/05/2025 12:27 PM [facility] Nitrite, Urine Negative Negative LAB URINALYSIS - AUTOMATED METHOD 06/05/2025 12:27 PM [facility] Protein, Urine 30(A) <=Trace mg/dL LAB URINALYSIS - AUTOMATED METHOD 06/05/2025 12:27 PM [facility] Glucose, Urine Negative Negative mg/dL LAB URINALYSIS - AUTOMATED METHOD 06/05/2025 12:27 PM [facility] Ketones, Urine Trace(A) Negative mg/dL LAB URINALYSIS - AUTOMATED METHOD 06/05/2025 12:27 PM [facility] Urobilinogen , Urine 0.2 0.2 - 1.0 mg/dL LAB URINALYSIS - AUTOMATED METHOD 06/05/2025 12:27 PM [facility] Bilirubin, Urine Negative Negative LAB URINALYSIS - AUTOMATED METHOD 06/05/2025 12:[address] [facility] Blood, Urine Large(A) Negative LAB URINALYSIS - AUTOMATED METHOD 06/05/2025 12:[address] [facility] RBC, Urine 195.0(H) 0 - 4 /HPF LAB URINALYSIS - AUTOMATED METHOD 06/05/2025 12:27 PM [facility] WBC, Urine 13.3(H) 0 - 4 /HPF LAB URINALYSIS - AUTOMATED METHOD 06/05/2025 12:[address] [facility] Squamous Epithelial, Urine >100(H) 0 - 60 /LPF LAB URINALYSIS - AUTOMATED METHOD 06/05/2025 12:27 PM [facility] Bacteria, Urine Moderate(A) Negative /HPF LAB URINALYSIS - AUTOMATED METHOD 06/05/2025 12:27 PM [facility] Hyaline Casts, Urine 6.0(H) 0 - 3 /LPF LAB URINALYSIS - AUTOMATED METHOD 06/05/2025 12:27 PM [facility] Urine Urine specimen obtained by clean catch procedure / Unknown Non-blood Collection / Unknown 06/05/2025 12:08 PM EDT 06/05/2025 12:14 PM EDT us Paula Mtz MD LAB URINE ORDERABLES Final Resul t [facility] [address] [place] [address], * Griffin urine culture tube (06/05/2025 12:08 PM EDT) Extra Tube Hold for add-ons. 06/05/2025 2:[address] [facility] Comment:Auto resulted. Urine Urine specimen obtained by clean catch procedure / Unknown Non-blood Collection / Unknown 06/05/2025 12:08 PM EDT 06/05/2025 12:14 PM EDT us Paula Mtz MD LAB URINE ORDERABLES Final Resul t [facility] [address] [place] [address], * (ABNORMAL) CBC auto differential (06/05/2025 12:08 PM EDT) WBC 10.1 4.8 - 10.8 K/mcL LAB HEMETOLOGY METHOD 06/05/2025 12:[address] [facility] RBC 3.90 3.80 - 4.80 M/mcL LAB HEMETOLOGY METHOD 06/05/2025 12:[address] [facility] Hemoglobin 10.3(L) 11.5 - 16.0 g/dL LAB HEMETOLOGY METHOD 06/05/2025 12:[address] [facility] Hematocrit 33.8(L) 35.0 - 47.0 % LAB HEMETOLOGY METHOD 06/05/2025 12:[address] [facility] MCV 86.9 79.0 - 98.0 FL LAB HEMETOLOGY METHOD 06/05/2025 12:[address] [facility] MCH 26.5(L) 27.0 - 32.0 pcg LAB HEMETOLOGY METHOD 06/05/2025 12:[address] [facility] MCHC 30.5(L) 32.0 - 37.0 g/dL LAB HEMETOLOGY METHOD 06/05/2025 12:[address] [facility] RDW 14.8 11.0 - 15.0 % LAB HEMETOLOGY METHOD 06/05/2025 12:[address] [facility] Platelets 436(H) 130 - 400 K/mcL LAB HEMETOLOGY METHOD 06/05/2025 12:[address] [facility] MPV 9.5 7.0 - 11.0 FL LAB HEMETOLOGY METHOD 06/05/2025 12:[address] [facility] NRBC 0.0 <1.0 % LAB HEMETOLOGY METHOD 06/05/2025 12:[address] [facility] NRBC Absolute 0.00 <0.10 K/mcL LAB HEMETOLOGY METHOD 06/05/2025 12:[address] [facility] Neutrophils Relative 67.8 % LAB HEMETOLOGY METHOD 06/05/2025 12:[address] [facility] Lymphocytes Relative 21.1 % LAB [facility]EM[facility]OLOGY [facility] Monocytes Relative 6.7 % LAB HEMETOLOGY METHOD 06/05/2025 12:25 PM [facility] Eosinophils Relative 3.5 % LAB HEMETOLOGY METHOD 06/05/2025 12:[address] [facility] Basophils Relative 0.6 % LAB HEMETOLOGY METHOD 06/05/2025 12:[address] [facility] Immature Granulocytes Relative 0.3 % LAB HEMETOLOGY METHOD 06/05/2025 12:25 PM [facility] Neutrophils Absolute 6.86 1.50 - 7.00 K/mcL LAB HEMETOLOGY METHOD 06/05/2025 12:[address] [facility] Lymphocytes Absolute 2.13 1.00 - 5.00 K/mcL LAB HEMETOLOGY METHOD 06/05/2025 12:[address] [facility] Monocytes Absolute 0.68 0.20 - 1.00 K/mcL LAB HEMETOLOGY METHOD 06/05[facility]2025 [facility] Eosinophils Absolute 0.35 0.00 - 0.50 K/mcL LAB HEMETOLOGY METHOD 06/05/2025 12:[address] [facility] Basophils Absolute 0.06 0.00 - 0.20 K/[facility] LAB HEMETOLOGY METHOD 06/05/2025 12:[address] [facility] Immature Granulocytes Absolute 0.03 0.00 - 0.03 K/[facility] LAB HEMETOLOGY METHOD 06/05/2025 12:[address] [facility] Blood Venous blood specimen / Unknown Venipuncture / Unknown 06/05/2025 12:08 PM EDT 06/05/2025 12:14 PM EDT us Paula Mtz MD LAB BLOOD ORDERABLES Final Resul t Performing Organization Address City/[facility]/ZIP Co de Phone Number [facility] [address] [place] [address], [place] [phone] * Culture urine (06/05/2025 12:08 PM EDT) Pathologist [facility] Culture, Urine No growth 06/06/2025 10:[address] [facility] Urine Urine specimen obtained by clean catch procedure / Unknown Non-blood Collection / Unknown 06/05/2025 12:08 PM EDT 06/05/2025 12:27 PM EDT us Paula Mtz MD LAB MICROBIOLOGY - GENERAL ORDER KAVITHA Final Result Performing Organization Address City/[facility]/ZIP Co de Phone Number [facility] [address] [place] [address], [place] [phone] * (ABNORMAL) Comprehensive metabolic panel (06/05/2025 12:08 PM EDT) Sodium 142 133 - 145 mmol/L LAB CHEMISTRY METHOD 06/05/2025 12:[address] [facility] Potassium 4.9 3.5 - 5.5 mmol/L LAB CHEMISTRY METHOD 06/05/2025 12:[address] [facility] Chloride 107 96 - 110 mmol/L LAB CHEMISTRY METHOD 06/05/2025 12:52 PM [facility] CO2 28 21 - 32 mmol/L LAB CHEMISTRY METHOD 06/05/2025 12:52 PM [facility] Anion Gap 7 3 - 11 LAB CHEMISTRY METHOD 06/05/2025 12:52 PM [facility] Glucose 102(H) 70 - 100 mg/dL LAB CHEMISTRY METHOD 06/05/2025 12:52 PM [facility] BUN 11 5 - 25 mg/dL LAB CHEMISTRY METHOD 06/05/2025 12:52 PM [facility] Creatinine 0.95 0.50 - 1.10 mg/dL LAB CHEMISTRY METHOD 06/05/2025 12:52 PM [facility] eGFR 77 >=60 mL/min/1. 73m2 LAB CHEMISTRY METHOD 06/05/2025 12:52 PM [facility] Comment:Calculation based on the Chronic Kidney Disease Epidemiology Collaboration (CKD-EPI) equation refit without adjustment for race. BUN/Creatinine Ratio 11.6 LAB CHEMISTRY METHOD 06/05/2025 12:52 PM [facility] Calcium 9.4 8.5 - 10.5 mg/dL LAB CHEMISTRY METHOD 06/05/2025 12:52 PM [facility] AST (SGOT) 19 10 - 42 unit/L LAB CHEMISTRY METHOD 06/05/2025 12:52 PM [facility] ALT (SGPT) 19 10 - 60 unit/L LAB CHEMISTRY METHOD 06/05/2025 12:52 PM [facility] Alkaline Phosphatase 96 42 - 121 unit/L LAB CHEMISTRY METHOD 06/05/2025 12:52 PM [facility] Total Protein 7.1 6.0 - 8.0 g/dL LAB CHEMISTRY METHOD 06/05/2025 12:52 PM [facility] Albumin 3.7 3.2 - 5.0 g/dL LAB CHEMISTRY METHOD 06/05/2025 12:[address] [facility] Total Bilirubin 0.3 0.0 - 1.4 mg/dL LAB CHEMISTRY METHOD 06/05/2025 12:[address] [facility] Blood Venous blood specimen / Unknown Venipuncture / Unknown 06/05/2025 12:08 PM EDT 06/05/2025 12:14 PM EDT us Paula Mtz MD LAB BLOOD ORDERABLES Final Resul t [facility] [address] [place] [address], from Last 3 Months Insurance [facility] [employer] Care Teams Pipeline Maintenance Supervisor Relationship Specialty Start Date End Date Magali Summers MD [address] [place] [address] PCP - General Internal Medicine 05/05/25
== END 2025-06-21 13:59 | disposition home or self-care (01) ==
LOC: HO.HWS 11:37
PROVIDERS: PCP Internal Medicine; Visit Provider Obstetrics & Gynecology
DX: N93.9 Abnormal uterine and vaginal bleeding, unspecified (principal); Z32.02 Encounter for pregnancy test, result negative
CPT/HCPCS: 58100

== ENCOUNTER 2025-06-24 14:35 | Outpatient (AMB) | payer OTHER, SELFPAY ==
[2025-06-24 14:44] VITALS: BP 124/72; BMI 29.8
--- NOTE | 2025-06-24 14:44 | MHC.OFFVIS ---
Vital Signs 06/24/25 14:44 Height 5 ft 2 in Weight 163 lb BMI 29.8 BP 124/72 Intake Visit Reasons: EMB results/pre op Donor Recruiter Required: Yes Donor Recruiter Language: Biodiesel Operations Manager Services: Donor Recruiter Present (in person) Donor Recruiter Name: Elvie RUELAS Information Interpreted: non-clinical & clinical Sebd Teacher: Sebd Teacher Present Accompanied by: Self / Same As Patient Allergies iron (From Venofer) Adverse Reaction (Intermediate, Verified 06/24/25 14:46) Hives methocarbamol Adverse Reaction (Intermediate, Verified 06/24/25 14:46) Hives Is last menstrual period known: Yes Last menstrual period: 06/17/25 Post menopausal: No Patient : No Do you need a note to return to daycare/school/sports/work: Yes (for surgery on saturday) HPI Comments Details: The patient is presenting after endometrial biopsy. The patient has no complaints, no vaginal bleeding, no feverishness chills or abdominal pain. 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 Comment: Granulomatous endometritis may be seen with infections, sarcoid, and previous instrumentation. Focal necrosis is present, and no viral cytopathic effect is seen. Stains for acid fast bacteria and fungi are pending with addendum to follow [facility] Medical History Well woman exam Pre-op examination Physical exam Nausea and vomiting History of diverticulitis Abscess Epidermal cyst Abdominal cramping Screening for cervical cancer GERD (gastroesophageal reflux disease) Chronic idiopathic constipation Diarrhea Diverticulitis Cancer of cervix Anemia TRUDY (obstructive sleep apnea) GERD (gastroesophageal reflux disease) Panic attacks Polyarthralgia Left knee pain Mild persistent asthma Heart palpitations LOVE (generalized anxiety disorder) Mild recurrent major depression Diverticular disease Colitis with complication Arthritis Fibromyalgia Abdominal pain Surgical History S/P left colectomy H/O colonoscopy H/O LEEP History of removal of cyst (~08/07/21) History of esophagogastroduodenoscopy (EGD) History of lithotripsy History of appendectomy History of tubal ligation Family History Father Diabetes Hypertension CVD (cardiovascular disease) Heart disease FH: mental illness Mother Asthma Family history of cancer Maternal Grandmother Diabetes Maternal Grandfather Colon cancer Maternal Aunt Colon cancer Family/Other Breast cancer Family/Other Pancreatic cancer Sister Uterine cancer Social History Household Members: Family Household Members Other:: grandchildren Housing: House Are you a primary director of patient care to a significant other at home: No Do you presently have visiting nurse or other home services: No Alcohol intake: never Patient Tobacco Use Status: Never used Tobacco e-Cigarette/Vaping Use: Never Used Second Hand Smoke Exposure: No service: No Current occupational status: unemployed Cognitive needs: No Hearing needs: No Vision needs: No Female Reproductive History Menstrual Age of Menarche: 16 Date of last menstrual period: 06/17/25 Total pregnancies: 2 Full term: 2 Review of Systems Card Reports as per HPI and Reports no additional complaints Resp Reports as per HPI and Reports no additional complaints GI Reports as per HPI and Reports no additional complaints Reports as per HPI Physical Exam Vital Signs: Last Vital Signs BP 124/72 06/24/25 14:44 BMI result Body Mass Index 29.8 Const General: cooperative, healthy appearing and comfortable Resp Effort & Inspection: normal respiratory effort Auscultation: clear to auscultation bilaterally Percussion: percussion normal Cardio Palpation: normal PMI Rate: regular rate Rhythm: regular rhythm Heart sounds: no murmurs and no rubs Peripheral pulses: Peripheral pulses 2+ throughout GI Inspection: Yes normal to inspection Palpation (GI): Soft to palpation, nontender, no guarding, not rigid and No hepatosplenomegaly present Percussion: Yes normal to percussion Auscultation: normal bowel sounds Rectal Exam - Female: deferred Assessment & Plan Assessment & Plan (1) Abnormal uterine bleeding (AUB): Comment: Endometrial polyp on EMB pathology Granulomatous endometritis Code(s): N93.9 - Abnormal uterine and vaginal bleeding, unspecified Category: Medical Plan: Discussed with the patient the results of the pathology including the fact that the are fragments of endometrial polyp, with possible endometritis. Will wait for the stains results to make sure is no infection, if there is will treat accordingly prior to the procedure otherwise recommended hysteroscopy D&C possible polypectomy/myomectomy. Discussed with the patient the procedure , all benefits and risks including but not limited to inability to complete the procedure , insufficient endometrial tissue for a complete evaluation of the endometrial cavity , bleeding, infection, possible need for blood transfusion with all its risk ( HIV,syphilis, Hepatitis, anaphylaxis shock, others..), injury to bladder, rectum, possible need for laparoscopy/laparotomy or hysterectomy. The patient verbalized understanding and signed the consent. Instructions given the patient to schedule a follow-up appointment within 10 days to check on the results of the state and rule out infection related endometritis. Instructions stay NPO after midnight the day prior to the procedure and to take only the specific medication (s) discussed the morning of the surgical procedure and to schedule a 2 week postoperative appointment Coding Level of Care Code Est Pt Level 3 (28633) Diagnoses Abnormal uterine bleeding (AUB) N93.9
--- OUTSIDE RECORDS SUMMARY | 2025-06-24 17:50 | XMS_ITS | Data Portability ---
Author Organization [place] - [facility], Allergy Address [address] [address] Care Team Providers Care Furniture Mover Helper Name Role Phone HUGO JOSE Primary Care Provider Assessment No assessment recorded. Plan of Treatment Reminders Order Date Submit Date Provider Last Modified By Organization Details Last Modified Time Details Appointments None recorded. Lab None recorded. Referral None recorded. Procedures None recorded. Surgeries None recorded. Imaging None recorded. Medication Orders famotidine 20 mg tablet 2023 024 [facility][id number], [address] [facility], [place], [address], 4 15:12:05 Patient TargetsNo targets recorded. Patient InstructionsNo instructions recorded. Reason for Referral None Reported. Problems Name Problem SNOMED Code Status Onset Date Resolution Date Notes Provider Name and Address Organization Details Recorded Time Dysphonia 01304695 Active 2015 Hoarse ness; Note: Date Diagno sed: 016 3:06 PM (R49.0 ) Not Available [facility] 4 02:13:34 Gastroesop hageal reflux disease without esophagiti s 652942656 Active 2023 DOUG VILLATORO MD [address] [facility],[place] [address], [place], [address] , [place] - [facility] 4 15:10:58 Chronic hoarseness [id number] Active 2023 DOUG VILLATORO MD [address] [facility],[place] [address], [place], [address] , [facility] - [facility] 4 15:14:20 Problem Notes None recorded. Procedures Surgical History Date Name Laterality Status Provider Name and Address Organization Details Recorded Time 04/06/2024 FFL_RE completed DOUG VILLATORO MD [address] [place] [address], [place], [address], [place] - [facility] 04/06/2024 15:16:09 Imaging Results None recorded. [...] 400 mg tablet active Medicatio n ID: [id number] Br and Name: ibuprofen Send Method: E-Prescri [...] Updated DateTime 04/06/2024 157.48 cm 28.9 kg/m2 68956.59 g Annette Banuelos [place] - [facility] 04/06/2024 14:46:26 Social History None recorded. Functional Status None recorded. Mental Status None recorded. Family History Nothing Reported. Medical History No medical history recorded. Gynecological HistoryNo gynecological history recorded. Obstetrics History GPAL:G 0 P 0 0 0 0 Past Encounters Encounter ID Performer Location Encounter Start Date Encounter Closed Date Diagnosis/Indication Diagnosis SNOMED-CT Code Diagnosis ICD10 Code Diagnosis IMO Codes Diagnosis Note [id number] DOUG VILLATORO MD [facility] [address] [address] 04/06/2024 14:04:27 04/06/2024 15:13:37 Gastroesophageal reflux disease without esophagitis 303466700 K21.9 Exam was benign. Laryngosco py showed [...] py if she doesn't improve. Chronic hoarseness 09542 16034 105 R49.0 see above Health Concerns Section Related Observation LastModified by Organization Detai ls LastModified Time None Recorded Concern Status LastModified by Organization Details LastModified Time None Recorded Advance Directives Directive None Recorded Payers Insurance Date Sequence Insurance Name Policy Number Policy Pleitez Covered Member ID Pleitez Member ID Guarantor Name 10/25/2024 1 [facility] - HEALTH NET PLAN (MEDICAID HMO) COLLEEN Merida [id number] Skylar Hawleyos 04/06/2024 1 [place] [facility] Skylar Merida [id number] Skylar Merida Notes Date Note Type Note [...] but occasionally she does. DOUG VILLATORO MD [address] [place] [address], [phone], [facility] - [facility] 04/06/2024 15:17:06 OBGyn Episode No OBEpisode recorded.
--- OUTSIDE RECORDS SUMMARY | 2025-06-24 17:50 | XMS_ITS | Clinical Summary ---
Author Organization [facility] Address [address] [place] [address] Phone Care Team Providers Care Rolling Machine Operator Name Role Phone Magali Summers MD Primary Care Provider [phone] Allergies Active Allergy Reactions Criticality Noted Date [...] EDT - 06/05/2025 2:46 PM EDT Emergency [facility] Emergency [address] [place] [address] Renal colic on left side (Primary Dx) Discharge Disposition: Home or Self Care 05/05/2025 7:48 PM EDT - 05/05/2025 9:23 PM EDT Emergency [facility] Emergency [address] [place] [address] Acute nonintractable headache, unspecified headache [...] Signed Date: 06/05/2025 13:07 ET Workstation ID: [id number] Transcribed By: Self Edit Transcribed Date: 06/05/2025 [...] Signed Date: 06/05/2025 13:07 ET Workstation ID: [id number] Transcribed By: Self Edit Transcribed Date: 06/05/2025 13:02 ET Aide MENDOZA IMG CT PROCEDURES Jossy l Result * POC , urine manually resulted (06/05/2025 12:29 PM EDT) [facility] HCG, Ur POC Negative Negative Urine Urine specimen obtained by clean catch procedure / Unknown 06/05/2025 12:29 PM EDT Paula Mtz MD POINT OF CARE TEST ENTER/EDIT OR DERABLES Final Result * (ABNORMAL) Urinalysis with reflex microscopic and culture (06/05/2025 12:08 PM EDT) [facility] Specific [place] Urine 1.023 1.003 - 1.030 LAB URINALYSIS - AUTOMATED METHOD 06/05/2025 12:27 PM [facility] pH, Urine 5.5 5.0 - 8.0 pH LAB URINALYSIS - AUTOMATED METHOD 06/05/2025 12:27 PM [facility] Leukocytes, Urine Negative Negative LAB URINALYSIS - AUTOMATED METHOD 06/05/2025 12:27 PM [facility] Nitrite, Urine Negative Negative LAB URINALYSIS - AUTOMATED METHOD 06/05/2025 12:27 PM [facility] Protein, Urine 30(A) <=Trace mg/dL LAB URINALYSIS - AUTOMATED METHOD 06/05/2025 12:27 PM [facility] Glucose, Urine Negative Negative mg/dL LAB URINALYSIS - AUTOMATED METHOD 06/05/2025 12:27 PM [facility] Ketones, Urine Trace(A) Negative mg/dL LAB URINALYSIS - AUTOMATED METHOD 06/05/2025 12:27 PM [facility] Urobilinogen , Urine 0.2 0.2 - 1.0 mg/dL LAB URINALYSIS - AUTOMATED METHOD 06/05/2025 12:27 PM [facility] Bilirubin, Urine Negative Negative LAB URINALYSIS - AUTOMATED METHOD 06/05/2025 12:27 PM EDT [facility] Blood, Urine Large(A) Negative LAB URINALYSIS - AUTOMATED METHOD 06/05/2025 12:27 PM EDT [facility] RBC, Urine 195.0(H) 0 - 4 /HPF LAB URINALYSIS - AUTOMATED METHOD 06/05/2025 12:27 PM [facility] WBC, Urine 13.3(H) 0 - 4 /HPF LAB URINALYSIS - AUTOMATED METHOD 06/05/2025 12:27 PM T [facility] Squamous Epithelial, Urine >100(H) 0 - 60 /LPF LAB URINALYSIS - AUTOMATED METHOD 06/05/2025 12:27 PM [facility] Bacteria, Urine Moderate(A) Negative /HPF LAB URINALYSIS - AUTOMATED METHOD 06/05/2025 12:27 PM [facility] Hyaline Casts, Urine 6.0(H) 0 - 3 /LPF LAB URINALYSIS - AUTOMATED METHOD 06/05/2025 12:27 PM [facility] Urine Urine specimen obtained by clean catch procedure / Unknown Non-blood Collection / Unknown 06/05/2025 12:08 PM EDT 06/05/2025 12:14 PM EDT us Paula Mtz MD LAB URINE ORDERABLES Final Resul t [facility] [address] [place] [address], * Griffin urine culture tube (06/05/2025 12:08 PM EDT) Extra Tube Hold for add-ons. 06/05/2025 2:02 PM EDT [facility] Comment:Auto resulted. Urine Urine specimen obtained by clean catch procedure / Unknown Non-blood Collection / Unknown 06/05/2025 12:08 PM EDT 06/05/2025 12:14 PM EDT us Paula Mtz MD LAB URINE ORDERABLES Final Resul t [facility] [address] [place] [address], * (ABNORMAL) CBC auto differential (06/05/2025 12:08 PM EDT) WBC 10.1 4.8 - 10.8 K/mcL LAB HEMETOLOGY METHOD 06/05/2025 12:25 PM EDT [facility] RBC 3.90 3.80 - 4.80 M/mcL LAB HEMETOLOGY METHOD 06/05/2025 12:25 PM EDT [facility] Hemoglobin 10.3(L) 11.5 - 16.0 g/dL LAB HEMETOLOGY METHOD 06/05/2025 12:25 PM EDT [facility] Hematocrit 33.8(L) 35.0 - 47.0 % LAB HEMETOLOGY METHOD 06/05/2025 12:25 PM EDT [facility] MCV 86.9 79.0 - 98.0 FL LAB HEMETOLOGY METHOD 06/05/2025 12:25 PM EDT [facility] MCH 26.5(L) 27.0 - 32.0 pcg LAB HEMETOLOGY METHOD 06/05/2025 12:25 PM EDT [facility] MCHC 30.5(L) 32.0 - 37.0 g/dL LAB HEMETOLOGY METHOD 06/05/2025 12:25 PM EDT [facility] RDW 14.8 11.0 - 15.0 % LAB HEMETOLOGY METHOD 06/05/2025 12:25 PM EDT [facility] Platelets 436(H) 130 - 400 K/mcL LAB HEMETOLOGY METHOD 06/05/2025 12:25 PM EDT [facility] MPV 9.5 7.0 - 11.0 FL LAB HEMETOLOGY METHOD 06/05/2025 12:25 PM EDT [facility] NRBC 0.0 <1.0 % LAB HEMETOLOGY METHOD 06/05/2025 12:25 PM EDT [facility] NRBC Absolute 0.00 <0.10 K/mcL LAB HEMETOLOGY METHOD 06/05/2025 12:25 PM EDT [facility] Neutrophils Relative 67.8 % LAB HEMETOLOGY METHOD 06/05/2025 12:25 PM EDT [facility] Lymphocytes Relative 21.1 % [facility] Monocytes Relative 6.7 % LAB HEMETOLOGY METHOD 06/05/2025 12:25 PM [facility] Eosinophils Relative 3.5 % LAB HEMETOLOGY METHOD 06/05/2025 12:25 PM EDT [facility] Basophils Relative 0.6 % LAB HEMETOLOGY METHOD 06/05/2025 12:25 PM EDT [facility] Immature Granulocytes Relative 0.3 % LAB HEMETOLOGY METHOD 06/05/2025 12:25 PM [facility] Neutrophils Absolute 6.86 1.50 - 7.00 K/mcL LAB HEMETOLOGY METHOD 06/05/2025 12:25 PM EDT [facility] Lymphocytes Absolute 2.13 1.00 - 5.00 K/mcL LAB HEMETOLOGY METHOD 06/05/2025 12:25 PM EDT [facility] Monocytes Absolute 0.68 0.20 - 1.00 K/mcL LAB [facility]EMETOLOGY [facility] Eosinophils Absolute 0.35 0.00 - 0.50 K/mcL LAB HEMETOLOGY METHOD 06/05/2025 12:25 PM EDT [facility] Basophils Absolute 0.06 0.00 - 0.20 K/[facility] LAB HEMETOLOGY METHOD 06/05/2025 12:25 PM EDT [facility] Immature Granulocytes Absolute 0.03 0.00 - 0.03 K/[facility] LAB HEMETOLOGY METHOD 06/05/2025 12:25 PM EDT [facility] Blood Venous blood specimen / Unknown Venipuncture / Unknown 06/05/2025 12:08 PM EDT 06/05/2025 12:14 PM EDT us Paula Mtz MD LAB BLOOD ORDERABLES Final Resul t Performing Organization Address City/[facility]/ZIP Co de Phone Number [facility] [address] [place] [address], [place] [phone] * Culture urine (06/05/2025 12:08 PM EDT) Pathologist [facility] Culture, Urine No growth 06/06/2025 10:23 AM EDT [facility] Urine Urine specimen obtained by clean catch procedure / Unknown Non-blood Collection / Unknown 06/05/2025 12:08 PM EDT 06/05/2025 12:27 PM EDT us Paula Mtz MD LAB MICROBIOLOGY - GENERAL ORDER KAVITHA Final Result Performing Organization Address City/[facility]/ZIP Co de Phone Number [facility] [address] [place] [address], [place] [phone] * (ABNORMAL) Comprehensive metabolic panel (06/05/2025 12:08 PM EDT) Sodium 142 133 - 145 mmol/L LAB CHEMISTRY METHOD 06/05/2025 12:52 PM EDT [facility] Potassium 4.9 3.5 - 5.5 mmol/L LAB CHEMISTRY METHOD 06/05/2025 12:52 PM EDT [facility] Chloride 107 96 - 110 mmol/L LAB CHEMISTRY METHOD 06/05/2025 12:52 PM [facility] CO2 28 21 - 32 mmol/L LAB CHEMISTRY METHOD 06/05/2025 12:52 PM [facility] Anion Gap 7 3 - 11 LAB CHEMISTRY METHOD 06/05/2025 12:52 PM [facility] Glucose 102(H) 70 - 100 mg/dL LAB CHEMISTRY METHOD 06/05/2025 12:52 PM [facility] BUN 11 5 - 25 mg/dL LAB CHEMISTRY METHOD 06/05/2025 12:52 PM [facility] Creatinine 0.95 0.50 - 1.10 mg/dL LAB CHEMISTRY METHOD 06/05/2025 12:52 PM [facility] eGFR 77 >=60 mL/min/1. 73m2 LAB CHEMISTRY METHOD 06/05/2025 12:52 PM [facility] Comment:Calculation based on the Chronic Kidney Disease Epidemiology Collaboration (CKD-EPI) equation refit without adjustment for race. BUN/Creatinine Ratio 11.6 LAB CHEMISTRY METHOD 06/05/2025 12:52 PM [facility] Calcium 9.4 8.5 - 10.5 mg/dL LAB CHEMISTRY METHOD 06/05/2025 12:52 PM [facility] AST (SGOT) 19 10 - 42 unit/L LAB CHEMISTRY METHOD 06/05/2025 12:52 PM [facility] ALT (SGPT) 19 10 - 60 unit/L LAB CHEMISTRY METHOD 06/05/2025 12:52 PM [facility] Alkaline Phosphatase 96 42 - 121 unit/L LAB CHEMISTRY METHOD 06/05/2025 12:52 PM [facility] Total Protein 7.1 6.0 - 8.0 g/dL LAB CHEMISTRY METHOD 06/05/2025 12:52 PM [facility] Albumin 3.7 3.2 - 5.0 g/dL LAB CHEMISTRY METHOD 06/05/2025 12:52 PM EDT [facility] Total Bilirubin 0.3 0.0 - 1.4 mg/dL LAB CHEMISTRY METHOD 06/05/2025 12:52 PM EDT [facility] Blood Venous blood specimen / Unknown Venipuncture / Unknown 06/05/2025 12:08 PM EDT 06/05/2025 12:14 PM EDT us Paula Mtz MD LAB BLOOD ORDERABLES Final Resul t [facility] [address] [place] [address], from Last 3 Months Insurance [facility] [employer] Care Teams Rolling Machine Operator Relationship Specialty Start Date End Date Magali Summers MD [address] [place] [address] PCP - General Internal Medicine 05/05/25
== END 2025-06-24 15:21 | disposition home or self-care (01) ==
LOC: HO.HWS 14:35
PROVIDERS: PCP Internal Medicine; Visit Provider Obstetrics & Gynecology
DX: N93.9 Abnormal uterine and vaginal bleeding, unspecified (principal)
CPT/HCPCS: 99213

== ENCOUNTER → 2025-06-24 14:35 | Outpatient (BNVA) | payer OTHER, SELFPAY | PROVIDERS: PCP Internal Medicine; Visit Provider Obstetrics & Gynecology | DX: Z01.818 Encounter for other preprocedural examination (principal); N93.9 Abnormal uterine and vaginal bleeding, unspecified | CPT/HCPCS: 99212 ==

== ENCOUNTER 2025-07-01 12:21 | Day surgery (SDC) | payer OTHER, SELFPAY ==
--- NOTE | 2025-06-30 08:10 | HO.ANESPROP2 ---
Documented by User: Paula Johnson NP 06/30/25 08:11 HPI - Anesthesia Eval Consult details Narrative: 44yo F for D&C Hysteroscopy,possible myomectomy,possible polypectomy PMFSH Active Problems Active Problems: All Active Problems Nephrolithiasis (Acute) UTI (urinary tract infection) (Acute) Abnormal uterine bleeding (AUB) (Acute) Well woman exam (Acute) Hypovitaminosis D (Acute) New daily persistent headache (Acute) Nausea and vomiting (Acute) Anemia (Acute) Irritable bowel syndrome with both constipation and diarrhea (Acute) Rosacea (Acute) Heart palpitations (Acute) SOB (shortness of breath) (Acute) Vitamin B12 deficiency (Chronic) H. pylori infection (Acute) GERD (gastroesophageal reflux disease) (Acute) Polyarthralgia (Acute) Left knee pain (Acute) Mild persistent asthma (Acute) LOVE (generalized anxiety disorder) (Acute) Mild recurrent major depression (Acute) Fibromyalgia (Acute) Past Medical History Medical History Well woman exam Pre-op examination Physical exam Nausea and vomiting History of diverticulitis Abscess Epidermal cyst Abdominal cramping Screening for cervical cancer GERD (gastroesophageal reflux disease) Chronic idiopathic constipation Diarrhea Diverticulitis Cancer of cervix Anemia TRUDY (obstructive sleep apnea) GERD (gastroesophageal reflux disease) Panic attacks Polyarthralgia Left knee pain Mild persistent asthma Heart palpitations LOVE (generalized anxiety disorder) Mild recurrent major depression Diverticular disease Colitis with complication Arthritis Fibromyalgia Abdominal pain Family History Family History Father Diabetes Hypertension CVD (cardiovascular disease) Heart disease FH: mental illness Mother Asthma Family history of cancer Maternal Grandmother Diabetes Maternal Grandfather Colon cancer Maternal Aunt Colon cancer Family/Other Breast cancer Family/Other Pancreatic cancer Sister Uterine cancer Family history of problems with anesthesia: No Surgical History Surgical History S/P left colectomy H/O colonoscopy H/O LEEP History of removal of cyst (~08/07/21) History of esophagogastroduodenoscopy (EGD) History of lithotripsy History of appendectomy History of tubal ligation History of Problems with Anesthesia: No Social History Social History Household Members: Family Household Members Other:: grandchildren Housing: House Are you a primary youth care specialist to a significant other at home: No Do you presently have visiting nurse or other home services: No Alcohol intake: never Patient Tobacco Use Status: Never used Tobacco e-Cigarette/Vaping Use: Never Used Second Hand Smoke Exposure: No Have you been hit, kicked, punched, or otherwise hurt by someone within the past year? If so, by whom?: No Are you DNR?: No Advance Directives: Yes Advance Directives on File: Yes Advance Directives Date on File: 07/01/25 FDLMP: 06/17/25 service: No Current occupational status: unemployed Cognitive needs: No Hearing needs: No Vision needs: No Meds Allergies Allergy/AdvReac Type Severity Reaction Status Date / Time iron (From Venofer) AdvReac Intermediate Hives Verified 07/01/25 12:36 methocarbamol AdvReac Intermediate Hives Verified 07/01/25 12:36 Home Medications ?Medication ?Instructions ?Recorded ?Confirmed ?Last Taken ?Type cyanocobalamin (vitamin B-12) 1,000 mcg IM QMONTH 05/07/23 07/01/25 05/07/23 History 1,000 mcg/mL injection solution escitalopram oxalate 10 mg tablet 10 mg PO DAILY 10/15/23 07/01/25 Unknown History trazodone 150 mg tablet 150 mg PO BEDTIME 10/15/23 07/01/25 Unknown History hydroxyzine HCl 25 mg tablet 25 mg PO TID 12/31/24 07/01/25 Unknown History paroxetine HCl 20 mg tablet 20 mg PO DAILY 12/31/24 07/01/25 Unknown History Exam Pertinent Lab Results Pertinent Lab Results: Laboratory Tests 03/15/25 14:44 WBC 6.0 Hgb 10.3 L Hct 33.4 L Plt Count 358 Assessment and Plan Assessment Anesthesia Assessment: Chart Reviewed Final Anesthetic Review Family History of Problems with Anesthesia: No History of Problems with Anesthesia: No Documented by User: Leonard Chairez MD 07/01/25 13:42 [facility] Past Medical History Medical History Well woman exam Pre-op examination Physical exam Nausea and vomiting History of diverticulitis Abscess Epidermal cyst Abdominal cramping Screening for cervical cancer GERD (gastroesophageal reflux disease) Chronic idiopathic constipation Diarrhea Diverticulitis Cancer of cervix Anemia TRUDY (obstructive sleep apnea) GERD (gastroesophageal reflux disease) Panic attacks Polyarthralgia Left knee pain Mild persistent asthma Heart palpitations LOVE (generalized anxiety disorder) Mild recurrent major depression Diverticular disease Colitis with complication Arthritis Fibromyalgia Abdominal pain Family History Family History Father Diabetes Hypertension CVD (cardiovascular disease) Heart disease FH: mental illness Mother Asthma Family history of cancer Maternal Grandmother Diabetes Maternal Grandfather Colon cancer Maternal Aunt Colon cancer Family/Other Breast cancer Family/Other Pancreatic cancer Sister Uterine cancer Surgical History Surgical History S/P left colectomy H/O colonoscopy H/O LEEP History of removal of cyst (~08/07/21) History of esophagogastroduodenoscopy (EGD) History of lithotripsy History of appendectomy History of tubal ligation Social History Social History Household Members: Family Household Members Other:: grandchildren Housing: House Are you a primary youth care specialist to a significant other at home: No Do you presently have visiting nurse or other home services: No Alcohol intake: never Patient Tobacco Use Status: Never used Tobacco e-Cigarette/Vaping Use: Never Used Second Hand Smoke Exposure: No Have you been hit, kicked, punched, or otherwise hurt by someone within the past year? If so, by whom?: No Are you DNR?: No Advance Directives: Yes Advance Directives on File: Yes Advance Directives Date on File: 07/01/25 FDLMP: 06/17/25 service: No Current occupational status: unemployed Cognitive needs: No Hearing needs: No Vision needs: No Meds Allergies Allergy/AdvReac Type Severity Reaction Status Date / Time iron (From Venofer) AdvReac Intermediate Hives Verified 07/01/25 12:36 methocarbamol AdvReac Intermediate Hives Verified 07/01/25 12:36 Home Medications ?Medication ?Instructions ?Recorded ?Confirmed ?Last Taken ?Type cyanocobalamin (vitamin B-12) 1,000 mcg IM QMONTH 05/07/23 07/01/25 05/07/23 History 1,000 mcg/mL injection solution escitalopram oxalate 10 mg tablet 10 mg PO DAILY 10/15/23 07/01/25 Unknown History trazodone 150 mg tablet 150 mg PO BEDTIME 10/15/23 07/01/25 Unknown History hydroxyzine HCl 25 mg tablet 25 mg PO TID 12/31/24 07/01/25 Unknown History paroxetine HCl 20 mg tablet 20 mg PO DAILY 12/31/24 07/01/25 Unknown History Exam Exam Date and Time: 07/01/2025 Airway Mallampati Class: II TM Dist: >3cm Neck ROM: Full Heart: rrr Lungs: ctab vesicular Assessment and Plan Assessment Anesthesia Assessment: Anesthesia Plan Discussed Final Anesthetic Review NPO: Yes ASA Class: II Final Preanesthetic Review: No Changes in Pt Med Stat, Meds/Allgs Chart Reviewed, Consent Obtained/Reviewed and Anes Risks/Benef Reviewed Patient Risk: Low Procedure Risk: Low Anesthetic Plan Anesthetic Plan: GA Disposition: Standard PACU
[2025-07-01] VITALS (9 sets, daily range): BP systolic 109–137; BP diastolic 59–80; PULSE 75–106; RESP 17–21; TEMP 36.3–36.7; O2SAT 97–100; BMI 29.8
[2025-07-01] MEDS: Lactated Ringers 1,000 ML 100 ML IVCONT (12:43)
[2025-07-01 12:53] LABS: UPreg QC Valid YES
--- NOTE | 2025-07-01 14:20 | MHC.SHP ---
Pre-Procedural Eval Section A - 24 Hr Update-Section A only Date of Service: 07/01/25 The patient is an INPATIENT: No Changes since office visit: No Cold of Flu in the past 2 weeks, No New Medical Problems, No Changes in Medication and No Patient answered all questions The patient has been examined within 24 hours of the surgical procedure. The History & Physical has been completed within 30 days and I have reviewed it.: Yes Section B - Complete if H&P > 30 days Chief Complaint: Abnormal uterine and vaginal bleeding, unspecified Allergies: Allergies Allergy/AdvReac Type Severity Reaction Status Date / Time iron (From Venofer) AdvReac Intermediate Hives Verified 07/01/25 12:36 methocarbamol AdvReac Intermediate Hives Verified 07/01/25 12:36 Plan Diagnosis/Plan: Unchanged I have reviewed the history and physical and performed a pertinent physical examination on my patient. No changes have occurred unless specified. Time Spent With Patient Time: Total time managing care of this patient today ____ minutes.
--- NOTE | 2025-07-01 15:01 | P.BOP_ITS ---
Brief Operative Note Date of Service: 07/01/25 Pre-op diagnosis: Abnormal uterine bleeding, endometrial polyp by EMB pathology Post-op diagnosis: same (Endometrial polyp) Procedure: Hysteroscopy D&C, Polypectomy Surgeon: Eliseo Martinez MD Anesthesia: GLMA Was an Retail Wireless Sales Representative used for this Procedure?: No Estimated blood loss (mL): 0 Pathology: other (Endometrial Scrapping. Polyp) Condition: stable Disposition: PACU
--- NOTE | 2025-07-01 15:01 | P.OP_ITS ---
Operative Note Operative Note Date of Service: 07/01/25 Narrative: Preop Diagnosis: Abnormal uterine bleeding, Endometrial polyp by EMB pathology Operation: Diagnostic Hysteroscopy, Dilataion & Curettage and polypectomy Post Op Diagnosis: Endometrial Polyp QBL: Minimal Anesthesia: GLMA Surgeon: Eliseo Martinez MD Marble Cleaner: None Complication: None Pathology: Endometrial Scrapings, Endometrial polyp Procedure: The patient was put in the dorsal lithotomy position, scrubbed, and draped in the usual manner. A sterile speculum was inserted in the patient's vagina. The anterior lip of the cervix was grasped with a single tooth tenaculum. The cervix was dilated up to 5 mm, then the scope was inserted in the patient's uterus. Inspection revealed endometrial polyp. The Myosure Reach device was used; it was introduced through the operative channel and polypectomy done with no complications. The scope was then taken out from the uterine cavity, sharp curettings was carried on with minimal to moderate amount of tissues retrieved. At the end of the procedure, all instruments were taken out of the patient uterine and vaginal cavity. The single tooth tenaculum was removed and homeostasis was assured using pressure,. The patient tolerated the procedure well and was transferred to the PACU in a stable condition.
== END 2025-07-01 16:20 | disposition home or self-care (01) ==
PROVIDERS: PCP Internal Medicine; Visit Provider Obstetrics & Gynecology
PROC: 0UDB8ZZ Extraction of Endometrium, Via Natural or Artificial Opening Endoscopic (ICD-10-PCS; CPT 58558; principal; 2025-07-01 14:20)
DX: N93.9 Abnormal uterine and vaginal bleeding, unspecified (principal); N84.0 Polyp of corpus uteri; Z85.41 Personal history of malignant neoplasm of cervix uteri; D64.9 Anemia, unspecified; M79.7 Fibromyalgia; G47.33 Obstructive sleep apnea (adult) (pediatric); J45.30 Mild persistent asthma, uncomplicated; R00.2 Palpitations; K52.89 Other specified noninfective gastroenteritis and colitis; K59.04 Chronic idiopathic constipation; K21.9 Gastro-esophageal reflux disease without esophagitis; F33.0 Major depressive disorder, recurrent, mild; F41.1 Generalized anxiety disorder; F41.0 Panic disorder [episodic paroxysmal anxiety]; Z87.19 Personal history of other diseases of the digestive system; Z90.49 Acquired absence of other specified parts of digestive tract; Z79.899 Other long term (current) drug therapy; Z88.8 Allergy status to other drugs, medicaments and biological substances; Z98.890 Other specified postprocedural states; Z56.0 Unemployment, unspecified
CPT/HCPCS: 58558; 81025; 88305; J0131; J1200; J1885; J2003; J2371; J2704; J3010

== ENCOUNTER → 2025-07-01 12:21 | Outpatient (BNV) | payer OTHER, SELFPAY | PROVIDERS: PCP Internal Medicine; Visit Provider Obstetrics & Gynecology | DX: N84.0 Polyp of corpus uteri (principal) | CPT/HCPCS: 58558 ==

== ENCOUNTER 2025-07-06 13:49 | Outpatient (AMB) | payer OTHER, SELFPAY ==
--- NOTE | 2025-07-06 13:51 | MHC.OFFVIS ---
Vital Signs 07/06/25 13:56 Height 5 ft 2 in Weight 163 lb BMI 29.8 BP 108/64 Intake Visit Reasons: post op Propellant Charge Zone Assembler Required: Yes Propellant Charge Zone Assembler Language: Java Software Engineer Services: Propellant Charge Zone Assembler Present (in person) Propellant Charge Zone Assembler Name: Elvie RUELAS Information Interpreted: non-clinical & clinical Accompanied by: Self / Same As Patient Allergies iron (From Venofer) Adverse Reaction (Intermediate, Verified 07/06/25 13:57) Hives methocarbamol Adverse Reaction (Intermediate, Verified 07/06/25 13:57) Hives HPI Comments Details: The patient is presenting post hysteroscopy D&C no complaints minimal vaginal bleeding no feverishness chills or abdominal pain. The pathology showed the following: A. Endometrium, polypectomy: - Proliferative endometrium; no atypia or hyperplasia identified. - Small fragment with some features of endometrial polyp. B. Endometrium, curettage: Proliferative endometrium with focal breakdown; no atypia or hyperplasia identified. The following workup was done.: H&H= 10.3/33.8 TSH, hCG, GC and chlamydia were negative. Endometrial biopsy pathology showed the following: Endometrium, biopsy: Benign endometrium with granulomatous endometritis and breakdown, fragments suggestive of benign endometrial polyp, and benign endocervical glandular epithelium; no atypia or carcinoma (see comment). Comment: Granulomatous endometritis may be seen with infections, sarcoid, and previous instrumentation. Focal necrosis is present, and no viral cytopathic effect is seen. Stains for acid fast bacteria and fungi are pending with addendum to follow. Co testing was done in 01/09 was negative. Mammogram was done in 08/11 and was BI-RADS 2 Pelvic ultrasound showed the following: Findings: Anteverted uterus measuring 9.1 x 3.7 x 5.4cm. There is heterogeneous echotexture without definitive masses. Normal endometrial thickness of up to 0.5cm. The right ovary is normal in size, measuring 1.2 x 2.1 x 1.3cm, volume of 1.8mL. There is normal echogenicity and vascularity. No lesions. The left ovary is normal in size, measuring 1.7 x 1.8 x 1.3cm, volume of 2.1mL. There is normal echogenicity and vascularity. No lesions. No free fluid. Impression: No acute findings. [facility] Medical History Well woman exam Pre-op examination Physical exam Nausea and vomiting History of diverticulitis Abscess Epidermal cyst Abdominal cramping Screening for cervical cancer GERD (gastroesophageal reflux disease) Chronic idiopathic constipation Diarrhea Diverticulitis Cancer of cervix Anemia TRUDY (obstructive sleep apnea) GERD (gastroesophageal reflux disease) Panic attacks Polyarthralgia Left knee pain Mild persistent asthma Heart palpitations LOVE (generalized anxiety disorder) Mild recurrent major depression Diverticular disease Colitis with complication Arthritis Fibromyalgia Abdominal pain Surgical History S/P left colectomy H/O colonoscopy H/O LEEP History of removal of cyst (~08/07/21) History of esophagogastroduodenoscopy (EGD) History of lithotripsy History of appendectomy History of tubal ligation Family History Father Diabetes Hypertension CVD (cardiovascular disease) Heart disease FH: mental illness Mother Asthma Family history of cancer Maternal Grandmother Diabetes Maternal Grandfather Colon cancer Maternal Aunt Colon cancer Family/Other Breast cancer Family/Other Pancreatic cancer Sister Uterine cancer Social History Household Members: Family Household Members Other:: grandchildren Housing: House Are you a primary critical care transport nurse to a significant other at home: No Do you presently have visiting nurse or other home services: No Alcohol intake: never Patient Tobacco Use Status: Never used Tobacco e-Cigarette/Vaping Use: Never Used Second Hand Smoke Exposure: No Advance Directives Date on File: 07/01/25 service: No Current occupational status: unemployed Cognitive needs: No Hearing needs: No Vision needs: No Female Reproductive History Menstrual Age of Menarche: 16 Date of last menstrual period: 06/17/25 Review of Systems Const All systems reviewed & are unremarkable except as noted in HPI and below Reports as per HPI and Reports no additional complaints GI Reports no additional complaints Reports no additional complaints Physical Exam Vital Signs: Last Vital Signs BP 108/64 07/06/25 13:56 BMI result Body Mass Index 29.8 Assessment & Plan Assessment & Plan (1) Abnormal uterine bleeding (AUB): Comment: Anemia Code(s): N93.9 - Abnormal uterine and vaginal bleeding, unspecified Category: Medical Plan: Screening mammogram ordered. Discussed with the patient the results of the work up done and options of treatment including Lysteda, control pills, Mirena IUD, endometrial ablation and hysterectomy. All pros, cons, risks and benefits if each option was discussed with the patient and the patient decided to go ahead with Mirena IUD so a more detailed discussion about it was conducted including mechanism of action, risks (uterine perforation, infection, injury to bladder, bowel, displacement, and others) benefits (hypo menorrhea, amenorrhea, ...). GC/CT were taken last visit and were negative and the patient was instructed to schedule Mirena IUD insertion on day 1-5 of next cycle . All questions answered, the patient verbalized understanding Orders: Orders MM tomosynthesis screening BI Today Z12.31 - Encounter for screening mammogram for malignant neoplasm of breast Coding Level of Care Code Est Pt Level 3 (74422) Diagnoses Abnormal uterine bleeding (AUB) N93.9
[2025-07-06 13:56] VITALS: BP 108/64; BMI 29.8
--- OUTSIDE RECORDS SUMMARY | 2025-07-07 07:37 | XMS_ITS | Clinical Summary ---
Author Organization [facility] Address [address] [place] [address] Phone Care Team Providers Care Enrollment Manager Name Role Phone Magali Summers MD Primary Care Provider [phone] Allergies Active Allergy Reactions Criticality Noted Date [...] EDT - 06/05/2025 2:46 PM EDT Emergency [facility] Emergency [address] [place] [address] Renal colic on left side (Primary Dx) Discharge Disposition: Home or Self Care 05/05/2025 7:48 PM EDT - 05/05/2025 9:23 PM EDT Emergency [facility] Emergency [address] [place] [address] Acute nonintractable headache, unspecified headache [...] Signed Date: 06/05/2025 13:07 ET Workstation ID: [id number] Transcribed By: Self Edit Transcribed Date: 06/05/2025 [...] Signed Date: 06/05/2025 13:07 ET Workstation ID: [id number] Transcribed By: Self Edit Transcribed Date: 06/05/2025 13:02 ET Aide MENDO[facility] IMG CT PROCEDURES Jossy l Result * POC , urine manually resulted (06/05/2025 12:29 PM EDT) [facility] HCG, Ur POC Negative Negative Urine Urine specimen obtained by clean catch procedure / Unknown 06/05/2025 12:29 PM EDT Paula Mtz MD POINT OF CARE TEST ENTER/EDIT OR DERABLES Final Result * (ABNORMAL) Urinalysis with reflex microscopic and culture (06/05/2025 12:08 PM EDT) [facility] Specific Jackman Urine 1.023 1.003 - 1.030 LAB URINALYSIS - AUTOMATED METHOD 06/05/2025 12:27 PM [facility] pH, Urine 5.5 5.0 - 8.0 pH LAB URINALYSIS - AUTOMATED METHOD 06/05/2025 12:27 PM [facility] Leukocytes, Urine Negative Negative LAB URINALYSIS - AUTOMATED METHOD 06/05/2025 12:27 PM [facility] Nitrite, Urine Negative Negative LAB URINALYSIS - AUTOMATED METHOD 06/05/2025 12:27 PM [facility] Protein, Urine 30(A) <=Trace mg/dL LAB URINALYSIS - AUTOMATED METHOD 06/05/2025 12:27 PM [facility] Glucose, Urine Negative Negative mg/dL LAB URINALYSIS - AUTOMATED METHOD 06/05/2025 12:27 PM [facility] Ketones, Urine Trace(A) Negative mg/dL LAB URINALYSIS - AUTOMATED METHOD 06/05/2025 12:27 PM [facility] Urobilinogen , Urine 0.2 0.2 - 1.0 mg/dL LAB URINALYSIS - AUTOMATED METHOD 06/05/2025 12:27 PM [facility] Bilirubin, Urine Negative Negative LAB URINALYSIS - AUTOMATED METHOD 06/05/2025 12:27 PM EDT [facility] Blood, Urine Large(A) Negative LAB URINALYSIS - AUTOMATED METHOD 06/05/2025 12:27 PM EDT [facility] RBC, Urine 195.0(H) 0 - 4 /HPF LAB URINALYSIS - AUTOMATED METHOD 06/05/2025 12:27 PM [facility] WBC, Urine 13.3(H) 0 - 4 /HPF LAB URINALYSIS - AUTOMATED METHOD 06/05/2025 12:27 PM T [facility] Squamous Epithelial, Urine >100(H) 0 - 60 /LPF LAB URINALYSIS - AUTOMATED METHOD 06/05/2025 12:27 PM [facility] Bacteria, Urine Moderate(A) Negative /HPF LAB URINALYSIS - AUTOMATED METHOD 06/05/2025 12:27 PM [facility] Hyaline Casts, Urine 6.0(H) 0 - 3 /LPF LAB URINALYSIS - AUTOMATED METHOD 06/05/2025 12:27 PM [facility] Urine Urine specimen obtained by clean catch procedure / Unknown Non-blood Collection / Unknown 06/05/2025 12:08 PM EDT 06/05/2025 12:14 PM EDT us Paula Mtz MD LAB URINE ORDERABLES Final Resul t [facility] [address] [place] [address], * Griffin urine culture tube (06/05/2025 12:08 PM EDT) Extra Tube Hold for add-ons. 06/05/2025 2:02 PM EDT [facility] Comment:Auto resulted. Urine Urine specimen obtained by clean catch procedure / Unknown Non-blood Collection / Unknown 06/05/2025 12:08 PM EDT 06/05/2025 12:14 PM EDT us Paula Mtz MD LAB URINE ORDERABLES Final Resul t [facility] [address] [place] [address], * (ABNORMAL) CBC auto differential (06/05/2025 12:08 PM EDT) WBC 10.1 4.8 - 10.8 K/mcL LAB HEMETOLOGY METHOD 06/05/2025 12:25 PM EDT [facility] RBC 3.90 3.80 - 4.80 M/mcL LAB HEMETOLOGY METHOD 06/05/2025 12:25 PM EDT [facility] Hemoglobin 10.3(L) 11.5 - 16.0 g/dL LAB HEMETOLOGY METHOD 06/05/2025 12:25 PM EDT [facility] Hematocrit 33.8(L) 35.0 - 47.0 % LAB HEMETOLOGY METHOD 06/05/2025 12:25 PM EDT [facility] MCV 86.9 79.0 - 98.0 FL LAB HEMETOLOGY METHOD 06/05/2025 12:25 PM EDT [facility] MCH 26.5(L) 27.0 - 32.0 pcg LAB HEMETOLOGY METHOD 06/05/2025 12:25 PM EDT [facility] MCHC 30.5(L) 32.0 - 37.0 g/dL LAB HEMETOLOGY METHOD 06/05/2025 12:25 PM EDT [facility] RDW 14.8 11.0 - 15.0 % LAB HEMETOLOGY METHOD 06/05/2025 12:25 PM EDT [facility] Platelets 436(H) 130 - 400 K/mcL LAB HEMETOLOGY METHOD 06/05/2025 12:25 PM EDT [facility] MPV 9.5 7.0 - 11.0 FL LAB HEMETOLOGY METHOD 06/05/2025 12:25 PM EDT [facility] NRBC 0.0 <1.0 % LAB HEMETOLOGY METHOD 06/05/2025 12:25 PM EDT [facility] NRBC Absolute 0.00 <0.10 K/mcL LAB HEMETOLOGY METHOD 06/05/2025 12:25 PM EDT [facility] Neutrophils Relative 67.8 % LAB HEMETOLOGY METHOD 06/05/2025 12:25 PM EDT [facility] Lymphocytes Relative 21.1 % LAB [facility]EMETOLOGY [facility] Monocytes Relative 6.7 % LAB HEMETOLOGY METHOD 06/05/2025 12:25 PM [facility] Eosinophils Relative 3.5 % LAB HEMETOLOGY METHOD 06/05/2025 12:25 PM EDT [facility] Basophils Relative 0.6 % LAB HEMETOLOGY METHOD 06/05/2025 12:25 PM EDT [facility] Immature Granulocytes Relative 0.3 % LAB HEMETOLOGY METHOD 06/05/2025 12:25 PM [facility] Neutrophils Absolute 6.86 1.50 - 7.00 K/mcL LAB HEMETOLOGY METHOD 06/05/2025 12:25 PM EDT [facility] Lymphocytes Absolute 2.13 1.00 - 5.00 K/mcL LAB HEMETOLOGY METHOD 06/05/2025 12:25 PM EDT [facility] Monocytes Absolute 0.68 0.20 - 1.00 K/mcL LAB HEMETOLOGY METHOD [facility] Eosinophils Absolute 0.35 0.00 - 0.50 K/mcL LAB HEMETOLOGY METHOD 06/05/2025 12:25 PM EDT [facility] Basophils Absolute 0.06 0.00 - 0.20 K/[facility] LAB HEMETOLOGY METHOD 06/05/2025 12:25 PM EDT [facility] Immature Granulocytes Absolute 0.03 0.00 - 0.03 K/[facility] LAB HEMETOLOGY METHOD 06/05/2025 12:25 PM EDT [facility] Blood Venous blood specimen / Unknown Venipuncture / Unknown 06/05/2025 12:08 PM EDT 06/05/2025 12:14 PM EDT us Paula Mtz MD LAB BLOOD ORDERABLES Final Resul t Performing Organization Address City/[facility]/ZIP Co de Phone Number [facility] [address] [place] [address], [place] [phone] * Culture urine (06/05/2025 12:08 PM EDT) Pathologist [facility] [place] Culture, Urine No growth 06/06/2025 10:23 AM EDT [facility] Urine Urine specimen obtained by clean catch procedure / Unknown Non-blood Collection / Unknown 06/05/2025 12:08 PM EDT 06/05/2025 12:27 PM EDT us Paula Mtz MD LAB MICROBIOLOGY - GENERAL ORDER KAVITHA Final Result Performing Organization Address City/[facility]/ZIP Co de Phone Number [facility] [address] [place] [address], [place] [phone] * (ABNORMAL) Comprehensive metabolic panel (06/05/2025 12:08 PM EDT) Sodium 142 133 - 145 mmol/L LAB CHEMISTRY METHOD 06/05/2025 12:52 PM EDT [facility] Potassium 4.9 3.5 - 5.5 mmol/L LAB CHEMISTRY METHOD 06/05/2025 12:52 PM EDT [facility] Chloride 107 96 - 110 mmol/L LAB CHEMISTRY METHOD 06/05/2025 12:52 PM [facility] CO2 28 21 - 32 mmol/L LAB CHEMISTRY METHOD 06/05/2025 12:52 PM [facility] Anion Gap 7 3 - 11 LAB CHEMISTRY METHOD 06/05/2025 12:52 PM [facility] Glucose 102(H) 70 - 100 mg/dL LAB CHEMISTRY METHOD 06/05/2025 12:52 PM [facility] BUN 11 5 - 25 mg/dL LAB CHEMISTRY METHOD 06/05/2025 12:52 PM [facility] Creatinine 0.95 0.50 - 1.10 mg/dL LAB CHEMISTRY METHOD 06/05/2025 12:52 PM [facility] eGFR 77 >=60 mL/min/1. 73m2 LAB CHEMISTRY METHOD 06/05/2025 12:52 PM [facility] Comment:Calculation based on the Chronic Kidney Disease Epidemiology Collaboration (CKD-EPI) equation refit without adjustment for race. BUN/Creatinine Ratio 11.6 LAB CHEMISTRY METHOD 06/05/2025 12:52 PM [facility] Calcium 9.4 8.5 - 10.5 mg/dL LAB CHEMISTRY METHOD 06/05/2025 12:52 PM [facility] AST (SGOT) 19 10 - 42 unit/L LAB CHEMISTRY METHOD 06/05/2025 12:52 PM [facility] ALT (SGPT) 19 10 - 60 unit/L LAB CHEMISTRY METHOD 06/05/2025 12:52 PM [facility] Alkaline Phosphatase 96 42 - 121 unit/L LAB CHEMISTRY METHOD 06/05/2025 12:52 PM [facility] Total Protein 7.1 6.0 - 8.0 g/dL LAB CHEMISTRY METHOD 06/05/2025 12:52 PM [facility] Albumin 3.7 3.2 - 5.0 g/dL LAB CHEMISTRY METHOD 06/05/2025 12:52 PM EDT [facility] Total Bilirubin 0.3 0.0 - 1.4 mg/dL LAB CHEMISTRY METHOD 06/05/2025 12:52 PM EDT [facility] Blood Venous blood specimen / Unknown Venipuncture / Unknown 06/05/2025 12:08 PM EDT 06/05/2025 12:14 PM EDT us Paula Mzt MD LAB BLOOD ORDERABLES Final Resul t [facility] [address] [place] [address], from Last 3 Months Insurance [facility] [employer] Care Teams Enrollment Manager Relationship Specialty Start Date End Date Magali Summers MD [address] [place] [address] PCP - General Internal Medicine 05/05/25
--- OUTSIDE RECORDS SUMMARY | 2025-07-07 07:37 | XMS_ITS | Data Portability ---
Author Organization [place] [facility], Allergy Address [address] [address] Care Team Providers Care Computational Mathematician Name Role Phone HUGO JOSE Primary Care Provider Assessment No assessment recorded. Plan of Treatment Reminders Order Date Submit Date Provider Last Modified By Organization Details Last Modified Time Details Appointments None recorded. Lab None recorded. Referral None recorded. Procedures None recorded. Surgeries None recorded. Imaging None recorded. Medication Orders famotidine 20 mg tablet 2023 024 [facility]/Pharmacy #[id number], [address] [facility], [place], [address], 4 15:12:05 Patient TargetsNo targets recorded. Patient InstructionsNo instructions recorded. Reason for Referral None Reported. Problems Name Problem SNOMED Code Status Onset Date Resolution Date Notes Provider Name and Address Organization Details Recorded Time Dysphonia 83150798 Active 2015 Hoarse ness; Note: Date Diagno sed: 016 3:06 PM (R49.0 ) Not Available Formerly [facility] 4 02:13:34 Gastroesop hageal reflux disease without esophagiti s [id number] Active 2023 DOUG VILLATORO MD [address] [facility],[place] [address], [place], [address] , [place] - [facility] 4 15:10:58 Chronic hoarseness 0753539247217 Active 2023 DOUG VILLATORO MD [address] [facility],[place] [address], [place], [address] , [facility] - [facility] 4 15:14:20 Problem Notes None recorded. Procedures Surgical History Date Name Laterality Status Provider Name and Address Organization Details Recorded Time 04/06/2024 FFL_RE completed DOUG VILLATORO MD [address] [place] [address], [place], [address], [place] - [facility] 04/06/2024 15:16:09 Imaging Results None recorded. Procedure [...] 400 mg tablet active Medicatio n ID: [id number] Br and Name: ibuprofen Send Method: E-Prescri [...] Updated DateTime 04/06/2024 157.48 cm 28.9 kg/m2 29594.59 g Annette Banuelos [place] - [facility] 04/06/2024 14:46:26 Social History None recorded. Functional Status None recorded. Mental Status None recorded. Family History Nothing Reported. Medical History No medical history recorded. Gynecological HistoryNo gynecological history recorded. Obstetrics History GPAL:G 0 P 0 0 0 0 Past Encounters Encounter ID Performer Location Encounter Start Date Encounter Closed Date Diagnosis/Indication Diagnosis SNOMED-CT Code Diagnosis ICD10 Code Diagnosis IMO Codes Diagnosis Note [id number] DOUG VILLATORO MD [facility] [address] [address] 04/06/2024 14:04:27 04/06/2024 15:13:37 Gastroesophageal reflux disease without esophagitis 858618281 K21.9 Exam was benign. Laryngosco py showed [...] py if she doesn't improve. Chronic hoarseness [address]6920 [address] 105 R49.0 see above Health Concerns Section Related Observation LastModified by Organization Detai ls LastModified Time None Recorded Concern Status LastModified by Organization Details LastModified Time None Recorded Advance Directives Directive None Recorded Payers Insurance Date Sequence Insurance Name Policy Number Policy Pleitez Covered Member ID Pleitez Member ID Guarantor Name 10/25/2024 1 [facility] [employer] (MEDICAID HMO) COLLEEN Merida [id number] Skylar Hawleyos 04/06/2024 1 MEDICAID-OR: [facility] Skylar Merida [id number] Skylar Merida Notes Date Note Type Note [...] occasionally she does. DOUG VILLATORO MD [address] [place] [address], [phone], [facility] - [facility] 04/06/2024 15:17:06 OBGyn Episode No OBEpisode recorded.
== END 2025-07-06 14:07 | disposition home or self-care (01) ==
LOC: HO.HWS 13:50
PROVIDERS: PCP Internal Medicine; Visit Provider Obstetrics & Gynecology
DX: N93.9 Abnormal uterine and vaginal bleeding, unspecified (principal)
CPT/HCPCS: 99213

== ENCOUNTER → 2025-07-06 13:49 | Outpatient (BNVA) | payer OTHER, SELFPAY | PROVIDERS: PCP Internal Medicine; Visit Provider Obstetrics & Gynecology | DX: Z71.2 Person consulting for explanation of examination or test findings (principal); N93.9 Abnormal uterine and vaginal bleeding, unspecified | CPT/HCPCS: 99212 ==

== ENCOUNTER 2025-08-05 14:56 | Outpatient (AMB) | payer OTHER, SELFPAY ==
--- NOTE | 2025-08-05 15:08 | MHC.OFFVIS ---
Intake Visit Reasons: Kidney Stones (set)UA) Intake Note: 44 year old female presents today for kidney stones as a new patient taking vitamin B12 using [facility] [employer] Ii Assembler Required: Yes [employer] Ii Assembler Name: [id number]--Daxxx Allergies iron (From Venofer) Adverse Reaction (Intermediate, Verified 08/05/25 15:08) Hives methocarbamol Adverse Reaction (Intermediate, Verified 08/05/25 15:08) Hives Medication List - Last Reconciled 08/05/25 by Christal Campbell MD albuterol sulfate 90 mcg/actuation (Ventolin HFA) 2 puffs PO Q6H PRN 30 days cetirizine (All Day Allergy (cetirizine)) 10 mg PO DAILY PRN 90 days cholecalciferol (vitamin D3) 50 mcg PO DAILY 90 days cyanocobalamin (vitamin B-12) 1,000 mcg IM QMONTH dicyclomine 20 mg PO QID PRN escitalopram oxalate 10 mg PO DAILY ferrous sulfate 325 mg PO DAILY 90 days gabapentin 100 mg PO BID PRN 30 days hydroxyzine HCl 25 mg PO TID levalbuterol tartrate 45 mcg/actuation (Xopenex HFA) 2 puffs inhalation Q4-6H PRN 30 days metoclopramide HCl (Reglan) 5 mg PO QIDACHS nitrofurantoin monohyd/m-cryst 100 mg (Macrobid) 100 mg PO BID 7 days ondansetron HCl 8 mg PO BID PRN 30 days pantoprazole (Protonix) 40 mg PO BID 30 days paroxetine HCl 20 mg PO DAILY sumatriptan succinate 25 mg PO Q2-4H PRN 30 days tamsulosin 0.4 mg PO BEDTIME tramadol 50 mg PO Q8H PRN 30 days trazodone 150 mg PO BEDTIME PFSH Medical History (Updated 08/05/25 @ 15:44 by Christal Campbell MD) Well woman exam Pre-op examination Physical exam Nausea and vomiting History of diverticulitis Abscess Epidermal cyst Abdominal cramping Screening for cervical cancer GERD (gastroesophageal reflux disease) Chronic idiopathic constipation Diarrhea Diverticulitis Cancer of cervix Anemia TRUDY (obstructive sleep apnea) GERD (gastroesophageal reflux disease) Panic attacks Polyarthralgia Left knee pain Mild persistent asthma Heart palpitations LOVE (generalized anxiety disorder) Mild recurrent major depression Diverticular disease Colitis with complication Arthritis Fibromyalgia Abdominal pain Surgical History (Updated 07/20/25 @ 15:41 by Vinita Mosley MD) H/O cervical polypectomy (~07/03/25) S/P left colectomy H/O colonoscopy H/O LEEP History of removal of cyst (~08/07/21) History of esophagogastroduodenoscopy (EGD) History of lithotripsy History of appendectomy History of tubal ligation Family History Father Diabetes Hypertension CVD (cardiovascular disease) Heart disease FH: mental illness Mother Asthma Family history of cancer Maternal Grandmother Diabetes Maternal Grandfather Colon cancer Maternal Aunt Colon cancer Family/Other Breast cancer Family/Other Pancreatic cancer Sister Uterine cancer Social History Household Members: Family Household Members Other:: grandchildren Housing: House Are you a primary animal caretaker to a significant other at home: No Do you presently have visiting nurse or other home services: No Alcohol intake: never Patient Tobacco Use Status: Never used Tobacco e-Cigarette/Vaping Use: Never Used Second Hand Smoke Exposure: No Advance Directives Date on File: 07/01/25 service: No Current occupational status: unemployed Cognitive needs: No Hearing needs: No Vision needs: No Female Reproductive History Menstrual Age of Menarche: 16 Results AMB Urinalysis, Automated UA Leukoctes 15 Susy/uL Last Edit by SURAJ Cuellar on 08/05/25 15:19 UA Nitrite Negative Last Edit by SURAJ Cuellar on 08/05/25 15:19 UA Urobilinogen 0.2 mg/dL Last Edit by SURAJ Cuellar on 08/05/25 15:19 UA Protein 15 mg/dL Last Edit by SURAJ Cuellar on 08/05/25 15:19 UA pH 5.5 Last Edit by SURAJ Cuellar on 08/05/25 15:19 UA Blood 25 Dhruv/uL Last Edit by SURAJ Cuellar on 08/05/25 15:19 UA Specific [place] 1.030 Last Edit by SURAJ Cuellar on 08/05/25 15:19 UA Ketone Negative Last Edit by SURAJ Cuellar on 08/05/25 15:19 UA Bilirubin 1 mg/dL Last Edit by SURAJ Cuellar on 08/05/25 15:19 UA Glucose 0 mg/dL Last Edit by SURAJ Cuellar on 08/05/25 15:19 Results Reviewed Results Reviewed: Laboratory Last Values Urine pH (Auto) 5.5 08/05/25 15:18 Specific [place] (Auto) 1.030 08/05/25 15:18 Urine Protein (Auto) 15 mg/dL 08/05/25 15:18 Glucose (UA)(Auto) 0 mg/dL 08/05/25 15:18 Urine Ketones (Auto) Negative 08/05/25 15:18 Urine Blood (Auto) 25 Dhruv/uL 08/05/25 15:18 Urine Nitrite (Auto) Negative 08/05/25 15:18 Urine Bilirubin (Auto) 1 mg/dL 08/05/25 15:18 Urine Urobilinogen (Auto) 0.2 mg/dL 08/05/25 15:18 Leukocyte Esterase (Auto) 15 Susy/uL 08/05/25 15:18 Assessment & Plan Assessment & Plan (1) Calculus of distal left ureter: Code(s): N20.1 - Calculus of ureter Category: Medical Orders: Orders AMB Urinalysis Automated Today Z13.9 - Encounter for screening, unspecified CT kidney stone Today N20.1 - Calculus of ureter Urine Culture Today N39.0 - Urinary tract infection, site not specified Medications: New tamsulosin 0.4 mg PO BEDTIME 20 caps 0RF nitrofurantoin monohyd/m-cryst 100 mg (Macrobid) must administer with a meal/food 100 mg PO BID 14 caps 0RF 7 days Coding Diagnoses Calculus of distal left ureter N20.1
--- OUTSIDE RECORDS SUMMARY | 2025-08-05 19:03 | XMS_ITS | Clinical Summary ---
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 Magali Summers MD Primary Care Provider [phone] Allergies Active Allergy Reactions Criticality Noted Date Comments Dexamethasone 06/05/2025 Iron Rash 05/05/2025 Methocarbamol GI intolerance 06/05/2025 Medications No known medications Active Problems No known active problems Encounters Date Type Department Care Team Description 06/05/2025 11:41 AM EDT - 06/05/2025 2:46 PM EDT Emergency [facility] Emergency [address] [place] [address] Renal colic on left side [...] on file Sexual Orientation Not on file Last Filed Vital Signs Vital Sign Reading [...] Signed Date: 06/05/2025 13:07 ET Workstation ID: [id number] Transcribed By: Self Edit Transcribed Date: 06/05/2025 [...] Signed Date: 06/05/2025 13:07 ET Workstation ID: [id number] Transcribed By: Self Edit Transcribed Date: 06/05/2025 13:02 ET Aide MENDOZA IMG CT PROCEDURES Jossy l Result * POC , urine manually resulted (06/05/2025 12:29 PM EDT) Pathologist [facility] HCG, Ur POC Negative Negative Urine Urine specimen obtained by clean catch procedure / Unknown 06/05/2025 12:29 PM EDT Paula Mtz MD POINT OF CARE TEST ENTER/EDIT OR DERABLES Final Result * (ABNORMAL) Urinalysis with reflex microscopic and culture (06/05/2025 12:08 PM EDT) Pathologist [facility] Specific [place] Urine 1.023 1.003 - 1.030 LAB URINALYSIS - AUTOMATED METHOD 06/05/2025 12:27 PM [facility] pH, Urine 5.5 5.0 - 8.0 pH LAB URINALYSIS - AUTOMATED METHOD 06/05/2025 12:27 PM [facility] Leukocytes, Urine Negative Negative LAB URINALYSIS - AUTOMATED METHOD 06/05/2025 12:27 PM [facility] Nitrite, Urine Negative Negative LAB URINALYSIS - AUTOMATED METHOD 06/05/2025 12:27 PM [facility] Protein, Urine 30(A) <=Trace mg/dL LAB URINALYSIS - AUTOMATED METHOD 06/05/2025 12:27 PM [facility] Glucose, Urine Negative Negative mg/dL LAB URINALYSIS - AUTOMATED METHOD 06/05/2025 12:27 PM [facility] Ketones, Urine Trace(A) Negative mg/dL LAB URINALYSIS - AUTOMATED METHOD 06/05/2025 12:27 PM [facility] Urobilinogen , Urine 0.2 0.2 - 1.0 mg/dL LAB URINALYSIS - AUTOMATED METHOD 06/05/2025 12:27 PM [facility] Bilirubin, Urine Negative Negative LAB URINALYSIS - AUTOMATED METHOD 06/05/2025 12:27 PM [facility] Blood, Urine Large(A) Negative LAB URINALYSIS - AUTOMATED METHOD 06/05/2025 12:27 PM [facility] RBC, Urine 195.0(H) 0 - 4 /HPF LAB URINALYSIS - AUTOMATED METHOD 06/05/2025 12:27 PM [facility] WBC, Urine 13.3(H) 0 - 4 /HPF LAB URINALYSIS - AUTOMATED METHOD 06/05/2025 12:27 PM [facility] Squamous Epithelial, Urine >100(H) 0 - 60 /LPF LAB URINALYSIS - AUTOMATED METHOD 06/05/2025 12:27 PM [facility] Bacteria, Urine Moderate(A) Negative /HPF LAB URINALYSIS - AUTOMATED METHOD 06/05/2025 12:27 PM [facility] Hyaline Casts, Urine 6.0(H) 0 - 3 /LPF LAB URINALYSIS - AUTOMATED METHOD 06/05/2025 12:27 PM [facility] Urine Urine specimen obtained by clean catch procedure / Unknown Non-blood Collection / Unknown 06/05/2025 12:08 PM EDT 06/05/2025 12:14 PM EDT Paula Mtz MD LAB URINE ORDERABLES Final Resul t Performing Organization Address City/[facility]/ZIP Co de Phone Number [facility] [address] [place] [address], [place] [phone] * Griffin urine culture tube (06/05/2025 12:08 PM EDT) Pathologist [facility] Extra Tube Hold for add-ons. 06/05/2025 2:02 PM EDT [facility] Comment:Auto resulted. Urine Urine specimen obtained by clean catch procedure / Unknown Non-blood Collection / Unknown 06/05/2025 12:08 PM EDT 06/05/2025 12:14 PM EDT Paula Mtz MD LAB URINE ORDERABLES Final Resul t Performing Organization Address [facility]/ZIP Co de Phone Number [facility] [address] [place] [address], [place] [phone] * (ABNORMAL) CBC auto differential (06/05/2025 12:08 PM EDT) [facility] WBC 10.1 4.8 - 10.8 K/mcL LAB HEMETOLOGY METHOD 06/05/2025 12:25 PM EDT [facility] RBC 3.90 3.80 - 4.80 M/mcL LAB HEMETOLOGY METHOD 06/05/2025 12:25 PM EDT [facility] Hemoglobin 10.3(L) 11.5 - 16.0 g/dL LAB HEMETOLOGY METHOD 06/05/2025 12:25 PM EDT [facility] Hematocrit 33.8(L) 35.0 - 47.0 % LAB HEMETOLOGY METHOD 06/05/2025 12:25 PM EDT [facility] MCV 86.9 79.0 - 98.0 FL LAB HEMETOLOGY METHOD 06/05/2025 12:[facility] MCH 26.5(L) 27.0 - 32.0 pcg LAB HEMETOLOGY METHOD 06/05/2025 12:25 PM EDT [facility] MCHC 30.5(L) 32.0 - 37.0 g/dL LAB HEMETOLOGY METHOD 06/05/2025 12:25 PM [facility] RDW 14.8 11.0 - 15.0 % LAB HEMETOLOGY METHOD 06/05/2025 12:25 PM EDT [facility] Platelets 436(H) 130 - 400 K/mcL LAB HEMETOLOGY METHOD 06/05/2025 12:25 PM [facility] MPV 9.5 7.0 - 11.0 FL LAB HEMETOLOGY METHOD 06/05/2025 12:25 PM [facility] NRBC 0.0 <1.0 % LAB HEMETOLOGY METHOD 06/05/2025 12:25 PM [facility] NRBC Absolute 0.00 <0.10 K/mcL LAB HEMETOLOGY METHOD 06/05/2025 12:25 PM [facility] Neutrophils Relative 67.8 % LAB HEMETOLOGY METHOD 06/05/2025 12:25 PM [facility] Lymphocytes Relative 21.1 % LAB HEMETOLOGY METHOD 06/05/2025 12:25 PM [facility] Monocytes Relative 6.7 % LAB HEMETOLOGY METHOD 06/05/2025 12:25 PM [facility] Eosinophils Relative 3.5 % LAB HEMETOLOGY METHOD 06/05/2025 12:25 PM [facility] Basophils Relative 0.6 % LAB HEMETOLOGY METHOD 06/05/2025 12:25 PM [facility] Immature Granulocytes Relative 0.3 % LAB HEMETOLOGY METHOD 06/05/2025 12:25 PM EDT [facility] Neutrophils Absolute 6.86 1.50 - 7.00 K/mcL LAB HEMETOLOGY METHOD 06/05/2025 12:25 PM EDT [facility] Lymphocytes Absolute 2.13 1.00 - 5.00 K/mcL LAB HEMETOLOGY METHOD 06/05/2025 12:25 PM EDT [facility] Monocytes Absolute 0.68 0.20 - 1.00 K/mcL LAB HEMETOLOGY METHOD 06/05/2025 12:25 PM EDT [facility] Eosinophils Absolute 0.35 0.00 - 0.50 K/mcL LAB HEMETOLOGY METHOD 06/05/2025 12:25 PM EDT [facility] Basophils Absolute 0.06 0.00 - 0.20 K/mcL LAB HEMETOLOGY METHOD 06/05/2025 12:25 PM EDT [facility] Immature Granulocytes Absolute 0.03 0.00 - 0.03 K/mcL LAB HEMETOLOGY METHOD 06/05/2025 12:25 PM EDT [facility] Blood Venous blood specimen / Unknown Venipuncture / Unknown 06/05/2025 12:08 PM EDT 06/05/2025 12:14 PM EDT us Paula Mtz MD LAB BLOOD ORDERABLES Final Resul t [facility] [address] [place] [address], * Culture urine (06/05/2025 12:08 PM EDT) Culture, Urine No growth 06/06/2025 10:23 AM EDT [facility] Urine Urine specimen obtained by clean catch procedure / Unknown Non-blood Collection / Unknown 06/05/2025 12:08 PM EDT 06/05/2025 12:27 PM EDT us Paula Mtz MD LAB MICROBIOLOGY - GENERAL ORDER KAVITHA Final Result [facility] [address] [place] [address], * (ABNORMAL) Comprehensive metabolic panel (06/05/2025 12:08 PM EDT) Sodium 142 133 - 145 mmol/L LAB CHEMISTRY METHOD 06/05/2025 12:52 PM EDT [facility] Potassium 4.9 3.5 - 5.5 mmol/L LAB CHEMISTRY METHOD 06/05/2025 12:52 PM [facility] Chloride 107 96 - 110 mmol/L LAB CHEMISTRY METHOD 06/05/2025 12:52 PM [facility] CO2 28 21 - 32 mmol/L LAB CHEMISTRY METHOD 06/05/2025 12:52 PM [facility] Anion Gap 7 3 - 11 LAB CHEMISTRY METHOD 06/05/2025 12:52 PM [facility] Glucose 102(H) 70 - 100 mg/dL LAB CHEMISTRY METHOD 06/05/2025 12:52 PM [facility] BUN 11 5 - 25 mg/dL LAB CHEMISTRY METHOD 06/05/2025 12:52 PM [facility] Creatinine 0.95 0.50 - 1.10 mg/dL LAB CHEMISTRY METHOD 06/05/2025 12:52 PM [facility] eGFR 77 >=60 mL/min/1. 73m2 LAB CHEMISTRY METHOD 06/05/2025 12:52 PM [facility] Comment:Calculation based on the Chronic Kidney Disease Epidemiology Collaboration (CKD-EPI) equation refit without adjustment for race. BUN/Creatinine Ratio 11.6 LAB CHEMISTRY METHOD 06/05/2025 12:52 PM [facility] Calcium 9.4 8.5 - 10.5 mg/dL LAB CHEMISTRY METHOD 06/05/2025 12:52 PM EDT [facility] AST (SGOT) 19 10 - 42 unit/L LAB CHEMISTRY METHOD 06/05/2025 12:52 PM EDT [facility] ALT (SGPT) 19 10 - 60 unit/L LAB CHEMISTRY METHOD 06/05/2025 12:52 PM EDT [facility] Alkaline Phosphatase 96 42 - 121 unit/L LAB CHEMISTRY METHOD 06/05/2025 12:52 PM EDT [facility] Total Protein 7.1 6.0 - 8.0 g/dL LAB CHEMISTRY METHOD 06/05/2025 12:52 PM EDT [facility] Albumin 3.7 3.2 - 5.0 g/dL LAB CHEMISTRY METHOD 06/05/2025 12:52 PM EDT [facility] Total Bilirubin 0.3 0.0 - 1.4 mg/dL LAB CHEMISTRY METHOD 06/05/2025 12:52 PM EDT [facility] Blood Venous blood specimen / Unknown Venipuncture / Unknown 06/05/2025 12:08 PM EDT 06/05/2025 12:14 PM EDT us Paula Mtz MD LAB BLOOD ORDERABLES Final Resul t [facility] [address] [place] [address], from Last 3 Months Insurance [facility] [employer] Care Teams Raw Cheese Worker Relationship Specialty Start Date End Date Magali Summers MD [address] [place] [address] PCP - General Internal Medicine 05/05/25
--- OUTSIDE RECORDS SUMMARY | 2025-08-05 19:03 | XMS_ITS | Data Portability ---
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 Plan of Treatment Reminders Order Date Submit Date Provider Last Modified By Organization Details Last Modified Time Details Appointments None recorded. Lab None recorded. Referral None recorded. Procedures None recorded. Surgeries None recorded. Imaging None recorded. Medication Orders famotidine 20 mg tablet 2023 024 [facility][id number], [address] [facility], [place], [address], 4 15:12:05 Patient TargetsNo targets recorded. Patient InstructionsNo instructions recorded. Reason for Referral None Reported. Problems Name Problem SNOMED Code Status Onset Date Resolution Date Notes Provider Name and Address Organization Details Recorded Time Dysphonia 86340190 Active 2015 Hoarse ness; Note: Date Diagno sed: 016 3:06 PM (R49.0 ) Not Available [facility] 4 02:13:34 Gastroesop hageal reflux disease without esophagiti s 922105511 Active 2023 DOUG VILLATORO MD [address] [facility],[place] [address], [place], [address] , [place] - [facility] 4 15:10:58 Chronic hoarseness 6998229304997 Active 2023 DOUG VILLATORO MD [address] [facility],[place] [address], [place], [address] , [facility] - [facility] 4 15:14:20 Problem Notes None recorded. Procedures Surgical History Date Name Laterality Status Provider Name and Address Organization Details Recorded Time 04/06/2024 FFL_RE completed DOUG VILLATORO MD [address] [place] [address], [place], [address], [place] - [facility] 04/06/2024 15:16:09 Imaging Results None recorded. [...] 400 mg tablet active Medicatio n ID: [id number] Br and Name: ibuprofen Send Method: E-Prescri [...] Updated DateTime 04/06/2024 157.48 cm 28.9 kg/m2 34639.59 g Annette Banuelos [place] - [facility] 04/06/2024 14:46:26 Social History None recorded. Functional Status None recorded. Mental Status None recorded. Family History Nothing Reported. Medical History No medical history recorded. Gynecological HistoryNo gynecological history recorded. Obstetrics History GPAL:G 0 P 0 0 0 0 Past Encounters Encounter ID Performer Location Encounter Start Date Encounter Closed Date Diagnosis/Indication Diagnosis SNOMED-CT Code Diagnosis ICD10 Code Diagnosis IMO Codes Diagnosis Note [id number] ODUG VILLATORO MD [facility] [address] [address] 04/06/2024 14:04:27 04/06/2024 15:13:37 Gastroesophageal reflux disease without esophagitis 100255825 K21.9 Exam was benign. Laryngosco py showed [...] py if she doesn't improve. Chronic hoarseness 70272 61313 105 R49.0 see above Health Concerns Section Related Observation LastModified by Organization Detai ls LastModified Time None Recorded Concern Status LastModified by Organization Details LastModified Time None Recorded Advance Directives Directive None Recorded Payers Insurance Date Sequence Insurance Name Policy Number Policy Pleitez Covered Member ID Pleitez Member ID Guarantor Name 10/25/2024 1 [facility] (MEDICAID HMO) COLELEN Merida [id number] Skylar Hawleyos 04/06/2024 1 [place] [facility] Skylar Merida [id number] Skylar Merida Notes Date Note Type Note [...] but occasionally she does. DOUG VILLATORO MD [address] [place] [address], [phone], [facility] - [facility] 04/06/2024 15:17:06 OBGyn Episode No OBEpisode recorded.
== END 2025-08-05 15:50 | disposition home or self-care (01) ==
LOC: HO.HUSH 14:57
PROVIDERS: PCP Internal Medicine; Visit Provider Urology
DX: Z13.9 Encounter for screening, unspecified (principal)